=== PATIENT | female | born 1945 | race Caucasian/White ===

== ENCOUNTER → 2017-07-05 09:06 | Outpatient (CLI) | payer MEDICARE, SELFPAY ==
--- NOTE | 2017-07-05 09:10 | MM_ITS ---
MM Dig screening mamm BI w/CAD CAD Screening ORDERING PHYSICIAN : Cristian Zhu MD PATIENT AGE: 71 years GENDER: Female COMPARISON: No previous studies available for comparison INDICATION: 71-year-old. No hormones. No complaints. Noncontributory family history TECHNIQUE: Standard CC and MLO images were obtained. R2 CAD reviewed. Additional axillary cc view right breast and CC nipple profile view left breast FINDINGS: Low-density breast. Diffuse fatty replacement... No dominant mass nor suspicious calcifications in either breast Small round densities at the deep axillary tail of both right left breast are most compatible with small intramammary lymph nodes.. lFollow the small 7 mm noted at the left axilla is umbilicated. Smaller similar area at the right axillary region. Also generous lymph nodes towards the left axilla and I would direct or physical exam to this region. It is only partially imaged but appears contain central fat with upper normal thickness of cortex. If significant palpable left axilla encountered adenopathy then ultrasound correlation would be warranted of left axilla and breast Otherwise up in one year the adequate and should be emphasized, encouraged. ------ IMPRESSION: Baseline mammogram. The breasts demonstrate no areas of significant concern. What appear to be small intramammary lymph nodes seen at tail bilaterally but follow-up in one year the adequate . There is a partially imaged 2 cm lymph node with slightly generous cortex thickness. With this.I would directed physical exam to the axillary regions to exclude any significant palpable adenopathy. Note comments in text BI-RADS Category: 2 Benign Finding(s) RECOMMENDED FOLLOW-UP: 1YR - 1 YEAR FOLLOW-UP (A letter has been sent to the patient regarding results of the study.) Screening
--- NOTE | 2017-07-05 09:11 | XR_ITS ---
XR DEXA axial skeleton HISTORY: ITS.REASON: POST MENOPAUSAL ORDERING PHYSICIAN: Cristian Zhu MD PATIENT AGE: 71 years COMPARISON: None FINDINGS: The BMD measured at the right femoral neck is -1.9 g/cm squared with a T score of T score. This is considered Osteopenic according to the World Health Organization criteria. Fracture risk is Moderate. Treatment is advised.. L1 L4 density has a T score of 0.8 which is within normal limits. IMPRESSION: Osteopenia. Moderate fracture risk. Recommend treatment and follow-up exam June 2019
== END ==
PROVIDERS: PCP Internal Medicine Adolescent Medicine; Visit Provider Internal Medicine Adolescent Medicine
DX: Z12.31 Encounter for screening mammogram for malignant neoplasm of breast (principal); Z78.0 Asymptomatic menopausal state; Z13.820 Encounter for screening for osteoporosis
CPT/HCPCS: 77067; 77080

== ENCOUNTER → 2017-09-15 09:47 | Outpatient (CLI) | payer MEDICARE, SELFPAY ==
--- NOTE | 2017-09-15 | CT_ITS ---
CT angio neck INDICATION: ITS.REASON: BILAT CAROTID STENOSIS ORDERING PHYSICIAN: Sharon Escalera PATIENT AGE: 71 years COMPARISON: TECHNIQUE: Axial images are obtained following the bolus administration of 100 mg of Isovue-370 contrast. Sagittal and coronal reformatted images are reviewed as well. All CT scans at the facility use one or more dose reduction, viz: automated exposure control; ma/kV adjustment per patient size (including targeted exams where dose is matched to indication; i.e. head); or iterative reconstruction technique. FINDINGS: Atherosclerotic changes involve the aortic arch and ostia of the great vessels. The left vertebral artery originates from the aortic arch as opposed to the left subclavian artery. Calcific plaque is present at the ostium of the left vertebral artery with suspected high-grade stenosis. It is somewhat difficult to determine the degree of stenosis secondary to the artifact from the plaque and cardiac motion. The right common carotid artery shows no significant stenosis. There is tortuosity at the bifurcation of the right carotid with dense calcification at the proximal aspect of the right internal carotid. This calcification creates some artifact. There is at least 70 % stenosis of the mid aspect of the right internal carotid.. The distal right internal carotid has an unremarkable appearance. No significant intracranial stenosis evident of the right ICA. Left common carotid has an unremarkable appearance. There is 50% stenosis of the proximal aspect of the left ICA with dense calcification at the bifurcation. Moderate tortuosity of the left ICA. The distal left ICA is unremarkable. No significant intracranial stenosis evident of the left ICA. Images were also obtained of the intracranial circulation showing no evidence of aneurysm or Major intracranial occlusive process. Coronary artery calcifications are also present. Scattered small nodes are present in the neck. Centrilobular emphysema. Dentures are in place. IMPRESSION: 1. 70-75% stenosis of the proximal to mid aspect of the right internal carotid artery with significant calcific plaque and tortuosity. 2. 50% stenosis of the proximal aspect of the left ICA with dense calcific plaque and tortuosity. 3. 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 Centrilobular emphysematous change 5. Coronary artery calcification
[2017-09-15 12:16] LABS: Blood Urea Nitrogen 13 mg/dL (7-18); Creatinine,Serum 0.82 mg/dL (0.55-1.02); Estimated Glomerular Filt Rate 69 ml/min (>60); GFR (African American) 83 ML/MIN (>60)
--- NOTE | 2017-09-15 12:59 | HMH.ITSHM ---
lisinopril aspirin calcium citrate alprazolam delilant
== END ==
PROVIDERS: PCP Internal Medicine Adolescent Medicine; Visit Provider Nurse Practitioner Family
DX: I65.23 Occlusion and stenosis of bilateral carotid arteries (principal)
CPT/HCPCS: 36415; 70498; 82565; 84520; Q9967

== ENCOUNTER → 2017-10-23 07:43 | Outpatient (CLI) | payer MEDICARE, SELFPAY ==
[2017-10-23 08:55] LABS: Alanine Aminotransferase 25 U/L (12-78); Albumin Level 3.9 gm/dL (3.4-5.0); Albumin/Globulin Ratio 1.1 (1.1-1.8); Alkaline Phosphatase 113 U/L (46-116); Aspartate Amino Transferase 20 U/L (15-37); Bilirubin,Total 0.3 mg/dL (0.2-1.0); Blood Urea Nitrogen 16 mg/dL (7-18); Calcium 9.7 mg/dL (8.5-10.1); Carbon Dioxide 29 mmol/L (21.0-32.0); Chloride 103 mmol/L (98-107); Chol/HDL Ratio 5.8 (1-3.5); Cholesterol 161 mg/dL (140-200); Estimated Glomerular Filt Rate 70 ml/min (>60); GFR (African American) 85 ML/MIN (>60); Globulin 3.6 gm/dl (1.3-3.2); Glucose 93 mg/dL (74-106); HDL Cholesterol 28 mg/dL (29-89); LDL Cholesterol 107 mg/dL (0-130); Sodium 140 mmol/L (136-145); Total Protein,Serum 7.5 gm/dL (6.4-8.2); Triglycerides 130 mg/dL (30-200); VLDL Cholesterol 26 mg/dL (0-40)
== END ==
PROVIDERS: Visit Provider Nurse Practitioner Family
DX: I10 Essential (primary) hypertension (principal); E78.5 Hyperlipidemia, unspecified
CPT/HCPCS: 36415; 80053; 80061

== ENCOUNTER → 2017-10-23 08:06 | Outpatient (POV) | payer MEDICARE, SELFPAY | PROVIDERS: PCP Internal Medicine Adolescent Medicine; Visit Provider Physician Assistant | DX: Z00.00 Encounter for general adult medical examination without abnormal findings (principal) ==

== ENCOUNTER 2017-12-23 02:19 | Observation (INO) ==
[2017-12-23 02:52] LABS: Basophils % 0.1 % (0.1-2.0); Eosinophils # 0.3 K/mm3 (0.0-0.4); Eosinophils % 2.7 % (0.1-12.0); Hematocrit 32.9 % (37.0-47.0); Lymphocytes # 1.6 K/mm3 (0.7-4.5); Lymphocytes % 15.5 K/mm3 (10-50); Mean Corpuscular HGB Conc 33.4 g/dL (31.8-35.4); Mean Corpuscular Hemoglobin 26.2 pg (27.0-31.2); Mean Corpuscular Volume 78.6 fl (81-99); Mean Platelet Volume 6.7 fl (7.4-10.4); Monocytes # 0.6 K/mm3 (0.1-1.0); Monocytes % 5.8 % (1.7-9.3); Neutrophils # 7.9 K/mm3 (1.8-7.8); Neutrophils % 75.9 % (37.0-80.0); Platelet Count 350 K/mm3 (142-424); Red Blood Count 4.19 M/mm3 (4.20-5.40); Red Cell Distribution Width 15.6 % (11.5-17.5); White Blood Count 10.3 K/mm3 (4.8-10.8)
--- NOTE | 2017-12-23 02:56 | Emergency Department Note ---
ED Disposition Clinical Impression: Nausea and vomiting in adult patient, Hyponatremia Disposition: Admitted as Observation Condition on Discharge: Good Instructions: DI for Diarrhea and Traveler's Diarrhea -- Adult, DI for Diarrhea and Traveler's Diarrhea -- Child, DI for Nausea -- Adult, DI for Nausea -- Child Referrals: Cristian Zhu MD [Primary Care Provider] - - Critical Care Critical Care Time: No Attestation: On 12/23/17, the high probability of a clinically significant, sudden or life threatening deterioration of the following system(s) required my full and direct attention, intervention and personal management. The time I documented below is in addition to time spent performing reported procedures but includes the following listed in this critical care notation. Medical Decision Making - Medical Records Medical records reviewed: Yes: I reviewed the patient's medical records. - [place] Inquiry Pt receiving controlled substance: No Vital Signs: 12/23/17 02:24 12/23/17 02:44 12/23/17 03:50 Temperature 98.5 F Temperature Source Oral Pulse Rate [Right Radial] 78 74 70 Respiratory Rate 18 Blood Pressure [Right Arm] 179/69 148/63 160/78 Blood Pressure Mean [Right Arm] 105 91 105 Blood Pressure Source [Right Arm] Manual Cuff/ Auscultation Automatic Cuff Automatic Cuff Blood Pressure Position [Right Arm] Sitting 02 Sat by Pulse Oximetry 97 95 97 Oxygen Delivery Method Room Air - Lab Data Lab results reviewed: Yes: I reviewed the patient's lab results. Lab Results 12/23/17 02:33: WBC 10.3, RBC 4.19 L, Hgb 11.0 L, Hct 32.9 L, MCV 78.6 L, MCH 26.2 L, MCHC 33.4, RDW 15.6, Plt Count 350, MPV 6.7 L, Neut % (Auto) 75.9, Lymph % (Auto) 15.5, [place] % (Auto) 5.8, Eos % (Auto) 2.7, Baso % (Auto) 0.1, Neut # (Auto) 7.9 H, Lymph # (Auto) 1.6, [place] # (Auto) 0.6, Eos # (Auto) 0.3, Baso # (Auto) 0.0 12/23/17 02:33: Sodium 128 L, Potassium 3.7, Chloride 92 L, Carbon Dioxide 25, Anion Gap 14.7, BUN 13, Creatinine 0.75, Estimated Creat Clear 56, Estimated GFR 76, Est GFR ( Amer) 92, Glucose 113 H, Calcium 8.9, Total Bilirubin 0.5, AST 45 H, ALT 68, Alkaline Phosphatase 128 H, Total Creatine Kinase 54, CK- MB (CK-2) 1.1, CK-MB (CK-2) Rel Index 2.0, Troponin I 0.11 H, Total Protein 8.0 , Albumin 3.8, Globulin 4.2 H, Albumin/Globulin Ratio 0.9 L, Amylase 33, Lipase 198 12/23/17 03:17: Urine Color Yellow, Urine Appearance Clear, Urine pH 7.5, Ur Specific [place] 1.015, Urine Protein Trace, Urine Glucose (UA) Negative, Urine Ketones Trace, Urine Blood Negative, Urine Nitrate Negative, Urine Bilirubin Negative, Urine Urobilinogen 0.2, Ur Leukocyte Esterase Negative, Urine RBC Occasional, Urine WBC 3-5, Ur Squamous Epith Cells 3-5, Urine Bacteria Trace 12/23/17 04:05: Troponin I 0.11 H Result diagrams: 12/23/17 02:33 12/23/17 02:33 Orders (Tests/Meds): ED MEDICATIONS Discontinued Medications Generic Name Dose Route Start Last Admin Trade Name Freq PRN Reason Stop Dose Admin Sodium Chloride 1,000 mls @ 999 mls/hr 12/23/17 02:30 12/23/17 02:40 Sod Chlor 0.9% 1000ml Bag IV 12/23/17 03:30 999 mls/hr .Q1H1M ARIELLA Administration Ondansetron HCl 4 mg 12/23/17 02:29 12/23/17 02:40 Zofran 4mg/2ml Vial IV 12/23/17 02:30 4 mg ONCE ONE Administration ORDERS Category Date Time Status CT abdomen pelvis wo con Stat Cat Scan 12/23/17 02:29 Taken XR chest 2V Stat Exams 12/23/17 02:29 Taken - Radiology Data #1 Image(s): Chest Image Reviewed: Yes I reviewed the patient's radiology image Preliminary Findings: Abnormal (nonspecific) - CT Data CT Scan: Abdomen, Pelvis Time Received: 05:[address] Reviewed: Yes: I have viewed the radiologist's interpretation Preliminary Findings: Abnormal (nonspecific) - ECG Data Tracing #1 I reviewed this ECG and interpreted as documented below: Normal Sinus Rhythm: Yes Ischemic changes: non-specific ST-T wave changes - Physician Consults Physician Consulted: elisha Reason -: Admission Nausea/Vomiting/Diarrhea HPI - General Chief complaint: Nausea/Vomiting/Diarrhea Stated complaint: Vomiting,High Blood Pressure Time Seen by Provider: 12/23/17 02:30 Mode of Arrival: Family Vehicle Source of Information: Patient, Relative, Medical Record Limitations: No Limitations Description of Symptoms (Recalled from ER Triage Doc. by RN): pt s/p right carotid endarectomy on monday. pt presents to ed with c/o nausea/vomiting, overall not feeling well, and hypertension at home. pt reports bp of 200/70 at home. - History of Present Illness HPI Narrative: pt with recent surg at - rt carotid endarectomy - she stayed 2 days and was d /c and has dev nausea and vomiting with dec po intake with no chest pain or sob with some upper abd pain assoc with vomiting - no sig sob and no fever MD complaint: nausea, vomiting Onset (ago): day(s) Associated Abdominal Pain: Yes Location of pain: epigastric Severity: moderate Consistency: intermittent Exacerbating factors: eating Context: recent surgery/procedure Associated symptoms: denies other symptoms - Related Data Home Medications Medication Instructions Recorded Confirmed alprazolam 0.5 mg tablet 0.5 mg PO Q6HP PRN 30 Days #120 12/01/17 12/23/17 lisinopril 20 1 tab PO DAILY 90 Days #90 12/01/17 12/23/17 mg-hydrochlorothiazide 12.5 mg tablet Aspirin [Aspirin 81mg chewable 81 mg PO DAILY 12/23/17 12/23/17 tab] Atorvastatin Calcium [Atorvastatin 5 mg PO DAILY 12/23/17 12/23/17 10mg Tab] Docusate Sodium [Colace] 100 mg PO BID 12/23/17 12/23/17 hydroCHLOROthiazide 12.5 mg PO DAILY 12/23/17 12/23/17 [Hydrochlorothiazide 12.5mg Tab] Allergies Allergy/AdvReac Type Severity Reaction Status Date / Time BUTE ? Allergy Unknown FEELS LIKE Uncoded 04/25/17 14:42 IN A BARREL DOXYCYCLINE Allergy Unknown NA-NAUSEA Uncoded 04/25/17 14:42 From AUGMENTIN Allergy Unknown NA-NAUSEA Uncoded 04/25/17 14:42 From NEXIUM Allergy Unknown I-HIVES Uncoded 04/25/17 14:42 SULFA (SULFONAMIDE) Allergy Unknown NA-NAUSEA/V Uncoded 04/25/17 14:42 OMITING [facility] History I have reviewed the patient's past medical history: Yes Medical History: Reports:: Coronary Artery Disease, Hypertension Denies:: Cancer, Diabetes Mellitus Type 1, Diabetes Mellitus Type 2, MRSA Other Surgeries: Yes: Cholecystectomy Amputation: No Fractures: Yes Comment: wrist - Social History Smoking Status: Former smoker Alcohol Intake: never Substance Use Type: denies use - Psychiatric History Expresses thoughts of harming self/others: None Suicide Plan Description: No Plan ROS Obtained: Yes All systems reviewed & no additional complaints - Constitutional Constitutional: Denies fever(s) - Eyes Eyes: Denies change in vision - ENT Ears, Nose, Mouth, and Throat: Denies sore throat - Cardiovascular Cardiovascular: Denies chest pain - Respiratory Respiratory: No cough - Gastrointestinal Gastrointestingal: Reports: abdominal pain, nausea, vomiting. Denies: diarrhea - Genitourinary Female Genitourinary: Denies hematuria - Musculoskeletal Musculoskeletal: Denies joint pain, Denies joint swelling - Integumentary/Breasts Skin/Breast: Denies rash - Neurologic Neurologic: Denies seizure-like activity Physical Exam - General General appearance: in no apparent distress - Head Head exam: normocephalic - Eye Eye exam: Present: PERRL, EOMI. Absent: scleral icterus - ENT ENT exam: Present: mucous membranes dry - Neck Neck exam: Present: trachea midline - Respiratory Respiratory exam: Present: normal lung sounds bilaterally. Absent: respiratory distress - Cardiovascular Cardiovascular exam: Present: regular rate, systolic murmur, +S4 - Abdominal Exam Abdominal exam: Present: soft Abdominal tenderness: Present: epigastrium, mild - Extremities Exam Extremities exam: Absent: calf tenderness - Neurological Exam Neurological exam: Present: alert, oriented X3, CN II-XII intact - Psychiatric Psychiatric exam: Present: normal affect - Skin Skin exam: Absent: rash
[2017-12-23 03:18] LABS: Albumin Level 3.8 gm/dL (3.4-5.0); Albumin/Globulin Ratio 0.9 (1.1-1.8); Anion Gap 14.7 mEq/L (5-15); Bilirubin,Total 0.5 mg/dL (0.2-1.0); Calcium 8.9 mg/dL (8.5-10.1); Globulin 4.2 gm/dl (1.3-3.2); Potassium 3.7 mmoL/L (3.5-5.1)
[2017-12-23 03:20] LABS: Microscopic, Urine URINE MICROSCOPIC (MICROSCOPIC)
[2017-12-23 03:21] LABS: Appearance,Urine CLEAR (Clear); Bilirubin,Urine Negative (Negative); Blood, Urine Negative (Negative); Color,Urine YELLOW (Yellow); Glucose,Urine (UA) Negative (Negative); Ketones,Urine TRACE (Negative); Leukocyte Esterase,Urine Negative (Negative); PH,Urine 7.5 (5.0-8.5); Protein,Urine TRACE (Negative); Specific Gravity, Urine 1.015 (1.005-1.030); Urobilinogen,Urine 0.2 EU/dl (0.2)
[2017-12-23 04:41] LABS: Bacteria,Urine Trace /lpf; RBC,Urine Occasional #/hpf (0-3)
[2017-12-23 07:49] LABS: T4 (Thyroxine) 13.8 ug/dl (4.7-13.3); Thyroid Stimulating Hormone 0.77 uIU/ml (0.358-3.740)
--- NOTE | 2017-12-23 07:52 | History & Physical Report ---
*Admission Date: 12/23/17 *Chief complaint: Nausea/vomiting/hyponatremia *History of present illness: 72-year-old white female with hypertension and cerebrovascular disease who underwent carotid endarterectomy at [facility] on December 19 that was uncomplicated although patient's postoperative course was notable for significant hypertension in the hospital. She improved a little bit in the hospital but was somewhat nauseated, was discharged home yesterday on the assumption that her blood pressure would improve at home. Unfortunately it has not, her daughter has doubled up on her medication the patient is continued to be nauseated and came back to the emergency department early this morning nauseous, vomiting and was found to be weak, hypertensive and afflicted with hyponatremia. She was admitted to hospital for further evaluation and further diagnostic testing. [facility] History I have reviewed the patient's past medical history: Yes Medical History: Reports:: Coronary Artery Disease, Hypertension Denies:: Cancer, Diabetes Mellitus Type 1, Diabetes Mellitus Type 2, MRSA Laterality Cases: Right: Carotid Endarterectomy Other Surgeries: Yes: Cholecystectomy Amputation: No Fractures: Yes - *Social History Educational Level: Completed High School Smoking Status: Former smoker Alcohol Intake: never Substance Use Type: denies use Occupational Status: retired Housing: house Household Members: spouse - Psychiatric History Expresses thoughts of harming self/others: None Suicide Plan Description: No Plan *Family Hx:: No significant family history, Hypertension Review of Systems - Review of Systems Review of systems:: pertinent systems reviewed and negative unless documented below - Constitutional Denies anorexia, Denies body ache(s), Denies daytime sleepiness - Eyes Denies blurry vision, Denies change in vision - ENT Denies bleeding gums, Denies change in voice - *Cardiovascular Denies chest pain, Denies excessive sweating, Denies shortness of breath, Denies generalized swelling, Denies irregular heart rhythm - *Respiratory Denies change in phlegm color, Denies chest congestion, Denies cough - *Gastrointestinal Reports nausea, Reports vomiting, Denies abdominal pain, Denies coffee ground vomit, Denies constipation, Denies vomiting blood, Denies bright, red blood in stools - *Genitourinary Denies abnormal periods - *Musculoskeletal Denies joint pain, Denies joint swelling - Integumentary/Breasts Denies hair loss - *Neurologic Denies seizure-like activity Meds Home Medications Medication Instructions Recorded Confirmed Type alprazolam 0.5 mg tablet 0.5 mg PO Q6HP PRN 30 Days #120 12/01/17 12/23/17 History lisinopril 20 1 tab PO DAILY 90 Days #90 12/01/17 12/23/17 History mg-hydrochlorothiazide 12.5 mg tablet Aspirin [Aspirin 81mg chewable 81 mg PO DAILY 12/23/17 12/23/17 History tab] Atorvastatin Calcium [Atorvastatin 5 mg PO DAILY 12/23/17 12/23/17 History 10mg Tab] Docusate Sodium [Colace] 100 mg PO BID 12/23/17 12/23/17 History hydroCHLOROthiazide 12.5 mg PO DAILY 12/23/17 12/23/17 History [Hydrochlorothiazide 12.5mg Tab] Allergies Allergy/AdvReac Type Severity Reaction Status Date / Time BUTE ? Allergy Unknown FEELS LIKE Uncoded 04/25/17 14:42 IN A BARREL DOXYCYCLINE Allergy Unknown NA-NAUSEA Uncoded 04/25/17 14:42 From AUGMENTIN Allergy Unknown NA-NAUSEA Uncoded 04/25/17 14:42 From NEXIUM Allergy Unknown I-HIVES Uncoded 04/25/17 14:42 SULFA (SULFONAMIDE) Allergy Unknown NA-NAUSEA/V Uncoded 04/25/17 14:42 OMITING Exam Vital signs and Labs for Last 24 Hours: Temp Pulse Resp BP Pulse Ox 99.2 F 80 18 159/48 94 L 12/23/17 06:05 12/23/17 06:05 12/23/17 06:05 12/23/17 06:05 12/23/17 06:56 Laboratory Results - last 24 hr 12/23/17 02:33: WBC 10.3, RBC 4.19 L, Hgb 11.0 L, Hct 32.9 L, MCV 78.6 L, MCH 26.2 L, MCHC 33.4, RDW 15.6, Plt Count 350, MPV 6.7 L, Neut % (Auto) 75.9, Lymph % (Auto) 15.5, [place] % (Auto) 5.8, Eos % (Auto) 2.7, Baso % (Auto) 0.1, Neut # (Auto) 7.9 H, Lymph # (Auto) 1.6, [place] # (Auto) 0.6, Eos # (Auto) 0.3, Baso # (Auto) 0.0 12/23/17 02:33: Sodium 128 L, Potassium 3.7, Chloride 92 L, Carbon Dioxide 25, Anion Gap 14.7, BUN 13, Creatinine 0.75, Estimated Creat Clear 56, Estimated GFR 76, Est GFR ( Amer) 92, Glucose 113 H, Calcium 8.9, Total Bilirubin 0.5, AST 45 H, ALT 68, Alkaline Phosphatase 128 H, Total Creatine Kinase 54, CK- MB (CK-2) 1.1, CK-MB (CK-2) Rel Index 2.0, Troponin I 0.11 H, Total Protein 8.0 , Albumin 3.8, Globulin 4.2 H, Albumin/Globulin Ratio 0.9 L, Amylase 33, Lipase 198 12/23/17 03:17: Urine Color Yellow, Urine Appearance Clear, Urine pH 7.5, Ur Specific [place] 1.015, Urine Protein Trace, Urine Glucose (UA) Negative, Urine Ketones Trace, Urine Blood Negative, Urine Nitrate Negative, Urine Bilirubin Negative, Urine Urobilinogen 0.2, Ur Leukocyte Esterase Negative, Urine RBC Occasional, Urine WBC 3-5, Ur Squamous Epith Cells 3-5, Urine Bacteria Trace 12/23/17 04:05: Troponin I 0.11 H I & O for Last 24 hours: Intake & Output 12/20/17 12/21/17 12/22/17 12/23/17 11:59 11:59 11:59 11:59 Output Total 0 / 0 Balance 0 / 0 Weight 147 lb 2 oz Narrative: ENT exam reveals slightly dry but otherwise clear oropharynx. She has no scleral icterus her neck scar on the right looks good. Good healing. Anterior lung allan are clear, heart rate regular, abdomen soft nontender. No masses. No clubbing, cyanosis, no edema, no jaundice. Move all extremities well. No cranial nerve deficits. Assessment and Plan (1) Accelerated hypertension Current visit: Yes Status: Acute Category: Medical Code(s): I10 - Essential (primary) hypertension Hold HCTZ given her hyponatremia. Double lisinopril to 20 mg twice daily. Blood pressure this morning is in the upper 150s. (2) Hyponatremia Current visit: Yes Status: Acute Category: Medical Code(s): E87.1 - Hypo- osmolality and hyponatremia Normal saline infusion. Check labs tomorrow. Advance diet cautiously. (3) Nausea and vomiting in adult patient Current visit: Yes Status: Acute Category: Medical Code(s): R11.2 - Nausea with vomiting, unspecified Possibly from anesthesia effect. Seems to be improving since fluids started. Watch carefully. Possible discharge tomorrow. If discharges recommend holding HCTZ and using lisinopril 20 mg twice daily if this controls her blood pressure in house.
--- NOTE | 2017-12-23 08:58 | Pharmacy Consult Notes ---
[facility] Pharmacy VTE Monitoring - Patient Demographics Admission date: 12/23/17 Report Date: 12/23/17 Time: 08:57 Allergies/Adverse Reactions: Patient Allergies esomeprazole [From Nexium] Allergy (Intermediate, Verified 12/23/17 08:35) Hives amoxicillin [From Augmentin] Adverse Reaction (Intermediate, Verified 12/23/17 08:35) Nausea clavulanic acid [From Augmentin] Adverse Reaction (Intermediate, Verified 08:35) Nausea doxycycline Adverse Reaction (Intermediate, Verified 12/23/17 08:35) Nausea Sulfa (Sulfonamide Antibiotics) Adverse Reaction (Intermediate, Verified 08:35) Nausea BUTE ? Allergy (Unknown, Uncoded 04/25/17 14:42) FEELS LIKE IN A BARREL Height: 1.63 m Weight: 66.735 kg Patient Problems: Current Active Problems Nausea and vomiting in adult patient (Acute) Hyponatremia (Acute) Accelerated hypertension (Acute) - VTE Risk Labs: VTE Related Lab Results Hgb 11.0 g/dL (12.2-16.2) L 12/23/17 02:33 Hct 32.9 % (37.0-47.0) L 12/23/17 02:33 Plt Count 350 K/mm3 (142-424) 12/23/17 02:33 BUN 13 mg/dL (7-18) 12/23/17 02:33 Creatinine 0.75 mg/dL (0.55-1.02) 12/23/17 02:33 Estimated Creat Clear 56 mL/min (0-300) 12/23/17 02:33 Was VTE Risk Assessment Performed: Yes VTE Score: 4 VTE Risk Level: Low Risk - Prophylaxis Types of VTE Prophylaxis: TEDS Knee High (YOSVANY HOSE ORDERED) Location of Applied Device: Not Applicable
[2017-12-24 07:19] LABS: Basophils % 0.3 % (0.1-2.0); Eosinophils # 0.3 K/mm3 (0.0-0.4); Lymphocytes # 1.8 K/mm3 (0.7-4.5); Lymphocytes % 18.1 K/mm3 (10-50); Mean Corpuscular HGB Conc 33.3 g/dL (31.8-35.4); Mean Corpuscular Hemoglobin 26.8 pg (27.0-31.2); Mean Corpuscular Volume 80.5 fl (81-99); Mean Platelet Volume 6.6 fl (7.4-10.4); Monocytes # 0.6 K/mm3 (0.1-1.0); Monocytes % 6.1 % (1.7-9.3); Neutrophils # 7.3 K/mm3 (1.8-7.8); Neutrophils % 72.4 % (37.0-80.0); Platelet Count 342 K/mm3 (142-424); Red Blood Count 3.72 M/mm3 (4.20-5.40); Red Cell Distribution Width 16.1 % (11.5-17.5); White Blood Count 10.1 K/mm3 (4.8-10.8)
[2017-12-24 07:28] LABS: Albumin Level 3.4 gm/dL (3.4-5.0); Albumin/Globulin Ratio 0.9 (1.1-1.8); Anion Gap 12.6 mEq/L (5-15); Bilirubin,Total 0.5 mg/dL (0.2-1.0); Calcium 8.5 mg/dL (8.5-10.1); Globulin 3.7 gm/dl (1.3-3.2); Potassium 3.6 mmoL/L (3.5-5.1); Total Protein,Serum 7.1 gm/dL (6.4-8.2)
--- NOTE | 2017-12-24 07:46 | Discharge Summary ---
General - General Admission date:: 12/23/17 Discharge date: 12/24/17 HPI HPI: 72-year-old white female with hypertension and cerebrovascular disease who underwent carotid endarterectomy at [facility] on December 19 that was uncomplicated although patient's postoperative course was notable for significant hypertension in the hospital. She improved a little bit in the hospital but was somewhat nauseated, was discharged home yesterday on the assumption that her blood pressure would improve at home. Unfortunately it has not, her daughter has doubled up on her medication the patient is continued to be nauseated and came back to the emergency department early this morning nauseous, vomiting and was found to be weak, hypertensive and afflicted with hyponatremia. She was admitted to hospital for further evaluation and further diagnostic testing. Hospital Course Hospital Course: Patient was admitted after being given Zofran for nausea. This worked quite well. Her diet was gradually advanced and she only required 1 additional dose of Zofran late in the evening on December 23. The following morning on December 24 patient had been able to eat without nausea or vomiting. She was overall feeling better and patient was discharged to home. She was discharged home with a prescription for Zofran as well as a prescription for potassium supplement due to hypokalemia Objective Vital signs: Temp Pulse Resp BP Pulse Ox 98.0 F 72 16 196/84 95 12/24/17 07:29 12/24/17 07:29 12/24/17 07:29 12/24/17 07:29 12/24/17 07:29 Results Labs on day of discharge: Labs from last 24 hours 12/24/17 12/24/17 12/23/17 06:40 06:40 12:09 WBC 10.1 RBC 3.72 L Hgb 10.0 L Hct 30.0 L MCV 80.5 L MCH 26.8 L MCHC 33.3 RDW 16.1 Plt Count 342 MPV 6.6 L Neut % (Auto) 72.4 Lymph % (Auto) 18.1 Gordon % (Auto) 6.1 Eos % (Auto) 3.0 Baso % (Auto) 0.3 Neut # (Auto) 7.3 Lymph # (Auto) 1.8 Gordon # (Auto) 0.6 Eos # (Auto) 0.3 Baso # (Auto) 0.0 Sodium 137 Potassium 3.6 Chloride 102 Carbon Dioxide 26 Anion Gap 12.6 BUN 11 Creatinine 0.89 Estimated Creat Clear 53 Estimated GFR 62 Est GFR ( Amer) 75 Glucose 93 Calcium 8.5 Total Bilirubin 0.5 AST 46 H ALT 69 Alkaline Phosphatase 110 Troponin I 0.11 H Total Protein 7.1 Albumin 3.4 D Globulin 3.7 H Albumin/Globulin Ratio 0.9 L TSH Thyroxine (T4) 12/23/17 12/23/17 09:15 07:13 WBC RBC Hgb Hct MCV MCH MCHC RDW Plt Count MPV Neut % (Auto) Lymph % (Auto) Gordon % (Auto) Eos % (Auto) Baso % (Auto) Neut # (Auto) Lymph # (Auto) Gordon # (Auto) Eos # (Auto) Baso # (Auto) Sodium Potassium Chloride Carbon Dioxide Anion Gap BUN Creatinine Estimated Creat Clear Estimated GFR Est GFR ( Amer) Glucose Calcium Total Bilirubin AST ALT Alkaline Phosphatase Troponin I 0.11 H 0.09 H Total Protein Albumin Globulin Albumin/Globulin Ratio TSH 0.77 Thyroxine (T4) 13.8 H DS: Diagnosis - Discharge Diagnosis (1) Accelerated hypertension Status: Acute (2) Hyponatremia Status: Acute (3) Nausea and vomiting in adult patient Status: Acute Discharge Plan - Patient Discharge Instructions ACTIVITY: Continue current activity DIET: continue same diet - Follow up Plan Follow up with: Cristian Zhu MD [Primary Care Provider] - 12/27/17 Disposition: Home, Self-Senior Care Medications: Home Medications Medication Instructions Recorded Confirmed Type alprazolam 0.5 mg tablet 0.5 mg PO Q6HP PRN 30 Days #120 12/01/17 12/23/17 History lisinopril 20 1 tab PO DAILY 90 Days #90 12/01/17 12/23/17 History mg-hydrochlorothiazide 12.5 mg tablet Aspirin [Aspir 81] 81 mg PO DAILY 12/23/17 12/23/17 History Atorvastatin Calcium [Atorvastatin 5 mg PO DAILY 12/23/17 12/23/17 History 10mg Tab] Docusate Sodium [Colace] 100 mg PO BID 12/23/17 12/23/17 History hydroCHLOROthiazide 12.5 mg PO DAILY 12/23/17 12/23/17 History [Hydrochlorothiazide 12.5mg Tab] Prescriptions/Medication Reconciliation: New Potassium Chloride [Klor-con 20 mEq tablet] 20 meq PO BID #60 tab Ondansetron [Zofran 4mg ODT] 4 mg PO Q6HP PRN #30 tab.rapdis PRN Reason: Nausea Continue alprazolam 0.5 mg tablet 0.5 mg PO Q6HP PRN 30 Days #120 PRN Reason: Anxiety lisinopril 20 mg-hydrochlorothiazide 12.5 mg tablet 1 tab PO DAILY 90 Days # 90 Docusate Sodium [Colace] 100 mg PO BID Atorvastatin Calcium [Atorvastatin 10mg Tab] 5 mg PO DAILY Aspirin [Aspir 81] 81 mg PO DAILY Discontinued hydroCHLOROthiazide [Hydrochlorothiazide 12.5mg Tab] 12.5 mg PO DAILY
== END 2017-12-24 08:50 | disposition home or self-care (01) ==
LOC: ER 02:19 → 2ND 02:19
PROVIDERS: ADMIT Family Medicine; ATTEND Internal Medicine Adolescent Medicine
CPT/HCPCS: 36415; 71020; 71046; 74176; 80053; 81001; 82150; 82550; 82553; 83690; 84436; 84443; 84484; 85025; 93005; 96365; 96366; 96375; 99284; G0378; J2405

== ENCOUNTER → 2018-04-16 08:51 | Outpatient (CLI) | payer MEDICARE, SELFPAY ==
[2018-04-16 09:52] LABS: Basophils # 0.1 K/mm3 (0-0.2); Basophils % 0.8 % (0.1-2.0); Eosinophils # 0.2 K/mm3 (0.0-0.4); Eosinophils % 3.5 % (0.1-12.0); Hematocrit 32.4 % (37.0-47.0); Lymphocytes % 28.6 % (10-50); Mean Corpuscular HGB Conc 30.8 g/dL (31.8-35.4); Mean Corpuscular Hemoglobin 25.2 pg (27.0-31.2); Mean Corpuscular Volume 81.7 fl (81-99); Mean Platelet Volume 6.9 fl (7.4-10.4); Monocytes # 0.4 K/mm3 (0.1-1.0); Monocytes % 5.6 % (1.7-9.3); Neutrophils # 4.2 K/mm3 (1.8-7.8); Neutrophils % 61.3 % (37.0-80.0); Platelet Count 401 K/mm3 (142-424); Red Blood Count 3.97 M/mm3 (4.20-5.40); Red Cell Distribution Width 14.8 % (11.5-17.5); White Blood Count 6.8 K/mm3 (4.8-10.8)
[2018-04-16 10:39] LABS: Alanine Aminotransferase 24 U/L (12-78); Albumin/Globulin Ratio 1.1 (1.1-1.8); Alkaline Phosphatase 110 U/L (46-116); Anion Gap 14.5 mEq/L (5-15); Aspartate Amino Transferase 17 U/L (15-37); Bilirubin,Total 0.3 mg/dL (0.2-1.0); Blood Urea Nitrogen 14 mg/dL (7-18); Calcium 9.2 mg/dL (8.5-10.1); Carbon Dioxide 27 mmol/L (21.0-32.0); Chloride 99 mmol/L (98-107); Chol/HDL Ratio 3.7 (1-3.5); Cholesterol 108 mg/dL (140-200); Creatinine,Serum 0.79 mg/dL (0.55-1.02); Estimated Glomerular Filt Rate 71 ml/min (>60); Ferritin 14 ng/mL (8-388); GFR (African American) 86 ML/MIN (>60); Globulin 3.5 gm/dl (1.3-3.2); HDL Cholesterol 29 mg/dL (29-89); LDL Cholesterol 45 mg/dL (0-130); Potassium 4.5 mmoL/L (3.5-5.1); Sodium 136 mmol/L (136-145); Total Protein,Serum 7.5 gm/dL (6.4-8.2); Triglycerides 171 mg/dL (30-200); VLDL Cholesterol 34 mg/dL (0-40)
[2018-04-16 10:46] LABS: Glucose 95 mg/dL (74-106)
[2018-04-17 08:22] LABS: Iron 30 ug/dL (27-139); UIBC 364 ug/dL (118-369)
[2018-04-17 09:17] LABS: Iron Saturation 8 % (15-55); Vitamin B12 445 pg/mL (232-1245)
[2018-04-17 09:18] LABS: Folate 9.2 ng/mL (>3.0)
== END ==
PROVIDERS: Visit Provider Nurse Practitioner Family
DX: D50.9 Iron deficiency anemia, unspecified (principal); E78.5 Hyperlipidemia, unspecified; I10 Essential (primary) hypertension; K57.32 Diverticulitis of large intestine without perforation or abscess without bleeding
CPT/HCPCS: 36415; 80053; 80061; 82607; 82728; 82746; 83540; 83550; 85025

== ENCOUNTER → 2018-07-18 09:08 | Outpatient (CLI) | payer MEDICARE, SELFPAY ==
[2018-07-18 09:41] LABS: Basophils # 0.1 K/mm3 (0-0.2); Eosinophils # 0.3 K/mm3 (0.0-0.4); Eosinophils % 4.4 % (0.1-12.0); Hematocrit 33.8 % (37.0-47.0); Hemoglobin 10.7 g/dL (12.2-16.2); Lymphocytes # 1.8 K/mm3 (0.7-4.5); Lymphocytes % 26.2 % (10-50); Mean Corpuscular HGB Conc 31.6 g/dL (31.8-35.4); Mean Corpuscular Hemoglobin 25.9 pg (27.0-31.2); Mean Corpuscular Volume 81.9 fl (81-99); Mean Platelet Volume 7.2 fl (7.4-10.4); Monocytes # 0.4 K/mm3 (0.1-1.0); Monocytes % 6.1 % (1.7-9.3); Neutrophils # 4.3 K/mm3 (1.8-7.8); Neutrophils % 62.3 % (37.0-80.0); Platelet Count 344 K/mm3 (142-424); Red Blood Count 4.13 M/mm3 (4.20-5.40); Red Cell Distribution Width 15.3 % (11.5-17.5); White Blood Count 6.8 K/mm3 (4.8-10.8)
[2018-07-18 11:49] LABS: Alanine Aminotransferase 23 U/L (12-78); Albumin Level 4.2 gm/dL (3.4-5.0); Albumin/Globulin Ratio 1.1 (1.1-1.8); Alkaline Phosphatase 98 U/L (46-116); Anion Gap 14.3 mEq/L (5-15); Aspartate Amino Transferase 20 U/L (15-37); Bilirubin,Total 0.4 mg/dL (0.2-1.0); Blood Urea Nitrogen 16 mg/dL (7-18); Calcium 9.5 mg/dL (8.5-10.1); Carbon Dioxide 27 mmol/L (21.0-32.0); Chloride 98 mmol/L (98-107); Cholesterol 133 mg/dL (140-200); Creatinine,Serum 0.75 mg/dL (0.55-1.02); Estimated Glomerular Filt Rate 76 ml/min (>60); Ferritin 12 ng/mL (8-388); GFR (African American) 92 ML/MIN (>60); Globulin 3.9 gm/dl (1.3-3.2); HDL Cholesterol 33 mg/dL (29-89); LDL Cholesterol 70 mg/dL (0-130); Potassium 4.3 mmoL/L (3.5-5.1); Sodium 135 mmol/L (136-145); Total Protein,Serum 8.1 gm/dL (6.4-8.2); Triglycerides 150 mg/dL (30-200); VLDL Cholesterol 30 mg/dL (0-40)
[2018-07-18 12:23] LABS: Glucose 82 mg/dL (74-106)
[2018-07-19 08:34] LABS: Iron 40 ug/dL (27-139); UIBC 344 ug/dL (118-369)
[2018-07-19 09:23] LABS: Iron Saturation 10 % (15-55)
== END ==
PROVIDERS: Visit Provider Internal Medicine Adolescent Medicine
DX: I10 Essential (primary) hypertension (principal); D50.9 Iron deficiency anemia, unspecified; I25.10 Atherosclerotic heart disease of native coronary artery without angina pectoris
CPT/HCPCS: 36415; 80053; 80061; 82728; 83540; 83550; 85025

== ENCOUNTER → 2018-07-26 08:34 | Outpatient (CLI) | payer MEDICARE, SELFPAY ==
--- NOTE | 2018-07-26 08:44 | MM_ITS ---
MM Dig screening mamm BI w/CAD ORDERING PHYSICIAN : Sharon Escalera PATIENT AGE: 72 years GENDER: Female COMPARISON: Only one prior mammogram available for comparison dated 07/05/2017 INDICATION: Screening mammogram. No new complaints. No hormones. Noncontributory family history. TECHNIQUE: Standard CC and MLO images were obtained. R2 CAD reviewed. FINDINGS: . Lower density breast with generalized fatty replacement. Minimal residual fibroglandular elements. No significant new findings. Scattered small intramammary nodes at the upper outer quadrant right and left breast is been seen previously and stable. No significant new areas of concern. A generous benign 2 cm left axillary lymph nodes similar to previous study but more fully imaged today . Bilateral follow-up in one year recommended.. IMPRESSION: Stable mammogram with no significant new findings. No areas of significant concern Bilateral follow-up in one year recommended. BI-RADS Category: 2 Benign Finding(s) RECOMMENDED FOLLOW-UP: 1YR 1 YEAR FOLLOW-UP (A letter has been sent to the patient regarding results of the study.)
== END ==
PROVIDERS: PCP Nurse Practitioner Family; Visit Provider Nurse Practitioner Family
DX: Z12.31 Encounter for screening mammogram for malignant neoplasm of breast (principal)
CPT/HCPCS: 77067

== ENCOUNTER → 2018-08-31 10:39 | Outpatient (CLI) | payer MEDICARE, SELFPAY | PROVIDERS: Visit Provider Internal Medicine Adolescent Medicine | DX: N30.90 Cystitis, unspecified without hematuria (principal) | CPT/HCPCS: 87086; 87088; 87186 ==

== ENCOUNTER → 2018-11-12 07:39 | Outpatient (CLI) | payer MEDICARE, SELFPAY ==
[2018-11-12 08:01] LABS: Basophils # 0.1 K/mm3 (0-0.2); Basophils % 0.7 % (0.1-2.0); Eosinophils # 0.4 K/mm3 (0.0-0.4); Eosinophils % 6.8 % (0.1-12.0); Hematocrit 33.6 % (37.0-47.0); Hemoglobin 10.3 g/dL (12.2-16.2); Lymphocytes # 1.8 K/mm3 (0.7-4.5); Lymphocytes % 27.7 % (10-50); Mean Corpuscular HGB Conc 30.7 g/dL (31.8-35.4); Mean Corpuscular Hemoglobin 25.6 pg (27.0-31.2); Mean Corpuscular Volume 83.6 fl (81-99); Mean Platelet Volume 7.7 fl (7.4-10.4); Monocytes # 0.4 K/mm3 (0.1-1.0); Monocytes % 6.6 % (1.7-9.3); Neutrophils # 3.8 K/mm3 (1.8-7.8); Neutrophils % 58.2 % (37.0-80.0); Platelet Count 378 K/mm3 (142-424); Red Blood Count 4.01 M/mm3 (4.20-5.40); Red Cell Distribution Width 14.8 % (11.5-17.5); White Blood Count 6.5 K/mm3 (4.8-10.8)
[2018-11-12 09:40] LABS: Alanine Aminotransferase 24 U/L (12-78); Albumin Level 3.9 gm/dL (3.4-5.0); Albumin/Globulin Ratio 1.1 (1.1-1.8); Alkaline Phosphatase 99 U/L (46-116); Anion Gap 13.3 mEq/L (5-15); Aspartate Amino Transferase 17 U/L (15-37); Bilirubin,Total 0.3 mg/dL (0.2-1.0); Blood Urea Nitrogen 15 mg/dL (7-18); Calcium 9.1 mg/dL (8.5-10.1); Carbon Dioxide 28 mmol/L (21.0-32.0); Chloride 100 mmol/L (98-107); Chol/HDL Ratio 3.8 (1-3.5); Cholesterol 121 mg/dL (140-200); Estimated Glomerular Filt Rate 70 ml/min (>60); Ferritin 11 ng/mL (8-388); GFR (African American) 85 ML/MIN (>60); Globulin 3.6 gm/dl (1.3-3.2); Glucose 97 mg/dL (74-106); HDL Cholesterol 32 mg/dL (29-89); LDL Cholesterol 64 mg/dL (0-130); Potassium 4.3 mmoL/L (3.5-5.1); Sodium 137 mmol/L (136-145); Total Protein,Serum 7.5 gm/dL (6.4-8.2); Triglycerides 126 mg/dL (30-200); VLDL Cholesterol 25 mg/dL (0-40)
[2018-11-13 08:13] LABS: Iron 29 ug/dL (27-139); UIBC 356 ug/dL (118-369)
[2018-11-14 13:53] LABS: Iron Saturation 8 % (15-55)
[2018-11-15 18:20] LABS: Vitamin D 25 Hydroxy 30.9 ng/mL (30.0-100.0)
== END ==
PROVIDERS: Visit Provider Nurse Practitioner Family
DX: D50.9 Iron deficiency anemia, unspecified (principal); I10 Essential (primary) hypertension; I65.23 Occlusion and stenosis of bilateral carotid arteries; M81.0 Age-related osteoporosis without current pathological fracture
CPT/HCPCS: 36415; 80053; 80061; 82652; 82728; 83540; 83550; 85025

== ENCOUNTER → 2019-02-28 14:15 | Outpatient (CLI) | payer MEDICARE, MEDICAID, SELFPAY ==
--- NOTE | 2019-02-28 14:17 | MR_ITS ---
PROCEDURE: MR SHOULDER LT WO CON CLINICAL INDICATION: LEFT UPPER ARM PAIN Mid humeral pain extending into the shoulder, limited range of motion COMPARISON: No exams were available for comparison TECHNIQUE: Routine multiplanar multi echo sequences are performed without gadolinium enhancement. FINDINGS: Mild acromioclavicular hypertrophy with mild subacromial stenosis. There is increased T2 signal involving the distal aspect of the supraspinatus tendon with thickening consistent with tendinopathy/tendinosis. There is discontinuity of the superficial aspect of the supraspinatus tendon at its insertion on the greater tuberosity consistent with a partial tear. No evidence of tendon retraction. There is heterogeneous increased signal intensity along the undersurface of the supraspinatus tendon anteriorly. The infraspinatus tendon, subscapularis tendon, and teres minor tendons are intact. There is discontinuity of the anterior superior glenoid labrum consistent with a SLAP lesion. The bicipital tendon is in place. No obvious fracture. IMPRESSION: 1. Partial tear of the supraspinatus tendon with tendinopathy/tendinosis. 2. Slap tear of the glenoid labrum Dictated by: Tad Castrejon MD 03/01/2019 18:23 Electronically signed by Tad Castrejon MD in [place] 03/02/2019 09:26
== END ==
PROVIDERS: PCP Nurse Practitioner Family; Visit Provider Nurse Practitioner Family
DX: M25.512 Pain in left shoulder (principal); M79.622 Pain in left upper arm
CPT/HCPCS: 73221

== ENCOUNTER → 2019-03-28 10:25 | Outpatient (CLI) | payer MEDICARE, SELFPAY ==
[2019-03-28 13:10] LABS: Cholesterol 131 mg/dL (140-200); Ferritin 7 ng/mL (8-388); HDL Cholesterol 43 mg/dL (29-89); LDL Cholesterol 68 mg/dL (0-130); Thyroid Stimulating Hormone 0.59 uIU/ml (0.358-3.740); Triglycerides 101 mg/dL (30-200); VLDL Cholesterol 20 mg/dL (0-40)
[2019-03-28 13:11] LABS: Blood Urea Nitrogen 15 mg/dL (7-18); Creatinine,Serum 0.79 mg/dL (0.55-1.02); Estimated Glomerular Filt Rate 71 ml/min (>60); GFR (African American) 86 ML/MIN (>60)
== END ==
PROVIDERS: PCP Nurse Practitioner Family; Visit Provider Nurse Practitioner Family
DX: D50.9 Iron deficiency anemia, unspecified (principal); I10 Essential (primary) hypertension; I65.23 Occlusion and stenosis of bilateral carotid arteries
CPT/HCPCS: 36415; 80061; 82565; 82728; 84443; 84520

== ENCOUNTER → 2019-04-02 08:39 | Outpatient (CLI) | payer MEDICARE, MEDICAID, SELFPAY ==
--- NOTE | 2019-04-02 08:52 | CT_ITS ---
Procedure: CT ANGIO NECK CLINICAL HISTORY: BILATERAL CAROTID STENOSIS Follow-up carotid stenosis COMPARISON: AGNECK CT angio neck from 09/15/2017 TECHNIQUE: IV Contrast: 100ml Optiray 350 Axial images obtained with sagittal and coronal reformats. All CT scans at the facility use one or more dose reduction, viz: automated exposure control, ma/kV adjustment per patient size (including targeted exams where dose is matched to indication, i.e. head), or iterative reconstruction technique. FINDINGS: Calcific plaque is present involving the aortic arch. Scattered calcific plaque is present involving the great vessels. Right common carotid: Scattered calcific plaque with approximately 25 percent narrowing of the distal aspect of the right common carotid.. Right internal carotid: The previously noted high-grade stenosis in the mid aspect the right internal carotid artery is no longer apparent. It is assumed that the patient has had and interval carotid endarterectomy although that history is not made available. No significant stenosis of the right internal carotid artery is evident. There is approximately 25 percent narrowing of the distal aspect of the right common carotid artery Left carotid system: Scattered calcific plaque is present involving the left common carotid without significant stenosis. High-grade stenosis involves the proximal left ICA secondary to calcific plaque of approximately 60 percent. This was previously estimated at approximately 50 percent there is some increased calcific plaque superiorly and laterally at this level. High-grade stenosis once again noted at the ostium of the left vertebral artery which originates from the aorta and not the usual origin of the subclavian artery. IMPRESSION: 1. Previously noted high-grade stenosis of the right ICA no longer apparent presumed status post carotid endarterectomy. 2. High-grade stenosis of the proximal left ICA at approximately 65-70 percent and appears slightly greater compared to the previous exam. 3. No change high-grade stenosis ostium of the dominant left vertebral artery Dictated by: Tad Castrejon MD 04/03/2019 11:53 Electronically signed by Tad Castrejon MD in [place] 04/09/2019 10:27
== END ==
PROVIDERS: PCP Nurse Practitioner Family; Visit Provider Nurse Practitioner Family
DX: I65.23 Occlusion and stenosis of bilateral carotid arteries (principal)
CPT/HCPCS: 70498; Q9967

== ENCOUNTER 2019-04-09 09:00 | Outpatient (RCR) | payer MEDICARE, MEDICAID, SELFPAY ==
--- NOTE | 2019-02-06 09:45 | HMH.OTOPEV ---
OT Inpatient Evaluation Rehab OT Outpatient Eval Start: 02/06/19 09:32 Freq: Status: Active Protocol: Document 02/04/19 10:32 [facility] (Rec: 02/06/19 09[facility]45 [facility] [id number] Electronically Signed By Faraz Dowling OT 02/04/19 10:32 Outpatient Therapy Subjective History Subjective History Pt is a 73 year old female who reports to therapy for initial evaluation to L UE/ shoulder. Pt reports she has significant pain during quick motions in the left bicep area . Pt's pain began ~2 months ago and she does not recall a specific injury causing this pain. Upon evaluation, pt demonstrated with a significant decline in AROM and strength at left shoulder. As of now, pt has not had an x-ray or MRI. Pt will continue to be seen twice a week in order to address all deficits. Chief Complaint Pain,Stiff Symptom Type Ache,Throb,Sharp,Dull,Shooting Symptoms Relieved By Rest/Positioning Symptoms Aggravated By Physical Activity,Twisting, Lifting Prior Functional Limitations None Current Functional Limitations Reaching,Lifting,Housework, Recreation Activity Symptom Description Intermittent,Activity Dependent Level of pain today (0-10) 1 Pain scale - at its best (0-10) 1 Pain scale - at its worst (0-10) 10 Shoulder/Elbow Eval Shoulder Objective Measurements Shoulder ROM Left Shoulder Abduction Active Range of 100 degrees Motion (degrees) Shoulder Flexion Active Range of Motion 95 degrees (degrees) Query Text: Shoulder External Rotation Active Range 30 degrees of Motion (degrees) Shoulder Internal Rotation Active Range 30 degrees of Motion (degrees) pain with active ROM shoulder exam left standard pain with passive ROM shoulder exam left standard decreased ROM shoulder exam standard left full ROM shoulder exam standard right Shoulder MMT Shoulder Abduction Strength Grade 3+ Fair+ Shoulder Extension Strength Grade 4- Good- Shoulder Flexion Strength Grade 3+ Fair+ Shoulder External Rotation Strength 4- Good- Grade Shoulder Internal Rotation Strength 4- Good-
--- NOTE | 2019-03-14 10:28 | HMH.RHREAS ---
Rehab Reassessment Rehab OP Re-assessment Start: 03/14/19 09:32 Freq: Status: Active Protocol: Document 03/14/19 09:33 [facility] (Rec: 03/14/19 10:27 [facility] [id number]) Electronically Signed By Faraz Dowling OT 03/14/19 09:33 Rehab Re-assessment Subjective Subjective I see improvement. Objective Objective Notes Pt continues to be seen twice a week in order to address left shoulder deficits. Pt engages in L shoulder AROM/ AAROM/Strengthening exercises. Pt is also passively ranged in all planes at the left shoulder in order to increase AROM. Pt does receive modalities such as e-stim in order to decrease pain/ inflammation. Assessment Progress Assessment Progressing as Expected Assessment Notes Pt's AROM and strength has improved slightly. Pt continues to be limities. Pt did have MRI completed which showed a partial tear of the supraspinatus and a superior labrum tear at left shoulder. As of right now, pt does not want to go to an ortho to be evaluated and only wants to continue with therapy. Current AROM L shoulder Flex: 125 degrees Abd: 110 degrees ER: 55 degrees IR: 35 degrees Patient goals met N/A Goals Not Met STG and LTG Revised Goals Continue with STG and LTG written on initial evaluation. Plan Plan Continue with OT plan of care at this time Frequency of Therapy 2x's a week Duration of therapy 6 more weeks Time and Billing Re-Eval Time 15 Re-Eval Billing Units 1 PHYSICIAN CERTIFICATION: I certify the specified therapy services for Mei Crain are required, authorized, and reviewed every 30 days.
== END 2019-04-09 09:05 | disposition home or self-care (01) ==
LOC: OT 09:00
PROVIDERS: Visit Provider Nurse Practitioner Family
DX: M79.622 Pain in left upper arm (principal); M65.832 Other synovitis and tenosynovitis, left forearm
CPT/HCPCS: 97014; 97110; 97140; 97164; 97165; G0283

== ENCOUNTER → 2019-07-22 08:52 | Outpatient (CLI) | payer MEDICARE, SELFPAY ==
[2019-07-22 09:10] LABS: Basophils # 0.1 K/mm3 (0-0.2); Basophils % 0.8 % (0.1-2.0); Eosinophils # 0.3 K/mm3 (0.0-0.4); Hematocrit 36.5 % (37.0-47.0); Hemoglobin 11.5 g/dL (12.2-16.2); Lymphocytes # 1.5 K/mm3 (0.7-4.5); Lymphocytes % 23.6 % (10-50); Mean Corpuscular HGB Conc 31.4 g/dL (31.8-35.4); Mean Corpuscular Hemoglobin 25.9 pg (27.0-31.2); Mean Corpuscular Volume 82.5 fl (81-99); Mean Platelet Volume 7.4 fl (7.4-10.4); Monocytes # 0.4 K/mm3 (0.1-1.0); Monocytes % 6.2 % (1.7-9.3); Neutrophils % 64.4 % (37.0-80.0); Platelet Count 356 K/mm3 (142-424); Red Blood Count 4.42 M/mm3 (4.20-5.40); Red Cell Distribution Width 16.3 % (11.5-17.5); White Blood Count 6.3 K/mm3 (4.8-10.8)
[2019-07-22 10:17] LABS: Chloride 100 mmol/L (98-107); Sodium 138 mmol/L (136-145)
[2019-07-22 10:18] LABS: Potassium 4.4 mmoL/L (3.5-5.1)
[2019-07-22 10:20] LABS: Alanine Aminotransferase 24 U/L (12-78); Albumin Level 4.7 g/dl (3.5-5.0); Alkaline Phosphatase 85 U/L (38-126); Aspartate Amino Transferase 33 U/L (14-36); Bilirubin,Total 0.3 mg/dl (0.2-1.3); Blood Urea Nitrogen 13 mg/dl (7-17); Estimated Glomerular Filt Rate 82 ml/min (>60); GFR (African American) 99 ML/MIN (>60)
[2019-07-22 10:21] LABS: Albumin/Globulin Ratio 1.6 (1.1-1.8); Anion Gap 15.4 mEq/L (5-15); Calcium 10.1 mg/dl (8.4-10.2); Carbon Dioxide 27 mmol/L (22.0-30.0); Glucose 99 mg/dl (74-100); Total Protein,Serum 7.7 g/dl (6.3-8.2)
[2019-07-22 10:56] LABS: Ferritin 12.3 ng/ml (11.1-264)
== END ==
PROVIDERS: Visit Provider Nurse Practitioner Family
DX: D50.9 Iron deficiency anemia, unspecified (principal); I10 Essential (primary) hypertension
CPT/HCPCS: 36415; 80053; 82728; 85025

== ENCOUNTER → 2020-03-11 08:09 | Outpatient (CLI) | payer MEDICARE, SELFPAY ==
[2020-03-11 08:41] LABS: Basophils # 0.1 K/mm3 (0-0.2); Basophils % 0.9 % (0.1-2.0); Eosinophils # 0.3 K/mm3 (0.0-0.4); Eosinophils % 5.2 % (0.1-12.0); Hematocrit 37.8 % (37.0-47.0); Hemoglobin 11.9 g/dL (12.2-16.2); Lymphocytes # 1.8 K/mm3 (0.7-4.5); Lymphocytes % 28.9 % (10-50); Mean Corpuscular HGB Conc 31.5 g/dL (31.8-35.4); Mean Corpuscular Hemoglobin 28.1 pg (27.0-31.2); Mean Corpuscular Volume 89.2 fl (81-99); Mean Platelet Volume 7.1 fl (7.4-10.4); Monocytes # 0.4 K/mm3 (0.1-1.0); Monocytes % 6.8 % (1.7-9.3); Neutrophils # 3.6 K/mm3 (1.8-7.8); Neutrophils % 58.2 % (37.0-80.0); Platelet Count 322 K/mm3 (142-424); Red Blood Count 4.24 M/mm3 (4.20-5.40); Red Cell Distribution Width 13.8 % (11.5-17.5); White Blood Count 6.2 K/mm3 (4.8-10.8)
[2020-03-11 08:50] LABS: Chloride 99 mmol/L (98-107)
[2020-03-11 08:51] LABS: Potassium 4.7 mmoL/L (3.5-5.1); Sodium 138 mmol/L (136-145)
[2020-03-11 08:53] LABS: Alanine Aminotransferase 24 U/L (12-78); Albumin/Globulin Ratio 1.4 (1.1-1.8); Alkaline Phosphatase 90 U/L (38-126); Anion Gap 14.7 mEq/L (5-15); Aspartate Amino Transferase 32 U/L (14-36); Bilirubin,Total 0.5 mg/dl (0.2-1.3); Blood Urea Nitrogen 14 mg/dl (7-17); Carbon Dioxide 29 mmol/L (22.0-30.0); Estimated Glomerular Filt Rate 82 ml/min (>60); GFR (African American) 99 ML/MIN (>60); Globulin 3.5 g/dL (1.3-3.2); Total Protein,Serum 8.5 g/dl (6.3-8.2)
[2020-03-11 08:54] LABS: Calcium 10.2 mg/dl (8.4-10.2); Chol/HDL Ratio 3.9 (1-3.5); Cholesterol 146 mg/dl (140-200); Glucose 106 mg/dl (74-100); HDL Cholesterol 37 mg/dl (40-60); Triglycerides 184 mg/dl (30-150); VLDL Cholesterol 37 mg/dL (0-40)
[2020-03-11 09:05] LABS: Direct LDL Cholesterol 77.86 mg/dL (100-129)
== END ==
PROVIDERS: Visit Provider Nurse Practitioner Family
DX: I10 Essential (primary) hypertension (principal); E78.5 Hyperlipidemia, unspecified; I65.23 Occlusion and stenosis of bilateral carotid arteries; D50.9 Iron deficiency anemia, unspecified
CPT/HCPCS: 36415; 80053; 80061; 85025

== ENCOUNTER → 2020-05-14 10:06 | Outpatient (CLI) | payer MEDICARE, MEDICAID, SELFPAY ==
--- NOTE | 2020-05-14 10:11 | CA_ITS ---
APPROVED REPORT EXAM: Comprehensive 2D, Doppler, and color-flow Echocardiogram Mobile Lab Technician: Natalie Brady RVT Ht: 5 ft 2 in Wt: 152lbs BSA: 1.70 BP: 132/57 mmHg Indications: htn,edema,cad TDS-LIMITED WINDOWS 2D Dimensions LVOT 1.73 cm (M/F) 1.5-2.5 M-Mode Dimensions RVDd 1.93 cm (0.9-2.6) LA Diam 3.71 cm (1.9-4.0) LVDd 5.14 cm (3.5-5.7) Ao Diam 2.30 cm (2.0-3.7) LVDs 3.34 cm (3.5-5.7) IVSd 0.76 cm (0.6-1.1) PWd 0.88 cm (0.6-1.1) EF (Teich) 64.00% FS 35.00% EDV (Teich) 126.10 mL ESV (Teich) 45.40 mL LV Diastology E Decel Time 220.00 (160-240 msec) E/A Ratio 0.9 MED E' 8.90 (< 7 cm/sec) E'/MED E' Ratio 9.99 (>14) LAT E' 10.80 (<10 cm/sec) E/LAT E' Ratio 8.23 (>14) Mitral Valve MV E Max Andrey. 89.00 (40-130 cm/s) MV A Velocity 96.00 (40-130 cm/s) E/A Ratio 0.92 MV Decel. Time 220.00 (160-240 ms) MV PHT 64.00 ms Pulmonary Valve PV Peak Velocity 73.00 (50-150 cm/s) Tricuspid Valve TR P. Velocity 297.00 cm/s RAP Estimate 10.00 mmHg RVSP 45.20 mmHg Left Ventricle Left atrium is mildly enlarged, left ventricle is normal size, left ventricle wall thickness is upper limit of the normal, there is preserved left ventricular systolic function, visually estimated ejection fraction 55% with no regional wall motion abnormality, diastolic parameters are inconclusive. Right Ventricle Right atrium and right ventricle are relatively normal size and function. Aortic Valve Aortic valve is minimally thickened and fibrosed. There is no aortic stenosis or aortic insufficiency. Mitral Valve Mitral valve leaflets are minimally thickened, there is mild mitral regurgitation. Tricuspid Valve Tricuspid valve is grossly normal, there is mild tricuspid regurgitation. Tricuspid regurgitation jet velocity is inadequate for calculation of the right ventricular systolic pressure. Pulmonic Valve Pulmonic valve is poorly visualized. Great Vessels Aortic root is normal size. Inferior vena cava is mildly dilated with normal inspiratory collapse. Pericardium No significant pericardial effusion noted. Conclusion 1. Mildly enlarged left atrium, normal left ventricular size, visually estimated ejection fraction 55% with no regional wall motion abnormality, diastolic parameters are inconclusive. 2. Mild mitral and tricuspid regurgitation. 3. Mildly dilated inferior vena cava with normal inspiratory collapse. Electronically signed by : Alexander Ariza, 05/14/2020 13:29:45
== END ==
PROVIDERS: PCP Nurse Practitioner Family; Visit Provider Nurse Practitioner Family
DX: R09.89 Other specified symptoms and signs involving the circulatory and respiratory systems (principal); I10 Essential (primary) hypertension; R60.0 Localized edema
CPT/HCPCS: 93306

== ENCOUNTER → 2020-06-05 11:06 | Outpatient (CLI) | payer MEDICARE, MEDICAID, SELFPAY ==
--- NOTE | 2020-06-05 | CA_ITS ---
APPROVED REPORT Exam: Pharmacologic Technologist: Diana Rodarte Ht: 5 ft 2 in Wt: 151 lbs BSA: 1.70 m2 HR: 68 bpm BP: 199/64 mmHg Indications: Shortness of Breath, Hypertension Medical History Medications: Amlodipine,,,,, Lisinopril,,,,, Alprazolam,,,,, Aspirin,,,,, DOcusate,,,,, RoSUVASTATIN,,,,, Dexlansoprazole,,,,, Stress Test Details Test: LEXISCAN HR Resting HR: 80 bpm Max Heart Rate (APMHR): 145 bpm Max HR Achieved: 96 bpm Target HR (85% APMHR): 123 bpm % of APMHR: 66 Recovery HR: 80 bpm BP Resting BP: 199.0/64.0 mmHg Max BP: 210.0/71.0 mmHg Recovery BP: 161.0/51.0 mmHg ECG Resting ECG: Normal sinus rhythm Clinical Reason for Termination: Completed Protocol Exercise duration: 04:21 min Highest Stage Achieved: Exercise capacity: 1.0 METs Stress ECG Conclusion Symptoms: No chest pain Arrhythmias/Ectopy: None ST-T Changes: < 1.[address] segment changes. Conclusion: Non-diagnostic lexiscan stress test. Patient received the infusion per protocol without chest pain. ST segment changes or arrhythmias. See the nuclear report for further evaluation. Test Summary REST . . . . . . . Resting REST 18:11 . . 80 . 199/ 64 . . Stage 1 . . . . . . . Myoview Injected Stage 1 01:00 . . 92 . . . . Stage 2 01:00 . . 94 . 210/ 71 . . Stage 3 01:00 . . 93 . . . . Stage 4 01:00 . . 89 . 173/ 58 . . Stage 4 01:21 . . 88 . 173/ 58 . Stop exercise at 04:21 RECOVERY 01:00 . . 84 . . . . RECOVERY 02:00 . . 80 . . . . RECOVERY 03:00 . . 78 . 161/ 51 . . RECOVERY 03:31 . . 79 . 161/ 51 . . Electronically signed by : Alexander Ariza, 06/05/2020 17:34:20
--- NOTE | 2020-06-05 11:12 | NM_ITS ---
APPROVED REPORT Exam: Nuclear Stress Test Indication: HTN, HYPERLIPIDEMIA, SOB, FATIGUE Patient Location: Outpatient Stress Tech: Diana Rodarte [place] Tech:Siobhan BrunerYUE RT(R)(N) Ht: 5 ft 2 in Wt: 151 lbs Bra Size: 38B HR: 68 bpm BP: 199/64 mmHg BSA: 1.70 m2 BMI: 27.6 History: HTN, HYPERLIPIDEMIA, SOB, FATIGUE Procedure: Patient received a 0.4 mg of intravenous Lexiscan, resting heart rate 68 bpm, resting blood pressure 199/64 mmHg, with Lexiscan maximum heart rate achived was 94 bpm which is Less than 85 % of the maximum predicted heart rate and blood pressure was 210/71 mmHg. With Lexiscan, patient denied any complaint of chest pain. Electrocardiogram Resting electrocardiogram showed sinus rhythm, with Lexiscan there is less than 1.[address] segment depression noted from the baseline EKG. The EKG portion of the Lexiscan is nondiagnostic. Cardiac Stress and Resting SPECT Images: Cardiac Stress and Resting SPECT images were obtained using technetium 99m Myoview 32.6 mCi stress and 10.33 mCi at rest. Gated SPECT for analysis of segmental wall motion and calculation of ejection fraction also done. Prone images were also obtained. Cardiac stress and resting SPECT images show uniform myocardial activity without segmental perfusion abnormality, computer derived ejection fraction is 60% with no regional wall motion abnormality, right ventricle is normal size and contractility. Conclusion: 1. The EKG portion of the Lexiscan is nondiagnostic. 2. No scintigraphic evidence of reversible ischemia seen, computer derived ejection fraction is 60% with no regional wall motion abnormality, right ventricle is normal size and contractility. 3. Normal Lexiscan Myoview study. Electronically signed by : Alexander Ariza, 06/05/2020 17:55:05
== END ==
PROVIDERS: PCP Nurse Practitioner Family; Visit Provider Nurse Practitioner Family
DX: R07.9 Chest pain, unspecified (principal); R06.02 Shortness of breath; I10 Essential (primary) hypertension
CPT/HCPCS: 78452; 93017; A9502; J2785

== ENCOUNTER → 2020-07-06 09:34 | Outpatient (CLI) | payer MEDICARE, SELFPAY ==
[2020-07-06 09:38] LABS: Microscopic, Urine URINE MICROSCOPIC (MICROSCOPIC)
[2020-07-06 10:24] LABS: Appearance,Urine CLEAR (Clear); Bilirubin,Urine Negative (Negative); Blood, Urine Negative (Negative); Color,Urine YELLOW (Yellow); Glucose,Urine (UA) Negative (Negative); Ketones,Urine Negative (Negative); Leukocyte Esterase,Urine 1+ (Negative); Nitrate,Urine Negative (Negative); Protein,Urine Negative (Negative); Urobilinogen,Urine 0.2 EU/dl (0.2)
[2020-07-06 10:55] LABS: Bacteria,Urine Trace /lpf
[2020-07-06 11:19] LABS: Chloride 103 mmol/L (98-107); Sodium 138 mmol/L (136-145)
[2020-07-06 11:22] LABS: Blood Urea Nitrogen 17 mg/dl (7-17); Estimated Glomerular Filt Rate 70 ml/min (>60); GFR (African American) 85 ML/MIN (>60)
[2020-07-06 11:23] LABS: Calcium 10.3 mg/dl (8.4-10.2); Carbon Dioxide 26 mmol/L (22.0-30.0); Glucose 109 mg/dl (74-100)
== END ==
PROVIDERS: Visit Provider Nurse Practitioner Family
DX: I10 Essential (primary) hypertension (principal); R82.90 Unspecified abnormal findings in urine
CPT/HCPCS: 36415; 80048; 81001; 87086

== ENCOUNTER → 2020-07-10 08:26 | Outpatient (CLI) | payer MEDICARE, MEDICAID, SELFPAY ==
--- NOTE | 2020-07-10 08:30 | CA_ITS ---
APPROVED REPORT Division Merchandise Manager: Natalie Brady RVT Study Quality: Good Indications: HTN Risk Factors Hypertension Hyperlipidemia Renal Artery Doppler Origin (R) 174.8/ cm/sec Proximal (R) 162.0/ cm/sec Mid (R) 173.2/ cm/sec Distal (R) 216.9/ cm/sec Renal Aorta Ratio (R) 1.67 Segmental A. (R) 68.9/17.5 cm/sec RI: 0.74 Segmental A. Sup (R) 61.7/7.2 cm/sec Segmental A. Mid (R) 68.9/17.5 cm/sec Segmental A. Inf (R) 60.3/10.4 cm/sec Origin (L) 200.5/ cm/sec Proximal (L) 181.2/ cm/sec Mid (L) 248.7/ cm/sec Distal (L) 262.8/ cm/sec Renal Aorta Ratio (L) 2.02 Segmental A. (L) 86.6/8.8 cm/sec RI: 0.89 Segmental A. Sup (L) 86.6/8.8 cm/sec Segmental A. Mid (L) 85.5/11.0 cm/sec Segmental A. Inf (L) 72.4/12.1 cm/sec Renal Measurements Kidney Size (R) 10.7x5.7 cm Cortical Thickness (R) 0.9 cm Kidney Size (L) 10.5x6.5 cm Cortical Thickness (L) 1.6 cm Findings Study suggests greater than 60% stenosis of the bilateral renal arteries. Conclusion Study suggests greater than 60% stenosis of the bilateral renal arteries. Electronically signed by : Tad Castrejon MD 07/10/2020 16:07:42
== END ==
PROVIDERS: PCP Nurse Practitioner Family; Visit Provider Nurse Practitioner Family
DX: I10 Essential (primary) hypertension (principal); I65.23 Occlusion and stenosis of bilateral carotid arteries; I73.9 Peripheral vascular disease, unspecified
CPT/HCPCS: 93976

== ENCOUNTER → 2021-01-05 10:25 | Outpatient (POV) | payer MEDICARE, MEDICAID, SELFPAY | PROVIDERS: Visit Provider Dermatology | DX: Z00.00 Encounter for general adult medical examination without abnormal findings (principal) ==

== ENCOUNTER → 2021-02-09 08:55 | Outpatient (POV) | payer MEDICARE, MEDICAID, SELFPAY | PROVIDERS: Visit Provider Dermatology | DX: Z00.00 Encounter for general adult medical examination without abnormal findings (principal) ==

== ENCOUNTER → 2021-05-19 09:21 | Outpatient (CLI) | payer MEDICARE, MEDICAID, SELFPAY ==
[2021-05-19 09:41] LABS: Basophils # 0.1 K/mm3 (0-0.2); Basophils % 1.8 % (0.1-2.0); Eosinophils # 0.3 K/mm3 (0.0-0.4); Eosinophils % 3.6 % (0.1-12.0); Hematocrit 28.9 % (37.0-47.0); Hemoglobin 9.2 g/dL (12.2-16.2); Lymphocytes # 1.7 K/mm3 (0.7-4.5); Lymphocytes % 22.2 % (10-50); Mean Corpuscular HGB Conc 31.8 g/dL (31.8-35.4); Mean Corpuscular Hemoglobin 26.5 pg (27.0-31.2); Mean Corpuscular Volume 83.4 fl (81-99); Mean Platelet Volume 7.3 fl (7.4-10.4); Monocytes # 0.5 K/mm3 (0.1-1.0); Neutrophils # 4.9 K/mm3 (1.8-7.8); Neutrophils % 66.4 % (37.0-80.0); Platelet Count 497 K/mm3 (142-424); Red Blood Count 3.47 M/mm3 (4.20-5.40); White Blood Count 7.4 K/mm3 (4.8-10.8)
--- NOTE | 2021-05-19 10:00 | MM_ITS ---
PROCEDURE INFORMATION: Exam: MG Screening 3D Mammography Exam date and time: 05/19/2021 10:00 AM Age: 75 years old Clinical indication: Encounter for screening mammogram for malignant neoplasm of breast TECHNIQUE: Imaging protocol: Screening tomosynthesis and 2D mammography including computer-aided detection (CAD) when performed. Bilateral. COMPARISON: 1. MG [facility] MM Dig screening mamm BI w/CAD 07/26/2018 8:56 AM 2. MG [facility] MM Dig screening mamm BI w/CAD 07/05/2017 9:26 AM FINDINGS: MAMMOGRAPHY: Breast composition: The breast tissue is composed of scattered areas of fibroglandular density. Mass: None. Architectural distortion: None. Calcifications: No suspicious calcifications. Asymmetric density: None. Skin thickening: None. Axillary adenopathy: None. IMPRESSION: No mammographic evidence of malignancy. Annual screening is recommended unless otherwise clinically indicated. ASSESSMENT: BI-RADS Category 1: Negative
[2021-05-19 10:12] LABS: Chloride 97 mmol/L (98-107); Potassium 5.1 mmoL/L (3.5-5.1); Sodium 135 mmol/L (136-145)
[2021-05-19 10:14] LABS: Blood Urea Nitrogen 16 mg/dl (7-17)
[2021-05-19 10:15] LABS: Alanine Aminotransferase 21 U/L (12-78); Albumin Level 4.7 g/dl (3.5-5.0); Albumin/Globulin Ratio 1.6 (1.1-1.8); Alkaline Phosphatase 90 U/L (38-126); Anion Gap 15.1 mEq/L (5-15); Aspartate Amino Transferase 30 U/L (14-36); Bilirubin,Total 0.3 mg/dl (0.2-1.3); Calcium 9.8 mg/dl (8.4-10.2); Carbon Dioxide 28 mmol/L (22.0-30.0); Cholesterol 137 mg/dl (140-200); Estimated Glomerular Filt Rate 81 ml/min (>60); GFR (African American) 98 ML/MIN (>60); Glucose 106 mg/dl (74-100); Total Protein,Serum 7.7 g/dl (6.3-8.2); Triglycerides 144 mg/dl (30-150); VLDL Cholesterol 29 mg/dL (0-40)
[2021-05-19 10:16] LABS: Chol/HDL Ratio 3.4 (1-3.5); HDL Cholesterol 40 mg/dl (40-60)
[2021-05-19 10:26] LABS: Direct LDL Cholesterol 76.47 mg/dL (100-129)
== END ==
PROVIDERS: PCP Nurse Practitioner Family; Visit Provider Nurse Practitioner Family
DX: Z12.31 Encounter for screening mammogram for malignant neoplasm of breast (principal); I65.23 Occlusion and stenosis of bilateral carotid arteries; I10 Essential (primary) hypertension; D50.9 Iron deficiency anemia, unspecified
CPT/HCPCS: 36415; 77063; 77067; 80053; 80061; 85025

== ENCOUNTER → 2021-08-02 09:22 | Outpatient (CLI) | payer MEDICARE, MEDICAID, SELFPAY ==
[2021-08-02 09:54] LABS: Basophils # 0.1 K/mm3 (0-0.2); Basophils % 0.6 % (0.1-2.0); Eosinophils # 0.3 K/mm3 (0.0-0.4); Eosinophils % 3.3 % (0.1-12.0); Hematocrit 37.5 % (37.0-47.0); Hemoglobin 12.3 g/dL (12.2-16.2); Lymphocytes # 1.8 K/mm3 (0.7-4.5); Lymphocytes % 18.4 % (10-50); Mean Corpuscular HGB Conc 32.8 g/dL (31.8-35.4); Mean Corpuscular Volume 82.3 fl (81-99); Mean Platelet Volume 7.9 fl (7.4-10.4); Monocytes # 0.5 K/mm3 (0.1-1.0); Neutrophils % 72.7 % (37.0-80.0); Platelet Count 331 K/mm3 (142-424); Red Blood Count 4.56 M/mm3 (4.20-5.40); Red Cell Distribution Width 16.9 % (11.5-17.5); White Blood Count 9.6 K/mm3 (4.8-10.8)
[2021-08-02 16:57] LABS: Anion Gap 13.6 mEq/L (5-15); Blood Urea Nitrogen 18 mg/dl (7-17); Calcium 9.8 mg/dl (8.4-10.2); Carbon Dioxide 30 mmol/L (22.0-30.0); Chloride 100 mmol/L (98-107); Estimated Glomerular Filt Rate 81 ml/min (>60); GFR (African American) 98 ML/MIN (>60); Glucose 104 mg/dl (74-100); Potassium 4.6 mmoL/L (3.5-5.1); Sodium 139 mmol/L (136-145)
== END ==
PROVIDERS: Nurse Practitioner Family; Visit Provider Internal Medicine
DX: I10 Essential (primary) hypertension (principal); R06.00 Dyspnea, unspecified; R60.9 Edema, unspecified; R94.31 Abnormal electrocardiogram [ECG] [EKG]; Z01.812 Encounter for preprocedural laboratory examination; Z11.52 Encounter for screening for COVID-19
CPT/HCPCS: 36415; 80048; 85025; C9803; U0003; U0005

== ENCOUNTER 2021-08-03 08:12 | Day surgery (SDC) | payer MEDICARE, MEDICAID, SELFPAY ==
[2021-08-03] VITALS (11 sets, daily range): BP systolic 70–220; BP diastolic 31–107; PULSE 58–83; RESP 16–18; TEMP 36.9; O2SAT 96–100; BMI 28.0
--- NOTE | 2021-08-03 07:15 | IR_ITS ---
APPROVED REPORT Patient Location: Outpatient Asbestos Removal Supervisor: YUE Willis RT (R) PROCEDURES Bilateral selective renal angiogram INDICATION Abnormal renal duplex, Suspect renal artery stenosis, Suspect renovascular hypertension Informed consent was obtained prior to the procedure. COMPLICATIONS None Estimated Blood Loss: Less than 10 mls TECHNIQUE One percent lidocaine used to anesthetize the right anterior aspect of the wrist. The right radial artery was accessed via the Seldinger technique. A 6 Mongolian sheath was placed in the right radial artery. 2.5 mg of verapamil, 800 mcg of nitroglycerin, 1mg Lidocaine and 5000 U Heparin were given through the arterial sheath. The papa catheter was used to perform bilateral selective renal angiography. At the end the procedure the apparatus was removed the sheath was removed good hemostasis was achieved using TR banding patient was transferred to the postop already in stable condition ANGIOGRAPHIC RESULTS Right renal artery singular normal Left renal artery singular normal IMPRESSION Normal renal arteries bilaterally PLAN 1. Treatment of essential hypertension Electronically signed by : Ye Pierson MD 08/03/2021 14:19:28
--- NOTE | 2021-08-03 08:16 | CA_ITS ---
FINAL REPORT TECHNIQUE: Color Doppler, duplex Doppler and arciniega scale sonography of the bilateral neck arterial vasculature was performed. Velocities were measured in the carotid arteries. Stenosis evaluation based on the validated velocity criteria. CLINICAL HISTORY: yasmany, Hx- Right CEA 2 years ago FINDINGS: The peak systolic velocity of the right common carotid artery is 96 cm/s. The peak systolic velocity of the right internal carotid artery is 136 cm/s and end diastolic velocity 15 cm/s. The ICA/CCA ratio is 1.6. A mild-moderate amount of plaque is present. The right external carotid artery is patent. The right vertebral artery is patent with antegrade flow. The peak systolic velocity of the left common carotid artery is 97 cm/s. The peak systolic velocity of the left internal carotid artery is 126 cm/s and end diastolic velocity 26 cm/s. The ICA/CCA ratio is 1.3. A mild-moderate amount of plaque is present. The left external carotid artery is patent.The left vertebral artery is patent with antegrade flow. IMPRESSION: Less than 50% bilateral carotid stenosis. Bilateral patent vertebral arteries with antegrade flow. Reviewed, Interpreted and Dictated by Elkin Sharp III, MD Transcribed by Akiko Rondon Authenticated by Elkin Sharp III, MD on 08/03/2021 09:28:31 AM [facility]
== END 2021-08-03 17:12 | disposition home or self-care (01) ==
PROVIDERS: PCP Nurse Practitioner Family; Visit Provider Internal Medicine
DX: I10 Essential (primary) hypertension (principal); R94.31 Abnormal electrocardiogram [ECG] [EKG]; D64.9 Anemia, unspecified; I65.23 Occlusion and stenosis of bilateral carotid arteries; I70.1 Atherosclerosis of renal artery; I73.9 Peripheral vascular disease, unspecified; R55 Syncope and collapse; I25.10 Atherosclerotic heart disease of native coronary artery without angina pectoris
CPT/HCPCS: 36252; 93880; 99152; C1725; C1769; J1644; Q9967

== ENCOUNTER → 2021-08-26 10:24 | Outpatient (CLI) | payer MEDICARE, MEDICAID, SELFPAY ==
[2021-08-26 12:23] LABS: Blood Urea Nitrogen 16 mg/dl (7-17); Estimated Glomerular Filt Rate 81 ml/min (>60); GFR (African American) 98 ML/MIN (>60)
[2021-08-30 20:09] LABS: Metanephrine, U,24hr 45 ug/24 hr (36-209); Metanephrine, Ur 25 ug/L (Undefined); Normetanephr.,U,24h 731 ug/24 hr (131-612); Normetanephrine, Ur 406 ug/L (Undefined)
[2021-09-05 20:32] LABS: Dopamine, Ur, 24hr 117 ug/24 hr (0-510); Dopamine, Urine 65 ug/L (Undefined); Epinephrine, U, 24hr <2 ug/24 hr (0-20); Epinephrine, Urine <1 ug/L (Undefined); Norepinephrine, Ur 19 ug/L (Undefined); Norepinephrine,U,24h 34 ug/24 hr (0-135); VMA, Urine 1.6 mg/L (Undefined); VMA, Urine, 24hr 2.9 mg/24 hr (0.0-7.5)
== END ==
PROVIDERS: Internal Medicine; Visit Provider Physician Assistant
DX: I10 Essential (primary) hypertension (principal); I65.23 Occlusion and stenosis of bilateral carotid arteries
CPT/HCPCS: 36415; 82384; 82565; 83835; 84520; 84585

== ENCOUNTER → 2021-08-30 09:50 | Outpatient (CLI) | payer MEDICARE, MEDICAID, SELFPAY ==
--- NOTE | 2021-08-30 09:54 | CT_ITS ---
FINAL REPORT TECHNIQUE: Pre- and postcontrast images of the abdomen were performed by computed tomography. This study was performed with techniques to keep radiation doses as low as reasonably achievable (ALARA). Individualized dose reduction techniques using automated exposure control or adjustment of mA and/or kV according to the patient's size were employed. CLINICAL HISTORY: Malignant htn COMPARISON: December 23, 2017 FINDINGS: CT ABDOMEN W & W/O CONTRAST There is a little bit of scarring in the right middle lobe and in the lingula. The liver parenchyma is homogeneous. The gallbladder is surgically absent. There is mild intrahepatic ductal dilatation which is consistent with prior cholecystectomy. The spleen is unremarkable. The adrenals are normal. On the pre-infusion images, there are scattered calcifications throughout the pancreas which is consistent with chronic pancreatitis. No renal stones are identified on the pre-infusion images. The kidneys appear unremarkable. There is a small lymph node adjacent to the left sided celiac axis measuring up to 1.3 cm. Other smaller adjacent lymph nodes measure up to 1.1 cm. There is some dense vascular calcification at the origins of the renal arteries, greater on the right than left. Cannot exclude a high-grade stenosis of the proximal right renal artery. There is dense calcification of the abdominal aorta and iliac vessels. IMPRESSION: Chronic pancreatitis. A few nonspecific lymph nodes adjacent to the celiac axis. Dense calcification of the proximal right renal artery which is concerning for a high-grade right renal artery stenosis. Reviewed, Interpreted and Dictated by Ramses Murphy MD Transcribed by Akiko Rnodon Authenticated by Ramses Murphy MD on 08/30/2021 12:16:14 PM [facility]
== END ==
PROVIDERS: PCP Nurse Practitioner Family; Visit Provider Physician Assistant
DX: I10 Essential (primary) hypertension (principal); I65.23 Occlusion and stenosis of bilateral carotid arteries; R06.00 Dyspnea, unspecified; Z98.890 Other specified postprocedural states
CPT/HCPCS: 74170; Q9967

== ENCOUNTER → 2021-10-25 07:59 | Outpatient (CLI) | payer MEDICARE, MEDICAID, SELFPAY ==
[2021-10-25 08:32] LABS: Basophils # 0.2 K/mm3 (0-0.2); Basophils % 2.9 % (0.1-2.0); Eosinophils # 0.4 K/mm3 (0.0-0.4); Eosinophils % 5.5 % (0.1-12.0); Hematocrit 37.8 % (37.0-47.0); Hemoglobin 12.6 g/dL (12.2-16.2); Lymphocytes # 1.7 K/mm3 (0.7-4.5); Lymphocytes % 23.5 % (10-50); Mean Corpuscular HGB Conc 33.4 g/dL (31.8-35.4); Mean Corpuscular Hemoglobin 29.5 pg (27.0-31.2); Mean Corpuscular Volume 88.3 fl (81-99); Mean Platelet Volume 7.9 fl (7.4-10.4); Monocytes # 0.6 K/mm3 (0.1-1.0); Neutrophils # 4.4 K/mm3 (1.8-7.8); Neutrophils % 60.1 % (37.0-80.0); Platelet Count 316 K/mm3 (142-424); Red Blood Count 4.28 M/mm3 (4.20-5.40); Red Cell Distribution Width 14.7 % (11.5-17.5); White Blood Count 7.4 K/mm3 (4.8-10.8)
[2021-10-25 09:36] LABS: Alanine Aminotransferase 24 U/L (12-78); Albumin Level 4.5 g/dl (3.5-5.0); Albumin/Globulin Ratio 1.4 (1.1-1.8); Alkaline Phosphatase 102 U/L (38-126); Anion Gap 14.9 mEq/L (5-15); Aspartate Amino Transferase 29 U/L (14-36); Bilirubin,Total 0.2 mg/dl (0.2-1.3); Blood Urea Nitrogen 19 mg/dl (7-17); Calcium 10.2 mg/dl (8.4-10.2); Carbon Dioxide 29 mmol/L (22.0-30.0); Chloride 100 mmol/L (98-107); Estimated Glomerular Filt Rate 70 ml/min (>60); GFR (African American) 84 ML/MIN (>60); Globulin 3.2 g/dL (1.3-3.2); Glucose 104 mg/dl (74-100); Potassium 4.9 mmoL/L (3.5-5.1); Sodium 139 mmol/L (136-145); Total Protein,Serum 7.7 g/dl (6.3-8.2)
[2021-10-25 09:48] LABS: Iron 68 ug/dL (37-170)
[2021-10-25 09:57] LABS: Total Iron Binding Capacity 357 ug/dL (265-497)
[2021-10-25 10:10] LABS: Ferritin 21.7 ng/ml (11.1-264)
== END ==
PROVIDERS: PCP Nurse Practitioner Family; Visit Provider Nurse Practitioner Family
DX: I10 Essential (primary) hypertension (principal); D50.9 Iron deficiency anemia, unspecified
CPT/HCPCS: 36415; 80053; 82728; 83540; 83550; 85025

== ENCOUNTER 2022-05-03 14:00 | Outpatient (RCR) | payer MEDICARE, MEDICAID, SELFPAY ==
--- NOTE | 2022-04-04 12:00 | HMH.PTOPEV ---
PT Outpatient Evaluation Rehab PT Outpatient Evaluation Start: 04/04/22 10:48 Freq: Status: Active Protocol: Document 04/04/22 10:48 SARITA (Rec: 04/04/22 12:00 SARITA [id number]) E-signed By France Hammond, PT Outpatient Therapy Subjective History Subjective History Pt is a 76 y/o female that reports chronic neck/shoulder pain >10 years with recent exacerbation of left-sided neck pain on 02/12/22. Pt reports she went on a camping trip which involved her company looking at their phones excessively so she did the same. She reports noted stiffness and soreness after this with looking down and turning her head to the left. Pt reports she has constant tenderness of the left facet column and pulling pain into the shoulder and down into the back with left cervical rotation. Pt reports she has intermittent paresthesia of the left upper arm and the pinky mostly at night time. Pt reports she had a massage 3-4 weeks ago which helped temporarily and pain has improved overall since onset. Pt reports history of therapy for her left shoulder in 2019 for tears of her rotator cuff and labrum which has greatly improved. Pt denies having imaging of her neck. Medical History: High blood pressure Chief Complaint Pain,Stiff Symptom Type Ache,Dull,Numbness Symptoms Relieved By Rest/Positioning,Heat,OTC Meds Symptoms Aggravated By Physical Activity,Twisting Prior Functional Limitations None Current Functional Limitations Desk Work/Reading,Driving Symptom Description Constant but Variable Level of pain today (0-10) 4 Pain scale - at its best (0-10) 3 Pain scale - at its worst (0-10) 5 Cervical Eval Palpation Cervical Muscles R Cervical Paraspinal,L Cervical Paraspinal,R Suboccipital,L Suboccipital,R
== END 2022-05-03 14:05 | disposition home or self-care (01) ==
LOC: PT 14:00
PROVIDERS: PCP Nurse Practitioner Family; Visit Provider Nurse Practitioner Family
DX: M54.2 Cervicalgia (principal)
CPT/HCPCS: 97010; 97014; 97110; 97112; 97140; 97163; 97164; 97530; G0283

== ENCOUNTER → 2022-05-24 12:51 | Outpatient (CLI) | payer MEDICARE, MEDICAID, SELFPAY ==
--- NOTE | 2022-05-24 13:10 | MM_ITS ---
PROCEDURE INFORMATION: Exam: MG Bilateral Screening 3D Mammography Exam date and time: 05/24/2022 1:07 PM Age: 76 years old Clinical indication: Screening examination TECHNIQUE: Imaging protocol: Bilateral Screening tomosynthesis and 2D mammography including computer-aided detection (CAD) when performed. COMPARISON: 1. MG MM DIG SCREENING MAMM BI W/CAD 05/19/2021 10:38 AM 2. MG SCBI MM Dig screening mamm BI w/CAD 07/26/2018 8:56 AM 3. MG SCBI MM Dig screening mamm BI w/CAD 07/05/2017 9:26 AM FINDINGS: MAMMOGRAPHY: Breast composition: There are scattered areas of fibroglandular density. Mass: No suspicious masses. Architectural distortion: No suspicious distortion. Calcifications: No suspicious calcifications. Asymmetric density: None. Skin thickening: None. Axillary adenopathy: None. IMPRESSION: No mammographic evidence of malignancy. Annual screening is recommended unless otherwise clinically indicated. ASSESSMENT: BI-RADS Category 1: Negative
== END ==
PROVIDERS: PCP Internal Medicine Adolescent Medicine; Visit Provider Nurse Practitioner Family
DX: Z12.31 Encounter for screening mammogram for malignant neoplasm of breast (principal)
CPT/HCPCS: 77063; 77067

== ENCOUNTER → 2022-05-24 15:00 | Outpatient (POV) | payer MEDICARE, MEDICAID, SELFPAY | PROVIDERS: Visit Provider Dermatology | DX: Z00.00 Encounter for general adult medical examination without abnormal findings (principal) ==

== ENCOUNTER → 2022-12-24 12:48 | Outpatient (CLI) | payer MEDICARE, SELFPAY | PROVIDERS: PCP Nurse Practitioner Family; Visit Provider Nurse Practitioner Family | DX: R39.15 Urgency of urination (principal) | CPT/HCPCS: 87086 ==

== ENCOUNTER 2022-12-30 08:42 | Observation (INO) | payer MEDICARE, SELFPAY ==
[2022-12-30] VITALS (8 sets, daily range): BP systolic 143–171; BP diastolic 45–62; PULSE 71–83; RESP 17–20; TEMP 36.7–36.8; O2SAT 94–98; BMI 24.3; BMI 23.3
--- NOTE | 2022-12-30 08:50 | PC.NURSE ---
DR MARCELO AT BEDSIDE
--- NOTE | 2022-12-30 08:55 | CT_ITS ---
FINAL REPORT TECHNIQUE: Postcontrast axial images through the abdomen and pelvis were performed. This study was performed with techniques to keep radiation doses as low as reasonably achievable, (ALARA). Individualized dose reduction techniques using automated exposure control or adjustment of mA and/or kV according to the patient's size were employed. CLINICAL HISTORY: lower abd pain and tenderness COMPARISON: 08/30/2021 FINDINGS: Abdomen: There is scarring in the right middle lobe and lingula. There is fatty infiltration of the liver. The gallbladder is absent. The liver and spleen measuring the upper limits of normal in size. The adrenals are normal. There are small calcifications in the head of the pancreas consistent with sequela of chronic pancreatitis. The kidneys enhance appropriately. The aorta is normal in caliber. No free fluid is identified. There is new, extensive retroperitoneal adenopathy. Individual nodes measure up to 3 cm in greatest dimension. Findings are particularly evident in left periaortic region. Lymph nodes extend into the left iliac louis chain. Pelvis: The appendix is not identified. There is moderate descending and sigmoid diverticulosis without evidence of diverticulitis. The uterus is present. The urinary bladder is unremarkable. No free fluid, free air, or abscess is identified. IMPRESSION: New, large retroperitoneal and left periaortic lymph nodes. Findings could be due to lymphoma or metastatic adenopathy. PET scan and or tissue sampling is recommended for further evaluation. Reviewed, Interpreted and Dictated by Ramses Murphy MD Transcribed by Palak Butler Authenticated and [facility]
--- NOTE | 2022-12-30 08:58 | HMH.EDGENADL ---
Discharge Plan Disposition Patient Disposition: Admitted Chief Complaint: Abdominal Pain Prescriptions Prescriptions: No Action lisinopril-hydrochlorothiazide 20-12.5 mg tablet 1 tab PO DAILY 90 Days Qty: 90 alprazolam 0.5 mg tablet 0.5 mg PO Q6HP PRN (Reason: Anxiety) 30 Days Qty: 120 rosuvastatin 5 mg tablet 5 mg PO DAILY docusate sodium [Colace] 100 mg capsule 100 mg PO DAILY lisinopril 20 mg tablet 20 mg PO HS famotidine 20 mg tablet 20 mg PO DAILY amlodipine 10 mg tablet 5 mg PO DAILY carvedilol 12.5 mg tablet 12.5 mg PO BID Qty: 60 5RF Rx Instructions: must administer with a meal/food aspirin 81 MG tablet,delayed release (DR/EC) 81 mg PO DAILY Referrals Follow up/Referrals: Cristian Zhu MD [Primary Care Provider] - See instructions Clinical Impressions Clinical Impression: Abdominal pain, lower, Acute UTI, Failure of outpatient treatment, Acute hyponatremia, Nausea and vomiting Instructions Patient Instructions: DI for Acute Abdominal Pain Discharge ED Provider: Gianluca Chavez General Adult HPI General Chief complaint: Abdominal Pain Stated complaint: not urinating,abd and back pain Time Seen by Provider: 12/30/22 08:46 History of Present Illness HPI narrative: 77-year-old female here with lower abdominal discomfort. She states this began last week and she went to the doctor on she was having some lower abdominal discomfort and did a urinalysis and told her she had bacteria in her urine. She states that they started her on an antibiotic that started with an N but after several days she was not having any significant improvement in her symptoms. She states that she felt a significant amount of pressure in her lower abdomen such that she felt that she had to carry her abdomen around in a basket. She does states she does not feel like she is urinating normally however she denies dysuria urgency or frequency specifically. No hematuria from historical standpoint, no constipation or diarrhea. She went back to the doctor this week and was changed to amoxicillin. She continues to not have significant improvement. She denies any fevers however has had some chills. She had a CT scan ordered for this morning however pain was such that last night she got no sleep and decided come to the emergency department. Related Data Home Medications Medication Instructions Recorded Confirmed alprazolam 0.5 mg tablet 0.5 mg PO Q6HP PRN Anxiety 30 days 12/01/17 12/30/22 ##120 lisinopril 20 1 tab PO DAILY htn 90 days ##90 12/01/17 12/30/22 mg-hydrochlorothiazide 12.5 mg tablet aspirin 81 mg tablet,delayed 81 mg PO DAILY CIRCULATION 12/23/17 12/30/22 release docusate sodium 100 mg capsule 100 mg PO DAILY bowels 05/29/18 12/30/22 (Colace) rosuvastatin 5 mg tablet 5 mg PO DAILY Cholesterol 05/29/18 12/30/22 famotidine 20 mg tablet 20 mg PO DAILY GERD 07/29/21 12/30/22 lisinopril 20 mg tablet 20 mg PO HS High blood pressure 07/29/21 12/30/22 amlodipine 10 mg tablet 5 mg PO DAILY High blood pressure 08/23/21 12/30/22 Previous Rx's Medication Instructions Recorded carvedilol 12.5 mg tablet 12.5 mg PO BID Heart rhythm #60 03/14/22 tabs Allergies Allergy/AdvReac Type Severity Reaction Status Date / Time esomeprazole [From Nexium] Allergy Intermediate Hives Verified 08/23/21 10:18 amoxicillin [From Augmentin] AdvReac Intermediate Nausea Verified 08/23/21 10:18 clavulanic acid AdvReac Intermediate Nausea Verified 08/23/21 10:18 [From Augmentin] doxycycline AdvReac Intermediate Nausea Verified 08/23/21 10:18 Sulfa (Sulfonamide AdvReac Intermediate Nausea Verified 08/23/21 10:18 Antibiotics) dexlansoprazole AdvReac flu Verified 08/23/21 10:18 [From Dexilant] symptoms BUTE ? Allergy Unknown FEELS LIKE Uncoded 06/19/18 13:08 IN A [facility] Disclaimer: The information contained in this section
[2022-12-30 09:03] LABS: Microscopic, Urine URINE MICROSCOPIC (MICROSCOPIC)
[2022-12-30 09:06] LABS: Appearance,Urine CLEAR (Clear); Bilirubin,Urine Negative (Negative); Blood, Urine Negative (Negative); Color,Urine YELLOW (Yellow); Glucose,Urine (UA) Negative (Negative); Ketones,Urine Negative (Negative); Leukocyte Esterase,Urine 1+ (Negative); Nitrate,Urine Negative (Negative); Protein,Urine Negative (Negative); Urobilinogen,Urine 0.2 EU/dl (0.2)
[2022-12-30 09:17] LABS: Bacteria,Urine Trace /lpf
[2022-12-30 09:18] LABS: Chloride 89 mmol/L (98-107); Potassium 4.6 mmoL/L (3.5-5.1); Sodium 127 mmol/L (136-145)
[2022-12-30 09:20] LABS: Basophils % 0.4 % (0.1-2.0); Eosinophils # 0.1 K/mm3 (0.0-0.4); Eosinophils % 1.3 % (0.1-12.0); Hematocrit 32.2 % (37.0-47.0); Lymphocytes # 1.1 K/mm3 (0.7-4.5); Mean Corpuscular HGB Conc 34.1 g/dL (31.8-35.4); Mean Corpuscular Hemoglobin 28.2 pg (27.0-31.2); Mean Corpuscular Volume 82.7 fl (81-99); Mean Platelet Volume 7.1 fl (7.4-10.4); Monocytes # 0.4 K/mm3 (0.1-1.0); Monocytes % 4.5 % (1.7-9.3); Neutrophils # 7.4 K/mm3 (1.8-7.8); Platelet Count 417 K/mm3 (142-424); Red Blood Count 3.89 M/mm3 (4.20-5.40); Red Cell Distribution Width 13.3 % (11.5-17.5); White Blood Count 9.1 K/mm3 (4.8-10.8)
[2022-12-30 09:21] LABS: Alanine Aminotransferase 28 U/L (12-78); Albumin Level 4.5 g/dl (3.5-5.0); Albumin/Globulin Ratio 1.1 (1.1-1.8); Alkaline Phosphatase 133 U/L (38-126); Anion Gap 17.6 mEq/L (5-15); Aspartate Amino Transferase 35 U/L (14-36); Bilirubin,Total 0.4 mg/dl (0.2-1.3); Blood Urea Nitrogen 15 mg/dl (7-17); Calcium 9.8 mg/dl (8.4-10.2); Carbon Dioxide 25 mmol/L (22.0-30.0); Creatinine Clearance Estimated 47 mL/min (50-200); Estimated Glomerular Filt Rate 81 ml/min (>60); GFR (African American) 98 ML/MIN (>60); Globulin 4.1 g/dL (1.3-3.2); Glucose 128 mg/dl (74-100); Lipase 279 U/L (23-300); Total Protein,Serum 8.6 g/dl (6.3-8.2)
[2022-12-30 09:26] LABS: Lactic Acid 1.4 mmol/L (0.7-2.1)
--- NOTE | 2022-12-30 09:30 | PC.NURSE ---
PT TO CT
--- NOTE | 2022-12-30 09:55 | PC.NURSE ---
Dr. Chavez at bedside
--- NOTE | 2022-12-30 09:57 | PC.NURSE ---
DR MARCELO SPEAKING WITH DR BETH FOR ADMISSION
--- NOTE | 2022-12-30 09:57 | PC.NURSE ---
SONJA Chavez speaking with Dr. Zhu
--- NOTE | 2022-12-30 10:00 | PC.NURSE ---
MD AT BEDSIDE TO UPDATE AND PT AND FAMILY ON ADMISSION
--- NOTE | 2022-12-30 10:02 | PC.NURSE ---
notified care management of admission
--- NOTE | 2022-12-30 10:59 | HMH.PHAINT1 ---
Pharmacy Intervention Comments: MEDICATION RECONCILIATION COMPLETED ON PATIENT USING EXTERNAL FILL HISTORY FROM PHARMACY AND PLACIDO REPORT. -JOHNNY HUTCHINSON, JAYD
--- NOTE | 2022-12-30 11:02 | PC.NURSE ---
REPORT GIVEN TO Foreign MARIA RN AT THIS TIME
--- NOTE | 2022-12-30 11:16 | PC.NURSE ---
arrived by w/c from ED
--- NOTE | 2022-12-30 16:43 | EXP.HP ---
History of Present Illness *Admission Date: 12/30/22 *Reason for visit:: Nausea/vomiting *History of present illness: 77-year-old female who over the past 3 months has had some increasing flank pain, treated as GERD with some relief, and some chilling over the past couple of weeks that has been treated as a UTI, with a couple of antibiotics. Cultures have shown multiple organisms with no dominant organism and she has not improved on 2 different antibiotics, namely Macrobid and amoxicillin. In retrospect she is also had a 10 to 15 pound weight loss over the past couple of months. Her only other symptom has been chilling without fever but over the past 3 days she had significant nausea. She presented to the ER today where she was found to be dehydrated, hyponatremic and was admitted to hospital for IV Rocephin and IV fluids. [facility] Disclaimer: The information contained in this section may have been updated after the patient was seen, as this information can be updated by other users. Medical History (Updated 12/30/22 @ 16:46 by Cristian Zhu MD) Anxiety FH: cholecystectomy GERD (gastroesophageal reflux disease) H/O coronary angiogram Hyperlipidemia Hypertension Surgical History (Updated 12/30/22 @ 14:07 by Randee Pretty RN) Tubal ligation status Family History (Updated 12/30/22 @ 14:05 by Randee Pretty RN) Family history of hypertension Family history of hyperlipidemia Cancer Social History (Updated 12/30/22 @ 14:07 by Randee Pretty RN) Smoking Status: Never smoker second hand exposure: No alcohol intake: never substance use type: denies use current occupational status: retired Travel in the last 8 weeks: Inside the [place] household members: spouse housing: house current occupational exposures/hazards: No caffeine: No Review of Systems Review of Systems Review of systems:: pertinent systems reviewed and negative unless documented below Meds Home Medications and Allergies Home Medications Medication Instructions Recorded Confirmed Type alprazolam 0.5 mg tablet 0.5 mg PO Q6HP PRN Anxiety 30 days 12/01/17 12/30/22 History ##120 lisinopril 20 1 tab PO DAILY htn 90 days ##90 12/01/17 12/30/22 History mg-hydrochlorothiazide 12.5 mg tablet aspirin 81 mg tablet,delayed 81 mg PO DAILY Heart Health 12/23/17 12/30/22 History release rosuvastatin 5 mg tablet 5 mg PO HS Cholesterol 05/29/18 12/30/22 History famotidine 20 mg tablet 20 mg PO DAILYP PRN Acid Reflux 07/29/21 12/30/22 History lisinopril 20 mg tablet 20 mg PO HS High blood pressure 07/29/21 12/30/22 History amlodipine 5 mg tablet 5 mg PO DAILY blood pressure 12/30/22 12/30/22 History amoxicillin 875 mg tablet 875 mg PO BID Infection 12/30/22 12/30/22 History carvedilol 12.5 mg tablet 6.25 mg PO DAILY blood 12/30/22 12/30/22 History pressure/heart rate carvedilol 12.5 mg tablet 12.5 mg PO HS blood pressure/heart 12/30/22 12/30/22 History rate omeprazole 20 mg capsule,delayed 20 mg PO DAILY Acid Reflux 12/30/22 12/30/22 History release sennosides 8.6 mg-docusate sodium 1 tab-cap PO HS stool softener 12/30/22 12/30/22 History 50 mg tablet (Senna with Docusate Sodium) New Prescriptions to Start Prescriptions: Allergies Allergy/AdvReac Type Severity Reaction Status Date / Time esomeprazole [From Nexium] Allergy Intermediate Hives Verified 08/23/21 10:18 amoxicillin [From Augmentin] AdvReac Intermediate Nausea Verified 08/23/21 10:18 clavulanic acid AdvReac Intermediate Nausea Verified 08/23/21 10:18 [From Augmentin] doxycycline AdvReac Intermediate Nausea Verified 08/23/21 10:18 Sulfa (Sulfonamide AdvReac Intermediate Nausea Verified 08/23/21 10:18 Antibiotics) dexlansoprazole AdvReac flu Verified 08/23/21 10:18 [From Dexilant] symptoms BUTE ? Allergy Unknown FEELS LIKE Uncoded 06/19/18 13:08 IN A BARREL Exam Data for Last 24 hours Vital signs and Labs for
[2022-12-31 04:00] VITALS: BP 140/60; PULSE 76; RESP 18; TEMP 37.6; O2SAT 96; BMI 25.6
[2022-12-31 07:47] LABS: Eosinophils # 0.1 K/mm3 (0.0-0.4); Monocytes # 0.6 K/mm3 (0.1-1.0); Red Cell Distribution Width 13.6 % (11.5-17.5)
[2022-12-31 08:00] VITALS: BP 138/76; PULSE 76; RESP 18; TEMP 36.7; O2SAT 97
--- NOTE | 2022-12-31 08:02 | CT_ITS ---
PROCEDURE INFORMATION: Exam: CT Chest Without and With Contrast; Diagnostic Exam date and time: 12/31/2022 10:57 AM Age: 77 years old Clinical indication: Other: Adenopathy TECHNIQUE: Imaging protocol: Diagnostic computed tomography of the chest without and with contrast. Radiation optimization: All CT scans at this facility use at least one of these dose optimization techniques: automated exposure control; mA and/or kV adjustment per patient size (includes targeted exams where dose is matched to clinical indication); or iterative reconstruction. Contrast material: ISOVUE; Contrast volume: 75 ml; Contrast route: IV; REPORTING DATA: Count of CT and Cardiac NM exams in prior 12 months: This patient has received [address] and 0 known cardiac nuclear medicine studies in the 12 months prior to the current study. COMPARISON: CR XR CHEST 2V 03/21/2019 7:57 PM FINDINGS: Lungs: Mild subsegmental atelectasis right middle lobe and left lingula otherwise lung allan are aerated and clear. No nodules masses or infiltrates. Pleural spaces: Unremarkable. No pneumothorax. No pleural effusion. Heart: Heart is not significantly enlarged. There are moderate calcifications of the coronary arteries. No significant pericardial effusion. Lymph nodes: See Vasculature finding. Vasculature: Extensive atherosclerotic changes of the thoracic aorta. No evidence of aortic aneurysm. 2 borderline enlarged mediastinal lymph nodes and enlarged retrocrural lymph nodes within the lower chest largest which measures 1.1 cm. The Bones/joints: There are no acute bony abnormalities or suspicious bone lesions detected. Soft tissues: Unremarkable. IMPRESSION: 1. Mild retrocrural lymphadenopathy suspicious for lymphomatous process or metastatic disease. 2. 2 borderline enlarged mediastinal lymph nodes, nonspecific. 3. Moderate calcification of coronary arteries and extensive atherosclerotic changes of the thoracic aorta.
[2022-12-31 08:07] LABS: Chloride 104 mmol/L (98-107); Sodium 135 mmol/L (136-145)
[2022-12-31 08:08] LABS: Potassium 3.9 mmoL/L (3.5-5.1)
[2022-12-31 08:09] LABS: Basophils % 0.4 % (0.1-2.0); Eosinophils % 1.9 % (0.1-12.0); Hematocrit 28.7 % (37.0-47.0); Lymphocytes # 1.3 K/mm3 (0.7-4.5); Lymphocytes % 19.7 % (10-50); Mean Corpuscular HGB Conc 33.4 g/dL (31.8-35.4); Mean Corpuscular Hemoglobin 28.2 pg (27.0-31.2); Mean Corpuscular Volume 84.3 fl (81-99); Mean Platelet Volume 7.6 fl (7.4-10.4); Monocytes % 8.9 % (1.7-9.3); Neutrophils # 4.7 K/mm3 (1.8-7.8); Neutrophils % 69.1 % (37.0-80.0); Platelet Count 409 K/mm3 (142-424); White Blood Count 6.7 K/mm3 (4.8-10.8)
[2022-12-31 08:11] LABS: Anion Gap 12.9 mEq/L (5-15); Blood Urea Nitrogen 9 mg/dl (7-17); Calcium 9.1 mg/dl (8.4-10.2); Carbon Dioxide 22 mmol/L (22.0-30.0); Creatinine Clearance Estimated 50 mL/min (50-200); Estimated Glomerular Filt Rate 81 ml/min (>60); GFR (African American) 98 ML/MIN (>60); Glucose 94 mg/dl (74-100)
[2022-12-31 08:12] LABS: Hemoglobin 9.6 g/dL (12.2-16.2)
--- NOTE | 2022-12-31 12:09 | EXP.DC.SUM ---
General Admission date:: 12/30/22 Discharge date: 12/31/22 HPI HPI HPI: 77-year-old female who over the past 3 months has had some increasing flank pain, treated as GERD with some relief, and some chilling over the past couple of weeks that has been treated as a UTI, with a couple of antibiotics. Cultures have shown multiple organisms with no dominant organism and she has not improved on 2 different antibiotics, namely Macrobid and amoxicillin. In retrospect she is also had a 10 to 15 pound weight loss over the past couple of months. Her only other symptom has been chilling without fever but over the past 3 days she had significant nausea. She presented to the ER today where she was found to be dehydrated, hyponatremic and was admitted to hospital for IV Rocephin and IV fluids. Hospital Course Hospital Course Hospital Course: Patient was admitted and placed on IV Rocephin because of her poor response to p.o. antibiotics and consistent nausea with symptoms of UTI. Tolerated Rocephin well. She was found to be hyponatremic and she was given normal saline and her lisinopril and HCTZ were held. Lymphadenitis and significant lymphadenopathy was found on abdominal CT scan. CT of chest was done which also showed mediastinal lymphadenitis. Discussed this with patient. Discussed that it could be infectious versus malignant. Discussed that we would need to arrange biopsy as an outpatient. She felt much better this morning and wished to go home. Sodium levels improved. Plan will be to discharge home with daily cefdinir for UTI treatment. We will do low-dose given her significant GI distress with standard dose antibiotics and I will also prescribe Linzess because of her chronic constipation. We will see her back on January 02 and hopefully we will of arranged appointment for interventional radiology for biopsy at that point. Exam Data for Last 24 hours Vital signs and Labs for Last 24 Hours: Temp Pulse Resp BP Pulse Ox O2 Del Method 98.1 F 76 18 138/76 97 Room Air 12/31/22 08:00 12/31/22 08:00 12/31/22 08:00 12/31/22 08:00 12/31/22 08:00 12/31/22 11:00 Laboratory Results - last 24 hr 12/31/22 06:54: WBC 6.7 D, RBC 3.40 L, Hgb 9.6 L D, Hct 28.7 L, MCV 84.3, MCH 28.2, MCHC 33.4, RDW 13.6, Plt Count 409, MPV 7.6, Neut % (Auto) 69.1, Lymph % (Auto) 19.7, [place] % (Auto) 8.9, Eos % (Auto) 1.9, Baso % (Auto) 0.4, Neut # (Auto) 4.7, Lymph # (Auto) 1.3, [place] # (Auto) 0.6, Eos # (Auto) 0.1, Baso # (Auto) 0.0, Sodium 135 L, Potassium 3.9, Chloride 104, Carbon Dioxide 22, Anion Gap 12.9, BUN 9 D, Creatinine 0.70, Estimated Creat Clear 50, Estimated GFR 81, Est GFR ( Amer) 98, Glucose 94 D, Calcium 9.1 I & O for Last 24 hours: Intake & Output 12/29/22 12/30/22 12/31/22 01/01/23 11:59 11:59 11:59 11:59 Intake Total 720 / 720 Output Total 0 / 0 Balance 720 / 720 Weight 136 lb 2 oz 150 lb 1.6 oz Microbiology Reports for the Last 24 Hours: Microbiology 12/30/22 08:55 Urine,Clean Catch Urine Culture - Preliminary NO GROWTH AFTER 24 HOURS Constitutional Constitutional: no acute distress *Routine HEENT Exam Head: Present normocephalic Eye: Present EOMI and PERRL ENT: Present mucous membranes moist *Routine Neck Exam Neck: Present supple; Absent lymphadenopathy *Routine Respiratory Exam Respiratory: Present CTA bilaterally *Routine Cardiovascular Exam Cardiovascular: Present RRR *Routine Abdominal Exam Abdominal: Present soft and normoactive bowel sounds; Absent tenderness *Routine Extremities Exam Extremities: Absent cyanosis, clubbing or edema *Routine Skin Exam Skin: Present warm; Absent rash *Routine Neurological Exam Neurological: Present alert and oriented X3 Results Data Completed and Pending Labs on day of discharge: Labs from last 24 hours 12/31/22 06:54 WBC 6.7 D RBC 3.40 L Hgb 9.6 L D Hct 28.7 L MCV 84.3 MCH 28.2 MCHC 3
--- NOTE | 2022-12-31 13:33 | HMH.PHAINT1 ---
Pharmacy Intervention Comments: DISCHARGE MEDICATION COUNSELING PROVIDED. DISCUSSED STOPPING THE LISINOPRIL, LISINOPRIL/HCTZ, AND AMOXICILLIN. START CEFDINIR (ANTIBIOTIC, DAILY, TAKE WITH FOOD, N/V/D POSSIBLE), START LINZESS (FOR CONSTIPATION, DAILY, CAN CAUSE N/D/V, FLATULENCE, HEADACHE), START ZOFRAN (FOR N/V, EVERY 8 HOURS NEEDED). PATIENT VERBALIZED NO QUESTIONS AT THIS TIME.
--- NOTE | 2023-01-02 14:35 | CARE MANAGER ---
Attempted post-discharge phone interview, left message.
--- NOTE | 2023-01-04 14:43 | CARE MANAGER ---
Attempted to contact patient twice related to hospital discharge. Left VM.
== END 2022-12-31 13:35 | disposition home or self-care (01) ==
LOC: ER 10:13 → 2ND 10:43
PROVIDERS: Admitting Provider Internal Medicine Adolescent Medicine; Emergency Provider Student in an Organized Health Care Education/Training Program; PCP Internal Medicine Adolescent Medicine; Visit Provider Internal Medicine Adolescent Medicine
DX: E87.1 Hypo-osmolality and hyponatremia (principal); N39.0 Urinary tract infection, site not specified; E86.0 Dehydration; L04.8 Acute lymphadenitis of other sites; K21.9 Gastro-esophageal reflux disease without esophagitis; I10 Essential (primary) hypertension
CPT/HCPCS: 36415; 71270; 74177; 80048; 80053; 81001; 83605; 83690; 85025; 87040; 87086; 99285; G0378; J0696; J2405; Q9967

== ENCOUNTER → 2023-01-02 15:14 | Outpatient (CLI) | payer MEDICARE, SELFPAY ==
--- NOTE | 2023-01-02 16:24 | XR_ITS ---
PROCEDURE INFORMATION: Exam: XR Thoracic Spine Exam date and time: 01/02/23 04:26 PM Age: 77 years old Clinical indication: Pain in thoracic spine; Additional info: Low back pain TECHNIQUE: Imaging protocol: Radiologic exam of the thoracic spine. Views: 3 views. COMPARISON: CT CHEST WO/W CON 12/31/22 10:57 AM FINDINGS: Bones/joints: Normal. No acute fracture. Normal alignment. Soft tissues: Unremarkable. Vascular calcifications. IMPRESSION: No acute traumatic findings.
--- NOTE | 2023-01-02 16:24 | XR_ITS ---
PROCEDURE INFORMATION: Exam: XR Lumbosacral Spine Exam date and time: 01/02/23 04:26 PM Age: 77 years old Clinical indication: Low back pain TECHNIQUE: Imaging protocol: Radiologic exam of the lumbosacral spine. Views: 4 or 5 views. COMPARISON: CT ABDOMEN PELVIS W CON 12/30/22 09:35 AM FINDINGS: Bones/joints: Vacuum disc L5-S1. Soft tissues: Unremarkable. Vasculature: Severe vascular calcifications. IMPRESSION: No acute traumatic findings.
[2023-01-02 16:43] LABS: Basophils % 0.4 % (0.1-2.0); Eosinophils # 0.3 K/mm3 (0.0-0.4); Eosinophils % 3.5 % (0.1-12.0); Hematocrit 30.1 % (37.0-47.0); Lymphocytes # 1.6 K/mm3 (0.7-4.5); Lymphocytes % 17.1 % (10-50); Mean Corpuscular HGB Conc 33.1 g/dL (31.8-35.4); Mean Corpuscular Hemoglobin 28.2 pg (27.0-31.2); Mean Corpuscular Volume 85.1 fl (81-99); Mean Platelet Volume 7.7 fl (7.4-10.4); Monocytes # 0.6 K/mm3 (0.1-1.0); Monocytes % 6.2 % (1.7-9.3); Neutrophils # 6.6 K/mm3 (1.8-7.8); Neutrophils % 72.8 % (37.0-80.0); Platelet Count 418 K/mm3 (142-424); Red Blood Count 3.53 M/mm3 (4.20-5.40); Red Cell Distribution Width 13.9 % (11.5-17.5); White Blood Count 9.1 K/mm3 (4.8-10.8)
[2023-01-02 16:57] LABS: INR 1.01 (0.9-1.1); Prothrombin Time 10.9 seconds (10.1-12.5)
[2023-01-02 17:08] LABS: Chloride 96 mmol/L (98-107); Potassium 4.7 mmoL/L (3.5-5.1); Sodium 135 mmol/L (136-145)
[2023-01-02 17:10] LABS: Blood Urea Nitrogen 16 mg/dl (7-17)
[2023-01-02 17:11] LABS: Anion Gap 16.7 mEq/L (5-15); Calcium 10.2 mg/dl (8.4-10.2); Carbon Dioxide 27 mmol/L (22.0-30.0); Estimated Glomerular Filt Rate 69 ml/min (>60); GFR (African American) 84 ML/MIN (>60); Glucose 116 mg/dl (74-100)
== END ==
PROVIDERS: PCP Nurse Practitioner Family; Visit Provider Nurse Practitioner Family
DX: R59.0 Localized enlarged lymph nodes (principal); D50.9 Iron deficiency anemia, unspecified; I65.23 Occlusion and stenosis of bilateral carotid arteries; M54.6 Pain in thoracic spine; M54.50 Low back pain, unspecified; D64.9 Anemia, unspecified
CPT/HCPCS: 36415; 72072; 72110; 80048; 85025; 85610; 85730

== ENCOUNTER 2023-01-03 07:09 | Outpatient (CLI) | payer MEDICARE, SELFPAY ==
[2023-01-03] VITALS (7 sets, daily range): BP systolic 106–156; BP diastolic 47–71; PULSE 62–78; RESP 16–18; TEMP 36.5–36.6; O2SAT 93–99; BMI 24.0
--- NOTE | 2023-01-03 07:19 | CT_ITS ---
FINAL REPORT CLINICAL HISTORY: . LEFT SIDED CT GUIDED LYMPH NODE BIOPSY FINDINGS: CT GUIDED LYMPH NODE CORE BIOPSY HISTORY: Retroperitoneal lymphadenopathy. ATTENDING PHYSICIAN: Dr. Murphy PHYSICIAN TRAVELING AUDITOR: José Miguel Munson PA-C PROCEDURE: After informed consent was obtained and a timeout was performed, the patient was prepped and draped in usual sterile fashion over the left abdomen posteriorly. Utilizing local anesthesia and sterile technique with a coaxial system, access to lesion was obtained. A total of 6 separate 18-gauge core biopsies were obtained. Post biopsy films demonstrate no evidence of acute complication. The patient received sedation from anesthesiology. The patient tolerated the procedure well and left the department in good condition. IMPRESSION: Status post CT guided core biopsy of retroperitoneal lymphadenopathy without immediate complication. Films reviewed , interpreted and dictated by Dr. Murphy. Transcribed by José Miguel Munson PA-C. Reviewed, Interpreted and Dictated by Ramses Murphy MD Transcribed by RAYMOND Valdovinos Authenticated and [facility]
--- NOTE | 2023-01-03 08:08 | PC.NURSE ---
Anesthesia made aware of pt's cough that she states began last night. Pt reports cough is intermittent and productive w/ green/yellow sputum. Denies being SOA. Denies having any recent fevers. Lungs CTA per Princess Motley RN. Anesthesia okay w/ these findings. Radiology made aware of the above as well prior to procedure. Approval from them as well to move forward w/ procedure. Pt made aware, no further concerns. Pt currently sitting in stretcher w/ daughter at bedside awaiting transport to rad dept. Call flowers w/in reach.
--- NOTE | 2023-01-03 08:15 | PC.NURSE ---
Pt to rad per stretcher w/ K Chetan,Rad
--- NOTE | 2023-01-03 08:51 | EXP.ANES.CKL ---
[facility] Disclaimer: The information contained in this section may have been updated after the patient was seen, as this information can be updated by other users. Medical History (Updated 01/03/23 @ 07:48 by Es Mora RN) Anxiety FH: cholecystectomy GERD (gastroesophageal reflux disease) H/O coronary angiogram History of carotid artery stenosis Hyperlipidemia Hypertension Surgical History (Updated 01/03/23 @ 07:48 by Es Mora RN) History of cholecystectomy Tubal ligation status Family History Other Cancer Family history of hyperlipidemia Family history of hypertension Social History (Updated 01/03/23 @ 07:49 by Es Mora RN) Smoking Status: Never smoker second hand exposure: No alcohol intake: never substance use type: denies use current occupational status: retired Travel in the last 8 weeks: Inside the [place] household members: spouse housing: house current occupational exposures/hazards: No caffeine: No H Anesthesia Checklist Patient Identification Patient Identification: Arm Band Structural Data Admitted From: Home Planned Operative Procedure/s: CT Guided Lymph Node Biopsy Consent for Planned Operative Procedure(s) Verified: Yes Verified Documents: Surgical Consent and History and Physical NPO Status Verified Time NPO: 00:00 Additional verifications Anesthesia Reactions: No Hx Blood Transfusions: No Blood Transfusion Reaction: No Airway Assessment Mallampati Score:: Class II C-Spine Mobility Assessed: Yes TMJ Mobility Assessed: Yes Neurological Assessment Level of Consciousness: Awake and Alert Anesthesia Plan Anesthesia Risk discussed: Yes Anesthesia Plan: Verified ASA Class: II Anesthesia Type: MAC
--- NOTE | 2023-01-03 11:01 | PC.NURSE ---
site of biopsy covered with bandaid, no bleeding noted. no c/o pain or n/v.
== END 2023-01-03 11:02 | disposition home or self-care (01) ==
PROVIDERS: PCP Internal Medicine Adolescent Medicine; Visit Provider Internal Medicine Adolescent Medicine
DX: R59.0 Localized enlarged lymph nodes; C85.10 Unspecified B-cell lymphoma, unspecified site
CPT/HCPCS: 49180; 77012; 88184; 88185; 88305; 88342; 88360; 88365

== ENCOUNTER 2023-01-26 13:03 | Outpatient (CLI) | payer MEDICARE, SELFPAY ==
[2023-01-26 13:04] VITALS: BMI 22.3
[2023-01-26 13:34] LABS: Basophils % 0.7 % (0.1-2.0); Eosinophils # 0.2 K/mm3 (0.0-0.4); Eosinophils % 3.2 % (0.1-12.0); Hematocrit 34.4 % (37.0-47.0); Hemoglobin 10.7 g/dL (12.2-16.2); Lymphocytes # 1.2 K/mm3 (0.7-4.5); Lymphocytes % 22.5 % (10-50); Mean Corpuscular Hemoglobin 25.9 pg (27.0-31.2); Mean Corpuscular Volume 83.5 fl (81-99); Mean Platelet Volume 8.1 fl (7.4-10.4); Monocytes # 0.4 K/mm3 (0.1-1.0); Monocytes % 7.8 % (1.7-9.3); Neutrophils # 3.6 K/mm3 (1.8-7.8); Neutrophils % 65.8 % (37.0-80.0); Platelet Count 514 K/mm3 (142-424); Red Blood Count 4.12 M/mm3 (4.20-5.40); Red Cell Distribution Width 14.2 % (11.5-17.5); White Blood Count 5.4 K/mm3 (4.8-10.8)
[2023-01-26 13:38] LABS: Phosphorous 4.5 mg/dl (2.5-4.5)
[2023-01-26 13:39] LABS: Anion Gap 15.7 mEq/L (5-15); Blood Urea Nitrogen 17 mg/dl (7-17); Carbon Dioxide 27 mmol/L (22.0-30.0); Chloride 98 mmol/L (98-107); Potassium 4.7 mmoL/L (3.5-5.1); Sodium 136 mmol/L (136-145)
[2023-01-26 13:40] LABS: Alanine Aminotransferase 22 U/L (12-78); Albumin Level 4.5 g/dl (3.5-5.0); Albumin/Globulin Ratio 1.1 (1.1-1.8); Alkaline Phosphatase 149 U/L (38-126); Aspartate Amino Transferase 36 U/L (14-36); Bilirubin,Total 0.4 mg/dl (0.2-1.3); Calcium 10.1 mg/dl (8.4-10.2); Creatinine Clearance Estimated 39 mL/min (50-200); Estimated Glomerular Filt Rate 48 ml/min (>60); GFR (African American) 58 ML/MIN (>60); Globulin 4.1 g/dL (1.3-3.2); Glucose 101 mg/dl (74-100); Total Protein,Serum 8.6 g/dl (6.3-8.2)
[2023-01-26 13:44] LABS: Lactate Dehydrogenase 295 U/L (313-618); Magnesium 1.8 mg/dl (1.6-2.3); Uric Acid 7.6 mg/dl (2.5-6.2)
[2023-01-26 15:01] LABS: Iron 33 ug/dL (37-170)
[2023-01-26 15:10] LABS: Total Iron Binding Capacity 341 ug/dL (265-497)
[2023-01-26 15:44] LABS: Ferritin 27.9 ng/ml (11.1-264)
== END 2023-01-26 13:17 | disposition home or self-care (01) ==
LOC: INF 13:04
PROVIDERS: PCP Internal Medicine Adolescent Medicine; Visit Provider Internal Medicine Medical Oncology
DX: C85.94 Non-Hodgkin lymphoma, unspecified, lymph nodes of axilla and upper limb (principal)
CPT/HCPCS: 36415; 80053; 82728; 83540; 83550; 83615; 83735; 84100; 84550; 85025

== ENCOUNTER → 2023-02-01 14:18 | Outpatient (CLI) | payer MEDICARE, SELFPAY ==
--- NOTE | 2023-02-01 14:28 | ECG_ITS ---
APPROVED REPORT Exam: Resting ECG HR:60 bpm ECG Measurements Heart Rate 60 AXES IL 148 P 84 QRSd 78 QRS 35 QT 369 T 50 QTc 370 Conclusion SINUS RHYTHM NORMAL ECG UNCONFIRMED REPORT Electronically signed by : Cristian Zhu MD 02/02/2023 17:19:49
== END ==
PROVIDERS: PCP Internal Medicine Adolescent Medicine; Visit Provider Surgery
DX: L04.8 Acute lymphadenitis of other sites (principal)
CPT/HCPCS: 93005

== ENCOUNTER 2023-02-03 06:04 | Day surgery (SDC) | payer MEDICARE, SELFPAY ==
[2023-01-31 13:47] VITALS: BMI 22.3
[2023-02-03] VITALS (12 sets, daily range): BP systolic 117–137; BP diastolic 50–59; PULSE 70–78; RESP 18–22; TEMP 36.2–36.3; O2SAT 93–96
--- NOTE | 2023-02-03 08:21 | XR_ITS ---
FINAL REPORT CLINICAL HISTORY: PORT A CATH PLACEMENT 0.8 min fluoro time FINDINGS: A single view of the chest was obtained. The a new left Port-A-Cath is present with the tip in the SVC. The heart and mediastinum are normal. There are low lung volumes. The lungs are otherwise clear. There is no pleural effusion or pneumothorax. IMPRESSION: No acute cardiopulmonary process. Reviewed, Interpreted and Dictated by Torie Sow MD Transcribed by Arleth Sun Authenticated and . [facility]
--- NOTE | 2023-02-03 08:36 | XR_ITS ---
FINAL REPORT CLINICAL HISTORY: port-a-cath placement FINDINGS: A single view of the chest was obtained. The a new left Port-A-Cath is present with the tip in the SVC. The heart and mediastinum are normal. There are low lung volumes. The lungs are otherwise clear. There is no pleural effusion or pneumothorax. IMPRESSION: No acute cardiopulmonary process. Reviewed, Interpreted and Dictated by Torie Sow MD Transcribed by Arleth Sun Authenticated and . [facility]
--- NOTE | 2023-02-03 08:37 | P.OP_ITS ---
Date of procedure: 02/03/23 Pre-op Diagnosis:: Diffuse large B-cell lymphoma Post-op Diagnosis:: Same Procedure performed:: Port-A-Cath placement (left subclavian vein access) Surgeon:: Dg Leahy MD Anesthesia: local and LMA Estimated blood loss (mL): 10 Operative findings:: Port flushed with heparinized saline Operative note:: After informed consent was obtained the patient was taken to the operating room and placed in the supine position. General anesthesia with laryngeal mask airway was achieved. Her chest and neck were prepped and draped in a sterile fashion. After infiltration with local anesthetic a large bore needle was utilized to access the left subclavian vein. The guidewire was placed in position (confirmed fluoroscopically). A transverse skin incision was made at the guidewire exit site. The deep subcutaneous tissue was dissected with a combination of blunt dissection and electrocautery in order to create a pocket for the port hub. Utilizing a modified Seldinger technique, the port catheter was placed in position and confirmed fluoroscopically. The port catheter was cut to appropriate length and secured to the hub. The hub was then secured to the underlying fascia with interrupted Prolene suture. The deep subcutaneous tissue was reapproximated with 2-0 Vicryl. Skin was then closed with running 4- 0 Monocryl in a subcuticular fashion. The port was flushed with 5 mL of heparinized saline. Dressings were applied and the patient was transferred to recovery in stable condition. Chest x-ray pending. Condition: stable Disposition: PACU Specimens:: None Complications:: No immediate. Chest x-ray pending.
--- NOTE | 2023-02-03 08:51 | P.PNANES_ITS ---
[facility] Disclaimer: The information contained in this section may have been updated after the patient was seen, as this information can be updated by other users. Medical History Anxiety FH: cholecystectomy GERD (gastroesophageal reflux disease) H/O coronary angiogram History of carotid artery stenosis Hyperlipidemia Hypertension Lymphoma Surgical History History of cholecystectomy Tubal ligation status Family History Other Cancer Family history of hyperlipidemia Family history of hypertension Social History (Updated 02/03/23 @ 06:44 by Megan Escalera RN) Smoking Status: Former smoker second hand exposure: No alcohol intake: never substance use type: denies use current occupational status: retired Travel in the last 8 weeks: None household members: spouse housing: house current occupational exposures/hazards: No caffeine: No H Anesthesia Checklist Patient Identification Patient Identification: Arm Band and Family Structural Data Admitted From: Home Planned Operative Procedure/s: Portacath placement. Consent for Planned Operative Procedure(s) Verified: Yes Verified Documents: Surgical Consent and History and Physical NPO Status Verified Time NPO: 00:00 Additional verifications Patient : No Anesthesia Reactions: No Hx Blood Transfusions: No Blood Transfusion Reaction: No Cephalosporin Allergy: No Previous Colonoscopy: No Airway Assessment Mallampati Score:: Class II C-Spine Mobility Assessed: Yes TMJ Mobility Assessed: Yes Dentition: Edentulous Neurological Assessment Level of Consciousness: Awake, Alert, Appropriate and Follows Commands Hx Seizures: No Numbness or tingling in extremities: No Anesthesia Plan Anesthesia Risk discussed: Yes ASA Class: III Anesthesia Type: General Preoperative Comments Pre-Operative Comments: Lymphoma. Acid reflux. Carotid artery disease. PONV. Advanced age. Hypertension.
--- NOTE | 2023-02-03 08:55 | P.PNANES_ITS ---
[facility] Anesthesia Record Part I Anesthesia Record I Intake, IV Amount: 800 Hydration: Adequate Estimated blood loss (mL): 5 Urine output (mL): 0 Blood Products used (#): none Blood Pressure: 117/54 SaO2: 95 Pulse Rate: 78 Airway Patency: Patent Respiratory Rate: 22 Temperature: 97.2 F Patient is:: Drowsy and Stable Stable to PACU at:: 08:40
--- NOTE | 2023-02-03 13:37 | EXP.ANES.II ---
[facility] Anesthesia Record Part II Anesthesia Record Part II Discharge Time: 09:14 Destination: Surgical Day Care (OP Surgery) PACU nurse assessment reviewed?: Yes Patient Condition:: Good Anesthesia Complications:: None Swallowing reflex intact?: Yes Airway Patency: Patent Cyanosis?: No Blood Pressure: 126/51 SaO2: 95 Respiratory Rate: 21 Pulse Rate: 73 Temperature: 97.3 F Mental Status: Alert & Oriented Pain level:: 0 Nausea and/or vomitting:: None Intake, IV Amount: 0 Hydration: Adequate
== END 2023-02-03 09:47 | disposition home or self-care (01) ==
PROVIDERS: PCP Internal Medicine Adolescent Medicine; Visit Provider Surgery
PROC: (CPT 36561; principal; 2023-02-03 07:30)
DX: C83.30 Diffuse large B-cell lymphoma, unspecified site (principal)
CPT/HCPCS: 36561; 77001; 71045; 96374; C1788; J1642; J2405

== ENCOUNTER → 2023-02-06 08:04 | Outpatient (CLI) | payer MEDICARE, SELFPAY ==
[2023-02-06] VITALS (22 sets, daily range): BP systolic 111–160; BP diastolic 45–80; PULSE 69–76; RESP 18; TEMP 36.8; O2SAT 97; BMI 22.3
[2023-02-06 08:39] LABS: Basophils % 0.3 % (0.1-2.0); Eosinophils # 0.3 K/mm3 (0.0-0.4); Eosinophils % 2.9 % (0.1-12.0); Hematocrit 33.5 % (37.0-47.0); Hemoglobin 10.5 g/dL (12.2-16.2); Lymphocytes # 0.8 K/mm3 (0.7-4.5); Lymphocytes % 8.3 % (10-50); Mean Corpuscular HGB Conc 31.4 g/dL (31.8-35.4); Mean Corpuscular Hemoglobin 25.9 pg (27.0-31.2); Mean Corpuscular Volume 82.6 fl (81-99); Mean Platelet Volume 8.4 fl (7.4-10.4); Monocytes # 0.8 K/mm3 (0.1-1.0); Monocytes % 7.7 % (1.7-9.3); Neutrophils # 8.2 K/mm3 (1.8-7.8); Neutrophils % 80.7 % (37.0-80.0); Platelet Count 489 K/mm3 (142-424); Red Blood Count 4.05 M/mm3 (4.20-5.40); Red Cell Distribution Width 15.2 % (11.5-17.5); White Blood Count 10.2 K/mm3 (4.8-10.8)
[2023-02-06 08:40] LABS: Chloride 100 mmol/L (98-107); Potassium 3.6 mmoL/L (3.5-5.1); Sodium 137 mmol/L (136-145)
[2023-02-06 08:43] LABS: Alanine Aminotransferase 28 U/L (12-78); Albumin Level 3.8 g/dl (3.5-5.0); Albumin/Globulin Ratio 1.2 (1.1-1.8); Alkaline Phosphatase 113 U/L (38-126); Anion Gap 9.6 mEq/L (5-15); Aspartate Amino Transferase 30 U/L (14-36); Bilirubin,Total 0.5 mg/dl (0.2-1.3); Blood Urea Nitrogen 15 mg/dl (7-17); Carbon Dioxide 31 mmol/L (22.0-30.0); Creatinine Clearance Estimated 43 mL/min (50-200); Estimated Glomerular Filt Rate 54 ml/min (>60); GFR (African American) 65 ML/MIN (>60); Globulin 3.1 g/dL (1.3-3.2); Total Protein,Serum 6.9 g/dl (6.3-8.2)
[2023-02-06 08:44] LABS: Calcium 9.9 mg/dl (8.4-10.2); Glucose 105 mg/dl (74-100)
== END ==
PROVIDERS: PCP Internal Medicine Adolescent Medicine; Visit Provider Internal Medicine Medical Oncology
DX: Z45.2 Encounter for adjustment and management of vascular access device; C83.36 Diffuse large B-cell lymphoma, intrapelvic lymph nodes; Z79.899 Other long term (current) drug therapy
CPT/HCPCS: 80053; 85025; 96375; 96413; 96415; 96417; J1642; J2469; J9000; J9070; J9370; Q0166; Q5119

== ENCOUNTER 2023-02-07 10:39 | Outpatient (CLI) | payer MEDICARE, SELFPAY ==
[2023-02-07 11:00] VITALS: BP 147/71; PULSE 84; RESP 18; O2SAT 99
== END 2023-02-07 11:12 | disposition home or self-care (01) ==
LOC: INF 10:40
PROVIDERS: PCP Internal Medicine Adolescent Medicine; Visit Provider Internal Medicine Medical Oncology
DX: C83.30 Diffuse large B-cell lymphoma, unspecified site (principal)
CPT/HCPCS: 96372; J2505

== ENCOUNTER 2023-02-13 13:11 | Inpatient (IN) | payer MEDICARE, SELFPAY ==
[2023-02-13 13:13] VITALS: BP 198/63; PULSE 99; RESP 20; TEMP 36.8; O2SAT 94; BMI 22.3
[2023-02-13 14:00] VITALS: BP 181/53; PULSE 96
[2023-02-13 14:06] LABS: Alanine Aminotransferase 20 U/L (12-78); Albumin Level 3.8 g/dl (3.5-5.0); Albumin/Globulin Ratio 1.2 (1.1-1.8); Alkaline Phosphatase 122 U/L (38-126); Anion Gap 9.7 mEq/L (5-15); Aspartate Amino Transferase 24 U/L (14-36); Bilirubin,Total 0.3 mg/dl (0.2-1.3); Blood Urea Nitrogen 10 mg/dl (7-17); Calcium 9.5 mg/dl (8.4-10.2); Carbon Dioxide 29 mmol/L (22.0-30.0); Chloride 99 mmol/L (98-107); Creatinine Clearance Estimated 43 mL/min (50-200); Estimated Glomerular Filt Rate 69 ml/min (>60); GFR (African American) 84 ML/MIN (>60); Globulin 3.3 g/dL (1.3-3.2); Glucose 118 mg/dl (74-100); Potassium 3.7 mmoL/L (3.5-5.1); Sodium 134 mmol/L (136-145); Total Protein,Serum 7.1 g/dl (6.3-8.2)
--- NOTE | 2023-02-13 14:08 | PC.NURSE ---
Dr. Peralta at BS for pt eval
--- NOTE | 2023-02-13 14:11 | HMH.EDGENADL ---
Discharge Plan Disposition Patient Disposition: Admitted Chief Complaint: Fever Prescriptions Prescriptions: No Action alprazolam 0.5 mg tablet 0.5 mg PO Q6HP PRN (Reason: Anxiety) 30 Days Qty: 120 rosuvastatin 5 mg tablet 5 mg PO HS famotidine 20 mg tablet 20 mg PO DAILYP PRN (Reason: Acid Reflux) lisinopril 20 mg Tablet 20 mg PO DAILY allopurinol 300 mg Tablet 300 mg PO DAILY ondansetron HCl 4 mg tablet 4 mg PO NEEDED PRN (Reason: Nausea And Vomiting) prochlorperazine maleate 10 mg tablet 10 mg PO NEEDED PRN (Reason: Nausea And Vomiting) aspirin 81 MG tablet,delayed release (DR/EC) 81 mg PO DAILY carvedilol 12.5 mg tablet 6.25 mg PO DAILY carvedilol 12.5 mg tablet 12.5 mg PO HS amlodipine 5 mg tablet 5 mg PO DAILY sennosides-docusate sodium [Senna with Docusate Sodium] 8.6-50 mg Tablet 1 tab-cap PO HS Referrals Follow up/Referrals: Cristian Zhu MD [Primary Care Provider] - See instructions Clinical Impressions Clinical Impression: Neutropenic fever, Pancytopenia Discharge ED Provider: Gatito Peralta General Adult HPI General Chief complaint: Fever Stated complaint: fever and back pain Time Seen by Provider: 02/13/23 13:20 Mode of Arrival: Ambulatory Source of Information: Patient Limitations: No Limitations Description of Symptoms (Recalled from ER Triage Doc. by RN): pt is a chemo patient of and has lymphoma that was dx about 2 months ago. first chemo was on 02/06/23. pt is hard of hearing and daughter is at bedside and can answer all questions. pt was at home and per their thermometer had a fever of 102 however upon arrival to ER temp was 98.3, and family just wanted her cheked out due to temp at home. pt has chronic right flank pain that has been going on since dx of lymphoma History of Present Illness HPI narrative: Patient is a 77-year-old female with past medical history of lymphoma currently on CHOP therapy, last administration early February who presents emergency department for evaluation of fever. Patient states that she was admitted last month with a kidney infection was found to have possible lymphoma which has subsequently initiated therapy. She has chronic back pain at the site of her enlarged lymph nodes which has not different in quality from baseline. She has had intermittent diarrhea over the last couple of days, refractory nausea to multiple medications prescribed by her oncologist. She took her temperature today orally which measured 102 causing her to present here for evaluation. No other acute complaints at this time. Denies chest pain, abdominal pain, cough, shortness of breath. Related Data Home Medications Medication Instructions Recorded Confirmed alprazolam 0.5 mg tablet 0.5 mg PO Q6HP PRN Anxiety 30 days 12/01/17 02/07/23 ##120 aspirin 81 mg tablet,delayed 81 mg PO DAILY Heart Health 12/23/17 02/07/23 release rosuvastatin 5 mg tablet 5 mg PO HS Cholesterol 05/29/18 02/07/23 famotidine 20 mg tablet 20 mg PO DAILYP PRN Acid Reflux 07/29/21 02/07/23 amlodipine 5 mg tablet 5 mg PO DAILY blood pressure 12/30/22 02/07/23 carvedilol 12.5 mg tablet 6.25 mg PO DAILY blood 12/30/22 02/07/23 pressure/heart rate carvedilol 12.5 mg tablet 12.5 mg PO HS blood pressure/heart 12/30/22 02/07/23 rate sennosides 8.6 mg-docusate sodium 1 tab-cap PO HS stool softener 12/30/22 02/07/23 50 mg tablet (Senna with Docusate Sodium) lisinopril 20 mg tablet 20 mg PO DAILY htn 01/03/23 02/07/23 allopurinol 300 mg tablet 300 mg PO DAILY kidneys 01/31/23 02/07/23 ondansetron HCl 4 mg tablet 4 mg PO NEEDED PRN Nausea And 02/06/23 02/07/23 Vomiting prochlorperazine maleate 10 mg 10 mg PO NEEDED PRN Nausea And 02/06/23 02/07/23 tablet Vomiting Allergies Allergy/AdvReac Type Severity Reaction Status Date / Time esomeprazole [From Nexium] Allergy Intermediate Hives Verified 02/03/23 06:
[2023-02-13 14:13] LABS: Eosinophils # 0.1 K/mm3 (0.0-0.4); Eosinophils % 29.2 % (0.1-12.0); Lymphocytes # 0.1 K/mm3 (0.7-4.5); Lymphocytes % 17.4 % (10-50); Mean Corpuscular HGB Conc 32.5 g/dL (31.8-35.4); Mean Corpuscular Hemoglobin 25.8 pg (27.0-31.2); Mean Corpuscular Volume 79.6 fl (81-99); Mean Platelet Volume 8.2 fl (7.4-10.4); Monocytes # 0.1 K/mm3 (0.1-1.0); Monocytes % 16.3 % (1.7-9.3); Neutrophils # 0.1 K/mm3 (1.8-7.8); Neutrophils % 37.1 % (37.0-80.0); Platelet Count 93 K/mm3 (142-424); Red Blood Count 3.47 M/mm3 (4.20-5.40); Red Cell Distribution Width 15.3 % (11.5-17.5)
--- NOTE | 2023-02-13 14:13 | PC.NURSE ---
pt to bathroom with staff SBA.
[2023-02-13 14:22] LABS: Hematocrit 27.6 % (37.0-47.0); White Blood Count 0.3 K/mm3 (4.8-10.8)
--- NOTE | 2023-02-13 14:23 | ECG_ITS ---
APPROVED REPORT Exam: Resting ECG HR:99 bpm ECG Measurements Heart Rate 99 AXES WI 152 P 73 QRSd 78 QRS -19 QT 331 T 44 QTc 387 Conclusion SINUS RHYTHM LOW QRS VOLTAGE IN PRECORDIAL LEADS [QRS DEFLECTION < 1.0 mV IN CHEST LEADS] PATTERN CONSISTENT WITH PULMONARY DISEASE ABNORMAL ECG UNCONFIRMED REPORT Electronically signed by : Cristian Zhu MD 02/13/2023 19:36:11
[2023-02-13 14:24] LABS: MANUAL DIFFERENTIAL MANUAL DIFFERENTIAL (MANUAL DIFF)
--- NOTE | 2023-02-13 14:27 | PC.NURSE ---
Dr. Peralta at BS for pt eval
[2023-02-13 14:30] VITALS: BP 191/64; PULSE 95
[2023-02-13 14:30] LABS: Microscopic, Urine URINE MICROSCOPIC (MICROSCOPIC)
[2023-02-13 14:35] LABS: Appearance,Urine CLEAR (Clear); Bilirubin,Urine Negative (Negative); Blood, Urine Negative (Negative); Color,Urine YELLOW (Yellow); Glucose,Urine (UA) Negative (Negative); Ketones,Urine Negative (Negative); Leukocyte Esterase,Urine TRACE (Negative); Nitrate,Urine Negative (Negative); PH,Urine 7.5 (5.0-8.5); Protein,Urine Negative (Negative); Specific Gravity, Urine 1.015 (1.005-1.030); Urobilinogen,Urine 0.2 EU/dl (0.2)
--- NOTE | 2023-02-13 14:37 | PC.NURSE ---
DR PATTERSON SPEAKING WITH DR BETH
--- NOTE | 2023-02-13 14:39 | PC.NURSE ---
DR BETH ACCEPTS PT FOR ADMISSION
--- NOTE | 2023-02-13 14:40 | PC.NURSE ---
CARE MANAGEMENT NOTIFIED OF ADMISSION
--- NOTE | 2023-02-13 14:45 | PC.NURSE ---
pt moved from bay[facility] to bay[facility] to be placed on heart monitor
--- NOTE | 2023-02-13 14:53 | PC.NURSE ---
Dr. Peralta notified of critical WBC of 0.3 @ 1422. He gave a verbal order for 2x blood culture, Cefepime 2g to be started within 15min, and vancomycin consult by pharmacy
--- NOTE | 2023-02-13 14:59 | EXP.PHA.CONS ---
Pharmacy Consult Date: 02/13/23 Time: 15:00 Referring provider: DR. PATTERSON Reason for Consult:: VANCOMYCIN DOSING Allergies Allergy/AdvReac Type Severity Reaction Status Date / Time esomeprazole [From Nexium] Allergy Intermediate Hives Verified 02/03/23 06:25 erythromycin base Allergy Mild Redness of Verified 02/03/23 06:25 Skin amoxicillin [From Augmentin] AdvReac Intermediate Nausea Verified 02/03/23 06:25 clavulanic acid AdvReac Intermediate Nausea Verified 02/03/23 06:25 [From Augmentin] doxycycline AdvReac Intermediate Nausea Verified 02/03/23 06:25 Sulfa (Sulfonamide AdvReac Intermediate Nausea Verified 02/03/23 06:25 Antibiotics) dexlansoprazole AdvReac flu Verified 02/03/23 06:25 [From Dexilant] symptoms pantoprazole [From Protonix] AdvReac Verified 02/03/23 06:25 Home Medications Medication Instructions Recorded Confirmed Type alprazolam 0.5 mg tablet 0.5 mg PO Q6HP PRN Anxiety 30 days 12/01/17 02/07/23 History ##120 aspirin 81 mg tablet,delayed 81 mg PO DAILY Heart Health 12/23/17 02/07/23 History release rosuvastatin 5 mg tablet 5 mg PO HS Cholesterol 05/29/18 02/07/23 History famotidine 20 mg tablet 20 mg PO DAILYP PRN Acid Reflux 07/29/21 02/07/23 History amlodipine 5 mg tablet 5 mg PO DAILY blood pressure 12/30/22 02/07/23 History carvedilol 12.5 mg tablet 6.25 mg PO DAILY blood 12/30/22 02/07/23 History pressure/heart rate carvedilol 12.5 mg tablet 12.5 mg PO HS blood pressure/heart 12/30/22 02/07/23 History rate sennosides 8.6 mg-docusate sodium 1 tab-cap PO HS stool softener 12/30/22 02/07/23 History 50 mg tablet (Senna with Docusate Sodium) lisinopril 20 mg tablet 20 mg PO DAILY htn 01/03/23 02/07/23 History allopurinol 300 mg tablet 300 mg PO DAILY kidneys 01/31/23 02/07/23 History ondansetron HCl 4 mg tablet 4 mg PO NEEDED PRN Nausea And 02/06/23 02/07/23 History Vomiting prochlorperazine maleate 10 mg 10 mg PO NEEDED PRN Nausea And 02/06/23 02/07/23 History tablet Vomiting New Prescriptions to Start Prescriptions: Height: 1.63 m Weight: 58.967 kg Laboratory Results:: Laboratory Results - last 24 hr 02/13/23 13:36: WBC 0.3 L*, RBC 3.47 L, Hgb 9.0 L, Hct 27.6 L, MCV 79.6 L, MCH 25.8 L, MCHC 32.5, RDW 15.3, Plt Count 93 L, MPV 8.2, Neut % (Auto) 37.1, Lymph % (Auto) 17.4, [place] % (Auto) 16.3 H, Eos % (Auto) 29.2 H, Baso % (Auto) 0.0 L, Neut # (Auto) 0.1 L*, Lymph # (Auto) 0.1 L, [place] # (Auto) 0.1, Eos # (Auto) 0.1, Baso # (Auto) 0.0, Sodium 134 L, Potassium 3.7, Chloride 99, Carbon Dioxide 29, Anion Gap 9.7, BUN 10, Creatinine 0.80, Estimated Creat Clear 43, Estimated GFR 69, Est GFR ( Amer) 84, Glucose 118 H, Calcium 9.5, Total Bilirubin 0.3, AST 24, ALT 20, Alkaline Phosphatase 122, Total Protein 7.1, Albumin 3.8, Globulin 3.3 H, Albumin/Globulin Ratio 1.2 Medical History: Medical History (Updated 02/13/23 @ 14:56 by Gatito Patterson MD) Anxiety FH: cholecystectomy GERD (gastroesophageal reflux disease) H/O coronary angiogram History of carotid artery stenosis Hyperlipidemia Hypertension Lymphoma Assessment and Plan Assessment and plan all Dx Assessment and Plan for all problems:: Pharmacokinetic dosing service Objective: Patient: Floor: Age: 77 yo Serum creatinine: 1 mg/dL Height: 64.0 Inches Weight (kg): 59 Assessment: IBW (kg): 54.70 Dosing wt(kg): 59 Estimated Creatinine clearance (ml/min): 40.0 CRCL method: Cockcroft and Gault using ibw(default). Drug selected: Vancomycin Loading dose (mg): 0 Vd (liters): 47.2 (factor used: 0.8 L/kg) Lauri (hr-1): 0.038 Half life (hrs): 18.24 Recommended dose: 1000 mg Interval: 24 hrs Infusion time (hrs): 2.0 Predicted peak (mcg/mL): 34.1 Predicted trough (mcg/mL): 14.78 Total body weight is being used for vancomycin dosing. Recommendatio
[2023-02-13 15:04] LABS: Eosinophils % 32 % (0-3); Lymphocytes % 44 % (10-50); Monocytes % 8 % (2-9); Neutrophils % 12 % (42-76); Total Cells Counted 50
[2023-02-13 15:05] LABS: Hypochromasia 2+
--- NOTE | 2023-02-13 15:05 | PC.NURSE ---
PT STATES I FEEL LIKE I'M GOING TO PASS OUT DR PATTERSON AT BEDSIDE TO EVALUATE PT HR 76 O2 SAT 95% RESP 20 B/P 97/42
[2023-02-13 15:06] LABS: Microcytosis 1+; Platelet Estimate Marked Decrease
[2023-02-13 15:07] LABS: Anisocytosis 2+
--- NOTE | 2023-02-13 15:08 | HMH.PHAINT1 ---
Pharmacy Intervention Comments: MEDICATION RECONCILIATION COMPLETED ON PATIENT USING EXTERNAL FILL HISTORY FROM PHARMACY AND LIST FROM ONCOLOGY OFFICE. -JOHNNY HUTCHINSON, JAYD
[2023-02-13 15:19] LABS: WBC,Urine Occasional #/hpf (0-3)
--- NOTE | 2023-02-13 15:41 | PC.NURSE ---
arrived by w/c from ED
[2023-02-13 15:46] VITALS: BP 178/57; PULSE 99; RESP 20; TEMP 36.6; O2SAT 95; BMI 21.8
[2023-02-13 15:56] VITALS: BP 97/59; PULSE 71; RESP 20; TEMP 36.7; O2SAT 97
--- NOTE | 2023-02-13 17:46 | EXP.HP ---
History of Present Illness *Admission Date: 02/13/23 *Reason for visit:: Fever *History of present illness: 77-year-old female with recent diagnosis of lymphoma, started chemotherapy 1 week ago. Has been undergoing expected nausea and abdominal pain and vomiting. This morning family noted a temperature of 102.7 and brought her to the ER. Exam in the ER unremarkable with no source of infection found but was found to be neutropenic. Given her significant neutropenia, fever and implanted Port-A-Cath she was admitted to hospital for IV antibiotics and ongoing evaluation of neutropenic fever. [facility] Disclaimer: The information contained in this section may have been updated after the patient was seen, as this information can be updated by other users. Medical History Anxiety FH: cholecystectomy GERD (gastroesophageal reflux disease) H/O coronary angiogram History of carotid artery stenosis Hyperlipidemia Hypertension Lymphoma Surgical History History of cholecystectomy Tubal ligation status Family History Other Cancer Family history of hyperlipidemia Family history of hypertension Social History (Updated 02/13/23 @ 16:26 by Randee Barton RN) Smoking Status: Never smoker second hand exposure: No alcohol intake: never substance use type: denies use current occupational status: retired Travel in the last 8 weeks: None household members: spouse housing: house current occupational exposures/hazards: No caffeine: No Meds Home Medications and Allergies Home Medications Medication Instructions Recorded Confirmed Type alprazolam 0.5 mg tablet 0.5 mg PO Q6HP PRN Anxiety 30 days 12/01/17 02/13/23 History ##120 aspirin 81 mg tablet,delayed 81 mg PO DAILY Heart Health 12/23/17 02/13/23 History release rosuvastatin 5 mg tablet 5 mg PO HS Cholesterol 05/29/18 02/13/23 History famotidine 20 mg tablet 20 mg PO BID Acid Reflux 07/29/21 02/13/23 History amlodipine 5 mg tablet 5 mg PO DAILY High Blood Pressure 12/30/22 02/13/23 History carvedilol 12.5 mg tablet 6.25 mg PO DAILY blood 12/30/22 02/13/23 History pressure/heart rate carvedilol 12.5 mg tablet 12.5 mg PO HS blood pressure/heart 12/30/22 02/13/23 History rate sennosides 8.6 mg-docusate sodium 1 tab PO HS stool softener 12/30/22 02/13/23 History 50 mg tablet (Senna with Docusate Sodium) lisinopril 20 mg tablet 20 mg PO DAILY High Blood Pressure 01/03/23 02/13/23 History allopurinol 300 mg tablet 300 mg PO DAILY Gout 01/31/23 02/13/23 History ondansetron HCl 4 mg tablet 4 mg PO TIDP PRN Nausea And 02/06/23 02/13/23 History Vomiting prochlorperazine maleate 10 mg 10 mg PO Q4HP PRN Nausea And 02/06/23 02/13/23 History tablet Vomiting New Prescriptions to Start Prescriptions: Allergies Allergy/AdvReac Type Severity Reaction Status Date / Time esomeprazole [From Nexium] Allergy Intermediate Hives Verified 02/13/23 16:18 erythromycin base Allergy Mild Redness of Verified 02/13/23 16:18 Skin amoxicillin [From Augmentin] AdvReac Intermediate Nausea Verified 02/13/23 16:18 clavulanic acid AdvReac Intermediate Nausea Verified 02/13/23 16:18 [From Augmentin] doxycycline AdvReac Intermediate Nausea Verified 02/13/23 16:18 Sulfa (Sulfonamide AdvReac Intermediate Nausea Verified 02/13/23 16:18 Antibiotics) dexlansoprazole AdvReac flu Verified 02/13/23 16:18 [From Dexilant] symptoms pantoprazole [From Protonix] AdvReac Verified 02/13/23 16:18 Exam Data for Last 24 hours Vital signs and Labs for Last 24 Hours: Temp Pulse Resp BP Pulse Ox O2 Del Method 98.1 F 71 20 97/59 L 95 Room Air 02/13/23 15:56 02/13/23 15:56 02/13/23 15:56 02/13/23 15:56 02/13/23 15:46 02/13/23 15:56 Laboratory Resu
--- NOTE | 2023-02-13 19:05 | PC.NURSE ---
pt daughter has patient's home medications, due to pharmacy being gone already she wanted to wait to give them to us until the morning
[2023-02-13 20:00] VITALS: BP 143/59; PULSE 104; RESP 19; TEMP 37.9; O2SAT 93
[2023-02-14 04:00] VITALS: BP 118/45; PULSE 90; RESP 16; TEMP 36.7; O2SAT 93; BMI 23.0
--- NOTE | 2023-02-14 05:16 | PC.NURSE ---
Patient has had a good night. complained of nausea early in shift see JUL. Did have a small temp at 2000 VS. But has remained without a fever through the rest of the night. Patient has been up to the bathroom a couple times tonight and remains a standby assist. No other issues stated by patient or family
[2023-02-14 06:47] LABS: Chloride 100 mmol/L (98-107)
[2023-02-14 06:48] LABS: Potassium 3.4 mmoL/L (3.5-5.1); Sodium 134 mmol/L (136-145)
[2023-02-14 06:50] LABS: Blood Urea Nitrogen 10 mg/dl (7-17); Creatinine Clearance Estimated 45 mL/min (50-200); Estimated Glomerular Filt Rate 69 ml/min (>60); GFR (African American) 84 ML/MIN (>60)
[2023-02-14 06:51] LABS: Anion Gap 9.4 mEq/L (5-15); Calcium 8.5 mg/dl (8.4-10.2); Carbon Dioxide 28 mmol/L (22.0-30.0); Glucose 96 mg/dl (74-100)
[2023-02-14 06:57] LABS: Basophils % 0.5 % (0.1-2.0); Hematocrit 24.5 % (37.0-47.0); Lymphocytes # 0.2 K/mm3 (0.7-4.5); Mean Corpuscular HGB Conc 32.4 g/dL (31.8-35.4); Mean Corpuscular Volume 80.4 fl (81-99); Mean Platelet Volume 9.1 fl (7.4-10.4); Monocytes % 6.4 % (1.7-9.3); Neutrophils # 0.3 K/mm3 (1.8-7.8); Neutrophils % 50.3 % (37.0-80.0); Platelet Count 88 K/mm3 (142-424); Red Blood Count 3.05 M/mm3 (4.20-5.40); Red Cell Distribution Width 15.4 % (11.5-17.5)
[2023-02-14 07:00] LABS: MANUAL DIFFERENTIAL MANUAL DIFFERENTIAL (MANUAL DIFF); White Blood Count 0.6 K/mm3 (4.8-10.8)
[2023-02-14 07:24] LABS: Lymphocytes % 20 % (10-50); Monocytes % 10 % (2-9); Neutrophils % 70 % (42-76); Platelet Estimate Moderate Decrease; Total Cells Counted 10
[2023-02-14 07:25] LABS: Anisocytosis 1+; Hypochromasia 1+; Ovalocytes 1+; RBC Morphology KNP
[2023-02-14 07:51] VITALS: BP 143/56; PULSE 89; RESP 20; TEMP 36.9; O2SAT 93
--- NOTE | 2023-02-14 08:17 | EXP.ACUTE.PN ---
Subjective *Date: 02/14/23 *Time: 08:17 Interval history: Patient overall feels better. Had a fever of 100.7 at midnight, since that time has been afebrile. Less nausea, was able to eat some breakfast this morning Medical Exam Vital signs and Labs for Last 24 Hours: Vital Signs Temp Pulse Pulse Resp BP BP Pulse Ox 02/14/23 07:51 98.5 F 89 20 143/56 H 93 L 02/14/23 06:51 02/14/23 05:00 02/14/23 04:00 98.1 F 90 16 118/45 L 93 L 02/14/23 03:00 02/14/23 01:00 02/13/23 23:00 02/13/23 21:00 02/13/23 20:00 02/13/23 20:00 100.2 F H 104 H 19 143/59 H 93 L 02/13/23 15:56 98.1 F 71 20 97/59 L 02/13/23 15:46 97.8 F 99 H 20 178/57 H 95 02/13/23 14:30 95 H 191/64 H 02/13/23 14:00 96 H 181/53 H 02/13/23 13:13 98.3 F 99 H 20 198/63 H 94 L O2 Del Method 02/14/23 07:51 Room Air 02/14/23 06:51 Room Air 02/14/23 05:00 Room Air 02/14/23 04:00 Room Air 02/14/23 03:00 Room Air 02/14/23 01:00 Room Air 02/13/23 23:00 Room Air 02/13/23 21:00 Room Air 02/13/23 20:00 Room Air 02/13/23 20:00 02/13/23 15:56 Room Air 02/13/23 15:46 Room Air 02/13/23 14:30 02/13/23 14:00 02/13/23 13:13 Room Air Intake and Output 02/13/23 02/14/23 02/14/23 19:59 03:59 11:59 Intake Total 240 / 620 50 / 620 330 / 620 Output Total 0 / 600 300 / 600 300 / 600 Balance 240 / 20 -250 / 20 30 / 20 Intake: Intake, Oral Amount 240 / 570 330 / 570 Intake, Total IV Amount 50 / 50 Cefepime HCl 1 gm In 0.9 % 50 / 50 Sodium Chloride 50 ml @ 100 mls /hr IV Q12H [facility] Rx#:[id number] Output: Output, Urine Amount 0 / 600 300 / 600 300 / 600 Other: Number of Unmeasured Voids 1 1 Weight 127 lb 134 lb 14.4 oz Patient Weight 02/14/23 11:59 Weight 134 lb 14.4 oz Laboratory Results - last 24 hr 02/13/23 13:36: WBC 0.3 L*, RBC 3.47 L, Hgb 9.0 L, Hct 27.6 L, MCV 79.6 L, MCH 25.8 L, MCHC 32.5, RDW 15.3, Plt Count 93 L, MPV 8.2, Neut % (Auto) 37.1, Lymph % (Auto) 17.4, [place] % (Auto) 16.3 H, Eos % (Auto) 29.2 H, Baso % (Auto) 0.0 L, Neut # (Auto) 0.1 L*, Lymph # (Auto) 0.1 L, [place] # (Auto) 0.1, Eos # (Auto) 0.1, Baso # (Auto) 0.0, Total Counted 50, Neutrophils % (Manual) 12 L, Lymphocytes % (Manual) 44, Monocytes % (Manual) 8, Eosinophils % (Manual) 32 H, Metamyelocytes % 4.0 H, Platelet Estimate Marked decrease, Hypochromasia 2+, Anisocytosis 2+, Microcytosis 1+, Sodium 134 L, Potassium 3.7, Chloride 99, Carbon Dioxide 29, Anion Gap 9.7, BUN 10, Creatinine 0.80, Estimated Creat Clear 43, Estimated GFR 69, Est GFR ( Amer) 84, Glucose 118 H, Calcium 9.5, Total Bilirubin 0.3, AST 24, ALT 20, Alkaline Phosphatase 122, Total Protein 7.1, Albumin 3.8, Globulin 3.3 H, Albumin/Globulin Ratio 1.2 02/13/23 14:20: Urine Color Yellow, Urine Appearance Clear, Urine pH 7.5, Ur Specific [place] 1.015, Urine Protein Negative, Urine Glucose (UA) Negative, Urine Ketones Negative, Urine Blood Negative, Urine Nitrate Negative, Urine Bilirubin Negative, Urine Urobilinogen 0.2, Ur Leukocyte Esterase Trace, Urine RBC None, Urine WBC Occasional, Ur Squamous Epith Cells 10-20, Urine Bacteria None 02/14/23 06:20: WBC 0.6 L* D, RBC 3.05 L, Hgb 8.0 L D, Hct 24.5 L, MCV 80.4 L, MCH 26.0 L, MCHC 32.4, RDW 15.4, Plt Count 88 L, MPV 9.1, Neut % (Auto) 50.3, Lymph % (Auto) 37.0, [place] % (Auto) 6.4, Eos % (Auto) 6.0, Baso % (Auto) 0.5, Neut # (Auto) 0.3 L*, Lymph # (Auto) 0.2 L, [place] # (Auto) 0.0 L, Eos # (Auto) 0.0, Baso # (Auto) 0.0, Total Counted 10, Neutrophils % (Manual) 70, Lymphocytes % (Manual) 20, Monocytes % (Manual) 10 H, Platelet Estimate Moderate decrease, RBC Morphology Knp, Hypochromasia 1+, Anisocytosis 1+, Ovalocytes 1+, Sodium 134 L, Potassium 3.4 L, Chloride 100, Carbon Dioxide 28, Anion Gap 9.4, BUN 10, Creatinine 0.80, Estimated Creat Clear 45, Estimated GFR 69, Est GFR ( Amer) 84, Glucose 96, Calcium 8.5 I & O for La
[2023-02-14 10:10] LABS: Coronavirus 19, PCR Not Detected (NotDetected); Coronavirus 229E Not Detected (NotDetected); Coronavirus NL63 Not Detected (NotDetected); Coronavirus OC43 Not Detected (NotDetected); Coronovirus HKU1,PCR Not Detected (NotDetected); Human Metapneumovirus Not Detected (NotDetected); Influenza A, PCR Not Detected (NotDetected); Influenza AH1, 2009 Not Detected (NotDetected); Influenza AH1, PCR Not Detected (NotDetected); Influenza AH3,PCR Not Detected (NotDetected); Influenza B, PCR Not Detected (NotDetected); Parainfluenza 1, PCR Not Detected (NotDetected); Parainfluenza 2, PCR Not Detected (NotDetected); Parainfluenza 3, PCR Not Detected (NotDetected); Parainfluenza 4, PCR Not Detected (NotDetected); Respiratory Syncytial Virus Not Detected (NotDetected); Rhinovirus/Enterovirus Not Detected (NotDetected)
[2023-02-14 10:12] LABS: Adenovirus,PCR Not Detected (NotDetected)
[2023-02-14 16:00] VITALS: BP 152/60; PULSE 89; RESP 18; TEMP 37.6; O2SAT 92
--- NOTE | 2023-02-14 16:08 | PC.NURSE ---
A&OX4. TOLERATING RA WELL. HAS HAD NO NEEDS OR C/O NOTED THUS FAR THIS SHIFT. INDEPENDENT TO BATHROOM. RESTING IN BED T/O SHIFT. MASKS WORN WHILE IN ROOM. VSS.
[2023-02-14 20:00] VITALS: BP 165/63; PULSE 86; RESP 18; TEMP 36.8; O2SAT 95
[2023-02-15 04:00] VITALS: BP 151/55; PULSE 81; RESP 18; TEMP 37; O2SAT 94; BMI 23.0
--- NOTE | 2023-02-15 04:15 | PC.NURSE ---
Pt is alert and oriented x4, pt remains in neutropenic precautions and has been fever free this shift. Pt has tolerated antibiotic and fluid therapy well. Pt requested miralax for bowels, Notified Dr. Chauhan in person and obtained and one time order for one pack of Miralax. Pt denies pain and other needs at this time.
[2023-02-15 06:34] LABS: Chloride 100 mmol/L (98-107); Potassium 3.1 mmoL/L (3.5-5.1); Sodium 135 mmol/L (136-145)
[2023-02-15 06:35] LABS: Basophils % 0.4 % (0.1-2.0); Eosinophils # 0.1 K/mm3 (0.0-0.4); Eosinophils % 3.9 % (0.1-12.0); Hematocrit 23.5 % (37.0-47.0); Hemoglobin 8.1 g/dL (12.2-16.2); Lymphocytes # 0.4 K/mm3 (0.7-4.5); Lymphocytes % 16.8 % (10-50); Mean Corpuscular HGB Conc 34.3 g/dL (31.8-35.4); Mean Corpuscular Hemoglobin 27.7 pg (27.0-31.2); Mean Corpuscular Volume 80.8 fl (81-99); Mean Platelet Volume 8.9 fl (7.4-10.4); Monocytes # 0.1 K/mm3 (0.1-1.0); Monocytes % 4.6 % (1.7-9.3); Neutrophils # 1.7 K/mm3 (1.8-7.8); Neutrophils % 74.3 % (37.0-80.0); Platelet Count 85 K/mm3 (142-424); Red Blood Count 2.91 M/mm3 (4.20-5.40); Red Cell Distribution Width 15.5 % (11.5-17.5); White Blood Count 2.4 K/mm3 (4.8-10.8)
[2023-02-15 06:37] LABS: Anion Gap 11.1 mEq/L (5-15); Blood Urea Nitrogen 6 mg/dl (7-17); Calcium 8.6 mg/dl (8.4-10.2); Carbon Dioxide 27 mmol/L (22.0-30.0); Creatinine Clearance Estimated 45 mL/min (50-200); Estimated Glomerular Filt Rate 97 ml/min (>60); GFR (African American) 117 ML/MIN (>60); Glucose 102 mg/dl (74-100)
[2023-02-15 07:29] VITALS: BP 171/75; PULSE 85; RESP 16; TEMP 36.4; O2SAT 94
--- NOTE | 2023-02-15 07:42 | EXP.DC.SUM ---
General Admission date:: 02/13/23 Discharge date: 02/15/23 HPI HPI HPI: 77-year-old female with recent diagnosis of lymphoma, started chemotherapy 1 week ago. Has been undergoing expected nausea and abdominal pain and vomiting. This morning family noted a temperature of 102.7 and brought her to the ER. Exam in the ER unremarkable with no source of infection found but was found to be neutropenic. Given her significant neutropenia, fever and implanted Port-A-Cath she was admitted to hospital for IV antibiotics and ongoing evaluation of neutropenic fever. Hospital Course Hospital Course Hospital Course: Patient was admitted, placed on cefepime and vancomycin to cover pathogens for neutropenic fever. Her white count improved to 0.6 yesterday and this morning it is 2.4. She feels much better and has had no fever for 24 hours. Nausea and vomiting have resolved. Plan will be to discharge home on cefdinir. She will see her oncology group in 2 days. Exam Data for Last 24 hours Vital signs and Labs for Last 24 Hours: Temp Pulse Resp BP Pulse Ox O2 Del Method 97.5 F L 85 16 171/75 H 94 L Room Air 02/15/23 07:29 02/15/23 07:29 02/15/23 07:29 02/15/23 07:29 02/15/23 07:29 02/15/23 07:29 Laboratory Results - last 24 hr 02/14/23 10:10: Chlamy pneumoniae PCR TNP, Adenovirus (PCR) Not detected, B. pertussis DNA (PCR) TNP, Coronavirus OC43 (PCR) Not detected, Coronavirus HKU1 (PCR) Not detected, Coronavirus 229E (PCR) Not detected, SARS-CoV-2 (PCR) Not detected, Coronavirus NL63 (PCR) Not detected, Human Metapneumovir PCR Not detected, Influenza A (H1) PCR Not detected, Influ A (H1N1/09) PCR Not detected, Influenza A (H3) PCR Not detected, Influenza Type A (PCR) Not detected, Influenza Type B (PCR) Not detected, M. pneumoniae (PCR) TNP, Parainfluenza 1 (PCR) Not detected, Parainfluenza 2 (PCR) Not detected, Parainfluenza 3 (PCR) Not detected, Parainfluenza 4 (PCR) Not detected, RSV (PCR) Not detected, Entero/Rhino (PCR) Not detected 02/15/23 05:38: WBC 2.4 L D, RBC 2.91 L, Hgb 8.1 L, Hct 23.5 L, MCV 80.8 L, MCH 27.7, MCHC 34.3, RDW 15.5, Plt Count 85 L, MPV 8.9, Neut % (Auto) 74.3, Lymph % (Auto) 16.8, [place] % (Auto) 4.6, Eos % (Auto) 3.9, Baso % (Auto) 0.4, Neut # (Auto) 1.7 L, Lymph # (Auto) 0.4 L, [place] # (Auto) 0.1, Eos # (Auto) 0.1, Baso # (Auto) 0.0, Sodium 135 L, Potassium 3.1 L, Chloride 100, Carbon Dioxide 27, Anion Gap 11.1, BUN 6 L D, Creatinine 0.60 D, Estimated Creat Clear 45, Estimated GFR 97, Est GFR ( Amer) 117 D, Glucose 102 H, Calcium 8.6 I & O for Last 24 hours: Intake & Output 02/12/23 02/13/23 02/14/23 02/15/23 11:59 11:59 11:59 11:59 Intake Total 620 / 620 4005 / 4005 Output Total 600 / 600 0 / 0 Balance 4005 / 4005 Weight 134 lb 14.4 oz 135 lb 1 oz Constitutional Constitutional: no acute distress *Routine HEENT Exam Head: Present normocephalic Eye: Present EOMI and PERRL ENT: Present mucous membranes moist *Routine Neck Exam Neck: Present supple; Absent lymphadenopathy Routine Chest/Breast/Axilla Exam Comments: Port-A-Cath in place in the left upper chest, no redness *Routine Respiratory Exam Respiratory: Present CTA bilaterally *Routine Cardiovascular Exam Cardiovascular: Present RRR *Routine Abdominal Exam Abdominal: Present soft and normoactive bowel sounds; Absent tenderness *Routine Extremities Exam Extremities: Absent cyanosis, clubbing or edema *Routine Skin Exam Skin: Present warm; Absent rash *Routine Neurological Exam Neurological: Present alert and oriented X3 Results Data Completed and Pending Labs on day of discharge: Labs from last 24 hours 02/15/23 02/14/23 05:38 10:10 WBC 2.4 L D RBC 2.91 L Hgb 8.1 L Hct 23.5 L MCV 80.8 L MCH 27.7 MCHC 34.3 RDW 15.5 Plt Count 85 L MPV 8.9 Neut % (Auto) 74.3 Lymph % (Auto) 16.8 [place] % (Auto) 4.6 Eos % (Auto) 3.9 Baso % (Auto) 0.4 Neut # (Auto) 1.7 L Lymph # (Aut
--- NOTE | 2023-02-16 13:21 | CARE MANAGER ---
Contacted patient related to hospital discharge. She states she is doing well. She picked up antibiotic and has a doctor appt. today. DANDRE Hunter
== END 2023-02-15 09:22 | disposition home or self-care (01) | DRG 809 ==
LOC: ER 14:56 → 2ND 15:02
PROVIDERS: Admitting Provider Internal Medicine Adolescent Medicine; Emergency Provider Emergency Medicine; PCP Internal Medicine Adolescent Medicine; Visit Provider Internal Medicine Adolescent Medicine
DX: D70.9 Neutropenia, unspecified (principal); C83.30 Diffuse large B-cell lymphoma, unspecified site; F41.9 Anxiety disorder, unspecified; R50.81 Fever presenting with conditions classified elsewhere; Z79.899 Other long term (current) drug therapy; I10 Essential (primary) hypertension; K21.9 Gastro-esophageal reflux disease without esophagitis; I65.29 Occlusion and stenosis of unspecified carotid artery; D61.811 Other drug-induced pancytopenia; T45.1X5A Adverse effect of antineoplastic and immunosuppressive drugs, initial encounter
CPT/HCPCS: 36415; 80048; 80053; 81001; 85007; 85025; 87040; 87632; 87635; 93005; 99285; J0692; J1790; J2405; J3370

== ENCOUNTER 2023-02-16 14:17 | Outpatient (CLI) | payer MEDICARE, SELFPAY ==
[2023-02-16 14:25] VITALS: BMI 22.3
[2023-02-16 14:43] LABS: Basophils # 0.1 K/mm3 (0-0.2); Basophils % 0.8 % (0.1-2.0); Eosinophils # 0.2 K/mm3 (0.0-0.4); Eosinophils % 2.2 % (0.1-12.0); Hematocrit 25.3 % (37.0-47.0); Hemoglobin 8.7 g/dL (12.2-16.2); Lymphocytes # 0.8 K/mm3 (0.7-4.5); Mean Corpuscular HGB Conc 34.5 g/dL (31.8-35.4); Mean Corpuscular Hemoglobin 27.9 pg (27.0-31.2); Mean Corpuscular Volume 80.9 fl (81-99); Mean Platelet Volume 9.6 fl (7.4-10.4); Monocytes # 0.4 K/mm3 (0.1-1.0); Monocytes % 4.7 % (1.7-9.3); Neutrophils # 7.3 K/mm3 (1.8-7.8); Neutrophils % 83.3 % (37.0-80.0); Platelet Count 156 K/mm3 (142-424); Red Blood Count 3.12 M/mm3 (4.20-5.40); White Blood Count 8.8 K/mm3 (4.8-10.8)
[2023-02-16 14:56] LABS: Alanine Aminotransferase 23 U/L (12-78); Albumin Level 3.6 g/dl (3.5-5.0); Albumin/Globulin Ratio 1.2 (1.1-1.8); Alkaline Phosphatase 126 U/L (38-126); Anion Gap 10.1 mEq/L (5-15); Aspartate Amino Transferase 39 U/L (14-36); Bilirubin,Total 0.2 mg/dl (0.2-1.3); Blood Urea Nitrogen 5 mg/dl (7-17); Calcium 9.2 mg/dl (8.4-10.2); Carbon Dioxide 33 mmol/L (22.0-30.0); Chloride 95 mmol/L (98-107); Creatinine Clearance Estimated 43 mL/min (50-200); Estimated Glomerular Filt Rate 97 ml/min (>60); GFR (African American) 117 ML/MIN (>60); Globulin 3.1 g/dL (1.3-3.2); Glucose 96 mg/dl (74-100); Potassium 3.1 mmoL/L (3.5-5.1); Sodium 135 mmol/L (136-145); Total Protein,Serum 6.7 g/dl (6.3-8.2)
[2023-02-16 15:09] LABS: Magnesium 1.3 mg/dl (1.6-2.3); Phosphorous 3.6 mg/dl (2.5-4.5)
[2023-02-16 17:51] LABS: Lactate Dehydrogenase 392 U/L (313-618); Uric Acid 3.1 mg/dl (2.5-6.2)
[2023-02-18 09:47] LABS: HBsAg Screen Negative (Negative); HCV Ab Non Reactive (Non Reactive); Hep A Ab, IGM Negative (Negative); Hep B Core Ab, IgM Negative (Negative)
== END 2023-02-16 14:46 | disposition home or self-care (01) ==
LOC: INF 14:19
PROVIDERS: PCP Internal Medicine Adolescent Medicine; Visit Provider Internal Medicine Medical Oncology
DX: C83.30 Diffuse large B-cell lymphoma, unspecified site (principal); R10.30 Lower abdominal pain, unspecified
CPT/HCPCS: 36591; 80053; 80074; 83615; 83735; 84100; 84550; 85025; J1642

== ENCOUNTER 2023-02-24 10:15 | Outpatient (CLI) | payer MEDICARE, SELFPAY ==
[2023-02-24 10:23] VITALS: BMI 21.8
[2023-02-24 10:46] LABS: Basophils # 0.1 K/mm3 (0-0.2); Eosinophils # 0.1 K/mm3 (0.0-0.4); Eosinophils % 0.8 % (0.1-12.0); Hemoglobin 8.3 g/dL (12.2-16.2); Lymphocytes # 0.8 K/mm3 (0.7-4.5); Lymphocytes % 8.2 % (10-50); Mean Corpuscular HGB Conc 33.2 g/dL (31.8-35.4); Mean Corpuscular Hemoglobin 27.1 pg (27.0-31.2); Mean Corpuscular Volume 81.7 fl (81-99); Monocytes # 0.8 K/mm3 (0.1-1.0); Monocytes % 7.5 % (1.7-9.3); Neutrophils # 8.6 K/mm3 (1.8-7.8); Neutrophils % 82.6 % (37.0-80.0); Platelet Count 809 K/mm3 (142-424); Red Blood Count 3.06 M/mm3 (4.20-5.40); Red Cell Distribution Width 17.3 % (11.5-17.5); White Blood Count 10.4 K/mm3 (4.8-10.8)
[2023-02-24 10:52] LABS: Chloride 104 mmol/L (98-107); Potassium 3.7 mmoL/L (3.5-5.1); Sodium 141 mmol/L (136-145)
[2023-02-24 10:53] LABS: Alanine Aminotransferase 27 U/L (12-78); Aspartate Amino Transferase 36 U/L (14-36); Blood Urea Nitrogen 8 mg/dl (7-17); Creatinine Clearance Estimated 42 mL/min (50-200); Estimated Glomerular Filt Rate 97 ml/min (>60); GFR (African American) 117 ML/MIN (>60)
[2023-02-24 10:54] LABS: Albumin Level 3.6 g/dl (3.5-5.0); Albumin/Globulin Ratio 1.1 (1.1-1.8); Alkaline Phosphatase 158 U/L (38-126); Anion Gap 9.7 mEq/L (5-15); Bilirubin,Total < 0.1 mg/dl (0.2-1.3); Calcium 8.8 mg/dl (8.4-10.2); Carbon Dioxide 31 mmol/L (22.0-30.0); Globulin 3.2 g/dL (1.3-3.2); Glucose 115 mg/dl (74-100); Total Protein,Serum 6.8 g/dl (6.3-8.2)
[2023-02-24 11:06] LABS: Lactate Dehydrogenase 223 U/L (313-618); Uric Acid 2.9 mg/dl (2.5-6.2)
== END 2023-02-24 10:45 | disposition home or self-care (01) ==
LOC: INF 10:17
PROVIDERS: PCP Internal Medicine Adolescent Medicine; Visit Provider Internal Medicine Medical Oncology
DX: C83.30 Diffuse large B-cell lymphoma, unspecified site (principal)
CPT/HCPCS: 36591; 80053; 83615; 84550; 85025; J1642

== ENCOUNTER 2023-02-27 08:14 | Outpatient (CLI) | payer MEDICARE, SELFPAY ==
[2023-02-27] VITALS (13 sets, daily range): BP systolic 137–193; BP diastolic 48–93; PULSE 81–95; RESP 18–19; TEMP 36.6; O2SAT 99
[2023-02-27] MEDS: METHYLPREDNISOLONE SOD SUCC 125MG VIAL 125 MG (08:26)
[2023-02-27] MEDS: APREPITANT 125MG/80MG TRIFOLD PACK 1 PACKET PO (08:26)
[2023-02-27] MEDS: GRANISETRON 1 MG 2 MG PO (08:26)
[2023-02-27] MEDS: diphenhydrAMINE 50MG CAPSULE 50 MG PO (08:26)
[2023-02-27] MEDS: PALONOSETRON HCL 0.25 MG/5 ML IV (08:26)
[2023-02-27] MEDS: ACETAMINOPHEN 325MG TAB 650 MG (08:26)
[2023-02-27] MEDS: SODIUM CHLORIDE 0.9% IV ×3 (08:59→12:33)
[2023-02-27] MEDS: RITUXIMAB PVVR IV (08:59)
[2023-02-27] MEDS: 0.9 % SODIUM CHLORIDE 100 ML IV (09:05)
[2023-02-27] MEDS: CYCLOPHOSPHAMIDE IV (11:32)
[2023-02-27] MEDS: DOXORUBICIN HCL IV (12:33)
[2023-02-27] MEDS: VINCRISTINE 2 MG IV (13:05)
[2023-02-27] MEDS: SODIUM CHLORIDE 0.9% 10ML FLUSH SYRINGE 10 ML IV (13:10)
[2023-02-27] MEDS: PEGFILGRASTIM 6 MG/0.6 ML SQ (13:16)
--- NOTE | 2023-02-27 13:16 | PC.NURSE ---
1316-applied neulasta on pro on to back of left arm;pt daughter to remove in 27 hours after device delivers medication
== END 2023-02-27 13:18 | disposition home or self-care (01) ==
LOC: INF 08:15
PROVIDERS: PCP Internal Medicine Adolescent Medicine; Visit Provider Internal Medicine Medical Oncology
DX: C83.33 Diffuse large B-cell lymphoma, intra-abdominal lymph nodes (principal); Z51.11 Encounter for antineoplastic chemotherapy; Z45.2 Encounter for adjustment and management of vascular access device
CPT/HCPCS: 96377; 96411; 96413; 96415; 96417; J1642; J2469; J2505; J8501; J9000; J9070; J9370; Q0166; Q5119

== ENCOUNTER 2023-03-10 11:21 | Outpatient (CLI) | payer MEDICARE, SELFPAY ==
[2023-03-10 12:00] VITALS: BP 164/64; PULSE 71; RESP 18; O2SAT 97
[2023-03-10 12:30] VITALS: BP 157/65; PULSE 76; RESP 18; O2SAT 97
== END 2023-03-10 12:35 | disposition home or self-care (01) ==
LOC: INF 11:22
PROVIDERS: PCP Internal Medicine Adolescent Medicine; Visit Provider Internal Medicine Medical Oncology
DX: D50.9 Iron deficiency anemia, unspecified (principal)
CPT/HCPCS: 96365; J1642; J1756

== ENCOUNTER 2023-03-11 14:54 | Inpatient (IN) | payer MEDICARE, SELFPAY ==
[2023-03-11] VITALS (11 sets, daily range): BP systolic 166–188; BP diastolic 58–97; PULSE 85–110; RESP 16–20; TEMP 36.8–37.3; O2SAT 95–98; BMI 21.2; BMI 20.6
--- NOTE | 2023-03-11 15:03 | HMH.EDGENADL ---
Discharge Plan Disposition Patient Disposition: Admitted Clinical Impressions Clinical Impression: Pyelonephritis Discharge ED Provider: [facility] HPI General Chief complaint: Fever Stated complaint: fever Time Seen by Provider: 03/11/23 15:01 History of Present Illness HPI narrative: The patient presents to the ER with a chief complaint of fever, reporting a temperature of 100.7 degrees Fahrenheit a couple of hours ago. The patient is currently undergoing chemotherapy for lymphoma cancer and is scheduled for their third treatment. They have been monitoring their temperature as instructed. The patient denies experiencing any pain, nausea, or vomiting. They mention a cat scratch from the previous night, but do not believe it is related to the fever. The patient has been eating well and has not felt unwell. The cat involved is a house cat without vaccinations but does not go outside. The patient denies being around anyone who is sick and has not experienced any pain during urination. They are unsure of their white blood cell count or if they are considered immunocompromised, but have been advised to avoid contact with sick individuals. The patient's last chemotherapy session was on the , and they receive cancer care through the [facility] under Dr. Beatty. Related Data Home Medications Medication Instructions Recorded Confirmed alprazolam 0.5 mg tablet 0.5 mg PO Q6HP PRN Anxiety 30 days 12/01/17 03/11/23 ##120 aspirin 81 mg tablet,delayed 81 mg PO DAILY Heart Health 12/23/17 03/11/23 release rosuvastatin 5 mg tablet 5 mg PO HS Cholesterol 05/29/18 03/11/23 famotidine 20 mg tablet 20 mg PO BID Acid Reflux 07/29/21 03/11/23 amlodipine 5 mg tablet 5 mg PO DAILY High Blood Pressure 12/30/22 03/11/23 carvedilol 12.5 mg tablet 6.25 mg PO DAILY blood 12/30/22 03/11/23 pressure/heart rate carvedilol 12.5 mg tablet 12.5 mg PO HS blood pressure/heart 12/30/22 03/11/23 rate sennosides 8.6 mg-docusate sodium 1 tab PO HS stool softener 12/30/22 03/11/23 50 mg tablet (Senna with Docusate Sodium) lisinopril 20 mg tablet 20 mg PO DAILY High Blood Pressure 01/03/23 03/11/23 allopurinol 300 mg tablet 300 mg PO DAILY Gout 01/31/23 03/11/23 ondansetron HCl 4 mg tablet 4 mg PO TIDP PRN Nausea And 02/06/23 03/11/23 Vomiting prochlorperazine maleate 10 mg 10 mg PO Q4HP PRN Nausea And 02/06/23 03/11/23 tablet Vomiting Allergies Allergy/AdvReac Type Severity Reaction Status Date / Time esomeprazole [From Nexium] Allergy Intermediate Hives Verified 03/11/23 15:15 erythromycin base Allergy Mild Redness of Verified 03/11/23 15:15 Skin amoxicillin [From Augmentin] AdvReac Intermediate Nausea Verified 03/11/23 15:15 clavulanic acid AdvReac Intermediate Nausea Verified 03/11/23 15:15 [From Augmentin] doxycycline AdvReac Intermediate Nausea Verified 03/11/23 15:15 Sulfa (Sulfonamide AdvReac Intermediate Nausea Verified 03/11/23 15:15 Antibiotics) dexlansoprazole AdvReac flu Verified 03/11/23 15:15 [From Dexilant] symptoms pantoprazole [From Protonix] AdvReac Verified 03/11/23 15:15 PFSH PFSH Disclaimer: The information contained in this section may have been updated after the patient was seen, as this information can be updated by other users. Medical History Anxiety FH: cholecystectomy GERD (gastroesophageal reflux disease) H/O coronary angiogram History of carotid artery stenosis Hyperlipidemia Hypertension Lymphoma Surgical History History of cholecystectomy Tubal ligation status Family History Other Cancer Family history of hyperlipidemia Family history of hypertension Social History (Updated 03/11/23 @ 20:58 by Arcelia Chauhan RN) Smoking Status: Never smoker second hand exposure: No a
--- NOTE | 2023-03-11 15:18 | PC.NURSE ---
DR MATHUR AT BEDSIDE
[2023-03-11 15:32] LABS: Coronavirus 19, PCR Not Detected (NotDetected); Influenza A, PCR Not Detected (NotDetected); Influenza B, PCR Not Detected (NotDetected)
[2023-03-11 15:44] LABS: Basophils # 0.1 K/mm3 (0-0.2); Basophils % 0.4 % (0.1-2.0); Eosinophils # 0.1 K/mm3 (0.0-0.4); Eosinophils % 0.3 % (0.1-12.0); Hemoglobin 8.5 g/dL (12.2-16.2); Lymphocytes # 0.7 K/mm3 (0.7-4.5); Lymphocytes % 3.4 % (10-50); Mean Corpuscular HGB Conc 34.1 g/dL (31.8-35.4); Mean Corpuscular Hemoglobin 27.5 pg (27.0-31.2); Mean Corpuscular Volume 80.8 fl (81-99); Mean Platelet Volume 7.9 fl (7.4-10.4); Monocytes % 4.7 % (1.7-9.3); Neutrophils # 19.3 K/mm3 (1.8-7.8); Neutrophils % 91.2 % (37.0-80.0); Platelet Count 125 K/mm3 (142-424); Red Cell Distribution Width 20.7 % (11.5-17.5); White Blood Count 21.2 K/mm3 (4.8-10.8)
[2023-03-11 15:46] LABS: MANUAL DIFFERENTIAL MANUAL DIFFERENTIAL (MANUAL DIFF)
[2023-03-11 15:47] LABS: Chloride 102 mmol/L (98-107); Sodium 138 mmol/L (136-145)
[2023-03-11 15:49] LABS: Blood Urea Nitrogen 7 mg/dl (7-17); Creatinine Clearance Estimated 41 mL/min (50-200); Estimated Glomerular Filt Rate 97 ml/min (>60); GFR (African American) 117 ML/MIN (>60)
[2023-03-11 15:50] LABS: Alanine Aminotransferase 28 U/L (12-78); Albumin Level 3.9 g/dl (3.5-5.0); Albumin/Globulin Ratio 1.3 (1.1-1.8); Alkaline Phosphatase 163 U/L (38-126); Anion Gap 10.9 mEq/L (5-15); Aspartate Amino Transferase 31 U/L (14-36); Calcium 8.6 mg/dl (8.4-10.2); Carbon Dioxide 28 mmol/L (22.0-30.0); Globulin 2.9 g/dL (1.3-3.2); Glucose 112 mg/dl (74-100); Total Protein,Serum 6.8 g/dl (6.3-8.2)
--- NOTE | 2023-03-11 15:50 | XR_ITS ---
PROCEDURE INFORMATION: Exam: XR Chest Exam date and time: 03/11/2023 3:57 PM Age: 77 years old Clinical indication: Shortness of breath; Additional info: SOA, cough of red sputum, rll crackles TECHNIQUE: Imaging protocol: Radiologic exam of the chest. Views: 2 views. COMPARISON: CR XR CHEST PORTABLE 02/03/2023 8:55 AM FINDINGS: Tubes, catheters and devices: Port-A-Cath tip at the level of the superior vena cava Lungs: Bibasilar atelectasis versus parenchymal scarring. Pleural spaces: Unremarkable. No pleural effusion. No pneumothorax. Heart/Mediastinum: Unremarkable. No cardiomegaly. Bones/joints: Unremarkable. IMPRESSION: No evidence of acute cardiopulmonary disease.
[2023-03-11 15:52] LABS: Bilirubin,Total 0.1 mg/dl (0.2-1.3)
[2023-03-11 15:53] LABS: Potassium 2.9 mmoL/L (3.5-5.1)
[2023-03-11 15:57] LABS: Microscopic, Urine URINE MICROSCOPIC (MICROSCOPIC)
--- NOTE | 2023-03-11 16:01 | ECG_ITS ---
APPROVED REPORT Exam: Resting ECG HR:87 bpm ECG Measurements Heart Rate 87 AXES ME 147 P 66 QRSd 94 QRS -3 QT 359 T 46 QTc 403 Conclusion SINUS RHYTHM WITH OCCASIONAL SUPRAVENTRICULAR PREMATURE COMPLEXES BORDERLINE ECG UNCONFIRMED REPORT Electronically signed by : Cristian Zhu MD 03/13/2023 17:51:25
[2023-03-11 16:09] LABS: INR 1.04 (0.9-1.1); Prothrombin Time 11.2 seconds (10.1-12.5)
[2023-03-11 16:10] LABS: Appearance,Urine SL CLOUDY (Clear); Bilirubin,Urine Negative (Negative); Blood, Urine TRACE-I (Negative); Color,Urine YELLOW (Yellow); Glucose,Urine (UA) Negative (Negative); Ketones,Urine Negative (Negative); Leukocyte Esterase,Urine 2+ (Negative); Nitrate,Urine Negative (Negative); Protein,Urine Negative (Negative); Specific Gravity, Urine <= 1.005 (1.005-1.030); Urobilinogen,Urine 0.2 EU/dl (0.2)
[2023-03-11 16:12] LABS: Creatine Kinase 24 U/L (30-135); Lactate Dehydrogenase 230 U/L (313-618); Uric Acid 3.6 mg/dl (2.5-6.2)
[2023-03-11 16:13] LABS: Lipase 127 U/L (23-300); Magnesium 1.6 mg/dl (1.6-2.3); Phosphorous 2.8 mg/dl (2.5-4.5)
[2023-03-11 16:16] LABS: Anisocytosis 1+; Lymphocytes % 10 % (10-50); Microcytosis 1+; Monocytes % 3 % (2-9); Neutrophils % 87 % (42-76); Platelet Estimate Slight Decrease; Total Cells Counted 100
[2023-03-11 16:17] LABS: Hypochromasia 1+
[2023-03-11 16:18] LABS: C-Reactive Protein 65.5 mg/L (0-4)
[2023-03-11 16:25] LABS: Bacteria,Urine 1+ /lpf; RBC,Urine Occasional #/hpf (0-3); Squamous Epithelial Cell,Urine Occasional #/hpf (0-5); WBC,Urine 20-50 #/hpf (0-3)
[2023-03-11 16:31] LABS: Free T4 (Free Thyroxine) 1.64 ng/dl (0.78-2.19)
[2023-03-11 16:35] LABS: Erythrocyte Sedimentation Rate > 140 mm/hr (0-30)
[2023-03-11 16:45] LABS: Thyroid Stimulating Hormone 0.32 uIU/mL (0.465-4.68)
--- NOTE | 2023-03-11 17:17 | CT_ITS ---
PROCEDURE INFORMATION: Exam: CTA Chest With Contrast Exam date and time: 03/11/2023 5:31 PM Age: 77 years old Clinical indication: Fever; Additional info: HX cancer, low grade fever, tachycardia TECHNIQUE: Imaging protocol: Computed tomographic angiography of the chest with contrast. Exam focused on the arteries. 3D rendering (Not supervised by radiologist): MIP and/or 3D reconstructed images were created by the technologist. Radiation optimization: All CT scans at this facility use at least one of these dose optimization techniques: automated exposure control; mA and/or kV adjustment per patient size (includes targeted exams where dose is matched to clinical indication); or iterative reconstruction. Contrast material: ISO 370; Contrast volume: 75 ml; Contrast route: INTRAVENOUS (IV); REPORTING DATA: Count of CT and Cardiac NM exams in prior 12 months: This patient has received 3 known CTs and 0 known cardiac nuclear medicine studies in the 12 months prior to the current study. COMPARISON: CT CHEST WO/W CON 12/31/2022 10:57 AM FINDINGS: Pulmonary arteries: There is suboptimal opacification of pulmonary arteries due to contrast bolus timing. Aorta: Regions of atherosclerotic vascular calcification involving the aortic arch. Lungs: Bibasilar atelectasis versus parenchymal scarring. Pleural spaces: Unremarkable. No pneumothorax. No pleural effusion. Heart: Unremarkable. No cardiomegaly. No pericardial effusion. Coronary arteries: Coronary artery calcification Lymph nodes: Unremarkable. No enlarged lymph nodes. Bones/joints: Unremarkable. No acute fracture. Soft tissues: Unremarkable. IMPRESSION: 1. No large or central pulmonary embolus. Evaluation of the peripheral pulmonary arteries is limited. 2. No evidence of acute intrathoracic abnormality.
--- NOTE | 2023-03-11 17:17 | CT_ITS ---
PROCEDURE INFORMATION: Exam: CT Abdomen And Pelvis With Contrast Exam date and time: 03/11/2023 5:31 PM Age: 77 years old Clinical indication: Fever; Additional info: HX cancer, low grade fever, tachycardia TECHNIQUE: Imaging protocol: Computed tomography of the abdomen and pelvis with contrast. Radiation optimization: All CT scans at this facility use at least one of these dose optimization techniques: automated exposure control; mA and/or kV adjustment per patient size (includes targeted exams where dose is matched to clinical indication); or iterative reconstruction. Contrast material: ISOVUE; Contrast volume: 75 ml; Contrast route: IV; REPORTING DATA: Count of CT and Cardiac NM exams in prior 12 months: This patient has received 3 known CTs and 0 known cardiac nuclear medicine studies in the 12 months prior to the current study. COMPARISON: CT ABDOMEN PELVIS W CON 12/30/2022 9:35 AM FINDINGS: Lungs: Bibasilar atelectasis versus parenchymal scarring. Liver: Hepatic steatosis Gallbladder and bile ducts: Cholecystectomy Pancreas: Pancreas unremarkable Spleen: The spleen is unremarkable. Adrenal glands: Adrenal glands unremarkable. Kidneys and ureters: The subtle regions of diminished density mid to inferior aspect of the left kidney as well as the midpole of the right kidney. Findings suspicious for pyelonephritis. Bilateral renal cysts. Perinephric stranding. Findings nonspecific and may reflect acute versus chronic inflammatory change. Stomach and bowel: Colonic diverticulosis. No evidence of diverticulitis. Appendix: No evidence of appendicitis. Intraperitoneal space: Unremarkable. No free air. No significant fluid collection. Vasculature: Moderate regions of atherosclerotic vascular calcification are demonstrated within the abdominal aorta and common iliac arteries. Lymph nodes: Previously demonstrated retroperitoneal adenopathy significantly diminished in size. Clustered periaortic lymph nodes measure 2.2 cm x 1.2 cm in maximum dimensions on the current study. (series 4, image number 30) . More inferior adenopathy at the level of the left renal vein has also significantly diminished in size. Urinary bladder: Unremarkable as visualized. Reproductive: Unremarkable as visualized. Bones/joints: Moderate compression fracture deformity L1 with associated sclerosis. Findings suspicious for pathologic fracture. Findings new since 12/30/2022. Soft tissues: Unremarkable. IMPRESSION: 1. Subtle regions of diminished density mid to inferior aspect of the left kidney as well as the midpole of the right kidney. Findings suspicious for pyelonephritis. 2. Moderate compression fracture deformity L1 with associated sclerosis. Findings suspicious for pathologic fracture. Findings new since 12/30/2022. 3. Decrease in the size of previously demonstrated retroperitoneal adenopathy. COMMENTS: Consistent with the [employer]'s Incidental Findings Committee white paper (J Am Alina Radiol 2018): Any incidental renal lesion less than 1 cm or classified as too small to characterize, or any incidental cystic renal lesion characterized as simple-appearing, is likely benign. No follow-up imaging is recommended for these lesions per consensus recommendations based on imaging criteria.
--- NOTE | 2023-03-11 17:24 | PC.NURSE ---
pt transported to radiology via .
--- NOTE | 2023-03-11 18:45 | PC.NURSE ---
Pt provided with warm blanket
--- NOTE | 2023-03-11 19:58 | PC.NURSE ---
Nurse to nurse report called to Keshia AMOS
--- NOTE | 2023-03-11 20:34 | PC.NURSE ---
Patient arrived to floor via wheelchair at 20:14.
--- NOTE | 2023-03-11 20:42 | EXP.HP ---
History of Present Illness *Admission Date: 03/11/23 *Reason for visit:: fever *History of present illness: This is 77 yo F with PMHx HTN, HLD, GERD. gout, recently diagnosed B cell lymphoma, currently undergoing chemotherapy that came to the ER with a chief complaint of fever, reporting a temperature of 100.7F before arrive. As mentioned the patient is currently undergoing chemotherapy for lymphoma cancer and is scheduled for next week their third treatment. Patient with history of neutropenic fever. She also had history of recurrent UTI, with recent oral antibiotic treatment. The patient denies experiencing any pain, nausea, or vomiting. Admitted for further work up, treatment and management. [facility] Disclaimer: The information contained in this section may have been updated after the patient was seen, as this information can be updated by other users. Medical History (Updated 03/12/23 @ 05:29 by Steven Chao APRN) Anxiety FH: cholecystectomy GERD (gastroesophageal reflux disease) H/O coronary angiogram History of carotid artery stenosis Hyperlipidemia Hypertension Lymphoma Surgical History History of cholecystectomy Tubal ligation status Family History Other Cancer Family history of hyperlipidemia Family history of hypertension Social History (Updated 03/11/23 @ 20:58 by Arcelia Chauhan RN) Smoking Status: Never smoker second hand exposure: No alcohol intake: never substance use type: denies use current occupational status: retired Travel in the last 8 weeks: None household members: spouse housing: house current occupational exposures/hazards: No caffeine: No Review of Systems Review of Systems Review of systems:: pertinent systems reviewed and negative unless documented below Meds Home Medications and Allergies Home Medications Medication Instructions Recorded Confirmed Type alprazolam 0.5 mg tablet 0.5 mg PO Q6HP PRN Anxiety 30 days 12/01/17 03/11/23 History ##120 aspirin 81 mg tablet,delayed 81 mg PO DAILY Heart Health 12/23/17 03/11/23 History release rosuvastatin 5 mg tablet 5 mg PO HS Cholesterol 05/29/18 03/11/23 History famotidine 20 mg tablet 20 mg PO BID Acid Reflux 07/29/21 03/11/23 History amlodipine 5 mg tablet 5 mg PO DAILY High Blood Pressure 12/30/22 03/11/23 History carvedilol 12.5 mg tablet 6.25 mg PO DAILY blood 12/30/22 03/11/23 History pressure/heart rate carvedilol 12.5 mg tablet 12.5 mg PO HS blood pressure/heart 12/30/22 03/11/23 History rate sennosides 8.6 mg-docusate sodium 1 tab PO HS stool softener 12/30/22 03/11/23 History 50 mg tablet (Senna with Docusate Sodium) lisinopril 20 mg tablet 20 mg PO DAILY High Blood Pressure 01/03/23 03/11/23 History allopurinol 300 mg tablet 300 mg PO DAILY Gout 01/31/23 03/11/23 History ondansetron HCl 4 mg tablet 4 mg PO Q6HP PRN Nausea And 02/06/23 03/12/23 History Vomiting prochlorperazine maleate 10 mg 10 mg PO Q4HP PRN Nausea And 02/06/23 03/11/23 History tablet Vomiting New Prescriptions to Start Prescriptions: Allergies Allergy/AdvReac Type Severity Reaction Status Date / Time esomeprazole [From Nexium] Allergy Intermediate Hives Verified 03/11/23 15:15 erythromycin base Allergy Mild Redness of Verified 03/11/23 15:15 Skin amoxicillin [From Augmentin] AdvReac Intermediate Nausea Verified 03/11/23 15:15 clavulanic acid AdvReac Intermediate Nausea Verified 03/11/23 15:15 [From Augmentin] doxycycline AdvReac Intermediate Nausea Verified 03/11/23 15:15 Sulfa (Sulfonamide AdvReac Intermediate Nausea Verified 03/11/23 15:15 Antibiotics) dexlansoprazole AdvReac flu Verified 03/11/23 15:15 [From Dexilant] symptoms pantoprazole [From Protonix] AdvReac Verified 03/11/23 15:15 Exam Data for Last 24 hours Vital signs and Labs for Last 24 Hours:
--- NOTE | 2023-03-11 23:28 | PC.NURSE ---
PATIENT ASKED IF SHE COULD HAVE HER NIGHTIME MEDICATION AND I SAID WHICH ONE - PT STATED HER XANAX - I SAID YES - PT THEN STATED WELL I WANT IT TOMORROW - I ASKED WHY TOMORROW AND NOT TONIGHT SINCE SHE TAKES IT DAILY -- PT STATED I JUST TOOK IT PT HAD HER OWN PERSONAL PILLS IN HER ROOM AND TOOK HER OWN HOME XANAX AFTER BEING EDUCATED EARLIER ABOUT HAVING A PRN DOSE OF XANAX PER MAR.. PT WAS EDUCATED ONCE AGAIN AND PILLS REMOVED FROM ROOM AND SENT TO PHARMACY.
[2023-03-12] VITALS (7 sets, daily range): BP systolic 134–171; BP diastolic 57–73; PULSE 80–95; RESP 18–20; TEMP 37.1–37.9; O2SAT 96–99
--- NOTE | 2023-03-12 05:21 | PC.NURSE ---
daughter has remained at bedside t/o shift. Home medications have been collected and awaiting pharmacy to label them. NSR per tele. RA. a/o x4. pt reported last chemo tx on february 27 and stated infusions said for you all not to access my port , therefore pt has a 20g in LFA saline locked. low grade temperature t/o night 100.2F. Pt has a compression fracture to L1 and doesn't report any pain or discomfort r/t this. pt denies difficulty or painful urination at this time. no other concerns noted. bed locked and in lowest position with call flowers in reach.
[2023-03-12 07:02] LABS: Basophils # 0.1 K/mm3 (0-0.2); Basophils % 0.4 % (0.1-2.0); Eosinophils % 0.2 % (0.1-12.0); Hematocrit 23.5 % (37.0-47.0); Lymphocytes # 0.7 K/mm3 (0.7-4.5); Lymphocytes % 6.1 % (10-50); Mean Corpuscular HGB Conc 34.2 g/dL (31.8-35.4); Mean Corpuscular Hemoglobin 28.2 pg (27.0-31.2); Mean Corpuscular Volume 82.5 fl (81-99); Mean Platelet Volume 7.8 fl (7.4-10.4); Monocytes # 0.7 K/mm3 (0.1-1.0); Neutrophils # 10.6 K/mm3 (1.8-7.8); Neutrophils % 87.2 % (37.0-80.0); Platelet Count 142 K/mm3 (142-424); Red Blood Count 2.84 M/mm3 (4.20-5.40); Red Cell Distribution Width 20.9 % (11.5-17.5); White Blood Count 12.1 K/mm3 (4.8-10.8)
[2023-03-12 07:05] LABS: MANUAL DIFFERENTIAL MANUAL DIFFERENTIAL (MANUAL DIFF)
[2023-03-12 07:11] LABS: Blood Urea Nitrogen 7 mg/dl (7-17); Calcium 8.2 mg/dl (8.4-10.2); Carbon Dioxide 26 mmol/L (22.0-30.0); Chloride 105 mmol/L (98-107); Creatinine Clearance Estimated 40 mL/min (50-200); Estimated Glomerular Filt Rate 119 ml/min (>60); GFR (African American) 144 ML/MIN (>60); Glucose 97 mg/dl (74-100); Sodium 140 mmol/L (136-145)
--- NOTE | 2023-03-12 08:27 | HMH.PHAINT1 ---
Pharmacy Intervention Comments: MEDICATION RECONCILIATION COMPLETE USING PATIENT'S RX BOTTLES.
[2023-03-12 09:08] LABS: Anisocytosis 1+; Lymphocytes % 7 % (10-50); Monocytes % 8 % (2-9); Myelocytes % 1 (0-1); Neutrophils % 83 % (42-76); Ovalocytes 1+; Platelet Estimate Slight Decrease; Total Cells Counted 100
--- NOTE | 2023-03-12 10:45 | EXP.PN ---
Subjective *Date: 03/12/23 *Time: 10:45 Interval history: Patient was seen and evaluated at the bedside. denies chest pain, shortness of breath, nausea, vomiting, abdominal pain. Patient does not have any complaints at this time. feels better overall Exam Data for Last 24 hours Vital signs and Labs for Last 24 Hours: Temp Pulse Resp BP Pulse Ox O2 Del Method 99.0 F 84 18 134/61 97 Room Air 03/12/23 08:00 03/12/23 08:00 03/12/23 08:00 03/12/23 08:00 03/12/23 08:00 03/12/23 08:00 Laboratory Results - last 24 hr 03/11/23 15:30: WBC 21.2 H*, RBC 3.10 L, Hgb 8.5 L, Hct 25.0 L, MCV 80.8 L, MCH 27.5, MCHC 34.1, RDW 20.7 H, Plt Count 125 L, MPV 7.9, Neut % (Auto) 91.2 H, Lymph % (Auto) 3.4 L, [place] % (Auto) 4.7, Eos % (Auto) 0.3, Baso % (Auto) 0.4, Neut # (Auto) 19.3 H, Lymph # (Auto) 0.7, [place] # (Auto) 1.0, Eos # (Auto) 0.1, Baso # (Auto) 0.1, Total Counted 100, Neutrophils % (Manual) 87 H, Lymphocytes % (Manual) 10, Monocytes % (Manual) 3, Platelet Estimate Slight decrease, Hypochromasia 1+, Anisocytosis 1+, Microcytosis 1+, ESR > 140 H, PT 11.2, INR 1.04, Sodium 138, Potassium 2.9 L*, Chloride 102, Carbon Dioxide 28, Anion Gap 10.9, BUN 7, Creatinine 0.60, Estimated Creat Clear 41, Estimated GFR 97, Est GFR ( Amer) 117, Glucose 112 H, Uric Acid 3.6, Calcium 8.6, Phosphorus 2.8, Magnesium 1.6, Total Bilirubin 0.1 L, AST 31, ALT 28, Alkaline Phosphatase 163 H, Lactate Dehydrogenase 230 L, Total Creatine Kinase 24 L, C-Reactive Protein 65.5 H, Total Protein 6.8, Albumin 3.9, Globulin 2.9, Albumin/Globulin Ratio 1.3, Lipase 127, TSH 0.32 L, Free T4 1.64, SARS-CoV-2 (PCR) Not detected, Influenza A Untype (PCR) Not detected, Influenza Type B (PCR) Not detected 03/11/23 15:51: Urine Color Yellow, Urine Appearance Sl cloudy, Urine pH 6.0, Ur Specific [place] <= 1.005, Urine Protein Negative, Urine Glucose (UA) Negative, Urine Ketones Negative, Urine Blood Trace-i, Urine Nitrate Negative, Urine Bilirubin Negative, Urine Urobilinogen 0.2, Ur Leukocyte Esterase 2+ A, Urine RBC Occasional, Urine WBC 20-50, Ur Squamous Epith Cells Occasional, Urine Bacteria 1+ 03/11/23 16:55: Lactate 1.0 03/12/23 06:31: WBC 12.1 H D, RBC 2.84 L, Hgb 8.0 L, Hct 23.5 L, MCV 82.5, MCH 28.2, MCHC 34.2, RDW 20.9 H, Plt Count 142, MPV 7.8, Neut % (Auto) 87.2 H, Lymph % (Auto) 6.1 L, [place] % (Auto) 6.0, Eos % (Auto) 0.2, Baso % (Auto) 0.4, Neut # (Auto) 10.6 H, Lymph # (Auto) 0.7, [place] # (Auto) 0.7, Eos # (Auto) 0.0, Baso # (Auto) 0.1, Total Counted 100, Neutrophils % (Manual) 83 H, Lymphocytes % (Manual) 7 L, Monocytes % (Manual) 8, Metamyelocytes % 1.0, Myelocytes % 1, Platelet Estimate Slight decrease, Anisocytosis 1+, Ovalocytes 1+, Sodium 140, Potassium 3.0 L, Chloride 105, Carbon Dioxide 26, Anion Gap 12.0, BUN 7, Creatinine 0.50 L, Estimated Creat Clear 40, Estimated GFR 119, Est GFR ( Amer) 144 D, Glucose 97, Calcium 8.2 L I & O for Last 24 hours: Intake & Output 03/09/23 03/10/23 03/11/23 03/12/23 23:59 23:59 23:59 22:59 Intake Total 460 / 460 918 / 918 Output Total 0 / 0 0 / 0 Balance 460 / 460 918 / 918 Weight 54.794 kg Constitutional Constitutional: no acute distress *Routine HEENT Exam Head: Present normocephalic Eye: Present EOMI and PERRL ENT: Present mucous membranes moist *Routine Neck Exam Neck: Present supple; Absent lymphadenopathy *Routine Respiratory Exam Respiratory: Present CTA bilaterally *Routine Cardiovascular Exam Cardiovascular: Present RRR *Routine Abdominal Exam Abdominal: Present soft and normoactive bowel sounds; Absent tenderness *Routine Extremities Exam Extremities: Absent cyanosis, clubbing or edema *Routine Skin Exam Skin: Present warm; Absent rash *Routine Neurological Exam Neurological: Present alert and oriented X3 Assessment and Plan *Assessment and plan (1) Pyelonephritis: Status: Acute Category: Medical Code(s): N12 - Tubulo-interstitial nephritis, not specified as
--- NOTE | 2023-03-12 18:21 | PC.NURSE ---
NO ACUTE CHANGES THIS SHIFT. AMBULATED IN [address] AROUND UNIT WITH MINIMAL ASSISTANCE. WALKED AROUND ENTIRE UNIT X5. K REPLACED THIS SHIFT PATIENT TOLERATED WELL.
--- NOTE | 2023-03-12 20:54 | PC.NURSE ---
pt stated monitor tech was removed on day shift - pt still has a current cardiac monitoring order per hospitalist, and potassium levels have not been rechecked since this morning 0600 and last replacement earlier today so unsure of K+ levels (last K+ 3.0) - educated patient that it is important to monitor cardiac function until we are certain her electrolytes are WNL. pt verbalized understand and cardiac monitoring was put back on.
[2023-03-13] VITALS: BP 135/63; PULSE 80; PULSE 81; RESP 17; TEMP 36.6; O2SAT 96
[2023-03-13 04:00] VITALS: BP 163/69; PULSE 80; PULSE 84; RESP 17; TEMP 37.3; O2SAT 94; BMI 21.1
[2023-03-13 06:22] LABS: Basophils % 0.4 % (0.1-2.0); Eosinophils # 0.1 K/mm3 (0.0-0.4); Eosinophils % 0.5 % (0.1-12.0); Hematocrit 24.1 % (37.0-47.0); Hemoglobin 8.3 g/dL (12.2-16.2); Lymphocytes # 0.6 K/mm3 (0.7-4.5); Lymphocytes % 6.1 % (10-50); Mean Corpuscular HGB Conc 34.3 g/dL (31.8-35.4); Mean Corpuscular Hemoglobin 28.3 pg (27.0-31.2); Mean Corpuscular Volume 82.6 fl (81-99); Mean Platelet Volume 7.7 fl (7.4-10.4); Monocytes # 0.6 K/mm3 (0.1-1.0); Monocytes % 5.9 % (1.7-9.3); Neutrophils # 8.7 K/mm3 (1.8-7.8); Neutrophils % 87.1 % (37.0-80.0); Platelet Count 170 K/mm3 (142-424); Red Blood Count 2.92 M/mm3 (4.20-5.40)
[2023-03-13 06:23] LABS: MANUAL DIFFERENTIAL MANUAL DIFFERENTIAL (MANUAL DIFF)
[2023-03-13 06:32] LABS: Anion Gap 11.3 mEq/L (5-15); Blood Urea Nitrogen 4 mg/dl (7-17); Calcium 8.4 mg/dl (8.4-10.2); Carbon Dioxide 24 mmol/L (22.0-30.0); Chloride 107 mmol/L (98-107); Creatinine Clearance Estimated 41 mL/min (50-200); Estimated Glomerular Filt Rate 119 ml/min (>60); GFR (African American) 144 ML/MIN (>60); Glucose 97 mg/dl (74-100); Potassium 3.3 mmoL/L (3.5-5.1); Sodium 139 mmol/L (136-145)
[2023-03-13 07:30] LABS: Anisocytosis 1+; Lymphocytes % 5 % (10-50); Microcytosis 1+; Monocytes % 6 % (2-9); Myelocytes % 1 (0-1); Neutrophils % 88 % (42-76); Platelet Estimate Normal; Total Cells Counted 100
[2023-03-13 07:31] LABS: Ovalocytes 1+
[2023-03-13 07:42] VITALS: BP 168/67; PULSE 94; RESP 16; TEMP 36.8; O2SAT 97
[2023-03-13 08:00] VITALS: PULSE 100
--- NOTE | 2023-03-13 09:43 | HMH.OTEV ---
OT Inpatient Evaluation Rehab OT IP Evaluation Start: 03/12/23 21:25 Freq: ONCE Status: Active Protocol: Document 03/13/23 09:38 NEDA (Rec: 03/13/23 09:43 [facility] [id number] Rehab OT IP Assessment Subjective History Pt oriented x 3 on arrival. Pt agreeable to engage in therapy evaluation. Pt was admitted to [facility] on 03/11/23 due to a fever. Pt is a 77 yo F with PMHx HTN, HLD, GERD. gout , recently diagnosed B cell lymphoma, currently undergoing chemotherapy that came to the ER with a chief complaint of fever, reporting a temperature of 100.7F before arrive. As mentioned the patient is currently undergoing chemotherapy for lymphoma cancer and is scheduled for next week their third treatment. Prior to being in the hospital she lived at home with her . Pt claims she is normally independent with all ADLs and IADLs. She does not use any type of AE during daily activities. Subjective I didn't really feel bad when I was admitted here. Objective Patient Orientation Person,Place,Birthday Upper Extremity Gross ROM WFL Bed Mobility bed mobility-scooting,bed mobility - supine/sit Assist Level Independent Transfer Training Sit/Stand Transfer Assist Level Supervision/Stand by Chair Transfer Ability Supervision/Stand by Chair Transfer Technique Sit to/from Ambulatory Lower Body Dressing Ability Standby Assistance Performing Toilet Hygiene Ability Standby Assistance Overall Commode/Toilet Transfer Ability Standby Assistance Commode/Toilet Transfer Technique Sit to/from Ambulatory Rehab OT IP prob,goals,plan Problems Date of Evaluation: 03/13/23 Rehab Potential Rehab Potential Innapropriate for Skilled Therapy Discharge Plan OT Discharge Plan At this time, pt appears to be at her baseline with functional transfers and ADLs. Pt can return home with her
--- NOTE | 2023-03-13 09:53 | EXP.DC.SUM ---
General Admission date:: 03/11/23 Discharge date: 03/13/23 HPI HPI HPI: This is 77 yo F with PMHx HTN, HLD, GERD. gout, recently diagnosed B cell lymphoma, currently undergoing chemotherapy that came to the ER with a chief complaint of fever, reporting a temperature of 100.7F before arrive. As mentioned the patient is currently undergoing chemotherapy for lymphoma cancer and is scheduled for next week their third treatment. Patient with history of neutropenic fever. She also had history of recurrent UTI, with recent oral antibiotic treatment. The patient denies experiencing any pain, nausea, or vomiting. Admitted for further work up, treatment and management. Hospital Course Hospital Course Hospital Course: Patient is a 77-year-old female with past medical history of B-cell lymphoma hypertension hyperlipidemia GERD who presents to the hospital for one-time isolated fever event at home. Patient denies chest pain shortness of breath, nausea, vomiting, diarrhea, constipation, dysuria, fever, or chills. CT scan With findings suspicious for pyelonephritis. Urine grossly abnormal. Patient treated empirically for pyelonephritis with IV Rocephin on admission. White cell count normalized from 21k to 10k by day of discharge. Remained afebrile for >24hrs. Stable for discharge home. Has close follow-up with her oncologist. Problems addressed as follows: Assessment Pyelonephritis B-cell lymphoma Pathologic lumbar fracture L1 Hypertension Hyperlipidemia GERD Ms. Crain was initiated on IV Rocephin. Blood cultures and urine cultures were obtained. No growth by time of discharge (for at least 48 hours). We will transition to levofloxacin to complete total of 7 days of antibiotics for empiric coverage for unexplained fever in lymphoma patient. Additional concern during admission however for patient's mental state. She appears to be struggling with all the setting needing medical care. 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 This is taking his toll on her. Had a good conversation and recommend that she have conversations with her PCP about medications for anxiety. Currently on Xanax, recommended she discuss starting an SSRI with her PCP. The challenges of her condition are increasing her baseline anxiety and stress. Otherwise continued her other home medications. Stable for discharge home with close follow-up. Spent 35 minutes in discharge counseling, discussion with patient about her anxiety and complex disease, chart review, documentation, and direct care with patient. Exam Data for Last 24 hours Vital signs and Labs for Last 24 Hours: Temp Pulse Resp BP Pulse Ox O2 Del Method 98.3 F 100 H 16 168/67 H 97 Room Air 03/13/23 07:42 03/13/23 08:00 03/13/23 07:42 03/13/23 07:42 03/13/23 07:42 03/13/23 08:44 Laboratory Results - last 24 hr 03/13/23 05:20: WBC 10.0, RBC 2.92 L, Hgb 8.3 L, Hct 24.1 L, MCV 82.6, MCH 28.3, MCHC 34.3, RDW 21.0 H, Plt Count 170, MPV 7.7, Neut % (Auto) 87.1 H, Lymph % (Auto) 6.1 L, [place] % (Auto) 5.9, Eos % (Auto) 0.5, Baso % (Auto) 0.4, Neut # (Auto) 8.7 H, Lymph # (Auto) 0.6 L, [place] # (Auto) 0.6, Eos # (Auto) 0.1, Baso # (Auto) 0.0, Total Counted 100, Neutrophils % (Manual) 88 H, Lymphocytes % (Manual) 5 L, Monocytes % (Manual) 6, Myelocytes % 1, Platelet Estimate Normal, Anisocytosis 1+, Microcytosis 1+, Ovalocytes 1+, Sodium 139, Potassium 3.3 L, Chloride 107, Carbon Dioxide 24, Anion Gap 11.3, BUN 4 L D, Creatinine 0.50 L, Estimated Creat Clear 41, Estimated GFR 119, Est GFR ( Amer) 144, Glucose 97, Calcium 8.4 I & O for Last 24 hours: Intake & Output 03/11/23 03/12/23 03/12/23 03/13/23 00:59 00:59 23:59 23:59 Intake Total 240 / 240 Output Total 0 / 0 Balance 240 / 240 Weight 56.2 kg Constitutional Constitutional: no acute distress and chronically ill appearing *Routine HEENT Exam Head: Present normocephalic Eye: Present EOMI and
--- NOTE | 2023-03-13 10:20 | HMH.PTEV ---
Physical Therapy Evaluation Rehab PT IP Evaluation Start: 03/12/23 21:25 Freq: ONCE Status: Active Protocol: Document 03/13/23 10:17 REYNA (Rec: 03/13/23 10:19 PHORCHARITY [id number]) Subjective/History History History 77 yo F adm to [facility] with poss pyelonephritis. PMHx HTN, HLD, GERD. gout, recently diagnosed B cell lymphoma, currently undergoing chemotherapy that came to the ER with a chief complaint of fever, reporting a temperature of 100.7F before arrive. As mentioned the patient is currently undergoing chemotherapy for lymphoma cancer and is scheduled for next week their third treatment. Prior to being in the hospital she lived at home with her . Pt claims she is normally independent with all ADLs and IADLs. She does not use any type of AE during daily activities. Subjective Subjective Pt reports no c/o this am and agrees to mobility assessment. Mild L LE foot drop due to chemo related peroneal nerve irritation noted. New diagnosis of cancer in past 12 Yes months? Rehab PT IP Eval Objective Appearance Patient Behavior Appropriate Patient Orientation Person,Place,Time Difficulty following instructions none Speech Pattern Clear Ambulation Patient Able to Ambulate Yes Ambulation Observation IP General Gait Pattern Observation No Deviations/Normal Ambulation Distance (feet) 300 Ambulation Assistive Device None Ambulation Ability Independent Balance Ability to Arise Able, uses arms to help Sitting Balance Steady, safe Standing Balance Narrow stance w/o support Dynamic Sitting Balance Ability Normal Dynamic Standing Balance Ability Good Transfers Bed Transfer Ability Independent Chair Transfer Ability Independent Sit to Stand Bed Transfer Ability Independent Sit to Stand Chair Transfer Ability Independent Rehab PT IP prob,goals,plan Problems Date of Evaluation: 03/13/23 Discharge Plan PT Discharge Plan Pt is appropriate to
[2023-03-13 13:09] LABS: Calcium, Ionized 4.9 mg/dL (4.5-5.6)
--- NOTE | 2023-03-14 15:00 | CARE MANAGER ---
Called and spoke with patient regarding recent discharge. She states that she has started medication that was prescribed at discharge. She had a f/u appt this morning with her PCP. No concerns voiced at time of call.
--- NOTE | 2023-03-16 16:31 | PC.NURSE ---
URINE CULTURE ON WORKLIST, ID/SENSITIVITY SHOWS SENSITIVE TO LEVAQUIN. PT D/C ON LEVAQUIN FROM [address] RIOJAS- STATES NO FURTHER ACTION NEEDED.
== END 2023-03-13 10:57 | disposition home or self-care (01) | DRG 690 ==
LOC: ER 15:04 → 2ND 19:48
PROVIDERS: Admitting Provider Internal Medicine; Emergency Provider Emergency Medicine; PCP Internal Medicine Adolescent Medicine; Visit Provider Internal Medicine
DX: N10 Acute pyelonephritis (principal); C83.30 Diffuse large B-cell lymphoma, unspecified site; M84.48XA Pathological fracture, other site, initial encounter for fracture; I10 Essential (primary) hypertension; E78.5 Hyperlipidemia, unspecified; K21.9 Gastro-esophageal reflux disease without esophagitis; F41.9 Anxiety disorder, unspecified; I65.29 Occlusion and stenosis of unspecified carotid artery; M10.9 Gout, unspecified
CPT/HCPCS: 36415; 71046; 71275; 74177; 80048; 80053; 81001; 82330; 82550; 83605; 83615; 83690; 83735; 84100; 84439; 84443; 84550; 85007; 85025; 85610; 85651; 86140; 87040; 87086; 87636; 93005; 96365; 97163; 97165; 99285; J0696; J1642; J1756; Q9967

== ENCOUNTER 2023-03-17 11:42 | Outpatient (CLI) | payer MEDICARE, SELFPAY ==
[2023-03-17 12:05] VITALS: BP 135/48; PULSE 90; RESP 16; TEMP 36.4; O2SAT 96
[2023-03-17 12:35] VITALS: BP 134/48; PULSE 90; RESP 16
== END 2023-03-17 12:55 | disposition home or self-care (01) ==
LOC: INF 11:43
PROVIDERS: PCP Internal Medicine Adolescent Medicine; Visit Provider Internal Medicine Medical Oncology
DX: C83.30 Diffuse large B-cell lymphoma, unspecified site (principal); D50.9 Iron deficiency anemia, unspecified; Z45.2 Encounter for adjustment and management of vascular access device
CPT/HCPCS: 96365; J1642; J1756

== ENCOUNTER 2023-03-21 08:28 | Outpatient (CLI) | payer MEDICARE, SELFPAY ==
[2023-03-21] VITALS (12 sets, daily range): BP systolic 110–154; BP diastolic 40–71; PULSE 78–89; RESP 18; TEMP 36.8; O2SAT 97–99; BMI 21.2
[2023-03-21 08:53] LABS: Basophils % 0.4 % (0.1-2.0); Eosinophils # 0.1 K/mm3 (0.0-0.4); Eosinophils % 1.8 % (0.1-12.0); Hematocrit 25.8 % (37.0-47.0); Hemoglobin 8.5 g/dL (12.2-16.2); Lymphocytes # 0.5 K/mm3 (0.7-4.5); Mean Corpuscular Hemoglobin 28.4 pg (27.0-31.2); Mean Platelet Volume 8.6 fl (7.4-10.4); Monocytes # 0.7 K/mm3 (0.1-1.0); Monocytes % 8.3 % (1.7-9.3); Neutrophils # 6.4 K/mm3 (1.8-7.8); Neutrophils % 82.5 % (37.0-80.0); Platelet Count 455 K/mm3 (142-424); Red Cell Distribution Width 22.5 % (11.5-17.5); White Blood Count 7.8 K/mm3 (4.8-10.8)
[2023-03-21 09:25] LABS: Chloride 103 mmol/L (98-107); Sodium 141 mmol/L (136-145)
[2023-03-21 09:26] LABS: Potassium 3.7 mmoL/L (3.5-5.1)
[2023-03-21 09:28] LABS: Alanine Aminotransferase 33 U/L (12-78); Albumin Level 3.9 g/dl (3.5-5.0); Albumin/Globulin Ratio 1.3 (1.1-1.8); Alkaline Phosphatase 134 U/L (38-126); Anion Gap 10.7 mEq/L (5-15); Aspartate Amino Transferase 43 U/L (14-36); Blood Urea Nitrogen 10 mg/dl (7-17); Carbon Dioxide 31 mmol/L (22.0-30.0); Creatinine Clearance Estimated 41 mL/min (50-200); Estimated Glomerular Filt Rate 81 ml/min (>60); GFR (African American) 98 ML/MIN (>60); Globulin 3.1 g/dL (1.3-3.2)
[2023-03-21 09:29] LABS: Calcium 9.2 mg/dl (8.4-10.2); Glucose 134 mg/dl (74-100)
[2023-03-21 09:34] LABS: Bilirubin,Total < 0.1 mg/dl (0.2-1.3)
[2023-03-21] MEDS: diphenhydrAMINE 50MG CAPSULE 50 MG PO (10:10)
[2023-03-21] MEDS: METHYLPREDNISOLONE SOD SUCC 125MG VIAL 125 MG (10:10)
[2023-03-21] MEDS: ACETAMINOPHEN 325MG TAB 650 MG (10:10)
[2023-03-21] MEDS: 0.9 % SODIUM CHLORIDE 100 ML 25 ML IV (10:10)
[2023-03-21] MEDS: RITUXIMAB PVVR IV (10:42)
[2023-03-21] MEDS: SODIUM CHLORIDE 0.9% IV ×3 (10:42→13:57)
[2023-03-21] MEDS: APREPITANT 125MG/80MG TRIFOLD PACK 1 PACKET PO (13:01)
[2023-03-21] MEDS: PALONOSETRON HCL 0.25 MG/5 ML IV (13:01)
[2023-03-21] MEDS: CYCLOPHOSPHAMIDE IV (13:12)
[2023-03-21] MEDS: DOXORUBICIN HCL IV (13:57)
[2023-03-21] MEDS: VINCRISTINE 2 MG IV (14:34)
[2023-03-21] MEDS: SODIUM CHLORIDE 0.9% 10ML FLUSH SYRINGE 10 ML IV (14:43)
[2023-03-21] MEDS: PEGFILGRASTIM 6 MG/0.6 ML SQ (14:50)
--- NOTE | 2023-03-21 16:19 | PC.NURSE ---
03/21/23 1520-pt walked back into outpt infusion dept with . Pt reports that after leaving the hospital with her , pt starting feeling as if she was having difficulty swallowing. Pt had her turn the vehicle around and return back to the hospital because she was too scared to return home. Pt immediately assessed, v/s obtained-b/p 152/49, hr 88, rr 20, o2 sat 97% temp 97.8. Contacted oncology office and spoke with Layne-notified that MD had already left for the day. Pt advised to go to the ER to be evaluated for a possible medication reaction-pt agreeable to poc. Pt escorted to ER via wc with . Report called to Rosalba in ER to relay updated condition on pt.
== END 2023-03-21 14:55 | disposition home or self-care (01) ==
LOC: INF 08:29
PROVIDERS: PCP Internal Medicine Adolescent Medicine; Visit Provider Internal Medicine Medical Oncology
DX: Z51.11 Encounter for antineoplastic chemotherapy (principal); C83.33 Diffuse large B-cell lymphoma, intra-abdominal lymph nodes
CPT/HCPCS: 80053; 85025; 96377; 96411; 96413; 96415; 96417; J1642; J2469; J2505; J9000; J9070; J9370; Q5119

== ENCOUNTER 2023-03-21 15:34 | Emergency (ER) | payer MEDICARE, SELFPAY ==
[2023-03-21 15:35] VITALS: BP 175/69; PULSE 75; RESP 17; TEMP 36.8; O2SAT 98; BMI 22.3
--- NOTE | 2023-03-21 16:15 | PC.NURSE ---
pageleonora Beatty (Oncology) for Dr. Chavez.
--- NOTE | 2023-03-21 16:16 | HMH.EDGENADL ---
Discharge Plan Disposition Patient Disposition: Home, Self-Care Prescriptions Prescriptions: No Action mirtazapine 7.5 mg tablet 7.5 mg PO HS alprazolam 0.5 mg tablet 0.5 mg PO Q6HP PRN (Reason: Anxiety) 30 Days Qty: 120 rosuvastatin 5 mg tablet 5 mg PO HS famotidine 20 mg tablet 20 mg PO BID lisinopril 20 mg tablet 40 mg PO DAILY allopurinol 300 mg Tablet 300 mg PO DAILY ondansetron HCl 4 mg tablet 4 mg PO Q6HP PRN (Reason: Nausea And Vomiting) prochlorperazine maleate 10 mg tablet 10 mg PO Q4HP PRN (Reason: Nausea And Vomiting) aspirin 81 MG tablet,delayed release (DR/EC) 81 mg PO DAILY carvedilol 12.5 mg tablet 6.25 mg PO DAILY carvedilol 12.5 mg tablet 12.5 mg PO HS amlodipine 5 mg tablet 5 mg PO DAILY sennosides-docusate sodium [Senna with Docusate Sodium] 8.6-50 mg Tablet 1 tab PO HS Referrals Follow up/Referrals: Cristian Zhu MD [Primary Care Provider] - See instructions Activity Restrictions/Add. Instructions Additional Instructions/Restrictions: Please take 25 mg of oral Benadryl every 4-6 hours as needed for symptoms. There is no objective evidence of any anaphylactic or IgE mediated allergic reaction today. Dr. Farrell would like for you to go ahead and take your steroids this evening and his team will follow-up with you tomorrow to see how you are feeling. Please return with any worsening shortness of breath difficulty breathing or swallowing or other concerns. Clinical Impressions Clinical Impression: Difficulty in swallowing, Dyspnea Discharge ED Provider: Gianluca Chavez General Adult HPI General Chief complaint: Allergic Reaction Stated complaint: Poss Reaction to Chemo/trouble swallow & SOA Time Seen by Provider: 03/21/23 15:44 Mode of Arrival: Wheelchair Source of Information: Patient and Medical Record Limitations: No Limitations Description of Symptoms (Recalled from ER Triage Doc. by RN): Pt c/o trouble swallowing and SOA post chemo infusion today. Pt was pre-treated with Tylenol, Solumedrol, Benadryl, and and 2 post chemo nausea medicaitons. During her infusion she felt increase tingling to her hands and feet. Dr Beatty assessed pt and stated it was ok to continue treatment. This is pt's 3rd treatment of CHOP-R and G-CSF. Per Dr. Beatty's note she is supposed to have 3 more treatment for a total of 6. Per Infusion, this type of Chemo can have latent reactions. History of Present Illness HPI narrative: Patient is a 77-year-old female with recent diagnosis of diffuse large B-cell lymphoma currently on her third infusion for R-CHOP therapy and G-CSF per Dr. Farrell oversight. Patient states that after the infusion she went home and started to have some shortness of breath followed by some difficulty with swallowing. The shortness of breath resolved relatively quickly and the difficulty swallowing has significant improved since it first began. No swelling that she noted. No urticarial rash no other organ system involvement. She currently is without any dyspnea. There is no wheezing at any point. She went back to the infusion clinic but the physician was no longer there and they sent her to the emergency department for further evaluation and treatment. Related Data Home Medications Medication Instructions Recorded Confirmed alprazolam 0.5 mg tablet 0.5 mg PO Q6HP PRN Anxiety 30 days 12/01/17 03/21/23 ##120 aspirin 81 mg tablet,delayed 81 mg PO DAILY Heart Health 12/23/17 03/21/23 release rosuvastatin 5 mg tablet 5 mg PO HS Cholesterol 05/29/18 03/21/23 famotidine 20 mg tablet 20 mg PO BID Acid Reflux 07/29/21 03/21/23 amlodipine 5 mg tablet 5 mg PO DAILY High Blood Pressure 12/30/22 03/21/23 carvedilol 12.5 mg tablet 6.25 mg PO DAILY blood 12/30/22 03/21/23 pressure/heart rate carvedilol 12.5 mg tablet 12.5 mg PO HS blood pressure/heart 12/30/22 03/21/23 rate sennosides 8.6 mg-docusate sodium 1 tab PO
[2023-03-21 16:46] VITALS: BP 160/81; PULSE 96; RESP 19; TEMP 36.7; O2SAT 97
== END 2023-03-21 16:51 | disposition home or self-care (01) ==
PROVIDERS: Emergency Provider Student in an Organized Health Care Education/Training Program; PCP Internal Medicine Adolescent Medicine
DX: R13.10 Dysphagia, unspecified (principal); R06.02 Shortness of breath; C83.30 Diffuse large B-cell lymphoma, unspecified site; Z92.21 Personal history of antineoplastic chemotherapy; I10 Essential (primary) hypertension; E78.5 Hyperlipidemia, unspecified; K21.9 Gastro-esophageal reflux disease without esophagitis; Z87.891 Personal history of nicotine dependence
CPT/HCPCS: 99283

== ENCOUNTER → 2023-03-24 10:45 | Outpatient (CLI) | payer MEDICARE, SELFPAY ==
--- NOTE | 2023-03-24 10:51 | MR_ITS ---
FINAL REPORT CLINICAL HISTORY: LYMPHOMA FINDINGS: Multiplanar MR imaging of the lumbar spine was performed without contrast. On the sagittal T2-weighted images, there is abnormal decreased signal throughout the lumbar discs. There is a 40% compression deformity of L1. There is abnormal signal within the L1 and L2 vertebral bodies. The abnormal signal within the L2 vertebral body extends into the left L2 pedicle. The vertebral alignment is normal. L1-2: Mild diffuse disc bulge is present with mild bilateral neural foraminal narrowing. L2-3: Moderate diffuse disc bulge is present with moderate bilateral neural foraminal narrowing. L3-4: Moderate diffuse disc bulge is present with moderate bilateral neural foraminal narrowing. L4-5: Mild diffuse disc bulge is present with mild bilateral neural foraminal narrowing. L5-S1: Moderate diffuse disc bulge is present. There is moderate right and moderate to high-grade left neural foraminal narrowing. IMPRESSION: 40% compression deformity of L1. Abnormal signal within the L1 and L2 vertebral bodies concerning for underlying metastases. Multilevel diffuse disc bulges. Correlation with pre and post infusion images may be of value. Reviewed, Interpreted and Dictated by Ramses Murphy MD Transcribed by Palak Butler Authenticated and [facility]
--- NOTE | 2023-03-24 11:17 | MR_ITS ---
FINAL REPORT CLINICAL HISTORY: LYMPHOMA FINDINGS: Multiplanar MR imaging of the brain was performed without and with contrast. There is mild atrophy. Tiny scattered foci of abnormal signal are seen in the deep white matter consistent with microvascular ischemic change. There is mucoperiosteal thickening of the left cell of the sphenoid sinus and posterior left ethmoid air cells. There is no evidence of intracranial hemorrhage or mass. No abnormal extra-axial fluid collection is seen. The ventricular size is within normal limits. There is no evidence of shift of the midline structures. The posterior fossa and brainstem have an unremarkable appearance. No area of abnormal restricted diffusion is identified. No abnormal contrast enhancement is seen. Normal major vessel vascular flow voids are noted. IMPRESSION: No acute intracranial abnormality identified. Reviewed, Interpreted and Dictated by Ramses Murphy MD Transcribed by Nel Barragan Authenticated and [facility]
== END ==
PROVIDERS: PCP Internal Medicine Adolescent Medicine; Visit Provider Internal Medicine Medical Oncology
DX: M54.50 Low back pain, unspecified (principal); C83.30 Diffuse large B-cell lymphoma, unspecified site; M21.372 Foot drop, left foot
CPT/HCPCS: 70553; 72148; 76376; A9576

== ENCOUNTER 2023-03-27 11:35 | Outpatient (CLI) | payer MEDICARE, SELFPAY ==
[2023-03-27] MEDS: 0.9 % SODIUM CHLORIDE 50 ML 100 ML IV (11:58)
[2023-03-27] MEDS: SODIUM CHLORIDE 0.9% 10ML FLUSH SYRINGE 10 ML IV (11:59)
[2023-03-27] MEDS: IRON SUCROSE COMPLEX 200 MG in 0.9 % SODIUM CHLORIDE 100 ML 220 MG IV (11:59)
[2023-03-27 12:00] VITALS: BP 158/79; PULSE 81; RESP 18; TEMP 36.2; O2SAT 98
[2023-03-27 12:42] VITALS: BP 149/77; PULSE 80; RESP 18; O2SAT 98
== END 2023-03-27 12:51 | disposition home or self-care (01) ==
LOC: INF 11:37
PROVIDERS: PCP Internal Medicine Adolescent Medicine; Visit Provider Internal Medicine Medical Oncology
DX: C83.33 Diffuse large B-cell lymphoma, intra-abdominal lymph nodes (principal); Z45.2 Encounter for adjustment and management of vascular access device; E61.1 Iron deficiency
CPT/HCPCS: 96365; J1642; J1756

== ENCOUNTER 2023-04-03 11:46 | Outpatient (CLI) | payer MEDICARE, SELFPAY ==
[2023-04-03 12:08] VITALS: BP 146/49; PULSE 65; RESP 18; TEMP 37.3; O2SAT 96
[2023-04-03 12:40] VITALS: BP 151/54; PULSE 71
== END 2023-04-03 12:45 | disposition home or self-care (01) ==
LOC: INF 11:48
PROVIDERS: PCP Internal Medicine Adolescent Medicine; Visit Provider Internal Medicine Medical Oncology
DX: C83.30 Diffuse large B-cell lymphoma, unspecified site (principal)
CPT/HCPCS: 96365; J1642; J1756

== ENCOUNTER 2023-04-03 19:04 | Observation (INO) | payer MEDICARE, SELFPAY ==
[2023-04-03] VITALS (14 sets, daily range): BP systolic 147–191; BP diastolic 50–149; PULSE 89–111; RESP 16–20; TEMP 36.7–36.9; O2SAT 94–98; BMI 20.9; BMI 21.2
--- NOTE | 2023-04-03 19:59 | XR_ITS ---
PROCEDURE INFORMATION: Exam: XR Chest Exam date and time: 04/03/2023 8:09 PM Age: 77 years old Clinical indication: Fever; Additional info: Fever, on chemo TECHNIQUE: Imaging protocol: Radiologic exam of the chest. Views: 1 view. COMPARISON: CT ANGIO CHEST PE PROTOCOL 03/11/2023 5:31 PM FINDINGS: Tubes, catheters and devices: Left-sided chest port with tip terminating at the SVC. Lungs: Unremarkable. No consolidation. Pleural spaces: Unremarkable. No pleural effusion. No pneumothorax. Heart/Mediastinum: Unremarkable. No cardiomegaly. Bones/joints: Unremarkable. IMPRESSION: No acute findings.
--- NOTE | 2023-04-03 20:06 | HMH.EDGENADL ---
Discharge Plan Disposition Patient Disposition: Admitted Condition: Good Clinical Impressions Clinical Impression: Fever of unknown origin Discharge ED Provider: Viktor Bearden General Adult HPI General Chief complaint: Fever Stated complaint: chemo pt, fever Time Seen by Provider: 04/03/23 19:16 Mode of Arrival: Ambulatory Source of Information: Patient Limitations: No Limitations Description of Symptoms (Recalled from ER Triage Doc. by RN): Patient ambulatory to ED for persistent fever x1 week. Tonight patient home fever orally was 101.0. Patient was told to come to ED if fevers exceeded [address] Farrell oncologist. Patient with recent dx of lymphoma. Currently receving chemo infusions at [facility]. Most recent chemo infusion 2xweeks ago, and had iron infusion today 04/03. Patient has been on Cipro [id number] for prophylactic treatment for fevers per Dr. Farrell. Current oral fever 98.1. History of Present Illness HPI narrative: 77-year-old male history of hypertension, hyperlipidemia, non-Hodgkin's lymphoma currently on chemotherapy presenting with fever. Patient states that she had fever of 100.5 just prior to this visit. Did not have any of interventions. Afebrile on arrival. Patient has no other symptoms. She was told if she has fever to come to the emergency department. Patient has been on ciprofloxacin to prevent needing to come to the emergency department at discretion of section repairer, but despite Cipro had fever. Related Data Home Medications Medication Instructions Recorded Confirmed alprazolam 0.5 mg tablet 0.5 mg PO Q6HP PRN Anxiety 30 days 12/01/17 04/03/23 ##120 aspirin 81 mg tablet,delayed 81 mg PO DAILY Heart Health 12/23/17 04/03/23 release rosuvastatin 5 mg tablet 5 mg PO HS Cholesterol 05/29/18 04/03/23 famotidine 20 mg tablet 20 mg PO BID Acid Reflux 07/29/21 04/03/23 amlodipine 5 mg tablet 5 mg PO DAILY High Blood Pressure 12/30/22 04/03/23 carvedilol 12.5 mg tablet 12.5 mg PO HS blood pressure/heart 12/30/22 04/03/23 rate sennosides 8.6 mg-docusate sodium 1 tab PO HS stool softener 12/30/22 04/03/23 50 mg tablet (Senna with Docusate Sodium) allopurinol 300 mg tablet 300 mg PO DAILY Gout 01/31/23 04/03/23 ondansetron HCl 4 mg tablet 4 mg PO Q6HP PRN Nausea And 02/06/23 04/03/23 Vomiting prochlorperazine maleate 10 mg 10 mg PO Q4HP PRN Nausea And 02/06/23 04/03/23 tablet Vomiting lisinopril 20 mg tablet 40 mg PO BID High Blood Pressure 03/21/23 04/03/23 mirtazapine 7.5 mg tablet 7.5 mg PO HS restless legs 03/21/23 04/03/23 prednisone 20 mg tablet 20 mg PO DAILY 04/03/23 04/03/23 Allergies Allergy/AdvReac Type Severity Reaction Status Date / Time esomeprazole [From Nexium] Allergy Intermediate Hives Verified 03/21/23 08:52 erythromycin base Allergy Mild Redness of Verified 03/21/23 08:52 Skin amoxicillin [From Augmentin] AdvReac Intermediate Nausea Verified 03/21/23 08:52 clavulanic acid AdvReac Intermediate Nausea Verified 03/21/23 08:52 [From Augmentin] doxycycline AdvReac Intermediate Nausea Verified 03/21/23 08:52 Sulfa (Sulfonamide AdvReac Intermediate Nausea Verified 03/21/23 08:52 Antibiotics) dexlansoprazole AdvReac flu Verified 03/21/23 08:52 [From Dexilant] symptoms pantoprazole [From Protonix] AdvReac Verified 03/21/23 08:52 PFSH PFSH Disclaimer: The information contained in this section may have been updated after the patient was seen, as this information can be updated by other users. Medical History (Updated 04/03/23 @ 23:23 by Viktor Bearden MD) Anxiety FH: cholecystectomy GERD (gastroesophageal reflux disease) H/O coronary angiogram History of carotid artery stenosis Hyperlipidemia Hypertension Lymphoma UTI (urinary tract infection) Surgical History History of cholecystectomy History of right-sided carotid endarterectomy Tubal ligation status Family History (Reviewed 03/08
[2023-04-03 20:16] LABS: Microscopic, Urine URINE MICROSCOPIC (MICROSCOPIC)
[2023-04-03 20:29] LABS: Basophils % 0.3 % (0.1-2.0); Chloride 102 mmol/L (98-107); Eosinophils % 0.3 % (0.1-12.0); Hematocrit 26.8 % (37.0-47.0); Hemoglobin 8.9 g/dL (12.2-16.2); Lymphocytes # 0.6 K/mm3 (0.7-4.5); Lymphocytes % 4.6 % (10-50); Mean Corpuscular HGB Conc 33.1 g/dL (31.8-35.4); Mean Corpuscular Hemoglobin 29.1 pg (27.0-31.2); Mean Platelet Volume 8.4 fl (7.4-10.4); Monocytes # 0.5 K/mm3 (0.1-1.0); Monocytes % 4.3 % (1.7-9.3); Neutrophils # 11.3 K/mm3 (1.8-7.8); Neutrophils % 90.5 % (37.0-80.0); Platelet Count 251 K/mm3 (142-424); Red Blood Count 3.05 M/mm3 (4.20-5.40); Red Cell Distribution Width 22.6 % (11.5-17.5); Sodium 139 mmol/L (136-145); White Blood Count 12.5 K/mm3 (4.8-10.8)
[2023-04-03 20:30] LABS: MANUAL DIFFERENTIAL MANUAL DIFFERENTIAL (MANUAL DIFF); Potassium 3.6 mmoL/L (3.5-5.1)
[2023-04-03 20:32] LABS: Alanine Aminotransferase 32 U/L (12-78); Albumin Level 4.4 g/dl (3.5-5.0); Albumin/Globulin Ratio 1.4 (1.1-1.8); Alkaline Phosphatase 180 U/L (38-126); Anion Gap 14.6 mEq/L (5-15); Aspartate Amino Transferase 38 U/L (14-36); Bilirubin,Total 0.5 mg/dl (0.2-1.3); Blood Urea Nitrogen 10 mg/dl (7-17); Calcium 9.2 mg/dl (8.4-10.2); Carbon Dioxide 26 mmol/L (22.0-30.0); Creatinine Clearance Estimated 41 mL/min (50-200); Estimated Glomerular Filt Rate 81 ml/min (>60); GFR (African American) 98 ML/MIN (>60); Globulin 3.2 g/dL (1.3-3.2); Glucose 122 mg/dl (74-100); Total Protein,Serum 7.6 g/dl (6.3-8.2)
[2023-04-03 20:35] LABS: Appearance,Urine CLEAR (Clear); Bilirubin,Urine Negative (Negative); Blood, Urine Negative (Negative); Color,Urine YELLOW (Yellow); Glucose,Urine (UA) Negative (Negative); Ketones,Urine Negative (Negative); Leukocyte Esterase,Urine Negative (Negative); Nitrate,Urine Negative (Negative); PH,Urine 6.5 (5.0-8.5); Protein,Urine Negative (Negative); Urobilinogen,Urine 0.2 EU/dl (0.2)
[2023-04-03 20:51] LABS: Lymphocytes % 5 % (10-50); Monocytes % 3 % (2-9); Neutrophils % 92 % (42-76); Total Cells Counted 100
[2023-04-03 20:54] LABS: Poikilocytosis 2+
[2023-04-03 20:55] LABS: Acanthocytes 1+; Platelet Estimate Normal; Stomatocytes 1+
--- NOTE | 2023-04-03 21:15 | PC.NURSE ---
speaking with hospitalist ATT
--- NOTE | 2023-04-03 21:53 | PC.NURSE ---
pt being admitted, family aware
--- NOTE | 2023-04-03 22:01 | PC.NURSE ---
Observation admission to 201 with dx of fever of unknown orgin to service of the hospitalist.
--- NOTE | 2023-04-03 22:05 | EXP.HP ---
History of Present Illness *Admission Date: 04/03/23 *Reason for visit:: fever *History of present illness: Ms. Crain is a 77-year-old female with PMHx HTN, HLD, GERD. gout, recently diagnosed B cell lymphoma, currently undergoing chemotherapy that came to the ER with a chief complaint of fever, reporting a temperature of 101 F before arrival. States that she gets fevers after her chemo about 2 weeks after chemotherapy. Was previously admitted earlier this month for similar episode. At that admission, her urine grew Klebsiella. Responded to antibiotics well. Her oncologist gave her empiric antibiotics at this time as a preventative and told her to start taking them 1 week after chemotherapy. She is currently taking ciprofloxacin twice daily. [place] some mild nausea today and took her temperature. First noted to be 100.5. Repeat temperature taken 30 minutes later of 101. Came to the ER for further management. Workup in the ER positive for leukocytosis. Exam and labs otherwise unremarkable. No fever while in the ER. Given fever of unknown origin, lymphoma, risk for decompensation, ER consulted medicine for further management. On evaluation, patient denies any symptoms. Abdominal discomfort has resolved. She is tolerating dinner. Blood pressure is little elevated and has not taken any of her blood pressure meds this evening. Otherwise denies any pain, shortness of breath, cough, dysuria, diarrhea. [facility] Disclaimer: The information contained in this section may have been updated after the patient was seen, as this information can be updated by other users. Medical History (Updated 04/04/23 @ 00:57 by Xu Maldonado MD) Anxiety FH: cholecystectomy GERD (gastroesophageal reflux disease) H/O coronary angiogram History of carotid artery stenosis Hyperlipidemia Hypertension Lymphoma UTI (urinary tract infection) Surgical History History of cholecystectomy History of right-sided carotid endarterectomy Tubal ligation status Family History Family history of hypertension Family history of hyperlipidemia Cancer Social History Smoking Status: Former smoker how long ago did patient quit smokin years ago second hand exposure: No alcohol intake: never substance use type: denies use current occupational status: retired Travel in the last 8 weeks: None household members: spouse housing: house current occupational exposures/hazards: No caffeine: No Review of Systems Review of Systems Review of systems (narrative): 14 point review of systems performed, pertinent positives and negatives as per [facility] Meds Home Medications and Allergies Home Medications Medication Instructions Recorded Confirmed Type alprazolam 0.5 mg tablet 0.5 mg PO Q6HP PRN Anxiety 30 days 12/01/17 04/03/23 History ##120 aspirin 81 mg tablet,delayed 81 mg PO DAILY Heart Health 12/23/17 04/03/23 History release rosuvastatin 5 mg tablet 5 mg PO HS Cholesterol 05/29/18 04/03/23 History famotidine 20 mg tablet 20 mg PO BID Acid Reflux 07/29/21 04/03/23 History amlodipine 5 mg tablet 5 mg PO DAILY High Blood Pressure 12/30/22 04/03/23 History carvedilol 12.5 mg tablet 12.5 mg PO HS blood pressure/heart 12/30/22 04/03/23 History rate sennosides 8.6 mg-docusate sodium 1 tab PO HS stool softener 12/30/22 04/03/23 History 50 mg tablet (Senna with Docusate Sodium) allopurinol 300 mg tablet 300 mg PO DAILY Gout 01/31/23 04/03/23 History ondansetron HCl 4 mg tablet 4 mg PO Q6HP PRN Nausea And 02/06/23 04/03/23 History Vomiting prochlorperazine maleate 10 mg 10 mg PO Q4HP PRN Nausea And 02/06/23 04/03/23 History tablet Vomiting lisinopril 20 mg tablet 40 mg PO BID High Blood Pressure 03/21/23 04/03/23 History mirtazapine 7.5 mg tablet 7.5 mg PO HS restless legs 03/21
[2023-04-03 22:06] LABS: WBC,Urine Occasional #/hpf (0-3)
--- NOTE | 2023-04-03 22:40 | PC.NURSE ---
Report called to DANDRE Kessler
--- NOTE | 2023-04-03 22:53 | PC.NURSE ---
Patient arrived to floor via wheelchair at 22:52.
[2023-04-04 04:00] VITALS: BP 130/52; PULSE 83; RESP 18; TEMP 37; O2SAT 94; BMI 21.2
--- NOTE | 2023-04-04 05:30 | PC.NURSE ---
Patient remained A/O x3 this shift. Patient slept well during the night. Patient remains afebrile throughout the night. Patient can ambulate to bathroom independently to void. Daughter remains at bedside. Call light within reach.
[2023-04-04 07:13] LABS: Basophils % 0.2 % (0.1-2.0); Eosinophils # 0.1 K/mm3 (0.0-0.4); Eosinophils % 0.7 % (0.1-12.0); Hematocrit 24.2 % (37.0-47.0); Lymphocytes # 0.6 K/mm3 (0.7-4.5); Lymphocytes % 8.9 % (10-50); Mean Corpuscular Hemoglobin 28.6 pg (27.0-31.2); Mean Corpuscular Volume 89.4 fl (81-99); Mean Platelet Volume 7.8 fl (7.4-10.4); Monocytes # 0.4 K/mm3 (0.1-1.0); Monocytes % 5.1 % (1.7-9.3); Neutrophils % 85.1 % (37.0-80.0); Platelet Count 228 K/mm3 (142-424); Red Blood Count 2.71 M/mm3 (4.20-5.40); Red Cell Distribution Width 22.6 % (11.5-17.5)
[2023-04-04 07:28] LABS: Alanine Aminotransferase 26 U/L (12-78); Albumin Level 3.3 g/dl (3.5-5.0); Albumin/Globulin Ratio 1.2 (1.1-1.8); Alkaline Phosphatase 133 U/L (38-126); Anion Gap 10.3 mEq/L (5-15); Aspartate Amino Transferase 33 U/L (14-36); Bilirubin,Total 0.2 mg/dl (0.2-1.3); Blood Urea Nitrogen 8 mg/dl (7-17); Calcium 8.3 mg/dl (8.4-10.2); Carbon Dioxide 25 mmol/L (22.0-30.0); Chloride 106 mmol/L (98-107); Creatinine Clearance Estimated 41 mL/min (50-200); Estimated Glomerular Filt Rate 69 ml/min (>60); GFR (African American) 84 ML/MIN (>60); Globulin 2.7 g/dL (1.3-3.2); Glucose 96 mg/dl (74-100); Magnesium 1.8 mg/dl (1.6-2.3); Potassium 3.3 mmoL/L (3.5-5.1); Sodium 138 mmol/L (136-145)
--- NOTE | 2023-04-04 07:54 | P.CONPHA_ITS ---
Pharmacy Intervention Comments: Med reconciliation completed using external fill history and patient interview. She states that she gets low-dose aspirin, docusate, and miralax OTC. She had RX filled for cipro and prednisone filled 04/03 at [facility], but she states that she does not take those until next week following chemo. She says that she has not taken zofran or prochlorperazine for some time and tries to tolerate the nausea without taking anything.
[2023-04-04 08:00] VITALS: BP 145/57; PULSE 81; RESP 18; TEMP 36.8; O2SAT 97
[2023-04-04 08:05] LABS: Hemoglobin 7.7 g/dL (12.2-16.2)
[2023-04-04 08:06] LABS: MANUAL DIFFERENTIAL MANUAL DIFFERENTIAL (MANUAL DIFF)
[2023-04-04 10:07] LABS: Eosinophils % 1 % (0-3); Lymphocytes % 14 % (10-50); Monocytes % 4 % (2-9); Neutrophils % 81 % (42-76); Platelet Estimate Normal; RBC Morphology Normal; Total Cells Counted 100
[2023-04-04 11:28] VITALS: TEMP 37.2
--- NOTE | 2023-04-05 14:49 | CARE MANAGER ---
Patient states that she has been running a fever all day today. She contacted Dr. eBatty's office and they told her to take the antibiotics prescribed and to call back if fever was 102 or more. Otherwise she states she is ok. Denies question sor concerns. DANDRE Hunter
--- NOTE | 2023-04-17 20:00 | EXP.DC.SUM ---
General Admission date:: 04/03/23 Discharge date: 04/05/23 HPI HPI HPI: Ms. Crain is a 77-year-old female with PMHx HTN, HLD, GERD. gout, recently diagnosed B cell lymphoma, currently undergoing chemotherapy that came to the ER with a chief complaint of fever, reporting a temperature of 101 F before arrival. States that she gets fevers after her chemo about 2 weeks after chemotherapy. Was previously admitted earlier this month for similar episode. At that admission, her urine grew Klebsiella. Responded to antibiotics well. Her oncologist gave her empiric antibiotics at this time as a preventative and told her to start taking them 1 week after chemotherapy. She is currently taking ciprofloxacin twice daily. [place] some mild nausea today and took her temperature. First noted to be 100.5. Repeat temperature taken 30 minutes later of 101. Came to the ER for further management. Workup in the ER positive for leukocytosis. Exam and labs otherwise unremarkable. No fever while in the ER. Given fever of unknown origin, lymphoma, risk for decompensation, ER consulted medicine for further management. On evaluation, patient denies any symptoms. Abdominal discomfort has resolved. She is tolerating dinner. Blood pressure is little elevated and has not taken any of her blood pressure meds this evening. Otherwise denies any pain, shortness of breath, cough, dysuria, diarrhea. Hospital Course Hospital Course Hospital Course: Patient was seen and evaluated at the bedside on the day of discharge. Patient is stable for discharge. Patient wishes to be discharged. All patient questions were answered and patient was given time to ask questions. Patient was discharged in stable condition. Patient understands that she can return to ER in case of any sudden changes in health. Total time spent on DC - 38 mins Ms. Crain is a 77-year-old female undergoing chemotherapy for lymphoma. Presented with fever and no other symptoms aside from mild nausea. Upon arrival to the ER, temperature is resolved. Found to have leukocytosis. Discussed case with ER physician, request admission for IV antibiotics and further monitoring while cultures are pending. Fever of unknown origin - resolved Lymphoma dc on oral Abx f/u with oncology as OP Gout: Continue allopurinol 300 mg daily Hypertension: Continue carvedilol 12.5 mg nightly, amlodipine 5 mill daily, lisinopril 40 mg twice daily Lipidemia, continue Crestor 5 mill daily Anxiety: Continue Xanax 0.5 mg every 6 hours needed, mirtazapine 7.5 mg nightly Exam Data for Last 24 hours Vital signs and Labs for Last 24 Hours: Temp Pulse Resp BP Pulse Ox O2 Del Method 98.9 F 81 18 145/57 H 97 Room Air 04/04/23 11:28 04/04/23 08:00 04/04/23 08:00 04/04/23 08:00 04/04/23 08:00 04/04/23 15:00 I & O for Last 24 hours: Intake & Output 03/11/23 03/12/23 03/12/23 03/13/23 00:59 00:59 23:59 23:59 Intake Total 240 / 240 Output Total 0 / 0 Balance 240 / 240 Weight 56.2 kg Constitutional Constitutional: no acute distress and chronically ill appearing *Routine HEENT Exam Head: Present normocephalic Eye: Present EOMI and PERRL ENT: Present mucous membranes moist *Routine Neck Exam Neck: Present supple; Absent lymphadenopathy *Routine Respiratory Exam Respiratory: Present CTA bilaterally *Routine Cardiovascular Exam Cardiovascular: Present RRR *Routine Abdominal Exam Abdominal: Present soft and normoactive bowel sounds; Absent tenderness *Routine Extremities Exam Extremities: Absent cyanosis, clubbing or edema *Routine Skin Exam Skin: Present warm; Absent rash *Routine Neurological Exam Neurological: Present alert, oriented X3 and moving all extremities; Absent altered mental status DS: Diagnosis Discharge Diagnosis (1) Fever of unknown origin: Status: Inactive Code(s): R50.9 - Fever, unspecified (2) DLBCL (diffuse large B cell lymphoma): Status: [place]
== END 2023-04-04 16:08 | disposition home or self-care (01) ==
LOC: ER 19:38 → 2ND 22:07
PROVIDERS: Admitting Provider Internal Medicine Adolescent Medicine; Emergency Provider Emergency Medicine; PCP Internal Medicine Adolescent Medicine; Visit Provider Internal Medicine Adolescent Medicine
DX: R50.9 Fever, unspecified (principal); C83.30 Diffuse large B-cell lymphoma, unspecified site; I10 Essential (primary) hypertension; E78.5 Hyperlipidemia, unspecified; K21.9 Gastro-esophageal reflux disease without esophagitis; F41.9 Anxiety disorder, unspecified; M10.9 Gout, unspecified; Z87.891 Personal history of nicotine dependence
CPT/HCPCS: 36415; 71045; 80053; 81001; 83735; 85007; 85025; 87040; 87086; 96365; 99285; G0378; J1642; J1756

== ENCOUNTER 2023-04-10 11:29 | Outpatient (CLI) | payer MEDICARE, SELFPAY ==
[2023-04-10 11:41] VITALS: BMI 20.7
[2023-04-10 11:55] VITALS: BP 164/63; PULSE 64; RESP 18; TEMP 36.1; O2SAT 98
[2023-04-10] MEDS: IRON SUCROSE COMPLEX 200 MG in 0.9 % SODIUM CHLORIDE 100 ML 220 MG IV (11:55)
[2023-04-10] MEDS: SODIUM CHLORIDE 0.9% 50ML BAG 50 ML IV (11:55)
[2023-04-10 12:02] LABS: Basophils % 0.3 % (0.1-2.0); Eosinophils # 0.1 K/mm3 (0.0-0.4); Eosinophils % 1.1 % (0.1-12.0); Hematocrit 28.4 % (37.0-47.0); Hemoglobin 8.9 g/dL (12.2-16.2); Lymphocytes # 0.7 K/mm3 (0.7-4.5); Lymphocytes % 6.4 % (10-50); Mean Corpuscular HGB Conc 31.5 g/dL (31.8-35.4); Mean Corpuscular Hemoglobin 28.3 pg (27.0-31.2); Mean Corpuscular Volume 89.6 fl (81-99); Mean Platelet Volume 7.9 fl (7.4-10.4); Monocytes # 0.6 K/mm3 (0.1-1.0); Monocytes % 5.7 % (1.7-9.3); Neutrophils # 8.9 K/mm3 (1.8-7.8); Neutrophils % 86.5 % (37.0-80.0); Platelet Count 512 K/mm3 (142-424); Red Blood Count 3.16 M/mm3 (4.20-5.40); White Blood Count 10.3 K/mm3 (4.8-10.8)
[2023-04-10 12:11] LABS: Chloride 102 mmol/L (98-107)
[2023-04-10 12:12] LABS: Potassium 4.1 mmoL/L (3.5-5.1); Sodium 137 mmol/L (136-145)
[2023-04-10 12:14] LABS: Alanine Aminotransferase 32 U/L (12-78); Aspartate Amino Transferase 40 U/L (14-36); Blood Urea Nitrogen 7 mg/dl (7-17); Creatinine Clearance Estimated 40 mL/min (50-200); Estimated Glomerular Filt Rate 97 ml/min (>60); GFR (African American) 117 ML/MIN (>60)
[2023-04-10 12:15] LABS: Albumin Level 4.3 g/dl (3.5-5.0); Albumin/Globulin Ratio 1.3 (1.1-1.8); Alkaline Phosphatase 188 U/L (38-126); Anion Gap 11.1 mEq/L (5-15); Bilirubin,Total 0.3 mg/dl (0.2-1.3); Calcium 9.5 mg/dl (8.4-10.2); Carbon Dioxide 28 mmol/L (22.0-30.0); Globulin 3.3 g/dL (1.3-3.2); Glucose 106 mg/dl (74-100); Total Protein,Serum 7.6 g/dl (6.3-8.2)
[2023-04-10 12:20] LABS: MANUAL DIFFERENTIAL MANUAL DIFFERENTIAL (MANUAL DIFF)
[2023-04-10 12:44] VITALS: BP 161/59; PULSE 67; RESP 18; O2SAT 98
[2023-04-10] MEDS: SODIUM CHLORIDE 0.9% 10ML FLUSH SYRINGE 10 ML IV (12:48)
[2023-04-10 12:52] LABS: Eosinophils % 1 % (0-3); Lymphocytes % 5 % (10-50); Monocytes % 4 % (2-9); Neutrophils % 84 % (42-76); Platelet Estimate Slight Increase; Total Cells Counted 100
[2023-04-10 12:54] LABS: Anisocytosis 2+; Hypochromasia 1+; Macrocytosis 1+; Microcytosis 1+
== END 2023-04-10 12:49 | disposition home or self-care (01) ==
LOC: INF 11:30
PROVIDERS: PCP Internal Medicine Adolescent Medicine; Visit Provider Internal Medicine Medical Oncology
DX: C83.33 Diffuse large B-cell lymphoma, intra-abdominal lymph nodes; C83.30 Diffuse large B-cell lymphoma, unspecified site
CPT/HCPCS: 80053; 85007; 85025; 96365; J1642; J1756

== ENCOUNTER 2023-04-11 10:05 | Outpatient (CLI) | payer MEDICARE, SELFPAY ==
[2023-04-11 10:12] VITALS: BMI 20.2
[2023-04-11] MEDS: SODIUM CHLORIDE 0.9% 10ML FLUSH SYRINGE 10 ML IV (10:20)
[2023-04-11 10:40] LABS: Iron 52 ug/dL (37-170)
[2023-04-11 10:49] LABS: Total Iron Binding Capacity 312 ug/dL (265-497)
[2023-04-11 11:18] LABS: Ferritin 574 ng/ml (11.1-264)
[2023-04-11 11:22] LABS: Lactate Dehydrogenase 162 U/L (313-618)
== END 2023-04-11 10:30 | disposition home or self-care (01) ==
LOC: INF 10:06
PROVIDERS: PCP Internal Medicine Adolescent Medicine; Visit Provider Internal Medicine Medical Oncology
DX: D64.9 Anemia, unspecified (principal); C83.33 Diffuse large B-cell lymphoma, intra-abdominal lymph nodes; R79.89 Other specified abnormal findings of blood chemistry; Z45.2 Encounter for adjustment and management of vascular access device
CPT/HCPCS: 36591; 82728; 83540; 83550; 83615; J1642

== ENCOUNTER 2023-04-19 08:54 | Outpatient (CLI) | payer MEDICARE, SELFPAY ==
[2023-04-19] VITALS (15 sets, daily range): BP systolic 133–160; BP diastolic 52–82; PULSE 80–100; RESP 18–19; TEMP 36–36.2; O2SAT 97; BMI 20.2
[2023-04-19 09:14] LABS: Basophils # 0.1 K/mm3 (0-0.2); Basophils % 0.5 % (0.1-2.0); Eosinophils # 0.2 K/mm3 (0.0-0.4); Eosinophils % 1.4 % (0.1-12.0); Hematocrit 29.6 % (37.0-47.0); Hemoglobin 9.8 g/dL (12.2-16.2); Lymphocytes # 0.4 K/mm3 (0.7-4.5); Mean Corpuscular HGB Conc 33.2 g/dL (31.8-35.4); Mean Corpuscular Hemoglobin 30.9 pg (27.0-31.2); Mean Platelet Volume 7.8 fl (7.4-10.4); Monocytes # 0.3 K/mm3 (0.1-1.0); Monocytes % 2.5 % (1.7-9.3); Neutrophils # 10.2 K/mm3 (1.8-7.8); Neutrophils % 91.7 % (37.0-80.0); Platelet Count 349 K/mm3 (142-424); Red Blood Count 3.18 M/mm3 (4.20-5.40); Red Cell Distribution Width 21.6 % (11.5-17.5); White Blood Count 11.1 K/mm3 (4.8-10.8)
[2023-04-19 09:17] LABS: MANUAL DIFFERENTIAL MANUAL DIFFERENTIAL (MANUAL DIFF)
[2023-04-19 09:19] LABS: Chloride 100 mmol/L (98-107); Potassium 4.3 mmoL/L (3.5-5.1); Sodium 138 mmol/L (136-145)
[2023-04-19 09:21] LABS: Blood Urea Nitrogen 13 mg/dl (7-17); Creatinine Clearance Estimated 39 mL/min (50-200); Estimated Glomerular Filt Rate 97 ml/min (>60); GFR (African American) 117 ML/MIN (>60)
[2023-04-19 09:22] LABS: Alanine Aminotransferase 25 U/L (12-78); Albumin Level 4.4 g/dl (3.5-5.0); Albumin/Globulin Ratio 1.5 (1.1-1.8); Alkaline Phosphatase 124 U/L (38-126); Anion Gap 13.3 mEq/L (5-15); Aspartate Amino Transferase 31 U/L (14-36); Bilirubin,Total 0.3 mg/dl (0.2-1.3); Calcium 9.8 mg/dl (8.4-10.2); Carbon Dioxide 29 mmol/L (22.0-30.0); Glucose 126 mg/dl (74-100); Total Protein,Serum 7.4 g/dl (6.3-8.2)
[2023-04-19] MEDS: ACETAMINOPHEN 325MG TAB 650 MG (09:42)
[2023-04-19] MEDS: diphenhydrAMINE 50MG CAPSULE 50 MG PO (09:42)
[2023-04-19 09:44] LABS: Lymphocytes % 6 % (10-50); Monocytes % 4 % (2-9); Neutrophils % 90 % (42-76); Platelet Estimate Normal; RBC Morphology Normal; Total Cells Counted 100
[2023-04-19] MEDS: 0.9 % SODIUM CHLORIDE 100 ML IV (09:57)
[2023-04-19] MEDS: SODIUM CHLORIDE 0.9% IV ×4 (10:12→13:51)
[2023-04-19] MEDS: RITUXIMAB PVVR IV (10:12)
[2023-04-19] MEDS: ONDANSETRON 4MG ODT 16 MG (12:10)
[2023-04-19] MEDS: CYCLOPHOSPHAMIDE IV (12:40)
[2023-04-19] MEDS: DOXORUBICIN HCL IV (13:31)
[2023-04-19] MEDS: VINCRISTINE SULFATE IV (13:51)
[2023-04-19] MEDS: PEGFILGRASTIM 6 MG/0.6 ML SQ (14:13)
[2023-04-19] MEDS: SODIUM CHLORIDE 0.9% 10ML FLUSH SYRINGE 10 ML IV (14:14)
== END 2023-04-19 14:15 | disposition home or self-care (01) ==
LOC: INF 08:55
PROVIDERS: PCP Internal Medicine Adolescent Medicine; Visit Provider Internal Medicine Medical Oncology
DX: Z79.899 Other long term (current) drug therapy; C83.33 Diffuse large B-cell lymphoma, intra-abdominal lymph nodes
CPT/HCPCS: 80053; 85007; 85025; 96377; 96411; 96413; 96415; 96417; J1642; J2505; J9000; J9070; J9370; Q5119

== ENCOUNTER 2023-05-06 22:44 | Observation (INO) | payer MEDICARE, SELFPAY ==
[2023-05-06 22:45] VITALS: BP 155/61; RESP 18; TEMP 37.2; O2SAT 96; BMI 20.5
[2023-05-06 22:49] VITALS: BP 155/61; PULSE 102; RESP 20; O2SAT 97
[2023-05-06 23:04] VITALS: BP 168/53; PULSE 95; RESP 18; O2SAT 95
--- NOTE | 2023-05-06 23:05 | ED_ITS ---
Discharge Plan Disposition Patient Disposition: Admitted Clinical Impressions Clinical Impression: Fever, COVID-19 Discharge ED Provider: France Levin General Adult HPI General Chief complaint: Nausea/Vomiting/Diarrhea Stated complaint: fever,chills,can't control urine leak Time Seen by Provider: 05/06/23 22:55 Mode of Arrival: Ambulatory Source of Information: Patient Limitations: No Limitations Description of Symptoms (Recalled from ER Triage Doc. by RN): Pt arrives with complaints of a fever, nausea, chills and increased urinary urgency. Pt has hx of lymphoma since Sept has completed 4 chemo treatments. History of Present Illness HPI narrative: This patient is a 77-year-old female with a history of non-Hodgkin's lymphoma on chemotherapy presenting to the emergency department for evaluation with concern for fevers, chills, nausea, urinary frequency, urinary urgency, and dysuria for 2 days. Temperature at home was Tmax 101.7 ?F.. She notes that she has had a fever every time she has had chemotherapy and has been admitted to the hospital for a few days of antibiotics, but she notes that no infection has been found during these hospital stays. She states that her oncologist put her on ciprofloxacin to take when she has chemotherapy, and she stopped taking it approximately 4 days ago, just before her symptoms started. On medical record review, her most recent chemotherapy treatment was 04/11/2023. Her most recent admission was 04/03/2023 through 04/05/2023 for fever of unknown origin in the setting of chemotherapy. She was given IV antibiotics until blood cultures have returned negative. Related Data Home Medications Medication Instructions Recorded Confirmed alprazolam 0.5 mg tablet 0.5 mg PO Q6HP PRN Anxiety 30 days 12/01/17 05/06/23 ##120 aspirin 81 mg tablet,delayed 81 mg PO DAILY Heart Health 12/23/17 05/06/23 release rosuvastatin 5 mg tablet 5 mg PO HS Cholesterol 05/29/18 05/06/23 famotidine 20 mg tablet 20 mg PO BID Acid Reflux 07/29/21 05/06/23 amlodipine 5 mg tablet 5 mg PO DAILY High Blood Pressure 12/30/22 05/06/23 allopurinol 300 mg tablet 300 mg PO DAILY Gout 01/31/23 05/06/23 lisinopril 20 mg tablet 20 mg PO BID High Blood Pressure 03/21/23 05/06/23 ondansetron 4 mg disintegrating 4 mg PO Q6 PRN Nausea And Vomiting 05/06/23 05/06/23 tablet prochlorperazine maleate 10 mg 10 mg PO Q4HP PRN Nausea And 05/06/23 05/06/23 tablet Vomiting Previous Rx's Medication Instructions Recorded carvedilol 12.5 mg tablet 6.25 mg PO AM 90 days #45 tabs 04/10/23 carvedilol 12.5 mg tablet 12.5 mg PO HS blood pressure/heart 04/10/23 rate #90 tabs Allergies Allergy/AdvReac Type Severity Reaction Status Date / Time esomeprazole [From Nexium] Allergy Intermediate Hives Verified 04/11/23 09:01 erythromycin base Allergy Mild Redness of Verified 04/11/23 09:01 Skin amoxicillin [From Augmentin] AdvReac Intermediate Nausea Verified 04/11/23 09:01 clavulanic acid AdvReac Intermediate Nausea Verified 04/11/23 09:01 [From Augmentin] doxycycline AdvReac Intermediate Nausea Verified 04/11/23 09:01 Sulfa (Sulfonamide AdvReac Intermediate Nausea Verified 04/11/23 09:01 Antibiotics) dexlansoprazole AdvReac flu Verified 04/11/23 09:01 [From Dexilant] symptoms pantoprazole [From Protonix] AdvReac Verified 04/11/23 09:01 [facility] Disclaimer: The information contained in this section may have been updated after the patient was seen, as this information can be updated by other users. Medical History Anxiety Difficulty in swallowing DLBCL (diffuse large B cell lymphoma) Dyspnea Fever of unknown origin FH: cholecystectomy GERD (gastroesophageal reflux disease) H/O coronary angiogram History of carotid artery stenosis Hyperlipidemia Hypertension Lymphoma Pathologic lumbar vertebral fracture Pyelonephritis UTI (urinary tract infection) Surgical History History of cholecystectomy History of right-sided carotid endarterectomy Tubal ligation status Family History Other Cancer Family history of hyperlipidemia Family history of hypertension Social History Smoking Status: Unknown if ever smoked how long ago did patient quit smokin years ago second hand exposure: No alcohol intake: never substance use type: denies use current occupational status: retired Travel in the last 8 weeks: None household members: spouse housing: house current occupational exposures/hazards: No caffeine: No ROS Obtained: Yes All systems reviewed & no additional complaints except as documented Physical Exam General General appearance: alert and in no apparent distress Head Head exam: atraumatic and normocephalic Eye Eye exam: Present normal appearance, PERRL and EOMI ENT ENT exam: Present normal exam, normal oropharynx, mucous membranes moist and normal external ear exam Neck Neck exam: Present normal inspection, full ROM and trachea midline; Absent tenderness Chest Chest inspection: Present normal inspection and symmetric chest wall rise; Absent tenderness Respiratory Respiratory exam: Present normal lung sounds bilaterally; Absent respiratory distress, wheezes, stridor or accessory muscle use Cardiovascular Cardiovascular exam: Present regular rate and normal rhythm Abdominal Exam Abdominal exam: Present soft, tenderness (mild suprapubic) and normal bowel sounds; Absent distention, guarding, rebound or rigidity Extremities Exam Extremities exam: Present normal inspection, full ROM and normal capillary refill; Absent tenderness or edema Back Exam Back exam: Present normal inspection and full ROM; Absent tenderness Neurological Exam Neurological exam: Present alert, oriented X3, CN II-XII intact and normal gait; Absent motor sensory deficit Psychiatric Psychiatric exam: Present normal affect and normal mood Skin Skin exam: Present warm and dry Medical Decision Making Medical Records Medical records reviewed: Yes I reviewed the patient's medical records. [place] Inquiry Pt receiving controlled substance: No Vital Signs: 05/06/23 22:45 05/06/23 22:49 05/06/23 23:04 Temperature 99 F Temperature Source Oral Pulse Rate 102 H 95 H Respiratory Rate 18 20 18 Blood Pressure 155/61 H 168/53 H Blood Pressure [Right Arm] 155/61 H Blood Pressure Mean 94 91 Blood Pressure Mean [Right Arm] 92 Blood Pressure Source [Right Arm] Automatic Cuff 02 Sat by Pulse Oximetry 96 97 95 Oxygen Delivery Method Room Air Room Air Room Air 05/06/23 23:30 Temperature Temperature Source Pulse Rate 99 H Respiratory Rate 20 Blood Pressure 136/48 L Blood Pressure [Right Arm] Blood Pressure Mean 85 Blood Pressure Mean [Right Arm] Blood Pressure Source [Right Arm] 02 Sat by Pulse Oximetry 97 Oxygen Delivery Method Room Air Lab Data Lab results reviewed: Yes I reviewed the patient's lab results. Lab Results 05/06/23 22:05: SARS-CoV-2 (PCR) Detected A, Influenza A Untype (PCR) Not detected, Influenza Type B (PCR) Not detected 05/06/23 23:05: WBC 4.8, RBC 3.12 L, Hgb 9.7 L, Hct 28.7 L, MCV 92.2, MCH 31.2, MCHC 33.8, RDW 19.1 H, Plt Count 315, MPV 7.6, Neut % (Auto) 87.7 H, Lymph % (Auto) 5.2 L, [place] % (Auto) 6.1, Eos % (Auto) 0.3, Baso % (Auto) 0.6, Neut # (Auto) 4.2, Lymph # (Auto) 0.3 L, [place] # (Auto) 0.3, Eos # (Auto) 0.0, Baso # (Auto) 0.0, Total Counted 100, Neutrophils % (Manual) 87 H, Lymphocytes % (Manual) 5 L, Monocytes % (Manual) 8, Platelet Estimate Normal, Anisocytosis 2+, Microcytosis 1+, Macrocytosis 1+, Tear Drop Cells 1+, Stomatocytes 2+, Sodium 127 L, Potassium 3.8, Chloride 94 L, Carbon Dioxide 27, Anion Gap 9.8, BUN 10, Creatinine 0.70, Estimated Creat Clear 40, Estimated GFR 81, Est GFR ( Amer) 98, Glucose 108 H, Lactate 1.3, Calcium 9.3, Total Bilirubin 0.3, AST 35, ALT 28, Alkaline Phosphatase 127 H, C-Reactive Protein 4.3 H, Total Protein 7.6, Albumin 4.6, Globulin 3.0, Albumin/Globulin Ratio 1.5, Procalcitonin 0.143 05/06/23 23:12: Urine Color Yellow, Urine Appearance Clear, Urine pH 6.5, Ur Specific [place] 1.010, Urine Protein Negative, Urine Glucose (UA) Negative, Urine Ketones Negative, Urine Blood Negative, Urine Nitrate Negative, Urine Bilirubin Negative, Urine Urobilinogen 0.2, Ur Leukocyte Esterase Negative, Urine RBC None, Urine WBC Occasional, Ur Squamous Epith Cells Occasional, Urine Bacteria Trace 05/06/23 23:05 05/06/23 23:05 Orders (Tests/Meds): ED MEDICATIONS Generic Name Dose Route Start Last Admin Trade Name Freq PRN Reason Stop Dose Admin Acetaminophen 650 mg 05/06/23 23:48 Acetaminophen 325mg Tab PO 06/05/23 23:47 Q4HP PRN Fever or Mild Pain (1-3) Enoxaparin Sodium 40 mg 05/07/23 09:00 Enoxaparin 40mg/0.4ml Syringe SQ 06/06/23 08:59 DAILY ARIELLA Lactated Ringer's 1,000 mls @ 820 mls/hr 05/06/23 23:11 05/06/23 23:36 Lactated Ringer's 1000 Ml Bag IV 05/07/23 01:11 820 mls/hr .Q1H14M ARIELLA Administration Cefepime HCl 2 gm/ Sodium 100 mls @ 200 mls/hr 05/06/23 23:43 05/06/23 23:54 Chloride IV 05/07/23 00:12 200 mls/hr ONCE ONE Administration Sodium Chloride 1,000 mls @ 50 mls/hr 05/06/23 23:45 Sod Chlor 0.9% 1000ml Bag IV 06/05/23 23:44 .Q20H ARIELLA Morphine Sulfate 2 mg 05/06/23 23:48 Morphine 2mg/Ml Syringe IV 06/05/23 23:47 Q2HP PRN Severe Pain (7-10) Ondansetron HCl 4 mg 05/06/23 23:48 Ondansetron 4mg/2ml Vial IV 06/05/23 23:47 Q8HP PRN Nausea ORDERS Category Date Time Status CRP [C-Reactive Protein] Stat Lab 05/06/23 23:05 Completed Complete Blood Count Auto Diff AMLAB Lab 05/07/23 06:00 Ordered Complete Blood Count Auto Diff Stat Lab 05/06/23 23:05 Completed Comprehensive Metabolic Panel AMLAB Lab 05/07/23 06:00 Ordered Comprehensive Metabolic Panel Stat Lab 05/06/23 23:05 Completed Lactic Acid Stat Lab 05/06/23 23:05 Completed Procalcitonin Stat Lab 05/06/23 23:05 Completed Rapid PCR Covid and Flu A/B Stat Lab 05/06/23 22:05 Completed Urinalysis and Microscopic Stat Lab 05/06/23 23:12 Completed Blood Culture Stat Micro 05/06/23 23:17 Received Urine Culture Stat Micro 05/06/23 23:03 Received Medical Decision Narrative: In summary, this patient is a 77-year-old female presenting to the Emergency Department for evaluation of fever and dysuria in the setting of chemotherapy treatment for non-Hodgkin's lymphoma. Differential diagnoses considered include but are not limited to cystitis, pyelonephritis, sepsis, viral syndrome, pneumonia, chemotherapy reaction. Ruling out the most morbid conditions drove assessment. I reviewed patient's past medical records and noted previous admission for similar complaint as per HPI. On exam, the patient is nontoxic-appearing. She has mild suprapubic tenderness. Workup included CBC, CMP, CRP, procalcitonin, lactic acid, blood cultures, urinalysis, and urine culture. Exam is otherwise reassuring, so I do not feel that other workup such as imaging is indicated at this time. Sepsis bolus was administered as well as IV cefepime, as this appears to be what the patient has been treated with previously in the setting of fever of unknown origin. On reassessment, patient is resting comfortably. Labs are actually reassuring without evidence of acute bacterial infection. She has no significant leukocytosis or elevation in her lactic acid/procalcitonin. She did test positive for COVID-19, which could be the cause of her fever, but does not explain her urinary symptoms. Urine does not appear overtly concerning for infection, but culture is pending. Given she is high risk with chemotherapy use and has had recurrent fever, I called and had an interactive discussion with the hospitalist who agreed to admit the patient for further evaluation and management. She was admitted in stable condition. Critical Care Critical Care Time Critical Care Time: No
[2023-05-06 23:19] LABS: Microscopic, Urine URINE MICROSCOPIC (MICROSCOPIC)
[2023-05-06 23:22] LABS: Basophils % 0.6 % (0.1-2.0); Eosinophils % 0.3 % (0.1-12.0); Hematocrit 28.7 % (37.0-47.0); Hemoglobin 9.7 g/dL (12.2-16.2); Lymphocytes # 0.3 K/mm3 (0.7-4.5); Lymphocytes % 5.2 % (10-50); Mean Corpuscular HGB Conc 33.8 g/dL (31.8-35.4); Mean Corpuscular Hemoglobin 31.2 pg (27.0-31.2); Mean Corpuscular Volume 92.2 fl (81-99); Mean Platelet Volume 7.6 fl (7.4-10.4); Monocytes # 0.3 K/mm3 (0.1-1.0); Monocytes % 6.1 % (1.7-9.3); Neutrophils # 4.2 K/mm3 (1.8-7.8); Neutrophils % 87.7 % (37.0-80.0); Platelet Count 315 K/mm3 (142-424); Red Blood Count 3.12 M/mm3 (4.20-5.40); Red Cell Distribution Width 19.1 % (11.5-17.5); White Blood Count 4.8 K/mm3 (4.8-10.8)
[2023-05-06 23:23] LABS: Influenza A, PCR Not Detected (NotDetected); Influenza B, PCR Not Detected (NotDetected)
[2023-05-06 23:23] LABS: Appearance,Urine CLEAR (Clear); Bilirubin,Urine Negative (Negative); Blood, Urine Negative (Negative); Color,Urine YELLOW (Yellow); Glucose,Urine (UA) Negative (Negative); Ketones,Urine Negative (Negative); Leukocyte Esterase,Urine Negative (Negative); Nitrate,Urine Negative (Negative); PH,Urine 6.5 (5.0-8.5); Protein,Urine Negative (Negative); Urobilinogen,Urine 0.2 EU/dl (0.2)
[2023-05-06 23:27] LABS: MANUAL DIFFERENTIAL MANUAL DIFFERENTIAL (MANUAL DIFF)
[2023-05-06 23:30] VITALS: BP 136/48; PULSE 99; RESP 20; O2SAT 97
[2023-05-06 23:30] LABS: Alanine Aminotransferase 28 U/L (12-78); Albumin Level 4.6 g/dl (3.5-5.0); Albumin/Globulin Ratio 1.5 (1.1-1.8); Alkaline Phosphatase 127 U/L (38-126); Anion Gap 9.8 mEq/L (5-15); Aspartate Amino Transferase 35 U/L (14-36); Bilirubin,Total 0.3 mg/dl (0.2-1.3); Blood Urea Nitrogen 10 mg/dl (7-17); Calcium 9.3 mg/dl (8.4-10.2); Carbon Dioxide 27 mmol/L (22.0-30.0); Chloride 94 mmol/L (98-107); Creatinine Clearance Estimated 40 mL/min (50-200); Estimated Glomerular Filt Rate 81 ml/min (>60); GFR (African American) 98 ML/MIN (>60); Glucose 108 mg/dl (74-100); Lactic Acid 1.3 mmol/L (0.7-2.1); Potassium 3.8 mmoL/L (3.5-5.1); Sodium 127 mmol/L (136-145); Total Protein,Serum 7.6 g/dl (6.3-8.2)
[2023-05-06 23:34] LABS: C-Reactive Protein 4.3 mg/L (0-4)
[2023-05-06] MEDS: LACTATED RINGERS 1000ML 1,000 ML 820 ML IV (23:36)
[2023-05-06 23:38] LABS: Anisocytosis 2+; Lymphocytes % 5 % (10-50); Macrocytosis 1+; Microcytosis 1+; Monocytes % 8 % (2-9); Neutrophils % 87 % (42-76); Tear Drop Cells 1+; Total Cells Counted 100
[2023-05-06 23:39] LABS: Platelet Estimate Normal; Stomatocytes 2+
[2023-05-06 23:42] LABS: Coronavirus 19, PCR Detected (NotDetected)
[2023-05-06 23:43] LABS: Bacteria,Urine Trace /lpf; Squamous Epithelial Cell,Urine Occasional #/hpf (0-5); WBC,Urine Occasional #/hpf (0-3)
[2023-05-06 23:48] LABS: Procalcitonin 0.143 ng/mL (0.0-2.0)
--- NOTE | 2023-05-06 23:48 | PC.NURSE ---
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
--- NOTE | 2023-05-06 23:49 | PC.NURSE ---
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
--- NOTE | 2023-05-06 23:50 | P.HP_ITS ---
History of Present Illness *Admission Date: 05/06/23 *Reason for visit:: fever *History of present illness: This is a 77 yo female with PMHx HTN, HLD, GERD. gout, recently diagnosed B cell lymphoma, currently undergoing chemotherapy presenting to the emergency department for evaluation with concern for fevers, chills, nausea, urinary frequency, urinary urgency, and dysuria for 2 days. per ER report Temperature at home was 101.7 ?F.. Patient noted that she always had a fever every time she has had chemotherapy, last admission to the hospital she was given IV antibiotics until blood cultures have returned negative. She stated that her oncologist prescribed ciprofloxacin to take when she has chemotherapy, she did completed treatment just before her symptoms started. On medical record review, her most recent chemotherapy treatment was 04/11/2023. Her most recent admission was 04/03/2023 through 04/05/2023 for fever of unknown origin in the setting of chemotherapy. Admitted for further monitoring and treatment. [facility] Disclaimer: The information contained in this section may have been updated after the patient was seen, as this information can be updated by other users. Medical History Anxiety Difficulty in swallowing DLBCL (diffuse large B cell lymphoma) Dyspnea Fever of unknown origin FH: cholecystectomy GERD (gastroesophageal reflux disease) H/O coronary angiogram History of carotid artery stenosis Hyperlipidemia Hypertension Lymphoma Pathologic lumbar vertebral fracture Pyelonephritis UTI (urinary tract infection) Surgical History History of cholecystectomy History of right-sided carotid endarterectomy Tubal ligation status Family History Other Cancer Family history of hyperlipidemia Family history of hypertension Social History (Updated 05/07/23 @ 00:34 by Marissa Oden RN) Smoking Status: Former smoker how long ago did patient quit smokin years ago second hand exposure: No alcohol intake: never substance use type: denies use current occupational status: retired Travel in the last 8 weeks: None household members: spouse housing: house current occupational exposures/hazards: No caffeine: No Review of Systems Review of Systems Review of systems:: pertinent systems reviewed and negative unless documented below Meds Home Medications and Allergies Home Medications Medication Instructions Recorded Confirmed Type alprazolam 0.5 mg tablet 0.5 mg PO Q6HP PRN Anxiety 30 days 12/01/17 05/07/23 History ##120 aspirin 81 mg tablet,delayed 81 mg PO DAILY Heart Health 12/23/17 05/07/23 History release rosuvastatin 5 mg tablet 5 mg PO HS Cholesterol 05/29/18 05/07/23 History famotidine 20 mg tablet 20 mg PO BID Acid Reflux 07/29/21 05/07/23 History amlodipine 5 mg tablet 5 mg PO DAILY High Blood Pressure 12/30/22 05/07/23 History allopurinol 300 mg tablet 300 mg PO DAILY Gout 01/31/23 05/07/23 History lisinopril 20 mg tablet 20 mg PO BID High Blood Pressure 03/21/23 05/07/23 History carvedilol 12.5 mg tablet 12.5 mg PO HS blood pressure/heart 04/10/23 05/07/23 Rx rate #90 tabs ondansetron 4 mg disintegrating 4 mg PO Q6HP PRN Nausea And 05/06/23 05/07/23 History tablet Vomiting prochlorperazine maleate 10 mg 10 mg PO Q4HP PRN Nausea And 05/06/23 05/07/23 History tablet Vomiting carvedilol 12.5 mg tablet 6.25 mg PO AM High Blood Pressure 05/07/23 05/07/23 History sennosides 8.6 mg-docusate sodium 1 tab PO DAILYP PRN Constipation 05/07/23 05/07/23 History 50 mg tablet New Prescriptions to Start Prescriptions: Allergies Allergy/AdvReac Type Severity Reaction Status Date / Time esomeprazole [From Nexium] Allergy Intermediate Hives Verified 04/11/23 09:01 erythromycin base Allergy Mild Redness of Verified 04/11/23 09:01 Skin amoxicillin [From Augmentin] AdvReac Intermediate Nausea Verified 04/11/23 09:01 clavulanic acid AdvReac Intermediate Nausea Verified 04/11/23 09:01 [From Augmentin] doxycycline AdvReac Intermediate Nausea Verified 04/11/23 09:01 Sulfa (Sulfonamide AdvReac Intermediate Nausea Verified 04/11/23 09:01 Antibiotics) dexlansoprazole AdvReac flu Verified 04/11/23 09:01 [From Dexilant] symptoms pantoprazole [From Protonix] AdvReac Verified 04/11/23 09:01 Exam Data for Last 24 hours Vital signs and Labs for Last 24 Hours: Temp Resp BP Pulse Ox O2 Del Method 99 F 18 155/61 H 96 Room Air 05/06/23 22:45 05/06/23 22:45 05/06/23 22:45 05/06/23 22:45 05/06/23 22:45 Laboratory Results - last 24 hr 05/06/23 22:05: SARS-CoV-2 (PCR) Detected A, Influenza A Untype (PCR) Not detected, Influenza Type B (PCR) Not detected 05/06/23 23:05: WBC 4.8, RBC 3.12 L, Hgb 9.7 L, Hct 28.7 L, MCV 92.2, MCH 31.2, MCHC 33.8, RDW 19.1 H, Plt Count 315, MPV 7.6, Neut % (Auto) 87.7 H, Lymph % (Auto) 5.2 L, [place] % (Auto) 6.1, Eos % (Auto) 0.3, Baso % (Auto) 0.6, Neut # (Auto) 4.2, Lymph # (Auto) 0.3 L, [place] # (Auto) 0.3, Eos # (Auto) 0.0, Baso # (Auto) 0.0, Total Counted 100, Neutrophils % (Manual) 87 H, Lymphocytes % (Manual) 5 L, Monocytes % (Manual) 8, Platelet Estimate Normal, Anisocytosis 2+, Microcytosis 1+, Macrocytosis 1+, Tear Drop Cells 1+, Stomatocytes 2+, Sodium 127 L, Potassium 3.8, Chloride 94 L, Carbon Dioxide 27, Anion Gap 9.8, BUN 10, Creatinine 0.70, Estimated Creat Clear 40, Estimated GFR 81, Est GFR ( Amer) 98, Glucose 108 H, Lactate 1.3, Calcium 9.3, Total Bilirubin 0.3, AST 35, ALT 28, Alkaline Phosphatase 127 H, C-Reactive Protein 4.3 H, Total Protein 7.6, Albumin 4.6, Globulin 3.0, Albumin/Globulin Ratio 1.5, Procalcitonin 0.143 05/06/23 23:12: Urine Color Yellow, Urine Appearance Clear, Urine pH 6.5, Ur Specific [place] 1.010, Urine Protein Negative, Urine Glucose (UA) Negative, Urine Ketones Negative, Urine Blood Negative, Urine Nitrate Negative, Urine Bilirubin Negative, Urine Urobilinogen 0.2, Ur Leukocyte Esterase Negative, Urine RBC None, Urine WBC Occasional, Ur Squamous Epith Cells Occasional, Urine Bacteria Trace I & O for Last 24 hours: Intake & Output 05/03/23 05/04/23 05/05/23 05/06/23 23:59 23:59 23:59 23:59 Weight 54.431 kg Constitutional Constitutional: no acute distress, average body habitus, chronically ill appearing and cooperative *Routine HEENT Exam Head: Present normocephalic and atraumatic Eye: Present EOMI, PERRL and normal accommodation ENT: Present mucous membranes moist *Routine Neck Exam Neck: Present supple, full ROM and trachea midline *Routine Respiratory Exam Respiratory: Present CTA bilaterally, normal respiratory effort, able to speak in complete sentences and symmetric chest movement; Absent rhonchi, wheezes or crackles *Routine Cardiovascular Exam Cardiovascular: Present RRR, Normal S1 and Normal S2 *Routine Abdominal Exam Abdominal: Present soft and normoactive bowel sounds; Absent organomegaly *Routine Rectal Exam Rectal:: deferred *Routine Genitalia Exam Genitalia:: deferred *Routine Extremities Exam Extremities: Present full ROM and pulses intact; Absent cyanosis, clubbing or edema Routine Back/Spine/Pelvis Exam Back/Spine: Present vertebral tenderness *Routine Skin Exam Skin: Present intact, dry and warm *Routine Neurological Exam Neurological: Present alert, oriented X3, normal reflexes, moving all extremities and normal speech Routine Psychiatric Exam Psychiatric: Present cooperative, good insight and good judgment Assessment and Plan *Assessment and plan (1) Fever: Status: Acute Qualifiers: Fever type: unspecified Qualified Code(s): R50.9 - Fever, unspecified Category: Medical Code(s): R50.9 - Fever, unspecified (2) Hyponatremia: Status: Resolved Category: Medical Code(s): E87.1 - Hypo-osmolality and hyponatremia (3) COVID-19: Status: Acute Category: Medical Code(s): U07.1 - COVID-19 (4) DLBCL (diffuse large B cell lymphoma): Status: Inactive Qualifiers: Lymphoma site: unspecified region Qualified Code(s): C83.30 - Diffuse large B-cell lymphoma, unspecified site Category: Medical Code(s): C83.30 - Diffuse large B-cell lymphoma, unspecified site (5) Hypertension: Status: Inactive Qualifiers: Hypertension type: unspecified Qualified Code(s): I10 - Essential (primary) hypertension Category: Medical Code(s): I10 - Essential (primary) hypertension (6) Hyperlipidemia: Status: Inactive Qualifiers: Hyperlipidemia type: unspecified Qualified Code(s): E78.5 - Hyperlipidemia, unspecified Category: Medical Code(s): E78.5 - Hyperlipidemia, unspecified (7) GERD (gastroesophageal reflux disease): Status: Inactive Qualifiers: Esophagitis presence: without esophagitis Qualified Code(s): K21.9 - Gastro-esophageal reflux disease without esophagitis Category: Medical Code(s): K21.9 - Gastro-esophageal reflux disease without esophagitis (8) Anxiety: Status: Inactive Category: Medical Code(s): F41.9 - Anxiety disorder, unspecified Plan Ms. Crain is a 77-year-old female undergoing chemotherapy for lymphoma. Presented with fever and no other symptoms aside from mild nausea. Upon arrival to the ER. found to be COVID positive, denied SOB, rest of the labs are unremarkable. Discussed case with ER physician, request admission for IV a ntibiotics and further monitoring while cultures are pending. Medicine agreed to admit. Problems addressed as follows: Fever in the setting of chemotherapy for Lymphoma COVID positive -Patient at risk for significant infections. White cell count 12.5 with neutrophil predominance. -Initiated on cefepime, initial dose 2g, then 1 g every 12 hours IV. Blood culture and urine culture obtained. Urinalysis unremarkable. -Will monitor for 24 to 48 hours pending response to antibiotics. -Tylenol for fever -Hyponatremia: last Na 127. likely secondary to poor intake. continue IV hydration repeat and monitor AM labs Gout: Continue allopurinol 300 mg daily Hypertension: Continue carvedilol 12.5 mg nightly, amlodipine 5 mill daily, lisinopril 40 mg twice daily Lipidemia, continue Crestor 5 mill daily Anxiety: Continue Xanax 0.5 mg every 6 hours needed, mirtazapine 7.5 mg nightly Full code Regular diet Lovenox 40 mg subcu daily Rounded on patient after nurse practitioner. Personally examined and interviewed patient. Agree with exam findings and care plan as documented.
[2023-05-06] MEDS: CEFEPIME HCL 2 GM in 0.9 % SODIUM CHLORIDE 100 ML IV (23:54)
[2023-05-07] VITALS: BP 129/50; PULSE 99; RESP 17; TEMP 36.8; O2SAT 99
[2023-05-07 00:10] VITALS: BP 152/60; PULSE 84; RESP 16; TEMP 37.2; O2SAT 97
--- NOTE | 2023-05-07 00:25 | PC.NURSE ---
pt arrived to floor at this time
[2023-05-07 00:52] VITALS: BMI 20.5
[2023-05-07] MEDS: 0.9 % SODIUM CHLORIDE 1000ML 1,000 ML 50 ML IV (01:04)
[2023-05-07 04:00] VITALS: BP 137/57; PULSE 94; RESP 17; TEMP 37.8; O2SAT 92
[2023-05-07] MEDS: CARVEDILOL 12.5MG TABLET 6.25 MG PO (06:27)
[2023-05-07 06:50] LABS: Basophils % 0.3 % (0.1-2.0); Eosinophils % 0.1 % (0.1-12.0); Hematocrit 26.3 % (37.0-47.0); Hemoglobin 8.9 g/dL (12.2-16.2); Lymphocytes # 0.3 K/mm3 (0.7-4.5); Mean Corpuscular HGB Conc 33.7 g/dL (31.8-35.4); Mean Corpuscular Hemoglobin 30.9 pg (27.0-31.2); Mean Corpuscular Volume 91.7 fl (81-99); Mean Platelet Volume 7.7 fl (7.4-10.4); Monocytes # 0.4 K/mm3 (0.1-1.0); Monocytes % 11.7 % (1.7-9.3); Neutrophils # 2.3 K/mm3 (1.8-7.8); Neutrophils % 76.9 % (37.0-80.0); Platelet Count 271 K/mm3 (142-424); Red Blood Count 2.87 M/mm3 (4.20-5.40); Red Cell Distribution Width 19.2 % (11.5-17.5)
[2023-05-07 06:57] LABS: Chloride 99 mmol/L (98-107); Sodium 132 mmol/L (136-145)
[2023-05-07 06:58] LABS: Potassium 3.4 mmoL/L (3.5-5.1)
[2023-05-07 07:00] LABS: Alanine Aminotransferase 21 U/L (12-78); Albumin Level 3.5 g/dl (3.5-5.0); Albumin/Globulin Ratio 1.3 (1.1-1.8); Alkaline Phosphatase 104 U/L (38-126); Anion Gap 10.4 mEq/L (5-15); Aspartate Amino Transferase 34 U/L (14-36); Bilirubin,Total 0.2 mg/dl (0.2-1.3); Blood Urea Nitrogen 10 mg/dl (7-17); Carbon Dioxide 26 mmol/L (22.0-30.0); Creatinine Clearance Estimated 40 mL/min (50-200); Estimated Glomerular Filt Rate 97 ml/min (>60); GFR (African American) 117 ML/MIN (>60); Globulin 2.7 g/dL (1.3-3.2); Total Protein,Serum 6.2 g/dl (6.3-8.2)
[2023-05-07 07:01] LABS: Calcium 8.5 mg/dl (8.4-10.2); Glucose 102 mg/dl (74-100)
[2023-05-07 07:54] VITALS: BP 120/53; PULSE 83; RESP 18; TEMP 37; O2SAT 91
--- NOTE | 2023-05-07 08:52 | HMH.PHAINT1 ---
Pharmacy Intervention Comments: MEDICATION RECONCILIATION COMPLETE USING RECENT HOSPITAL DISCHARGE NOTE, RX BOTTLES, EXTERNAL PHARMACY FILL HISTORY, AND PLACIDO REPORT.
[2023-05-07] MEDS: ALPRAZolam 0.5MG TABLET 0.5 MG PO ×2 (09:33→22:06)
[2023-05-07] MEDS: REMDESIVIR 200 MG in 0.9 % SODIUM CHLORIDE 250 ML 250 MG IV (09:33)
[2023-05-07] MEDS: ERGOCALCIFEROL 50,000 UNITS (1.25MG) CAPSULE 50000 UNIT PO (09:34)
[2023-05-07] MEDS: FAMOTIDINE 20MG TABLET 20 MG PO (09:34)
[2023-05-07] MEDS: ALLOPURINOL 300 MG 1 EACH PO (09:35)
[2023-05-07] MEDS: ASCORBIC ACID 500MG TAB 500 MG PO ×4 (09:35→22:28)
[2023-05-07] MEDS: PT OWN MED *ASPIRIN 81 MG EC TAB 1 EACH PO (09:36)
[2023-05-07] MEDS: LISINOPRIL 20 MG 1 EACH PO ×2 (09:36→22:29)
[2023-05-07] MEDS: PT OWN MED *AMLODIPINE 5 MG TAB 1 EACH PO (09:36)
[2023-05-07] MEDS: ZINC SULFATE 220MG CAPSULE 220 MG PO (09:37)
--- NOTE | 2023-05-07 10:24 | EXP.ACUTE.PN ---
Subjective *Date: 05/07/23 *Time: 12:13 Interval history: Patient on room air and sitting at bedside this morning eating breakfast. Temperature 100.1 overnight. No nausea or vomiting. Family at bedside. Has been having cough overnight. No chest pain. Medical Exam Vital signs and Labs for Last 24 Hours: Vital Signs Temp Pulse Pulse Resp BP BP Pulse Ox 05/07/23 09:00 05/07/23 08:00 05/07/23 07:54 98.6 F 83 18 120/53 L 91 L 05/07/23 06:44 05/07/23 04:00 100.1 F H 94 H 17 137/57 L 92 L 05/07/23 04:42 05/07/23 03:00 05/07/23 01:00 05/07/23 00:00 98.3 F 99 H 17 129/50 L 99 05/07/23 00:10 99 F 84 16 152/60 H 05/06/23 23:30 99 H 20 136/48 L 97 05/06/23 23:04 95 H 18 168/53 H 95 05/06/23 22:49 102 H 20 155/61 H 97 05/06/23 22:45 99 F 18 155/61 H 96 O2 Del Method 05/07/23 09:00 Room Air 05/07/23 08:00 Room Air 05/07/23 07:54 Room Air 05/07/23 06:44 Room Air 05/07/23 04:00 Room Air 05/07/23 04:42 Room Air 05/07/23 03:00 Room Air 05/07/23 01:00 Room Air 05/07/23 00:00 Room Air 05/07/23 00:10 Room Air 05/06/23 23:30 Room Air 05/06/23 23:04 Room Air 05/06/23 22:49 Room Air 05/06/23 22:45 Room Air Intake and Output 05/06/23 05/07/23 05/07/23 23:59 07:59 15:59 Intake Total 270 / 443 173 / 443 Output Total 0 / 0 0 / 0 Balance 270 / 443 173 / 443 Intake: Intake, Oral Amount 270 / 270 0 / 270 Intake, Total IV Amount 173 / 173 0.9 % Sodium Chloride 1000ML 1, 173 / 173 000 ml @ 50 mls/hr IV .Q20H [facility] Rx#:[id number] Output: Output, Urine Amount 0 / 0 0 / 0 Other: Number of Unmeasured Voids 1 Weight 54.431 kg 54.567 kg Patient Weight 05/07/23 23:59 Weight 54.567 kg Laboratory Results - last 24 hr 05/06/23 22:05: SARS-CoV-2 (PCR) Detected A, Influenza A Untype (PCR) Not detected, Influenza Type B (PCR) Not detected 05/06/23 23:05: WBC 4.8, RBC 3.12 L, Hgb 9.7 L, Hct 28.7 L, MCV 92.2, MCH 31.2, MCHC 33.8, RDW 19.1 H, Plt Count 315, MPV 7.6, Neut % (Auto) 87.7 H, Lymph % (Auto) 5.2 L, [place] % (Auto) 6.1, Eos % (Auto) 0.3, Baso % (Auto) 0.6, Neut # (Auto) 4.2, Lymph # (Auto) 0.3 L, [place] # (Auto) 0.3, Eos # (Auto) 0.0, Baso # (Auto) 0.0, Total Counted 100, Neutrophils % (Manual) 87 H, Lymphocytes % (Manual) 5 L, Monocytes % (Manual) 8, Platelet Estimate Normal, Anisocytosis 2+, Microcytosis 1+, Macrocytosis 1+, Tear Drop Cells 1+, Stomatocytes 2+, Sodium 127 L, Potassium 3.8, Chloride 94 L, Carbon Dioxide 27, Anion Gap 9.8, BUN 10, Creatinine 0.70, Estimated Creat Clear 40, Estimated GFR 81, Est GFR ( Amer) 98, Glucose 108 H, Lactate 1.3, Calcium 9.3, Total Bilirubin 0.3, AST 35, ALT 28, Alkaline Phosphatase 127 H, C-Reactive Protein 4.3 H, Total Protein 7.6, Albumin 4.6, Globulin 3.0, Albumin/Globulin Ratio 1.5, Procalcitonin 0.143 05/06/23 23:12: Urine Color Yellow, Urine Appearance Clear, Urine pH 6.5, Ur Specific [place] 1.010, Urine Protein Negative, Urine Glucose (UA) Negative, Urine Ketones Negative, Urine Blood Negative, Urine Nitrate Negative, Urine Bilirubin Negative, Urine Urobilinogen 0.2, Ur Leukocyte Esterase Negative, Urine RBC None, Urine WBC Occasional, Ur Squamous Epith Cells Occasional, Urine Bacteria Trace 05/07/23 06:06: WBC 3.0 L D, RBC 2.87 L, Hgb 8.9 L, Hct 26.3 L, MCV 91.7, MCH 30.9, MCHC 33.7, RDW 19.2 H, Plt Count 271, MPV 7.7, Neut % (Auto) 76.9, Lymph % (Auto) 11.0, [place] % (Auto) 11.7 H, Eos % (Auto) 0.1, Baso % (Auto) 0.3, Neut # (Auto) 2.3, Lymph # (Auto) 0.3 L, [place] # (Auto) 0.4, Eos # (Auto) 0.0, Baso # (Auto) 0.0, Sodium 132 L, Potassium 3.4 L, Chloride 99, Carbon Dioxide 26, Anion Gap 10.4, BUN 10, Creatinine 0.60, Estimated Creat Clear 40, Estimated GFR 97, Est GFR ( Amer) 117, Glucose 102 H, Calcium 8.5, Total Bilirubin 0.2, AST 34, ALT 21, Alkaline Phosphatase 104, Total Protein 6.2 L, Albumin 3.5 D, Globulin 2.7, Albumin/Globulin Ratio 1.3 I & O for Labs for Last 24 Hours: Intake & Output 05/04/23 05/05/23 05/06/23 05/07/23 23:59 23:59 23:59 23:59 Intake Total 443 / 443 Output Total 0 / 0 Balance 443 / 443 Weight 54.431 kg 54.567 kg Constitutional: Present no acute distress, thin, chronically ill appearing and cooperative Head: Present atraumatic and normocephalic ENT: Present normal exam Respiratory: Present rhonchi and normal respiratory effort; Absent wheezes or crackles Cardiac: Present Reg Rate and Rhythm GI: Present soft and normal bowel sounds; Absent distention or tenderness Extremities: Present normal inspection and full ROM; Absent edema Skin: Present intact; Absent erythema Neuro: Present Grossly Intact, alert, awake, oriented x 3 and moves all extremities Comment:: Hard of hearing Assessment and Plan *Assessment and plan (1) Fever: Status: Acute Qualifiers: Fever type: unspecified Qualified Code(s): R50.9 - Fever, unspecified Category: Medical Code(s): R50.9 - Fever, unspecified (2) COVID-19: Status: Acute Category: Medical Code(s): U07.1 - COVID-19 (3) DLBCL (diffuse large B cell lymphoma): Status: Inactive Qualifiers: Lymphoma site: unspecified region Qualified Code(s): C83.30 - Diffuse large B-cell lymphoma, unspecified site Category: Medical Code(s): C83.30 - Diffuse large B-cell lymphoma, unspecified site (4) Hyponatremia: Status: Resolved Category: Medical Code(s): E87.1 - Hypo-osmolality and hyponatremia (5) Hypertension: Status: Inactive Qualifiers: Hypertension type: unspecified Qualified Code(s): I10 - Essential (primary) hypertension Category: Medical Code(s): I10 - Essential (primary) hypertension (6) Hyperlipidemia: Status: Inactive Qualifiers: Hyperlipidemia type: unspecified Qualified Code(s): E78.5 - Hyperlipidemia, unspecified Category: Medical Code(s): E78.5 - Hyperlipidemia, unspecified (7) GERD (gastroesophageal reflux disease): Status: Inactive Qualifiers: Esophagitis presence: without esophagitis Qualified Code(s): K21.9 - Gastro-esophageal reflux disease without esophagitis Category: Medical Code(s): K21.9 - Gastro-esophageal reflux disease without esophagitis (8) Anxiety: Status: Inactive Category: Medical Code(s): F41.9 - Anxiety disorder, unspecified Plan Ms. Crain is a 77-year-old female undergoing chemotherapy for DLBCL. Presented with fever and no other symptoms aside from mild nausea. Upon arrival to the ER. found to be COVID positive, denied SOB, rest of the labs are unremarkable. Discussed case with ER physician, request admission for IV antibiotics and further monitoring while cultures are pending. Medicine agreed to admit. Tolerating p.o. intake today, necessitates continued admission given her immunocompromise status. Continue to monitor cultures to rule out other etiology of fever. Problems addressed as follows: Fever in the setting of chemotherapy for Lymphoma/neutropenia COVID positive -White cell count 3.0 this morning -Continue cefepime 1 g every 12 hours. Blood culture and urine culture obtained. -Positive for COVID. -Initiated on remdesivir, zinc, vitamin C -Monitor for oxygen requirement, goal sat greater than 90%, currently low 90s on room air -Will monitor for 24 to 48 hours pending response to antibiotics. -Tylenol for fever -Hyponatremia: Sodium 132 on morning labs. Monitor for improvement with gentle IV hydration. Repeat CMP ordered for the morning continue IV hydration Anemia: Hemoglobin 8.9, threshold for transfusion of less than 7. Chronic in nature. Gout: Continue allopurinol 300 mg daily Hypertension: Continue carvedilol 12.5 mg nightly, amlodipine 5 mill daily, lisinopril 40 mg twice daily Lipidemia, continue Crestor 5 mill daily Anxiety: Continue Xanax 0.5 mg every 6 hours needed, mirtazapine 7.5 mg nightly Full code Regular diet Lovenox 40 mg subcu daily
[2023-05-07] MEDS: CEFEPIME HCL 2 GM in 0.9 % SODIUM CHLORIDE 100 ML IV ×2 (11:52→22:28)
[2023-05-07 15:47] VITALS: BP 139/65; PULSE 86; RESP 20; TEMP 37.2; O2SAT 98
[2023-05-07 19:55] VITALS: BP 139/65; PULSE 91; RESP 16; TEMP 37.1; O2SAT 95
[2023-05-07] MEDS: ROSUVASTATIN 5 MG 1 EACH PO (22:29)
[2023-05-07] MEDS: CARVEDILOL 12.5 MG 1 EACH PO (22:29)
[2023-05-08] MEDS: 0.9 % SODIUM CHLORIDE 1000ML 1,000 ML 50 ML IV (00:53)
[2023-05-08 04:00] VITALS: BP 123/51; PULSE 84; RESP 16; TEMP 37.6; O2SAT 93; BMI 21.2
--- NOTE | 2023-05-08 04:45 | PC.NURSE ---
PT IS ALERT AND ORIENTED X4, AND CURRENTLY ON RA. PT IS IN [place] AND CONTACT PRECAUTIONS FOR COVID. PT HAS NO COMPLAINTS THIS SHIFT, DENIES PAIN AND OTHER NEEDS AT THIS TIME.
[2023-05-08] MEDS: CARVEDILOL 12.5 MG 0.5 EACH PO (06:13)
[2023-05-08 07:43] LABS: Basophils % 0.2 % (0.1-2.0); Eosinophils % 1.1 % (0.1-12.0); Hematocrit 27.1 % (37.0-47.0); Lymphocytes # 0.3 K/mm3 (0.7-4.5); Mean Corpuscular HGB Conc 33.1 g/dL (31.8-35.4); Mean Corpuscular Hemoglobin 31.1 pg (27.0-31.2); Mean Corpuscular Volume 93.9 fl (81-99); Mean Platelet Volume 8.1 fl (7.4-10.4); Monocytes # 0.3 K/mm3 (0.1-1.0); Monocytes % 8.8 % (1.7-9.3); Neutrophils # 3.2 K/mm3 (1.8-7.8); Platelet Count 272 K/mm3 (142-424); Red Blood Count 2.88 M/mm3 (4.20-5.40); Red Cell Distribution Width 19.4 % (11.5-17.5); White Blood Count 3.9 K/mm3 (4.8-10.8)
[2023-05-08 07:50] VITALS: BP 89/48; PULSE 91; RESP 17; TEMP 36.6; O2SAT 95
[2023-05-08 07:51] LABS: Alanine Aminotransferase 24 U/L (12-78); Albumin Level 3.5 g/dl (3.5-5.0); Albumin/Globulin Ratio 1.4 (1.1-1.8); Alkaline Phosphatase 89 U/L (38-126); Anion Gap 7.6 mEq/L (5-15); Aspartate Amino Transferase 38 U/L (14-36); Bilirubin,Total 0.2 mg/dl (0.2-1.3); Blood Urea Nitrogen 10 mg/dl (7-17); Calcium 8.3 mg/dl (8.4-10.2); Carbon Dioxide 26 mmol/L (22.0-30.0); Chloride 102 mmol/L (98-107); Creatinine Clearance Estimated 41 mL/min (50-200); Estimated Glomerular Filt Rate 119 ml/min (>60); GFR (African American) 144 ML/MIN (>60); Globulin 2.5 g/dL (1.3-3.2); Glucose 98 mg/dl (74-100); Magnesium 1.4 mg/dl (1.6-2.3); Potassium 3.6 mmoL/L (3.5-5.1); Sodium 132 mmol/L (136-145)
[2023-05-08 08:36] VITALS: BP 102/43; PULSE 82
[2023-05-08] MEDS: ONDANSETRON 4MG/2ML VIAL 4 MG IV (08:42)
[2023-05-08] MEDS: ALLOPURINOL 300 MG 1 EACH PO (08:42)
[2023-05-08] MEDS: PT OWN MED *ASPIRIN 81 MG EC TAB 1 EACH PO (08:42)
[2023-05-08] MEDS: ZINC SULFATE 220MG CAPSULE 220 MG PO (08:43)
[2023-05-08] MEDS: FAMOTIDINE 20MG TABLET 20 MG PO (08:43)
[2023-05-08] MEDS: MAGNESIUM SULFATE IN WATER 2 GM/50 ML PIGGYBACK IV (09:02)
[2023-05-08] MEDS: MAGNESIUM OXIDE 400MG TABLET 400 MG PO (09:02)
[2023-05-08 11:10] VITALS: BP 102/37; PULSE 76; RESP 17; TEMP 36.7; O2SAT 95
[2023-05-08] MEDS: REMDESIVIR 100 MG in 0.9 % SODIUM CHLORIDE 100 ML IV (11:27)
[2023-05-08] MEDS: CEFEPIME HCL 2 GM in 0.9 % SODIUM CHLORIDE 100 ML IV ×2 (11:27→22:08)
[2023-05-08] MEDS: ALPRAZolam 0.5MG TABLET 0.5 MG PO ×2 (11:52→20:57)
[2023-05-08 15:12] VITALS: BP 118/46; PULSE 80; RESP 18; TEMP 36.8; O2SAT 98
--- NOTE | 2023-05-08 15:17 | P.PN_ITS ---
Subjective *Date: 05/08/23 *Time: 15:17 Interval history: Patient has a mild cough this morning. Stable on room air. Ate cereal for breakfast but does not have a big appetite. Temperature of 99.7 this morning. No nausea or vomiting. Medical Exam Vital signs and Labs for Last 24 Hours: Vital Signs Temp Pulse Resp BP Pulse Ox O2 Del Method 05/08/23 15:12 98.2 F 80 18 118/46 L 98 Room Air 05/08/23 13:00 Room Air 05/08/23 11:00 Room Air 05/08/23 11:10 98.0 F 76 17 102/37 L 95 Room Air 05/08/23 09:00 Room Air 05/08/23 08:00 Room Air 05/08/23 08:36 82 102/43 L 05/08/23 07:50 97.9 F 91 H 17 89/48 L 95 Room Air 05/08/23 06:38 Room Air 05/08/23 04:45 Room Air 05/08/23 04:00 99.7 F H 84 16 123/51 L 93 L Room Air 05/08/23 03:00 Room Air 05/08/23 00:56 Room Air 05/07/23 21:00 Room Air 05/07/23 23:00 Room Air 05/07/23 21:00 Room Air 05/07/23 20:30 Room Air 05/07/23 19:55 98.8 F 91 H 16 139/65 95 Room Air 05/07/23 18:52 Room Air 05/07/23 17:00 Room Air 05/07/23 15:47 98.9 F 86 20 139/65 98 Room Air Intake and Output 05/07/23 05/08/23 05/08/23 23:59 07:59 15:59 Intake Total 340 / 1333 240 / 480 240 / 480 Output Total 0 / 0 0 / 0 0 / 0 Balance 340 / 1333 240 / 480 240 / 480 Intake: Intake, Oral Amount 340 / 1160 240 / 480 240 / 480 Output: Output, Urine Amount 0 / 0 0 / 0 0 / 0 Other: Number of Unmeasured Voids 1 1 3 Weight 56.245 kg Patient Weight 05/08/23 23:59 Weight 56.245 kg Laboratory Results - last 24 hr 05/08/23 07:21: WBC 3.9 L D, RBC 2.88 L, Hgb 9.0 L, Hct 27.1 L, MCV 93.9, MCH 31.1, MCHC 33.1, RDW 19.4 H, Plt Count 272, MPV 8.1, Neut % (Auto) 82.0 H, Lymph % (Auto) 8.0 L, [place] % (Auto) 8.8, Eos % (Auto) 1.1, Baso % (Auto) 0.2, Neut # (Auto) 3.2, Lymph # (Auto) 0.3 L, [place] # (Auto) 0.3, Eos # (Auto) 0.0, Baso # (Auto) 0.0, Sodium 132 L, Potassium 3.6, Chloride 102, Carbon Dioxide 26, Anion Gap 7.6, BUN 10, Creatinine 0.50 L, Estimated Creat Clear 41, Estimated GFR 119, Est GFR ( Amer) 144 D, Glucose 98, Calcium 8.3 L, Magnesium 1.4 L, Total Bilirubin 0.2, AST 38 H, ALT 24, Alkaline Phosphatase 89, Total Protein 6.0 L, Albumin 3.5, Globulin 2.5, Albumin/Globulin Ratio 1.4 I & O for Labs for Last 24 Hours: Intake & Output 05/05/23 05/06/23 05/07/23 05/08/23 23:59 23:59 23:59 23:59 Intake Total 1333 / 1333 480 / 480 Output Total 0 / 0 0 / 0 Balance 1333 / 1333 480 / 480 Weight 54.431 kg 54.567 kg 56.245 kg Constitutional: Present no acute distress, thin, chronically ill appearing and cooperative Head: Present atraumatic and normocephalic ENT: Present normal exam Respiratory: Present rhonchi and normal respiratory effort; Absent wheezes or crackles Cardiac: Present Reg Rate and Rhythm GI: Present soft and normal bowel sounds; Absent distention or tenderness Extremities: Present normal inspection and full ROM; Absent edema Skin: Present intact; Absent erythema Neuro: Present Grossly Intact, alert, awake, oriented x 3 and moves all extremities Comment:: Hard of hearing Assessment and Plan *Assessment and plan (1) COVID-19: Status: Acute Category: Medical Code(s): U07.1 - COVID-19 (2) Fever: Status: Acute Qualifiers: Fever type: unspecified Qualified Code(s): R50.9 - Fever, unspecified Category: Medical Code(s): R50.9 - Fever, unspecified (3) DLBCL (diffuse large B cell lymphoma): Status: Inactive Qualifiers: Lymphoma site: unspecified region Qualified Code(s): C83.30 - Diffuse large B-cell lymphoma, unspecified site Category: Medical Code(s): C83.30 - Diffuse large B-cell lymphoma, unspecified site (4) Hyponatremia: Status: Resolved Category: Medical Code(s): E87.1 - Hypo-osmolality and hyponatremia (5) Hypertension: Status: Inactive Qualifiers: Hypertension type: unspecified Qualified Code(s): I10 - Essential (primary) hypertension Category: Medical Code(s): I10 - Essential (primary) hypertension (6) Hyperlipidemia: Status: Inactive Qualifiers: Hyperlipidemia type: unspecified Qualified Code(s): E78.5 - Hyperlipidemia, unspecified Category: Medical Code(s): E78.5 - Hyperlipidemia, unspecified (7) GERD (gastroesophageal reflux disease): Status: Inactive Qualifiers: Esophagitis presence: without esophagitis Qualified Code(s): K21.9 - Gastro-esophageal reflux disease without esophagitis Category: Medical Code(s): K21.9 - Gastro-esophageal reflux disease without esophagitis (8) Anxiety: Status: Inactive Category: Medical Code(s): F41.9 - Anxiety disorder, unspecified Plan Ms. Crain is a 77-year-old female undergoing chemotherapy for DLBCL. Presented with fever and no other symptoms aside from mild nausea. Upon arrival to the ER. found to be COVID positive, denied SOB, rest of the labs are unremarkable. Discussed case with ER physician, request admission for IV antibiotics and further monitoring while cultures are pending. Medicine agreed to admit. Tolerating p.o. intake today, necessitates continued admission given her immunocompromise status. Continue to monitor cultures to rule out other etiology of fever. Continues to require inpatient management, anticipate discharge tomorrow. Problems addressed as follows: Fever in the setting of chemotherapy for Lymphoma/neutropenia COVID positive -White cell count 3.9 this morning -Continue cefepime 1 g every 12 hours. Blood culture and urine culture obtained. -Positive for COVID. -Continue remdesivir, zinc. Having diarrhea, suspect secondary to vitamin C, will discontinue -Monitor for oxygen requirement, goal sat greater than 90%, currently low 90s on room air -Will monitor for 48 hours pending response to antibiotics. -Tylenol for fever; Imodium for diarrhea -Hyponatremia: Sodium 132 on morning labs. Tolerating p.o. intake. Discontinue IV fluids Repeat CMP ordered for the morning Anemia: Hemoglobin 9, threshold for transfusion of less than 7. Chronic in nature. Gout: Continue allopurinol 300 mg daily Hypertension: Continue carvedilol 12.5 mg nightly, amlodipine 5 mill daily, lisinopril 40 mg twice daily Lipidemia, continue Crestor 5 mill daily Anxiety: Continue Xanax 0.5 mg every 6 hours needed, mirtazapine 7.5 mg nightly Full code Regular diet Lovenox 40 mg subcu daily
[2023-05-08 20:00] VITALS: BP 143/58; PULSE 84; RESP 16; TEMP 36.6; O2SAT 99
[2023-05-08] MEDS: ROSUVASTATIN 5 MG 1 EACH PO (20:50)
[2023-05-08] MEDS: CARVEDILOL 12.5 MG 1 EACH PO (20:51)
[2023-05-08] MEDS: LISINOPRIL 20 MG 1 EACH PO (20:51)
[2023-05-09] VITALS: BP 122/53; PULSE 83; RESP 16; TEMP 37.4; O2SAT 93
[2023-05-09 04:00] VITALS: BP 133/55; PULSE 85; RESP 16; TEMP 37.1; O2SAT 95; BMI 21.4
[2023-05-09] MEDS: CARVEDILOL 12.5 MG 0.5 EACH PO (06:34)
[2023-05-09 06:40] LABS: Alanine Aminotransferase 22 U/L (12-78); Albumin Level 3.1 g/dl (3.5-5.0); Albumin/Globulin Ratio 1.2 (1.1-1.8); Alkaline Phosphatase 78 U/L (38-126); Anion Gap 7.5 mEq/L (5-15); Aspartate Amino Transferase 32 U/L (14-36); Blood Urea Nitrogen 10 mg/dl (7-17); Calcium 7.8 mg/dl (8.4-10.2); Carbon Dioxide 28 mmol/L (22.0-30.0); Chloride 104 mmol/L (98-107); Creatinine Clearance Estimated 42 mL/min (50-200); Estimated Glomerular Filt Rate 97 ml/min (>60); GFR (African American) 117 ML/MIN (>60); Globulin 2.5 g/dL (1.3-3.2); Glucose 90 mg/dl (74-100); Potassium 3.5 mmoL/L (3.5-5.1); Sodium 136 mmol/L (136-145); Total Protein,Serum 5.6 g/dl (6.3-8.2)
--- NOTE | 2023-05-09 06:52 | PC.NURSE ---
patient had a good night and is anxious this morning to get discharged early. she states she is ready to go early.
[2023-05-09 07:00] LABS: Bilirubin,Total 0.1 mg/dl (0.2-1.3)
[2023-05-09 08:00] VITALS: BP 124/56; PULSE 83; RESP 18; TEMP 36.4; O2SAT 96
[2023-05-09] MEDS: PT OWN MED *ASPIRIN 81 MG EC TAB 1 EACH PO (09:06)
[2023-05-09] MEDS: MAGNESIUM OXIDE 400MG TABLET 400 MG PO (09:06)
[2023-05-09] MEDS: LISINOPRIL 20 MG 1 EACH PO (09:06)
[2023-05-09] MEDS: ALLOPURINOL 300 MG 1 EACH PO (09:06)
[2023-05-09] MEDS: PT OWN MED *AMLODIPINE 5 MG TAB 1 EACH PO (09:06)
[2023-05-09] MEDS: ZINC SULFATE 220MG CAPSULE 220 MG PO (09:06)
[2023-05-09] MEDS: FAMOTIDINE 20MG TABLET 20 MG PO (09:52)
[2023-05-09] MEDS: ONDANSETRON 4MG/2ML VIAL 4 MG IV (10:04)
[2023-05-09] MEDS: CEFEPIME HCL 2 GM in 0.9 % SODIUM CHLORIDE 100 ML IV (10:04)
--- NOTE | 2023-05-09 11:15 | P.DS_ITS ---
General Admission date:: 05/06/23 Discharge date: 05/09/23 HPI HPI HPI: This is a 77 yo female with PMHx HTN, HLD, GERD. gout, recently diagnosed B cell lymphoma, currently undergoing chemotherapy presenting to the emergency department for evaluation with concern for fevers, chills, nausea, urinary frequency, urinary urgency, and dysuria for 2 days. per ER report Temperature at home was 101.7 ?F.. Patient noted that she always had a fever every time she has had chemotherapy, last admission to the hospital she was given IV antibiotics until blood cultures have returned negative. She stated that her oncologist prescribed ciprofloxacin to take when she has chemotherapy, she did completed treatment just before her symptoms started. On medical record review, her most recent chemotherapy treatment was 04/11/2023. Her most recent admission was 04/03/2023 through 04/05/2023 for fever of unknown origin in the setting of chemotherapy. Admitted for further monitoring and treatment. Hospital Course Hospital Course Hospital Course: Patient was seen and evaluated at the bedside on the day of discharge. Patient is stable for discharge. Patient wishes to be discharged. All patient questions were answered and patient was given time to ask questions. Patient was discharged in stable condition. Patient understands that she can return to ER in case of any sudden changes in health. Total time spent on DC - 38 mins Ms. Crain is a 77-year-old female undergoing chemotherapy for DLBCL. Presented with fever and no other symptoms aside from mild nausea. Upon arrival to the ER. found to be COVID positive, denied SOB, rest of the labs are unremarkable. Discussed case with ER physician, request admission for IV antibiotics and further monitoring while cultures are pending. Medicine agreed to admit. Tolerating p.o. intake today, necessitates continued admission given her immunocompromise status. Continue to monitor cultures to rule out other etiology of fever. Continues to require inpatient management, anticipate discharge tomorrow. Problems addressed as follows: Fever in the setting of chemotherapy for Lymphoma/neutropenia - resolved COVID positive -Hyponatremia: improved Anemia: Hemoglobin 9, threshold for transfusion of less than 7. Chronic in nature. Gout: Continue allopurinol 300 mg daily Hypertension: Continue carvedilol 12.5 mg nightly, amlodipine 5 mill daily, lisinopril 40 mg twice daily Lipidemia, continue Crestor 5 mill daily Anxiety: Continue Xanax 0.5 mg every 6 hours needed, mirtazapine 7.5 mg nightly Full code Regular diet Lovenox 40 mg subcu daily Exam Data for Last 24 hours Vital signs and Labs for Last 24 Hours: Temp Pulse Resp BP Pulse Ox O2 Del Method O2 Flow Rate 97.6 F 83 18 124/56 L 96 Room Air 2 05/09/23 08:00 05/09/23 08:00 05/09/23 08:00 05/09/23 08:00 05/09/23 08:00 05/09/23 11:00 05/07/23 11:00 Laboratory Results - last 24 hr 05/09/23 05:30: Sodium 136, Potassium 3.5, Chloride 104, Carbon Dioxide 28, Anion Gap 7.5, BUN 10, Creatinine 0.60, Estimated Creat Clear 42, Estimated GFR 97, Est GFR ( Amer) 117, Glucose 90, Calcium 7.8 L, Total Bilirubin 0.1 L , AST 32, ALT 22, Alkaline Phosphatase 78, Total Protein 5.6 L, Albumin 3.1 L D, Globulin 2.5, Albumin/Globulin Ratio 1.2 I & O for Last 24 hours: Intake & Output 05/06/23 05/07/23 05/08/23 05/09/23 23:59 23:59 23:59 23:59 Intake Total 1333 / 1333 1070 / 1070 508 / 508 Output Total 0 / 0 0 / 0 0 / 0 Balance 1333 / 1333 1070 / 1070 508 / 508 Weight 54.431 kg 54.567 kg 56.245 kg 56.897 kg Microbiology Reports for the Last 24 Hours: Microbiology 05/07/23 13:53 Sputum - Expectorated Sputum Gram Stain - Final Constitutional Constitutional: no acute distress *Routine HEENT Exam Head: Present normocephalic Eye: Present EOMI and PERRL ENT: Present mucous membranes moist *Routine Neck Exam Neck: Present supple; Absent lymphadenopathy *Routine Respiratory Exam Respiratory: Present CTA bilaterally *Routine Cardiovascular Exam Cardiovascular: Present RRR *Routine Abdominal Exam Abdominal: Present soft and normoactive bowel sounds; Absent tenderness *Routine Extremities Exam Extremities: Absent cyanosis, clubbing or edema *Routine Skin Exam Skin: Present warm; Absent rash *Routine Neurological Exam Neurological: Present alert and oriented X3 Results Data Completed and Pending Labs on day of discharge: Labs from last 24 hours 05/09/23 05:30 Sodium 136 Potassium 3.5 Chloride 104 Carbon Dioxide 28 Anion Gap 7.5 BUN 10 Creatinine 0.60 Estimated Creat Clear 42 Estimated GFR 97 Est GFR ( Amer) 117 Glucose 90 Calcium 7.8 L Total Bilirubin 0.1 L AST 32 ALT 22 Alkaline Phosphatase 78 Total Protein 5.6 L Albumin 3.1 L D Globulin 2.5 Albumin/Globulin Ratio 1.2 DS: Diagnosis Discharge Diagnosis (1) COVID-19: Status: Acute Code(s): U07.1 - COVID-19 (2) Fever: Status: Acute Code(s): R50.9 - Fever, unspecified Qualifiers: Fever type: unspecified Qualified Code(s): R50.9 - Fever, unspecified (3) DLBCL (diffuse large B cell lymphoma): Status: Inactive Code(s): C83.30 - Diffuse large B-cell lymphoma, unspecified site Qualifiers: Lymphoma site: unspecified region Qualified Code(s): C83.30 - Diffuse large B-cell lymphoma, unspecified site (4) Hyponatremia: Status: Resolved Code(s): E87.1 - Hypo-osmolality and hyponatremia (5) Hypertension: Status: Inactive Code(s): I10 - Essential (primary) hypertension Qualifiers: Hypertension type: unspecified Qualified Code(s): I10 - Essential (primary) hypertension (6) Hyperlipidemia: Status: Inactive Code(s): E78.5 - Hyperlipidemia, unspecified Qualifiers: Hyperlipidemia type: unspecified Qualified Code(s): E78.5 - Hyperlipidemia, unspecified (7) GERD (gastroesophageal reflux disease): Status: Inactive Code(s): K21.9 - Gastro-esophageal reflux disease without esophagitis Qualifiers: Esophagitis presence: without esophagitis Qualified Code(s): K21.9 - Gastro-esophageal reflux disease without esophagitis (8) Anxiety: Status: Inactive Code(s): F41.9 - Anxiety disorder, unspecified Meds Home Medications and Allergies Home Medications Medication Instructions Recorded Confirmed Type alprazolam 0.5 mg tablet 0.5 mg PO Q6HP PRN Anxiety 30 days 12/01/17 05/07/23 History ##120 aspirin 81 mg tablet,delayed 81 mg PO DAILY Heart Health 12/23/17 05/07/23 History release rosuvastatin 5 mg tablet 5 mg PO HS Cholesterol 05/29/18 05/07/23 History famotidine 20 mg tablet 20 mg PO BID Acid Reflux 07/29/21 05/07/23 History amlodipine 5 mg tablet 5 mg PO DAILY High Blood Pressure 12/30/22 05/07/23 History allopurinol 300 mg tablet 300 mg PO DAILY Gout 01/31/23 05/07/23 History lisinopril 20 mg tablet 20 mg PO BID High Blood Pressure 03/21/23 05/07/23 History carvedilol 12.5 mg tablet 12.5 mg PO HS blood pressure/heart 04/10/23 05/07/23 Rx rate #90 tabs ondansetron 4 mg disintegrating 4 mg PO Q6HP PRN Nausea And 05/06/23 05/07/23 History tablet Vomiting prochlorperazine maleate 10 mg 10 mg PO Q4HP PRN Nausea And 05/06/23 05/07/23 History tablet Vomiting carvedilol 12.5 mg tablet 6.25 mg PO AM High Blood Pressure 05/07/23 05/07/23 History sennosides 8.6 mg-docusate sodium 1 tab PO DAILYP PRN Constipation 05/07/23 05/07/23 History 50 mg tablet New Prescriptions to Start Prescriptions: Allergies Allergy/AdvReac Type Severity Reaction Status Date / Time esomeprazole [From Nexium] Allergy Intermediate Hives Verified 04/11/23 09:01 erythromycin base Allergy Mild Redness of Verified 04/11/23 09:01 Skin amoxicillin [From Augmentin] AdvReac Intermediate Nausea Verified 04/11/23 09:01 clavulanic acid AdvReac Intermediate Nausea Verified 04/11/23 09:01 [From Augmentin] doxycycline AdvReac Intermediate Nausea Verified 04/11/23 09:01 Sulfa (Sulfonamide AdvReac Intermediate Nausea Verified 04/11/23 09:01 Antibiotics) dexlansoprazole AdvReac flu Verified 04/11/23 09:01 [From Dexilant] symptoms pantoprazole [From Protonix] AdvReac Verified 04/11/23 09:01 Discharge Plan Disposition Patient Disposition: Home, Self-Care Condition: Good Follow up Plan Follow up with: Cristian Zhu MD [Primary Care Provider] - 1 week Prescriptions/Medication Reconciliation: Continued alprazolam 0.5 mg tablet 0.5 mg PO Q6HP PRN (Reason: Anxiety) 30 Days Qty: 120 rosuvastatin 5 mg tablet 5 mg PO HS famotidine 20 mg tablet 20 mg PO BID carvedilol 12.5 mg tablet 12.5 mg PO HS Qty: 90 3RF lisinopril 20 mg tablet 20 mg PO BID allopurinol 300 mg Tablet 300 mg PO DAILY aspirin 81 MG tablet,delayed release (DR/EC) 81 mg PO DAILY amlodipine 5 mg tablet 5 mg PO DAILY prochlorperazine maleate 10 mg tablet 10 mg PO Q4HP PRN (Reason: Nausea And Vomiting) ondansetron 4 mg tablet,disintegrating 4 mg PO Q6HP PRN (Reason: Nausea And Vomiting) carvedilol 12.5 mg tablet 6.25 mg PO AM sennosides-docusate sodium 8.6-50 mg Tablet 1 tab PO DAILYP PRN (Reason: Constipation) Problem Reconciliation Problems Reviewed?: Yes Patient Discharge Instructions ACTIVITY: Ambulate as tolerated DIET: continue same diet Patient Instructions: DI for Hyponatremia, DI for COVID-19 (Suspected or Confirmed ) Providers Primary Care Provider: Cristian Zhu Admit Provider: Xu Maldonado Attending Provider: Xu Maldonado
--- NOTE | 2023-05-09 11:25 | PC.NURSE ---
Courtesy Round Patient awake sitting up in bed . Trash emptied and linens checked .Patient voiced no need at this time. Call light left within reach.
[2023-05-09] MEDS: REMDESIVIR 100 MG in 0.9 % SODIUM CHLORIDE 100 ML IV (11:34)
[2023-05-09 12:00] VITALS: BP 137/50; PULSE 78; RESP 18; TEMP 36.3; O2SAT 98
--- NOTE | 2023-05-10 15:06 | CARE MANAGER ---
Contacted patient related to hospital discharge. She picked up antibiotic and is aware of follow up appointment. Denies questions or concerns. DANDRE Hunter
== END 2023-05-09 12:58 | disposition home or self-care (01) ==
LOC: ER 23:56 → 2ND 05-07 07:40
PROVIDERS: Nurse Practitioner Family; Admitting Provider Internal Medicine Adolescent Medicine; Emergency Provider Emergency Medicine; PCP Internal Medicine Adolescent Medicine; Visit Provider Internal Medicine Adolescent Medicine
DX: R50.9 Fever, unspecified (principal); E87.1 Hypo-osmolality and hyponatremia; U07.1 COVID-19; C83.33 Diffuse large B-cell lymphoma, intra-abdominal lymph nodes; I10 Essential (primary) hypertension; E78.5 Hyperlipidemia, unspecified; K21.9 Gastro-esophageal reflux disease without esophagitis; F41.9 Anxiety disorder, unspecified
CPT/HCPCS: 36415; 80053; 81001; 83605; 83735; 84145; 85007; 85025; 86140; 87040; 87070; 87086; 87205; 87636; 99285; G0378; J2405; J3475

== ENCOUNTER 2023-05-17 08:20 | Outpatient (CLI) | payer MEDICARE, SELFPAY ==
[2023-05-17] VITALS (17 sets, daily range): BP systolic 110–152; BP diastolic 46–81; PULSE 79–100; RESP 15–18; TEMP 36.2; O2SAT 95–97; BMI 20.2
[2023-05-17 08:51] LABS: Basophils % 0.4 % (0.1-2.0); Eosinophils # 0.1 K/mm3 (0.0-0.4); Eosinophils % 1.3 % (0.1-12.0); Hematocrit 29.4 % (37.0-47.0); Hemoglobin 9.6 g/dL (12.2-16.2); Lymphocytes # 0.3 K/mm3 (0.7-4.5); Lymphocytes % 6.1 % (10-50); Mean Corpuscular HGB Conc 32.7 g/dL (31.8-35.4); Mean Corpuscular Hemoglobin 31.3 pg (27.0-31.2); Mean Corpuscular Volume 95.7 fl (81-99); Mean Platelet Volume 8.2 fl (7.4-10.4); Monocytes # 0.2 K/mm3 (0.1-1.0); Monocytes % 3.2 % (1.7-9.3); Neutrophils # 4.4 K/mm3 (1.8-7.8); Platelet Count 247 K/mm3 (142-424); Red Blood Count 3.07 M/mm3 (4.20-5.40); Red Cell Distribution Width 18.5 % (11.5-17.5)
[2023-05-17 08:56] LABS: MANUAL DIFFERENTIAL MANUAL DIFFERENTIAL (MANUAL DIFF)
[2023-05-17 09:07] LABS: Alanine Aminotransferase 29 U/L (12-78); Albumin Level 3.7 g/dl (3.5-5.0); Albumin/Globulin Ratio 1.4 (1.1-1.8); Alkaline Phosphatase 95 U/L (38-126); Anion Gap 8.2 mEq/L (5-15); Aspartate Amino Transferase 42 U/L (14-36); Bilirubin,Total 0.2 mg/dl (0.2-1.3); Blood Urea Nitrogen 8 mg/dl (7-17); Calcium 8.8 mg/dl (8.4-10.2); Carbon Dioxide 30 mmol/L (22.0-30.0); Chloride 101 mmol/L (98-107); Creatinine Clearance Estimated 39 mL/min (50-200); Estimated Glomerular Filt Rate 119 ml/min (>60); GFR (African American) 144 ML/MIN (>60); Globulin 2.6 g/dL (1.3-3.2); Glucose 144 mg/dl (74-100); Potassium 4.2 mmoL/L (3.5-5.1); Sodium 135 mmol/L (136-145); Total Protein,Serum 6.3 g/dl (6.3-8.2)
[2023-05-17] MEDS: 0.9 % SODIUM CHLORIDE 100 ML IV (09:53)
[2023-05-17] MEDS: diphenhydrAMINE 50MG CAPSULE 50 MG PO (09:53)
[2023-05-17] MEDS: ACETAMINOPHEN 325MG TAB 650 MG (09:53)
[2023-05-17 10:20] LABS: Eosinophils % 1 % (0-3); Lymphocytes % 1 % (10-50); Monocytes % 1 % (2-9); Neutrophils % 82 % (42-76); Total Cells Counted 100
[2023-05-17] MEDS: SODIUM CHLORIDE 0.9% IV ×4 (10:24→13:56)
[2023-05-17] MEDS: RITUXIMAB PVVR IV (10:24)
[2023-05-17 10:25] LABS: Platelet Estimate Normal; Poikilocytosis 1+; Tear Drop Cells 1+
[2023-05-17 10:26] LABS: Anisocytosis 1+
[2023-05-17] MEDS: ONDANSETRON 4MG ODT 16 MG SL (12:45)
[2023-05-17] MEDS: APREPITANT 125MG/80MG TRIFOLD PACK 1 PACKET PO (12:45)
[2023-05-17] MEDS: DOXORUBICIN HCL IV (13:10)
[2023-05-17] MEDS: VINCRISTINE SULFATE IV (13:31)
[2023-05-17] MEDS: CYCLOPHOSPHAMIDE IV (13:56)
[2023-05-17] MEDS: PEGFILGRASTIM 6 MG/0.6 ML SQ (14:43)
--- NOTE | 2023-05-17 15:34 | PC.NURSE ---
1455 - NEULASTA 6MG ONPRO APPLIED TO LEFT UPPER ARM AT THIS TIME. INSTRUCTED ON PROPER USE AND DISPOSAL AFTER MED DELIVERED. UNDERSTANDING VERBALIZED.
== END 2023-05-17 15:05 | disposition home or self-care (01) ==
LOC: INF 08:21
PROVIDERS: PCP Internal Medicine Adolescent Medicine; Visit Provider Internal Medicine Medical Oncology
DX: C83.33 Diffuse large B-cell lymphoma, intra-abdominal lymph nodes (principal); Z45.2 Encounter for adjustment and management of vascular access device; Z79.899 Other long term (current) drug therapy
CPT/HCPCS: 80053; 85007; 85025; 96377; 96411; 96413; 96415; 96417; J1642; J2505; J9000; J9070; J9370; Q5119

== ENCOUNTER 2023-06-07 08:45 | Outpatient (CLI) | payer MEDICARE, SELFPAY ==
[2023-06-07] VITALS (10 sets, daily range): BP systolic 130–150; BP diastolic 52–87; PULSE 70–89; RESP 20; TEMP 36.2; O2SAT 97–98; BMI 20.5
[2023-06-07 09:19] LABS: Chloride 102 mmol/L (98-107); Potassium 4.4 mmoL/L (3.5-5.1); Sodium 136 mmol/L (136-145)
[2023-06-07 09:20] LABS: Basophils % 0.5 % (0.1-2.0); Eosinophils % 0.5 % (0.1-12.0); Hemoglobin 9.3 g/dL (12.2-16.2); Lymphocytes # 0.4 K/mm3 (0.7-4.5); Lymphocytes % 5.6 % (10-50); Mean Corpuscular HGB Conc 33.1 g/dL (31.8-35.4); Mean Corpuscular Hemoglobin 31.4 pg (27.0-31.2); Mean Corpuscular Volume 94.8 fl (81-99); Mean Platelet Volume 7.5 fl (7.4-10.4); Monocytes # 0.2 K/mm3 (0.1-1.0); Monocytes % 2.9 % (1.7-9.3); Neutrophils % 90.5 % (37.0-80.0); Platelet Count 437 K/mm3 (142-424); Red Blood Count 2.95 M/mm3 (4.20-5.40); White Blood Count 7.7 K/mm3 (4.8-10.8)
[2023-06-07 09:22] LABS: Alanine Aminotransferase 26 U/L (12-78); Albumin/Globulin Ratio 1.4 (1.1-1.8); Alkaline Phosphatase 103 U/L (38-126); Anion Gap 12.4 mEq/L (5-15); Aspartate Amino Transferase 31 U/L (14-36); Bilirubin,Total 0.3 mg/dl (0.2-1.3); Blood Urea Nitrogen 14 mg/dl (7-17); Calcium 9.6 mg/dl (8.4-10.2); Carbon Dioxide 26 mmol/L (22.0-30.0); Creatinine Clearance Estimated 40 mL/min (50-200); Estimated Glomerular Filt Rate 97 ml/min (>60); GFR (African American) 117 ML/MIN (>60); Globulin 2.9 g/dL (1.3-3.2); Glucose 133 mg/dl (74-100); MANUAL DIFFERENTIAL MANUAL DIFFERENTIAL (MANUAL DIFF); Total Protein,Serum 6.9 g/dl (6.3-8.2)
[2023-06-07 09:47] LABS: Lactate Dehydrogenase 136 U/L (313-618)
[2023-06-07 09:51] LABS: Lymphocytes % 7 % (10-50); Macrocytosis 1+; Monocytes % 3 % (2-9); Neutrophils % 89 % (42-76); Ovalocytes 1+; Platelet Estimate Slight Increase; Total Cells Counted 100
[2023-06-07] MEDS: diphenhydrAMINE 50MG CAPSULE 50 MG PO (10:01)
[2023-06-07] MEDS: 0.9 % SODIUM CHLORIDE 100 ML 25 ML IV (10:01)
[2023-06-07] MEDS: ACETAMINOPHEN 325MG TAB 650 MG (10:01)
[2023-06-07] MEDS: RITUXIMAB PVVR IV (10:36)
[2023-06-07] MEDS: SODIUM CHLORIDE 0.9% IV ×4 (10:36→14:08)
[2023-06-07] MEDS: APREPITANT 125MG/80MG TRIFOLD PACK 1 PACKET PO (12:52)
[2023-06-07] MEDS: ONDANSETRON 4MG ODT 16 MG SL (12:52)
[2023-06-07] MEDS: CYCLOPHOSPHAMIDE IV (12:58)
[2023-06-07] MEDS: DOXORUBICIN HCL IV (13:45)
[2023-06-07] MEDS: VINCRISTINE SULFATE IV (14:08)
[2023-06-07] MEDS: PEGFILGRASTIM 6 MG/0.6 ML SQ (14:22)
[2023-06-07] MEDS: SODIUM CHLORIDE 0.9% 10ML FLUSH SYRINGE 10 ML IV (14:39)
== END 2023-06-07 14:45 | disposition home or self-care (01) ==
LOC: INF 08:46
PROVIDERS: PCP Internal Medicine Adolescent Medicine; Visit Provider Internal Medicine Medical Oncology
DX: C83.33 Diffuse large B-cell lymphoma, intra-abdominal lymph nodes (principal)
CPT/HCPCS: 80053; 83615; 85007; 85025; 96377; 96411; 96413; 96415; 96417; J1642; J2505; J9000; J9070; J9370; Q5119

== ENCOUNTER 2023-06-20 14:40 | Outpatient (POV) | payer MEDICARE, SELFPAY | END 2023-06-20 23:59 | disposition home or self-care (01) | LOC: SC 14:41 | PROVIDERS: PCP Internal Medicine Adolescent Medicine; Visit Provider Dermatology | DX: Z00.00 Encounter for general adult medical examination without abnormal findings (principal) ==

== ENCOUNTER 2023-07-05 10:09 | Outpatient (CLI) | payer MEDICARE, SELFPAY ==
[2023-07-05 10:17] VITALS: BMI 20.4
[2023-07-05] MEDS: SODIUM CHLORIDE 0.9% 10ML FLUSH SYRINGE 10 ML IV (10:30)
[2023-07-05 10:43] LABS: Basophils % 0.3 % (0.1-2.0); Eosinophils # 0.2 K/mm3 (0.0-0.4); Eosinophils % 2.9 % (0.1-12.0); Hematocrit 27.8 % (37.0-47.0); Hemoglobin 8.9 g/dL (12.2-16.2); Lymphocytes # 0.7 K/mm3 (0.7-4.5); Lymphocytes % 12.7 % (10-50); Mean Corpuscular HGB Conc 32.1 g/dL (31.8-35.4); Mean Corpuscular Hemoglobin 31.5 pg (27.0-31.2); Mean Corpuscular Volume 98.2 fl (81-99); Mean Platelet Volume 7.9 fl (7.4-10.4); Monocytes # 0.6 K/mm3 (0.1-1.0); Monocytes % 11.3 % (1.7-9.3); Neutrophils % 72.7 % (37.0-80.0); Platelet Count 295 K/mm3 (142-424); Red Blood Count 2.83 M/mm3 (4.20-5.40); Red Cell Distribution Width 18.3 % (11.5-17.5); White Blood Count 5.5 K/mm3 (4.8-10.8)
[2023-07-05 11:00] LABS: Chloride 102 mmol/L (98-107)
[2023-07-05 11:01] LABS: Potassium 4.2 mmoL/L (3.5-5.1); Sodium 135 mmol/L (136-145)
[2023-07-05 11:03] LABS: Alanine Aminotransferase 23 U/L (12-78); Alkaline Phosphatase 119 U/L (38-126); Anion Gap 8.2 mEq/L (5-15); Aspartate Amino Transferase 30 U/L (14-36); Blood Urea Nitrogen 12 mg/dl (7-17); Carbon Dioxide 29 mmol/L (22.0-30.0); Creatinine Clearance Estimated 40 mL/min (50-200); Estimated Glomerular Filt Rate 97 ml/min (>60); GFR (African American) 117 ML/MIN (>60)
[2023-07-05 11:04] LABS: Albumin/Globulin Ratio 1.3 (1.1-1.8); Calcium 9.7 mg/dl (8.4-10.2); Glucose 96 mg/dl (74-100)
[2023-07-05 11:21] LABS: Bilirubin,Total 0.1 mg/dl (0.2-1.3)
[2023-07-05 15:19] LABS: Lactate Dehydrogenase 139 U/L (313-618)
== END 2023-07-05 10:40 | disposition home or self-care (01) ==
LOC: INF 10:10
PROVIDERS: PCP Internal Medicine Adolescent Medicine; Visit Provider Internal Medicine Medical Oncology
DX: C83.33 Diffuse large B-cell lymphoma, intra-abdominal lymph nodes (principal); Z79.899 Other long term (current) drug therapy; Z45.2 Encounter for adjustment and management of vascular access device
CPT/HCPCS: 36591; 80053; 83615; 85025; J1642

== ENCOUNTER 2023-08-02 10:07 | Outpatient (CLI) | payer MEDICARE, SELFPAY ==
[2023-08-02] MEDS: SODIUM CHLORIDE 0.9% 10ML FLUSH SYRINGE 10 ML IV (10:20)
== END 2023-08-02 10:25 | disposition home or self-care (01) ==
PROVIDERS: PCP Internal Medicine Adolescent Medicine; Visit Provider Internal Medicine Medical Oncology
DX: C83.30 Diffuse large B-cell lymphoma, unspecified site (principal); Z45.2 Encounter for adjustment and management of vascular access device
CPT/HCPCS: 96523; J1642

== ENCOUNTER 2023-08-10 06:00 | Day surgery (SDC) | payer MEDICARE, SELFPAY ==
[2023-08-07 13:06] VITALS: BMI 20.2
[2023-08-10] VITALS (10 sets, daily range): BP systolic 105–149; BP diastolic 48–69; PULSE 77–91; RESP 16–19; TEMP 36.1–43; O2SAT 93–99
[2023-08-10] MEDS: LACTATED RINGERS 1000ML 1,000 ML 100 ML IV (06:36)
--- NOTE | 2023-08-10 07:08 | EXP.ANES.CKL ---
[facility] Disclaimer: The information contained in this section may have been updated after the patient was seen, as this information can be updated by other users. Medical History Port-A-Cath in place Hearing Loss Impacted cerumen of left ear COVID-19 Fever Fever of unknown origin UTI (urinary tract infection) Dyspnea Difficulty in swallowing Pathologic lumbar vertebral fracture Pyelonephritis Lymphoma DLBCL (diffuse large B cell lymphoma) History of carotid artery stenosis FH: cholecystectomy H/O coronary angiogram Hypertension Hyperlipidemia Anxiety GERD (gastroesophageal reflux disease) Surgical History History of cholecystectomy Tubal ligation status History of right-sided carotid endarterectomy Family History Other Cancer Family history of hyperlipidemia Family history of hypertension Social History Smoking Status: Former smoker how long ago did patient quit smokin years ago second hand exposure: No alcohol intake: never substance use type: denies use current occupational status: retired Travel in the last 8 weeks: None household members: spouse housing: house current occupational exposures/hazards: No caffeine: No H Anesthesia Checklist Patient Identification Patient Identification: Arm Band and Verbal (Name & ) Structural Data Admitted From: Home Planned Operative Procedure/s: PAC removal Consent for Planned Operative Procedure(s) Verified: Yes NPO Status Verified Time NPO: 00:00 Additional verifications Anesthesia Reactions: No Hx Blood Transfusions: No Blood Transfusion Reaction: No Airway Assessment Mallampati Score:: Class II C-Spine Mobility Assessed: Yes TMJ Mobility Assessed: Yes Dentition: Edentulous Neurological Assessment Level of Consciousness: Awake Hx Seizures: No Numbness or tingling in extremities: No Anesthesia Plan Anesthesia Risk discussed: Yes Anesthesia Plan: Verified ASA Class: III Anesthesia Type: MAC
[2023-08-10] MEDS: LIDOCAINE 1% 20ML MDV 20 ML (07:22)
[2023-08-10] MEDS: CLINDAMYCIN PHOSPHATE/D5W 900 MG/50 ML PIGGYBACK 100 MG IV (07:29)
--- NOTE | 2023-08-10 07:48 | P.OP_ITS ---
Date of procedure: 08/10/23 Pre-op Diagnosis:: Lymphoma Post-op Diagnosis:: Same Procedure performed:: Port-A-Cath removal Surgeon:: Dg Leahy MD DINKEY LOCOMOTIVE OPERATOR:: Abraham Coronado Anesthesia: LMA Estimated blood loss (mL): 5 Operative findings:: Port and hub removed in toto Operative note:: After informed consent was obtained the patient was taken to the operating room and placed in the supine position. General anesthesia with laryngeal mask airway was achieved. Her left chest was prepped and draped in a sterile fashion. After infiltration with local anesthetic an incision was made over the port. A combination of sharp dissection and electrocautery was utilized to transect through the subcutaneous tissue. The port was carefully elevated as the stay sutures were removed. The port and hub were then removed without difficulty. A combination of pressure and electrocautery was utilized to achieve hemostasis. The deep subcutaneous tissue was reapproximated with interrupted Vicryl and skin was then closed with 3-0 Monocryl STRATAFIX. Dressings were applied and the patient was transferred to recovery in stable condition after removal of her laryngeal mask airway. Condition: stable Disposition: PACU Specimens:: Port (not sent for pathologic evaluation) Complications:: No immediate
--- NOTE | 2023-08-10 07:58 | P.PNANES_ITS ---
[facility] Anesthesia Record Part I Anesthesia Record I Intake, IV Amount: 800 Hydration: Adequate Estimated blood loss (mL): 5 Urine output (mL): 0 Blood Pressure: 121/48 SaO2: 99 Pulse Rate: 84 Airway Patency: Patent Respiratory Rate: 19 Temperature: 97 F Patient is:: Drowsy and Oral/Nasal airway Stable to PACU at:: 07:55
[2023-08-11 07:47] VITALS: BP 126/57; PULSE 82; RESP 18; TEMP 36.1; O2SAT 94
--- NOTE | 2023-08-11 07:47 | EXP.ANES.II ---
[facility] Anesthesia Record Part II Anesthesia Record Part II Discharge Time: 08:25 Destination: Surgical Day Care (OP Surgery) PACU nurse assessment reviewed?: Yes Patient Condition:: Good Anesthesia Complications:: None Swallowing reflex intact?: Yes Airway Patency: Patent Cyanosis?: No Blood Pressure: 126/57 SaO2: 94 Respiratory Rate: 18 Pulse Rate: 82 Temperature: 97 F Mental Status: Alert & Oriented Pain level:: 0 Nausea and/or vomitting:: None Intake, IV Amount: 0 Hydration: Adequate
== END 2023-08-10 08:55 | disposition home or self-care (01) ==
PROVIDERS: PCP Internal Medicine Adolescent Medicine; Visit Provider Surgery
PROC: (CPT 36590; principal; 2023-08-10 07:30)
DX: Z45.2 Encounter for adjustment and management of vascular access device (principal); C83.30 Diffuse large B-cell lymphoma, unspecified site
CPT/HCPCS: 36590; 96374; J2405

== ENCOUNTER 2023-08-18 10:00 | Outpatient (RCR) | payer MEDICARE, SELFPAY ==
--- NOTE | 2023-07-11 11:58 | HMH.PTOPEV ---
PT Outpatient Evaluation Rehab PT Outpatient Evaluation Start: 07/11/23 07:48 Freq: Status: Active Protocol: Document 07/11/23 07:50 DAMARIS (Rec: 07/11/23 10:39 DAMARIS [email or web address]) E-signed By Cynthia López, PT Outpatient Therapy Subjective History Subjective History This is an initial evaluation for 77 y/o female who presents with a referral for back pain . 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 Pt reports on Jul 05 her MD said pt is cancer free after recieving chemo and radiation. Pt with hx of L1 compression fracture. Pt reports her bone marrow test was negative for spinal involvement in Jan. [facility] specialist decided surgery not appropriate. Pt with follow up in 3 months and new scans in 6 months. Currently not recieving any more chemo or radiation. Spinal symptoms began December of 2022. Pt with LBP that hurts all the time . Physical activity makes it worse. Pt also with L drop foot that began when she started chemo and toes are numb on both sides . Pt's goal for physical therapy , To improve daily activity without getting so sore Pt with chemotherapy port on the left. See recent office visit note for detailed PMH and hx of test results. 03/24 MRI Impression: 40% compression deformity of L1. Abnormal signal within the L1 and L2 vertebral bodies concerning for underlying metastases. Multilevel diffuse disc bulges. 06/28 Office visit: PET/CT scan performed at [facility] revealed essentially complete response in all areas hypermetabolism though there was a new compression fracture at L1. New diagnosis of cancer in past 12 Yes: Non-hodgkin's Lymphoma months? Chief Complaint Pain Symptom Type Ache,Sharp Symptoms Relieved By OTC Meds Current Functional Limitations Reaching,Lifting,Housework, Sleeping,Standing,Sitting, Squatting,Recreation Activity, Walking,Stairs,Bending/ Stooping Symptom Description Constant but Variable Level of pain today (0-10) 2 Pain scale - at its best (0-10) 2 Pain scale - at its worst (0-10) 10 Lumbopelvic Eval Posture Thoracic Spine Posture Standing Position Increased Kyphosis Lumbar Spine Posture Standing Position Flexed Assistive device Assistive Devices None / NA Gait Observation General Gait Pattern Observation Antalgic Gait Palapation tenderness bilateral lumbar spinal tenderness Yes paraspinal tenderness Yes Range of Motion Lumbar Spine Active Flexion Range of 60 Motion (degrees) Lumbar Spine Active Extension Range of 20 Motion (degrees) Left Lumbar Spine Lateral Flexion Active 25, discomfort Range of Motion (degrees) Right Lumbar Spine Lateral Flexion 25, painful Active Range of Motion (degrees) Lumbar Spine ROM Limitations Pain Manual Muscle Test Bilateral Knee Extension Strength Grade 4- Good- Knee Flexion Strength Grade 4- Good- Hip Flexion Strength Grade 3+ Fair+ Hip Abduction Strength Grade 4- Good- Hip Adduction Strength Grade 4- Good- Ankle Dorsiflexion Strength Grade 3+ Fair+ Altered Sensation LE Dermatome Level L3,L4,L5,S1 Comment Intact to light touch. Special Tests Sciatic Nerve Tension Test Positive Left Oswestry Index Section 1 Pain Intensity The pain comes and goes and is moderate Section 2 Personal Care (Washing,Dresing) my way of washing or dressing even though it causes some pain Section 3 Lifting lifting heavy weights off the floor, but I can manage light to medium Section 4 Walking I cannot walk at all without increasing pain Section 5 Sitting I can sit in any chair for as long as I like Section 6 Standing I cannot stand more than 1 hour without increasing pain Section 7 Sleeping Because of my pain, my normal night's sleep is less than 6 hours sleep Section 8 Social Life Pain has restricted my social life and I do not go out often Section 9 Traveling I get some pain when traveling , but none of my usual forms of travel m Section 10 Changing Degreee of Pain My pain is neither getting better or worse Score and Risk Level Oswestry Sc 23 Oswestry Risk Level Moderate Disability Outpatient Therapy Assessment Impairments Problems/Impairmments Impaired Range of Motion, Impaired Strength,Impaired Walking,Impaired Lifting, Impaired Household Care, Impaired Squatting,Impaired Bending,Impaired Recreational Activities,Subjective C/O Pain Prognosis Rehab Potential Good Comment Pt presents with LBP consistent with her diagnosis of lumbar compression fracture . Pt finds lumbar pain relief with neutral spine or lumbar extension. Pt demonstrates impaired BLE and core strength , decreased spinal ROM secondary to tightness and pain, poor lumbar and thoracic posture, some complaints of L foot drop and decreased sensation bilaterally. As of Febuary 21, pt with complete response in all areas hypermetabolism and pt reports she is cancer free. Pt with L1 compression fracture and would benefit from skilled outpatient PT to address impaired posture, educate on body mechanics, decrease pain, and improve ROM and strength. Clinical Impression Consistent with Diagnosis Yes Consistent with Back pain Short Term Goals Number of Weeks 3 Increase Range of Motion Yes: Increase by 5 deg all planes. Pain free Increase Strength Yes: 4/5 BLE Decrease Subjective C/O Pain Yes: 24 hour pain average of 2 /10 to demo low severity and irritability Patient to be Ind w/ HEP Yes Matrix Inspector Goals Number of Weeks 6 Decreased Palpation Tenderness Yes: 0/4 TTP affected areas Increase Range of Motion Yes: Lumbar AROM WNL and pain free Increase Strength Yes: 5/5 BLE and core strength Improve Oswestry Score Yes: Score reflecting Mild-no disability to improve QOL Patient to be Ind w/ Advanced HEP Yes Outpatient Therapy Plan of Care Treatment Plan May Include Therapeutic Exercise Including Home Yes Exercise Program Manual Therapy Techniques Yes Neuromuscular Re-education Yes Therapeutic Activities to Return to Yes Previous Functional/Work Level Gait Training Yes ADL/Self Care Education Yes Thermal Modalities Yes Electrical Stimulation No Ultrasound/Phonophoresis No Iontophoresis No Massage Yes Eval/Re-Eval Yes Aquatic Therapy Yes Frequency Times per week 1-2 Duration Number of Weeks 6-8 Addendums This patient is a candidate for social No or vocational rehab? Patient/Guardian verbally acknowledges Yes understanding of treatment program and consents to further treatment? Patient/Guardian verbally acknowledges Yes understanding of diagnosis, prognosis and goals for treatment? Eval Complexity PT Charges [id number] - High Complexity Shoulder/Elbow Eval Shoulder Objective Measurements Elbow Objective Measurements PHYSICIAN CERTIFICATION: I certify the specified therapy services for Mei Crain are required, authorized, and reviewed every 30 days.
--- NOTE | 2023-08-09 12:11 | HMH.RHREAS ---
Rehab Reassessment Rehab OP Re-assessment Start: 07/11/23 07:48 Freq: Status: Active Protocol: Document 08/09/23 09:34 DAMARIS (Rec: 08/09/23 10:19 DAMARIS [id number]) E-signed By Cynthia López, PT Rehab Re-assessment Subjective Subjective Pt reports she feels 75% better since initial evaluation. Pain at worst: 5/10 Pain at best: 0/10 24 hour pain average: 3/10 Pain today: 0/10 HEP Adherence: Yes Objective Objective Notes AROM: Lumbar Flexion: 67, nonpainful Lumbar Extension: 25, nonpainful Lumbar Side-bending (L): 25, WNL painful Lumbar Side-bending (R): 25, WNL painful MMT: B Hip flexion: 4/5 B Hip ABD: 4/5 B Hip ADD: 4/5 B Knee EXT: 4/5 B Knee FLEX: 4/5 B Ankle DF: 4/5 Oswestry: Pt unable to complete form today d/t not having glasses and significant FOND DU LAC. Assessment Progress Assessment Progressing as Expected Assessment Notes This is a reassessment for Mei Crain who presents to PT for c/o LBP d/t compression fracture. Since IE, pt has been seen for 7 visits which has consisted of Core and BLE therex, therapeutic activities , education, and pain management. Pt with good attendance to scheduled PT visits and reports good adherence to HEP. Since IE, pt with improvements in core stability, body mechanics, BLE strength, and Lumbar ROM. Pt still presents with some pain complaints when standing long periods and with side bending AROM. Pt with new personal goal to improve walking endurance so she can walk the hill to the [place] in [place] . Pt is making good progress to acheive her goals. Pt would continue to benefit from skilled PT to address deficits and acheive LTGs. Patient goals met ST/4 MET. 24 hour pain goal not met d/t pt lifting something causing increase in back pain. At worst pain decreased by 5 points. LTG: In progress. Revised Goals Added LTG: Pt will verbalize adherence to at home walking program. Plan Plan Continue POC to address LBP, ROM, and strength. Frequency of Therapy 1-2 times per week Duration of therapy 6-8 weeks Time and Billing Re-Eval Time 10 Re-Eval Billing Units 1 PHYSICIAN CERTIFICATION: I certify the specified therapy services for Mei Amos Breann are required, authorized, and reviewed every 30 days.
== END 2023-08-18 11:00 | disposition home or self-care (01) ==
LOC: PT 10:00
PROVIDERS: Visit Provider Internal Medicine Medical Oncology
DX: M54.50 Low back pain, unspecified (principal); C83.30 Diffuse large B-cell lymphoma, unspecified site
CPT/HCPCS: 97010; 97110; 97163; 97164; 97530; 97535

== ENCOUNTER 2023-09-06 10:52 | Outpatient (POV) | payer MEDICARE, SELFPAY ==
[2023-09-06 11:08] VITALS: BP 169/63; PULSE 72; RESP 18; TEMP 36.7; O2SAT 98; BMI 20.7
--- NOTE | 2023-09-06 11:59 | EXP.PAIN.OV ---
HPI Data of Consult Patient: new to practice Consult date: 09/06/23 Requesting Physician: France Ren APRN Primary Care Provider: Cristian Zhu MD Consult Narrative Reason for consult: Low back pain, peripheral neuropathy bilateral feet History of present illness: Ms. Crain is a 77 year old female who presents today as a new patient. She is a referral from Sharon Escalera's office. She rates her pain at a 5 out of 10. Patient states all of her pain is related to her low back as well as bilateral feet neuropathy. Patient does state that that the back pain has been going on more predominantly since around December or January. Patient states that she did not have a fall however was diagnosed with lymphoma and ended up having worsening pain with imaging to show a compression fracture. Patient does describe this as a constant stiff soreness that is worse with increased activity or ambulation. Patient states occasionally she will have a sharp shooting pain depending on what she is doing. Patient does states she gets improvement with laying down and that sitting is better than standing however standing really aggravates her pain symptoms. Patient states she cannot do activities of daily living such as sweeping or mopping due to the pain. Patient does state that she can manage with this pain however if there is something we could provide to help improve her overall pain she would like to do that. Patient states that she would like to be able to do things such as camping with her family in the future. Patient has tried Tylenol and ibuprofen along with heat and ice and topicals with minimal relief. Patient has done recent physical therapy and states it does help some. Patient states she is continue to do her at home exercising and stretching that was physical therapy guided. Patient is prescribed alprazolam from her primary care provider. Her [place] has been reviewed and is appropriate. CC: France Ren APRN [facility] Disclaimer: The information contained in this section may have been updated after the patient was seen, as this information can be updated by other users. Medical History Port-A-Cath in place Hearing Loss Impacted cerumen of left ear COVID-19 Fever Fever of unknown origin UTI (urinary tract infection) Dyspnea Difficulty in swallowing Pathologic lumbar vertebral fracture Pyelonephritis Lymphoma DLBCL (diffuse large B cell lymphoma) History of carotid artery stenosis FH: cholecystectomy H/O coronary angiogram Hypertension Hyperlipidemia Anxiety GERD (gastroesophageal reflux disease) Surgical History History of cholecystectomy Tubal ligation status History of right-sided carotid endarterectomy Family History Other Cancer Family history of hyperlipidemia Family history of hypertension Social History Smoking Status: Former smoker how long ago did patient quit smokin years ago second hand exposure: No alcohol intake: never substance use type: denies use current occupational status: other Travel in the last 8 weeks: None household members: spouse housing: house current occupational exposures/hazards: No caffeine: No Review of Systems Review of Systems Review of systems:: pertinent systems reviewed and negative unless documented below Review of systems (narrative): Review of Systems: General: No recent weight changes, no fever, no sleep disturbances Respiratory: No cough, no shortness of air, no recurring pulmonary infections Cardiovascular/peripheral vascular: No chest pain, no palpitations, no edema, no shortness of breath Gastrointestinal: No new onset incontinence, normal bowel movements reported Genitourinary: No new onset incontinence Musculoskeletal: Low back pain, radiating pain towards her abdomen Psychiatric: [Normal mood/affect] Neurological: [Denies weakness in extremities], [denies balance issues] Meds Home Medications and Allergies Home Medications Medication Instructions Recorded Confirmed Type alprazolam 0.5 mg tablet 0.5 mg PO Q6HP PRN Anxiety 30 days 12/01/17 08/30/23 History ##120 aspirin 81 mg tablet,delayed 81 mg PO DAILY Heart Health 12/23/17 08/30/23 History release rosuvastatin 5 mg tablet 5 mg PO HS Cholesterol 05/29/18 08/30/23 History famotidine 20 mg tablet 20 mg PO BID Acid Reflux 07/29/21 08/30/23 History amlodipine 5 mg tablet 5 mg PO DAILY High Blood Pressure 12/30/22 08/30/23 History lisinopril 20 mg tablet 20 mg PO BID High Blood Pressure 03/21/23 08/30/23 History carvedilol 12.5 mg tablet 6.25 mg PO AM High Blood Pressure 05/07/23 08/30/23 History sennosides 8.6 mg-docusate sodium 1 tab PO DAILYP PRN Constipation 05/07/23 08/30/23 History 50 mg tablet New Prescriptions to Start Prescriptions: Allergies Allergy/AdvReac Type Severity Reaction Status Date / Time esomeprazole [From Nexium] Allergy Intermediate Hives Verified 08/30/23 09:15 erythromycin base Allergy Mild Redness of Verified 08/30/23 09:15 Skin amoxicillin [From Augmentin] AdvReac Intermediate Nausea Verified 08/30/23 09:15 clavulanic acid AdvReac Intermediate Nausea Verified 08/30/23 09:15 [From Augmentin] doxycycline AdvReac Intermediate Nausea Verified 08/30/23 09:15 Sulfa (Sulfonamide AdvReac Intermediate Nausea Verified 08/30/23 09:15 Antibiotics) dexlansoprazole AdvReac flu Verified 08/30/23 09:15 [From Dexilant] symptoms pantoprazole [From Protonix] AdvReac Verified 08/30/23 09:15 Objective Vital signs: Temp Pulse Resp BP Pulse Ox O2 Del Method 98.0 F 72 18 169/63 H 98 Room Air 09/06/23 11:08 09/06/23 11:08 09/06/23 11:08 09/06/23 11:08 09/06/23 11:08 09/06/23 11:08 Narrative: Physical Exam: General: Alert and oriented x3, no acute distress, pleasant and cooperative Lungs: Respirations even and unlabored, symmetrical chest expansion Eyes: PERRL Musculoskeletal: Flexion and extension of lumbar [spine] somewhat guarded secondary to pain, [antalgic gait noted] Neurological: Speech clear, no gross sensory deficit Additional findings Additional findings: FINDINGS: Multiplanar MR imaging of the lumbar spine was performed without contrast. On the sagittal T2-weighted images, there is abnormal decreased signal throughout the lumbar discs. There is a 40% compression deformity of L1. There is abnormal signal within the L1 and L2 vertebral bodies. The abnormal signal within the L2 vertebral body extends into the left L2 pedicle. The vertebral alignment is normal. L1-2: Mild diffuse disc bulge is present with mild bilateral neural foraminal narrowing. L2-3: Moderate diffuse disc bulge is present with moderate bilateral neural foraminal narrowing. L3-4: Moderate diffuse disc bulge is present with moderate bilateral neural foraminal narrowing. L4-5: Mild diffuse disc bulge is present with mild bilateral neural foraminal narrowing. L5-S1: Moderate diffuse disc bulge is present. There is moderate right and moderate to high-grade left neural foraminal narrowing. IMPRESSION: 40% compression deformity of L1. Abnormal signal within the L1 and L2 vertebral bodies concerning for underlying metastases. Multilevel diffuse disc bulges. Correlation with pre and post infusion images may be of value. Reviewed, Interpreted and Dictated by Ramses Murphy MD Transcribed by Palak Butler Authenticated and [facility] Assessment and Plan *Assessment and plan (1) Degenerative disc disease, lumbar: Status: Acute Category: Medical Code(s): M51.36 - Other intervertebral disc degeneration, lumbar region (2) Lumbar radiculopathy: Status: Acute Category: Medical Code(s): M54.16 - Radiculopathy, lumbar region (3) Lumbar spinal stenosis: Status: Acute Qualifiers: Neurogenic claudication status: with neurogenic claudication Qualified Code(s): M48.062 - Spinal stenosis, lumbar region with neurogenic claudication Category: Medical Code(s): M48.061 - Spinal stenosis, lumbar region without neurogenic claudication (4) Lumbar compression fracture: Status: Acute Qualifiers: Lumbar vertebra fracture level: L1 Fracture healing: with routine healing Encounter type: subsequent encounter Qualified Code(s): S32.010D - Wedge compression fracture of first lumbar vertebra, subsequent encounter for fracture with routine healing Category: Medical Code(s): S32.000A - Wedge compression fracture of unspecified lumbar vertebra, initial encounter for closed fracture Plan Patient is experiencing significant pain in her low back with radiating symptoms into and around her abdomen. Patient did have a 40% height loss at the L1 compression site. I have discussed with patient that she may benefit from lumbar epidural steroid injection. Risk and benefits were discussed with the patient and she would like to proceed forward with this plan of care. Patient is not on any blood thinners. Patient has tried and failed conservative therapy. We will schedule the patient for a LESI L1-L2 under fluoroscopy. Patient has been instructed to contact the clinic with any concerns before the next appointment. Dr. Quinones has reviewed this note and agrees with this plan of care. This note was dictated using voice recognition software and make contain errors or omissions.
== END 2023-09-06 23:59 | disposition home or self-care (01) ==
LOC: SC.PAIN 10:52
PROVIDERS: PCP Internal Medicine Adolescent Medicine; Visit Provider Nurse Practitioner Family
DX: M48.062 Spinal stenosis, lumbar region with neurogenic claudication; S32.010D Wedge compression fracture of first lumbar vertebra, subsequent encounter for fracture with routine healing; M51.16 Intervertebral disc disorders with radiculopathy, lumbar region
CPT/HCPCS: 99202; G0463

== ENCOUNTER 2023-09-26 09:42 | Day surgery (SDC) | payer MEDICARE, SELFPAY ==
[2023-09-26 10:00] VITALS: BP 149/69; PULSE 80; RESP 18; TEMP 36.3; O2SAT 98; BMI 21.9
[2023-09-26] MEDS: methylPREDNISolone ACETATE 80MG/ML VIAL 80 MG (10:08)
[2023-09-26 10:09] VITALS: PULSE 72; RESP 16; O2SAT 97
[2023-09-26 10:10] VITALS: PULSE 72; RESP 16; O2SAT 97
[2023-09-26 10:13] VITALS: BP 129/57; PULSE 71; RESP 18; O2SAT 97
--- NOTE | 2023-09-26 10:13 | EXP.PAIN.PRO ---
Procedure Date: 09/26/23 Time: 10:00 Anesthesiologist:: John Villalta CRNA Complications:: None Pre-procedure Diagnosis:: Degenerative disc lumbar spine levels. Lumbar radiculopathy. Lumbar spondylosis. Multilevel lumbar facet arthropathy. Post-procedure Diagnosis:: Same. Indications for Procedure:: Patient is a very pleasant 77-year-old female comes our clinic today for repeat lumbar epidural steroid injection at the L1-2 level. Patient has responded very well to this injection in the past. She reports low back pain as well as thoracolumbar level pain. She rates pain 7/10. She describes pain as constant, dull, aching. Pain intensifies with ambulation. Pain improves while sitting. Procedure Details:: Procedure: Lumbar epidural steroid injection under fluoroscopy Informed consent was obtained and the risks and benefits of the procedure were explained to the patient. The patient was taken to the procedure room and noninvasive monitors placed, including noninvasive blood pressure cuff and pulse oximeter. The back was viewed using C-arm Fluoroscopy and prepped using Chloraprep as a cleansing solution and the L1 to interspace was palpated. Skin and subcutaneous tissues were anesthetized using lidocaine 1.5% and a 25-gauge needle. After this, an 18-gauge Touhy epidural needle was placed into the L1 to interspace and advanced using fluoroscopic guidance and loss of resistance to air until the epidural space was encountered. After confirmation of needle placement in the epidural space, with dye, a solution containing normal saline, 3 mL and Depo-Medrol 80 mg were incrementally injected into the lumbar epidural space. The patient tolerated the procedure well with no complications. The patient was observed in the Pain Clinic and then discharged home neurologically intact. Plan and Disposition:: Patient was discharged without incident.
== END 2023-09-26 10:14 | disposition home or self-care (01) ==
PROVIDERS: PCP Internal Medicine Adolescent Medicine; Visit Provider Nurse Anesthetist, Certified Registered
DX: M51.16 Intervertebral disc disorders with radiculopathy, lumbar region (principal); M47.26 Other spondylosis with radiculopathy, lumbar region
CPT/HCPCS: 62323; J1010

== ENCOUNTER 2023-10-03 10:03 | Outpatient (CLI) | payer MEDICARE, SELFPAY ==
[2023-10-03 10:15] VITALS: BMI 20.7
[2023-10-03 10:28] LABS: Chloride 101 mmol/L (98-107); Sodium 137 mmol/L (136-145)
[2023-10-03 10:29] LABS: Potassium 4.2 mmoL/L (3.5-5.1)
[2023-10-03 10:31] LABS: Alanine Aminotransferase 31 U/L (12-78); Alkaline Phosphatase 88 U/L (38-126); Aspartate Amino Transferase 31 U/L (14-36); Bilirubin,Total 0.3 mg/dl (0.2-1.3); Blood Urea Nitrogen 31 mg/dl (7-17); Creatinine Clearance Estimated 40 mL/min (50-200); Estimated Glomerular Filt Rate 69 ml/min (>60); GFR (African American) 84 ML/MIN (>60)
[2023-10-03 10:32] LABS: Albumin/Globulin Ratio 1.6 (1.1-1.8); Anion Gap 14.2 mEq/L (5-15); Calcium 10.1 mg/dl (8.4-10.2); Carbon Dioxide 26 mmol/L (22.0-30.0); Globulin 3.2 g/dL (1.3-3.2); Glucose 93 mg/dl (74-100); Total Protein,Serum 8.2 g/dl (6.3-8.2)
[2023-10-03 10:36] LABS: Basophils # 0.1 K/mm3 (0-0.2); Basophils % 0.7 % (0.1-2.0); Eosinophils # 0.3 K/mm3 (0.0-0.4); Eosinophils % 3.7 % (0.1-12.0); Hematocrit 38.4 % (37.0-47.0); Hemoglobin 12.2 g/dL (12.2-16.2); Lymphocytes # 0.9 K/mm3 (0.7-4.5); Lymphocytes % 12.3 % (10-50); Mean Corpuscular HGB Conc 31.8 g/dL (31.8-35.4); Mean Corpuscular Hemoglobin 30.5 pg (27.0-31.2); Mean Corpuscular Volume 95.9 fl (81-99); Mean Platelet Volume 7.2 fl (7.4-10.4); Monocytes # 0.7 K/mm3 (0.1-1.0); Monocytes % 9.5 % (1.7-9.3); Neutrophils # 5.4 K/mm3 (1.8-7.8); Neutrophils % 73.7 % (37.0-80.0); Platelet Count 305 K/mm3 (142-424); Red Cell Distribution Width 14.1 % (11.5-17.5); White Blood Count 7.3 K/mm3 (4.8-10.8)
[2023-10-03 15:24] LABS: Lactate Dehydrogenase 153 U/L (313-618)
== END 2023-10-03 10:15 | disposition home or self-care (01) ==
LOC: INF 10:04
PROVIDERS: PCP Internal Medicine Adolescent Medicine; Visit Provider Internal Medicine Medical Oncology
DX: C83.30 Diffuse large B-cell lymphoma, unspecified site (principal)
CPT/HCPCS: 36415; 80053; 83615; 85025

== ENCOUNTER 2023-10-11 14:05 | Outpatient (POV) | payer MEDICARE, SELFPAY ==
--- NOTE | 2023-10-11 15:00 | A.OFFVIS_ITS ---
[facility] Pain Management SOAP Note Subjective:: Patient is a pleasant 77-year-old female who presents today for follow-up of lumbar epidural steroid injection L1-L2 on 09/26/2023. Patient rates her pain today a 2 out of 10. She states that she has had at least 50% improvement following this injection and feels like it still helping. Patient does state that the pain is still there but it is not as severe or is constant. Patient states she has been able to increase her activity with overall decreased pain and feels more functional. Patient did have elevated blood pressure at today's visit and states that the PCP is aware and at this time is not wanting to prescribe her any medications for this due to her diastolic number being too low. Patient states that she was given a Xanax prescriptions to help with her nerves in the hopes that this would lower her blood pressure. Patient also states that she did get new hearing aids and that she does have a lot of soreness in her ears related to this and getting used to it and believes that might of aggravated her blood pressure as well. Her Kenroy has been reviewed and is appropriate. Review of Systems: General: No recent weight changes, no fever, no sleep disturbances Respiratory: No cough, no shortness of air, no recurring pulmonary infections Cardiovascular/peripheral vascular: No chest pain, no palpitations, no edema, no shortness of breath Gastrointestinal: No new onset incontinence, normal bowel movements reported Genitourinary: No new onset incontinence Musculoskeletal: Low back pain Psychiatric: [Normal mood/affect] Neurological: [Denies weakness in extremities], [denies balance issues] Objective:: Physical Exam: General: Alert and oriented x3, no acute distress, pleasant and cooperative Lungs: Respirations even and unlabored, symmetrical chest expansion Eyes: PERRL Musculoskeletal: Flexion and extension of lumbar [spine] somewhat guarded secondary to pain, [antalgic gait noted] Neurological: Speech clear, no gross sensory deficit Assessment:: Degenerative disc disease of lumbar spine with lumbar radiculopathy symptoms Plan:: Patient has had significant improvement following her lumbar epidural and does not require any additional injection therapy at this time. Patient will return to clinic in 1 month for reevaluation of symptoms and plan of care. Patient has been instructed to contact the clinic with any concerns before the next appointment. Dr. Quinones has reviewed this note and agrees with this plan of care. This note was dictated using voice recognition software and make contain errors or omissions. [facility] Disclaimer: The information contained in this section may have been updated after the patient was seen, as this information can be updated by other users. Medical History Port-A-Cath in place Hearing Loss Impacted cerumen of left ear COVID-19 Fever Fever of unknown origin UTI (urinary tract infection) Dyspnea Difficulty in swallowing Pathologic lumbar vertebral fracture Pyelonephritis Lymphoma DLBCL (diffuse large B cell lymphoma) History of carotid artery stenosis FH: cholecystectomy H/O coronary angiogram Hypertension Hyperlipidemia Anxiety GERD (gastroesophageal reflux disease) Surgical History History of cholecystectomy Tubal ligation status History of right-sided carotid endarterectomy Family History Other Cancer Family history of hyperlipidemia Family history of hypertension Social History Smoking Status: Former smoker how long ago did patient quit smokin years ago second hand exposure: No alcohol intake: never substance use type: denies use current occupational status: other Travel in the last 8 weeks: None household members: spouse housing: house current occupational exposures/hazards: No caffeine: No
[2023-10-11 15:05] VITALS: BP 170/46; PULSE 73; RESP 18; O2SAT 96; BMI 21.8
== END 2023-10-11 23:59 | disposition home or self-care (01) ==
LOC: SC.PAIN 14:05
PROVIDERS: PCP Internal Medicine Adolescent Medicine; Visit Provider Nurse Practitioner Family
DX: M51.16 Intervertebral disc disorders with radiculopathy, lumbar region (principal)
CPT/HCPCS: 99212; G0463

== ENCOUNTER 2023-11-21 07:36 | Outpatient (CLI) | payer MEDICARE, SELFPAY ==
--- NOTE | 2023-11-21 07:39 | MM_ITS ---
PROCEDURE INFORMATION: Exam: MG Bilateral Screening 3D Mammography Exam date and time: 11/21/2023 7:48 AM Age: 78 years old Clinical indication: Screening mammogram TECHNIQUE: Imaging protocol: Bilateral Screening tomosynthesis and 2D mammography including computer-aided detection (CAD) when performed. COMPARISON: 1. MG MM DIG SCREENING MAMM BI W/CAD 05/24/2022 1:07 PM 2. MG MM DIG SCREENING MAMM BI W/CAD 05/19/2021 10:38 AM 3. MG SCBI MM Dig screening mamm BI w/CAD 07/26/2018 8:56 AM 4. MG SCBI MM Dig screening mamm BI w/CAD 07/05/2017 9:26 AM FINDINGS: MAMMOGRAPHY: Breast composition: There are scattered areas of fibroglandular density. Mass: None. Architectural distortion: No new or suspicious architectural distortion. Calcifications: No new or suspicious calcifications are present Asymmetric density: No new or suspicious asymmetric density is present Skin thickening: None. Axillary adenopathy: None. IMPRESSION: No mammographic evidence of malignancy. Recommend annual screening mammography unless otherwise clinically indicated. ASSESSMENT: BI-RADS category 1: Negative.
== END 2023-11-21 23:59 | disposition home or self-care (01) ==
LOC: RAD 07:38
PROVIDERS: PCP Nurse Practitioner Family; Visit Provider Nurse Practitioner Family
DX: Z12.31 Encounter for screening mammogram for malignant neoplasm of breast (principal)
CPT/HCPCS: 77063; 77067

== ENCOUNTER 2023-12-11 08:33 | Outpatient (POV) | payer MEDICARE, SELFPAY ==
--- NOTE | 2023-12-11 09:06 | A.OFFVIS_ITS ---
[facility] Disclaimer: The information contained in this section may have been updated after the patient was seen, as this information can be updated by other users. Medical History Port-A-Cath in place Hearing Loss Impacted cerumen of left ear COVID-19 Fever Fever of unknown origin UTI (urinary tract infection) Dyspnea Difficulty in swallowing Pathologic lumbar vertebral fracture Pyelonephritis Lymphoma DLBCL (diffuse large B cell lymphoma) History of carotid artery stenosis FH: cholecystectomy H/O coronary angiogram Hypertension Hyperlipidemia Anxiety GERD (gastroesophageal reflux disease) Surgical History History of cholecystectomy Tubal ligation status History of right-sided carotid endarterectomy Family History Other Cancer Family history of hyperlipidemia Family history of hypertension Social History Smoking Status: Former smoker how long ago did patient quit smokin years ago second hand exposure: No alcohol intake: never substance use type: denies use current occupational status: retired Travel in the last 8 weeks: None household members: spouse housing: house current occupational exposures/hazards: No caffeine: No PM Subjective & Objective Subjective Subjective:: Patient is a pleasant 78-year-old female who presents tonight for 1 month follow-up. Today she rates her pain a 2 out of 10. She denies any new trauma or injury. Patient did have a lumbar epidural of L1-L2 on 09/26/2023 I did provide more than 50% relief and seems to still be helping. Her Kenroy has been reviewed and is appropriate. Review of Systems: General: No recent weight changes, no fever, no sleep disturbances Respiratory: No cough, no shortness of air, no recurring pulmonary infections Cardiovascular/peripheral vascular: No chest pain, no palpitations, no edema, no shortness of breath Gastrointestinal: No new onset incontinence, normal bowel movements reported Genitourinary: No new onset incontinence Musculoskeletal: Low back pain Psychiatric: [Normal mood/affect] Neurological: [Denies weakness in extremities], [denies balance issues] Pain at rest (0-10 scale): 2 Objective Objective:: Physical Exam: General: Alert and oriented x3, no acute distress, pleasant and cooperative Lungs: Respirations even and unlabored, symmetrical chest expansion Eyes: PERRL Musculoskeletal: Flexion and extension of lumbar [spine] somewhat guarded secondary to pain, [antalgic gait noted] Neurological: Speech clear, no gross sensory deficit Has patient had previous pain injection?: No Conservative treatment options previously tried: Home exercise plan Length of treatment: Longer than 6 weeks Meds Home Medications and Allergies Home Medications ?Medication ?Instructions ?Recorded ?Confirmed ?Type alprazolam 0.5 mg tablet 0.5 mg PO Q6HP PRN Anxiety 30 days 12/01/17 10/11/23 History ##120 aspirin 81 mg tablet,delayed 81 mg PO DAILY Heart Health 12/23/17 10/11/23 History release rosuvastatin 5 mg tablet 5 mg PO HS Cholesterol 05/29/18 10/11/23 History famotidine 20 mg tablet 20 mg PO BID Acid Reflux 07/29/21 10/11/23 History amlodipine 5 mg tablet 5 mg PO DAILY High Blood Pressure 12/30/22 10/11/23 History lisinopril 20 mg tablet 20 mg PO BID High Blood Pressure 03/21/23 10/11/23 History carvedilol 12.5 mg tablet 6.25 mg PO AM High Blood Pressure 05/07/23 10/11/23 History sennosides 8.6 mg-docusate sodium 1 tab PO DAILYP PRN Constipation 05/07/23 10/11/23 History 50 mg tablet New Prescriptions to Start Prescriptions: Allergies Allergy/AdvReac Type Severity Reaction Status Date / Time esomeprazole [From Nexium] Allergy Intermediate Hives Verified 10/03/23 10:25 erythromycin base Allergy Mild Redness of Verified 10/03/23 10:25 Skin amoxicillin [From Augmentin] AdvReac Intermediate Nausea Verified 10/03/23 10:25 clavulanic acid AdvReac Intermediate Nausea Verified 10/03/23 10:25 [From Augmentin] doxycycline AdvReac Intermediate Nausea Verified 10/03/23 10:25 Sulfa (Sulfonamide AdvReac Intermediate Nausea Verified 10/03/23 10:25 Antibiotics) dexlansoprazole AdvReac flu Verified 10/03/23 10:25 [From Dexilant] symptoms pantoprazole [From Protonix] AdvReac Verified 10/03/23 10:25 Assessment and Plan *Assessment and plan (1) Lumbar radiculopathy: Status: Acute Category: Medical Code(s): M54.16 - Radiculopathy, lumbar region (2) Degenerative disc disease, lumbar: Status: Acute Category: Medical Code(s): M51.36 - Other intervertebral disc degeneration, lumbar region Plan Patient continues to do well and does not require any additional injection therapy at this time. Patient will be ordered a compounded cream and return to clinic in 3 months for reevaluation of symptoms and plan of care. Patient has been instructed to contact the clinic with any concerns before the next appointment. Dr. Quinones has reviewed this note and agrees with this plan of care. This note was dictated using voice recognition software and make contain errors or omissions. All injections are used with Lidocaine or Bupivacaine and Depo Medrol.
[2023-12-11 11:30] VITALS: BP 132/50; PULSE 73; RESP 18; O2SAT 97; BMI 22.3
== END 2023-12-11 23:59 | disposition home or self-care (01) ==
LOC: SC.PAIN 08:34
PROVIDERS: PCP Internal Medicine Adolescent Medicine; Visit Provider Nurse Practitioner Family
DX: M54.16 Radiculopathy, lumbar region (principal); M51.36 Other intervertebral disc degeneration, lumbar region
CPT/HCPCS: 99212; G0463

== ENCOUNTER 2023-12-11 09:13 | Outpatient (CLI) | payer MEDICARE, SELFPAY ==
--- NOTE | 2023-12-11 09:18 | XR_ITS ---
FINAL REPORT TECHNIQUE: Bone mineral density was calculated of the lumbar spine and hip. CLINICAL HISTORY: SCREENING COMPARISON: None FINDINGS: Using L1-4, the bone mineral density of the spine is 1.091 g/cm2, corresponding to T-score of 0.4. Using the left hip, the bone mineral density of the femoral neck is 0.591 g/cm2, corresponding to a T-score of -2.3. NOTE: T-score: Standard deviation compared with peak bone mass of young adult mean. *Following the recommendations of the International Society of Bone densitometry, classification of hip BMD is based on the lower of two T-scores; total hip or femoral neck. IMPRESSION: Diminished bone mineral density of the left hip consistent with low bone density. Normal bone mineral density of the lumbar spine, however this may be falsely elevated secondary to bony sclerosis. Reviewed, Interpreted and Dictated by Elkin Sharp III, MD Transcribed by Radha Jovel Authenticated and [facility]
== END 2023-12-11 23:59 | disposition home or self-care (01) ==
LOC: RAD 09:14
PROVIDERS: PCP Nurse Practitioner Family; Visit Provider Nurse Practitioner Family
DX: M81.0 Age-related osteoporosis without current pathological fracture (principal); M54.16 Radiculopathy, lumbar region; M51.36 Other intervertebral disc degeneration, lumbar region
CPT/HCPCS: 77080; 99212; G0463

== ENCOUNTER 2023-12-20 07:58 | Outpatient (CLI) | payer MEDICARE, SELFPAY ==
[2023-12-20 08:08] VITALS: BMI 20.5
--- NOTE | 2023-12-20 08:22 | CT_ITS ---
FINAL REPORT CLINICAL HISTORY: LYMPHOMA COMPARISON: 12/31/2022 FINDINGS: Axial CT images of the chest were obtained with contrast. Coronal and sagittal reformatted images were also obtained. This study was performed with techniques to keep radiation doses as low as reasonably achievable, (ALARA). Individualized dose reduction techniques using automated exposure control or adjustment of mA and/or KV according to the patient's size were employed. There is no evidence of mediastinal or hilar mass or adenopathy. No axillary mass or adenopathy is identified. On lung window images, no pulmonary mass or dominant pulmonary nodule is identified. No localized pulmonary inflammatory process is identified. Mild changes of emphysema are present. There is mild atelectasis versus scarring noted in the lung bases. Limited images of the upper abdomen reveal no mass or localized inflammatory process. IMPRESSION: No mass or localized inflammatory process. Mild changes of emphysema with mild atelectasis and scarring in the lung bases. Reviewed, Interpreted and Dictated by Elkin Sharp III, MD Transcribed by Radha Jovel Authenticated and . [facility]
--- NOTE | 2023-12-20 08:23 | CT_ITS ---
FINAL REPORT CLINICAL HISTORY: LYMPHOMA COMPARISON: 03/11/2023 FINDINGS: CT OF THE ABDOMEN AND PELVIS WITH CONTRAST Axial CT images of the abdomen and pelvis were obtained after the administration of oral and iv contrast. Coronal and sagittal reformatted images were also obtained and reviewed.This study was performed with techniques to keep radiation doses as low as reasonably achievable (ALARA). Individualized dose reduction techniques using automated exposure control or adjustment of mA and/or kV according to the patient's size were employed. Abdomen: The lung bases are clear. The heart is normal in size. The liver has an unremarkable appearance, without evidence of mass or biliary ductal dilatation. The gallbladder has been surgically resected. There is mild biliary ductal dilatation, nonspecific. The spleen is unremarkable. No adrenal mass is present. The pancreas contains multiple small calcifications, that may be secondary to chronic pancreatitis. The kidneys are normal, without evidence of mass or hydronephrosis. Multiple small renal cysts are present. The aorta is normal in caliber. There was previously upper para-aortic soft tissue that measured 24 mm in size, and on today's examination this soft tissue mass measures 13 mm in size. Other enlarged retroperitoneal nodes are significantly improved as well. Diffuse vascular calcifications are present. No mass or abnormal fluid collection is seen. Pelvis: The appendix is not well-visualized. The urinary bladder is unremarkable. No inflammatory process is seen. There is no evidence of mass or adenopathy. There is no evidence of bowel obstruction. Diverticulosis of the sigmoid and descending colon is present without acute inflammatory change. IMPRESSION: Significant improvement in retroperitoneal adenopathy is identified in this patient with lymphoma. No new foci of adenopathy are present. Reviewed, Interpreted and Dictated by Elkin Sharp III, MD Transcribed by Radha Jovel Authenticated and [facility]
[2023-12-20 08:28] LABS: Eosinophils # 0.3 K/mm3 (0.0-0.4); Eosinophils % 5.8 % (0.1-12.0); Hematocrit 40.4 % (37.0-47.0); Hemoglobin 12.8 g/dL (12.2-16.2); Lymphocytes # 0.6 K/mm3 (0.7-4.5); Lymphocytes % 13.4 % (10-50); Mean Corpuscular HGB Conc 31.6 g/dL (31.8-35.4); Mean Corpuscular Hemoglobin 30.7 pg (27.0-31.2); Mean Corpuscular Volume 97.2 fl (81-99); Mean Platelet Volume 8.1 fl (7.4-10.4); Monocytes # 0.4 K/mm3 (0.1-1.0); Monocytes % 8.8 % (1.7-9.3); Neutrophils # 3.1 K/mm3 (1.8-7.8); Neutrophils % 71.1 % (37.0-80.0); Platelet Count 276 K/mm3 (142-424); Red Blood Count 4.15 M/mm3 (4.20-5.40); Red Cell Distribution Width 14.5 % (11.5-17.5); White Blood Count 4.4 K/mm3 (4.8-10.8)
[2023-12-20 08:41] LABS: Alanine Aminotransferase 33 U/L (12-78); Albumin Level 4.8 g/dl (3.5-5.0); Albumin/Globulin Ratio 1.3 (1.1-1.8); Alkaline Phosphatase 91 U/L (38-126); Anion Gap 12.3 mEq/L (5-15); Aspartate Amino Transferase 42 U/L (14-36); Bilirubin,Total 0.5 mg/dl (0.2-1.3); Blood Urea Nitrogen 17 mg/dl (7-17); Calcium 10.1 mg/dl (8.4-10.2); Carbon Dioxide 28 mmol/L (22.0-30.0); Chloride 103 mmol/L (98-107); Chol/HDL Ratio 4.1 (1-3.5); Cholesterol 162 mg/dl (140-200); Creatinine Clearance Estimated 39 mL/min (50-200); Estimated Glomerular Filt Rate 69 ml/min (>60); GFR (African American) 84 ML/MIN (>60); Globulin 3.6 g/dL (1.3-3.2); Glucose 100 mg/dl (74-100); HDL Cholesterol 40 mg/dl (40-60); Potassium 4.3 mmoL/L (3.5-5.1); Sodium 139 mmol/L (136-145); Total Protein,Serum 8.4 g/dl (6.3-8.2); Triglycerides 251 mg/dl (30-150); Uric Acid 6.3 mg/dl (2.5-6.2); VLDL Cholesterol 50 mg/dL (0-40)
[2023-12-20] MEDS: IOPAMIDOL-370 (76%);100ML BOTTLE 75 ML IV (08:47)
[2023-12-20] MEDS: SODIUM CHLORIDE 0.9% 10ML SYR (RAD ONLY) 10 ML IV (08:47)
[2023-12-20] MEDS: BARIUM SULFATE(READI-CAT2);450ML BOTTLE 450 ML PO (08:47)
[2023-12-20 08:51] LABS: C-Reactive Protein 1.5 mg/L (0-4); Direct LDL Cholesterol 74.63 mg/dL (100-129)
[2023-12-20 09:55] LABS: Erythrocyte Sedimentation Rate 22 mm/hr (0-30)
[2023-12-20 15:18] LABS: Lactate Dehydrogenase 198 U/L (313-618)
== END 2023-12-20 08:15 | disposition home or self-care (01) ==
LOC: INF 07:59
PROVIDERS: PCP Nurse Practitioner Family; Visit Provider Internal Medicine Medical Oncology
DX: I10 Essential (primary) hypertension (principal); C83.30 Diffuse large B-cell lymphoma, unspecified site; Z51.12 Encounter for antineoplastic immunotherapy
CPT/HCPCS: 36415; 71260; 74177; 80053; 80061; 83615; 84550; 85025; 85651; 86140; Q9967

== ENCOUNTER 2024-01-16 11:36 | Outpatient (POV) | payer MEDICARE, SELFPAY | END 2024-01-16 23:59 | disposition home or self-care (01) | LOC: SC 11:37 | PROVIDERS: PCP Nurse Practitioner Family; Visit Provider Dermatology | DX: Z00.00 Encounter for general adult medical examination without abnormal findings (principal) ==

== ENCOUNTER 2024-03-14 10:00 | Outpatient (RCR) | payer MEDICARE, SELFPAY ==
--- NOTE | 2024-03-01 10:54 | HMH.PTOPEV ---
PT Outpatient Evaluation Rehab PT Outpatient Evaluation Start: 03/01/24 07:51 Freq: Status: Active Protocol: Document 03/01/24 10:11 REYNA (Rec: 03/01/24 10:54 PHORCHARITY [id number]) E-signed By Paco Farrell, PT Outpatient Therapy Subjective History Subjective History This is the initial eval for Mei Crain. Pt is a 78 yo female who presents to the clinic today w/ c/o R side neck pain that originated last week on (Feb 21). Pt describes the pain to be on the R side that spans across the upper trap attachments, along with some pain in the scalenes. Pt states she had cataract surgery on both Feb 11 and . During this time , pt states she favored her head positioning during squatting and bending tasks and reports this may have contributed to the pain the R neck. Pt describes her symptoms as aching and reports spasms occurring early on but have since resolved. Pt states she has been prescribed muscle relaxers, along with taking Tylenol and ibuprofen to decrease the pain . She reports she had difficulty sleeping for the first couple days after the pain was brought on, but has been able to sleep better recently. Pt states she has numbness occur in both hands and feet but more so in the L hand than R. Pt states she has been using a TENS unit to decrease the pain during her household task/chores. New diagnosis of cancer in past 12 Yes months? Chief Complaint Pain,Spasms Symptom Type Ache Symptoms Relieved By OTC Meds,Prescription Meds Symptoms Aggravated By Physical Activity,Lifting Prior Functional Limitations None Current Functional Limitations Housework Symptom Description Constant but Variable Level of pain today (0-10) 5 Pain scale - at its worst (0-10) 8 Cervical Eval Palpation Cervical Muscles R Cervical Paraspinal,R CT Junction,R Upper Trapezius Cervical/Thoracic Palpation Findings Tenderness Posture Head/C-Spine Posture Sitting Position Neutral Position Head/C-Spine Posture Standing Position Neutral Position AROM Cervical Spine Extension Active Range of 30 Motion (degrees) Cervical Spine Flexion Active Range of 35 Motion (degrees) Cervical Spine Right Lateral Flexion 35 Active Range of Motion (degrees) Cervical Spine Left Lateral Flexion 35 Active Range of Motion (degrees) Cervical Spine Right Rotation Active 35 Range of Motion (degrees) Cervical Spine Left Rotation Active 40 Range of Motion (degrees) MMT Bilateral Deltoid (C5) 5 Normal Altered Sensation Left Upper extremity Dermatomes C8 Comment All tested: C8 altered sensation Right Comment All tested: intact Neck Disability Index Neck Disability Index Section 1: Pain Intensity The pain is moderate at the moment Section 2: Personal Care (washing, I can look after myself dressing, etc.) normally but it causes extra pain Section 3: Lifting I can lift heavy weights without extra pain Section 4: Reading I can read as much as I want with moderate pain in my neck Section 5: Headaches I have no headaches at all Section 6: Concentration I can concentrate fully when I want to with no difficulty Section 7: Work I can only do my usual work, but no more Section 8: Driving I can drive my car as long as I want with moderate pain in my neck Section 9: Sleeping My sleep is midly disturbed (1 -2 hrs sleepless) Section 10: Recreation I am able to engage in all my recreation activities with some pain in NDI Score 11 Outpatient Therapy Assessment Impairments Problems/Impairmments Palpation Tenderness,Impaired Range of Motion,Impaired Household Care,Impaired Recreational Activities, Subjective C/O Pain,Impaired Self Care/Self Management Prognosis Rehab Potential Good Comment Pt is a good candidate for PT services and has a good prognosis for therapy. Clinical Impression Consistent with Diagnosis Yes Consistent with Neck pain w/ mobility deficits Short Term Goals Number of Weeks 2 Decreased Palpation Tenderness Yes: decrease palpation tenderness from 2/4 to 1/4 in each area Increase Range of Motion Yes: increase cervical ROM by 5 degrees in all directions Improve Ability For Household Care Yes: no greater than 3/10 pain Improve Neck Disability Index Score Yes: Decrease NDI from 11 to 7 Decrease Subjective C/O Pain Yes: from 8/10 at worst to 5/ 10 at worst Improve Self Care/Self Management Yes: pain <3/10 during self care tasks Patient to be Ind w/ HEP Yes: HEP provided w/ illustrations and written instructions Penitentiary Goals Number of Weeks 4 Decreased Palpation Tenderness Yes: decrease palpation tenderness to 0/4 Increase Range of Motion Yes: increase ROM by 10 degrees in all directions Improve Ability For Household Care Yes: 0/10 pain during household tasks Improve Neck Disability Index Score Yes: <4 Decrease Subjective C/O Pain Yes: <2/10 at worst Improve Self Care/Self Management Yes: 0/10 pain during self care tasks Patient to be Ind w/ Advanced HEP Yes: HEP to be provided and demonstrated Outpatient Therapy Plan of Care Treatment Plan May Include Therapeutic Exercise Including Home Yes Exercise Program Manual Therapy Techniques Yes Neuromuscular Re-education Yes Therapeutic Activities to Return to Yes Previous Functional/Work Level ADL/Self Care Education Yes Mechanical Traction Yes Dry Needling Yes Thermal Modalities Yes Electrical Stimulation Yes Massage Yes Eval/Re-Eval Yes Frequency Times per week 2 Duration Number of Weeks 4 Addendums This patient is a candidate for social No or vocational rehab? Patient/Guardian verbally acknowledges Yes understanding of treatment program and consents to further treatment? Patient/Guardian verbally acknowledges Yes understanding of diagnosis, prognosis and goals for treatment? Eval Complexity PT Charges 79484 - High Complexity Shoulder/Elbow Eval Shoulder Objective Measurements Elbow Objective Measurements PHYSICIAN CERTIFICATION: I certify the specified therapy services for Mei Crain are required, authorized, and reviewed every 30 days.
== END 2024-03-14 23:59 | disposition home or self-care (01) ==
LOC: PT 10:00
PROVIDERS: Visit Provider Nurse Practitioner Family
DX: M54.2 Cervicalgia (principal)
CPT/HCPCS: 97014; 97035; 97110; 97140; 97163; G0283

== ENCOUNTER 2024-03-20 09:41 | Outpatient (POV) | payer MEDICARE, SELFPAY ==
--- NOTE | 2024-03-20 10:14 | EXP.PAIN.SOA ---
[facility] Disclaimer: The information contained in this section may have been updated after the patient was seen, as this information can be updated by other users. Medical History Hearing difficulty of both ears Port-A-Cath in place Hearing Loss Impacted cerumen of left ear COVID-19 Fever Fever of unknown origin UTI (urinary tract infection) Dyspnea Difficulty in swallowing Pathologic lumbar vertebral fracture Pyelonephritis Lymphoma DLBCL (diffuse large B cell lymphoma) History of carotid artery stenosis FH: cholecystectomy H/O coronary angiogram Hypertension Hyperlipidemia Anxiety GERD (gastroesophageal reflux disease) Surgical History History of tonsillectomy and adenoidectomy History of cholecystectomy Tubal ligation status History of right-sided carotid endarterectomy Family History Other Cancer Family history of hyperlipidemia Family history of hypertension Social History Smoking Status: Former smoker how long ago did patient quit smokin years ago second hand exposure: No alcohol intake: never substance use type: denies use current occupational status: retired Travel in the last 8 weeks: None household members: spouse housing: house current occupational exposures/hazards: No caffeine: No PM Subjective & Objective Subjective Subjective:: Patient is a pleasant 78-year-old female who presents today for 3-month follow-up. Today she rates her pain a 3 out of 10. Patient denies any new trauma or injury. She does state that she has a little pain around her low back on the right side however overall she feels like her lumbar epidural of L1-L2 that was done in September 2023 is still helping along with compounded cream. Her [place] has been reviewed and is appropriate. Review of Systems: General: No recent weight changes, no fever, no sleep disturbances Respiratory: No cough, no shortness of air, no recurring pulmonary infections Cardiovascular/peripheral vascular: No chest pain, no palpitations, no edema, no shortness of breath Gastrointestinal: No new onset incontinence, normal bowel movements reported Genitourinary: No new onset incontinence Musculoskeletal: Low back pain right-sided Psychiatric: [Normal mood/affect] Neurological: [Denies weakness in extremities], [denies balance issues] Pain at rest (0-10 scale): 3 Objective Objective:: Physical Exam: General: Alert and oriented x3, no acute distress, pleasant and cooperative Lungs: Respirations even and unlabored, symmetrical chest expansion Eyes: PERRL Musculoskeletal: Flexion and extension of lumbar [spine] somewhat guarded secondary to pain, [antalgic gait noted] Neurological: Speech clear, no gross sensory deficit Has patient had previous pain injection?: No Conservative treatment options previously tried: Home exercise plan Length of treatment: Longer than 12 weeks Meds Home Medications and Allergies Home Medications ?Medication ?Instructions ?Recorded ?Confirmed ?Type alprazolam 0.5 mg tablet 0.5 mg PO Q6HP PRN Anxiety 30 days 12/01/17 01/03/24 History ##120 aspirin 81 mg tablet,delayed 81 mg PO DAILY Heart Health 12/23/17 01/03/24 History release rosuvastatin 5 mg tablet 5 mg PO HS Cholesterol 05/29/18 01/03/24 History famotidine 20 mg tablet 20 mg PO BID Acid Reflux 07/29/21 01/03/24 History amlodipine 5 mg tablet 5 mg PO DAILY High Blood Pressure 12/30/22 01/03/24 History lisinopril 20 mg tablet 20 mg PO BID High Blood Pressure 03/21/23 01/03/24 History carvedilol 12.5 mg tablet 6.25 mg PO AM High Blood Pressure 05/07/23 01/03/24 History sennosides 8.6 mg-docusate sodium 1 tab PO DAILYP PRN Constipation 05/07/23 01/03/24 History 50 mg tablet New Prescriptions to Start Prescriptions: Allergies Allergy/AdvReac Type Severity Reaction Status Date / Time esomeprazole (From Nexium) Allergy Intermediate Hives Verified 01/03/24 11:04 erythromycin base Allergy Mild Redness of Verified 01/03/24 11:04 Skin amoxicillin (From Augmentin) AdvReac Intermediate Nausea Verified 01/03/24 11:04 clavulanic acid (From AdvReac Intermediate Nausea Verified 01/03/24 11:04 Augmentin) doxycycline AdvReac Intermediate Nausea Verified 01/03/24 11:04 Sulfa (Sulfonamide AdvReac Intermediate Nausea Verified 01/03/24 11:04 Antibiotics) dexlansoprazole (From AdvReac flu Verified 01/03/24 11:04 Dexilant) symptoms pantoprazole (From Protonix) AdvReac Verified 01/03/24 11:04 Assessment and Plan *Assessment and plan (1) Lumbar spinal stenosis: Status: Acute Qualifiers: Neurogenic claudication status: with neurogenic claudication Qualified Code(s): M48.062 - Spinal stenosis, lumbar region with neurogenic claudication Category: Medical Code(s): M48.061 - Spinal stenosis, lumbar region without neurogenic claudication (2) Lumbar radiculopathy: Status: Acute Category: Medical Code(s): M54.16 - Radiculopathy, lumbar region (3) Degenerative disc disease, lumbar: Status: Acute Category: Medical Code(s): M51.36 - Other intervertebral disc degeneration, lumbar region Plan Patient continues to get significant relief from her last lumbar epidural and does not require any additional injection therapy at this time. Patient will return to clinic in 6 months for reevaluation of symptoms and plan of care. Patient has been instructed to contact the clinic with any concerns before the next appointment. Dr. Quinones has reviewed this note and agrees with this plan of care. This note was dictated using voice recognition software and make contain errors or omissions. All injections are used with Lidocaine or Bupivacaine and Depo Medrol.
[2024-03-20 10:15] VITALS: BMI 23.1
--- NOTE | 2024-03-20 10:20 | PC.NURSE ---
1020-collected labs via venipuncture stick with butterfly needle in left ac; pt to oncology appt.
[2024-03-20 10:36] LABS: Basophils # 0.1 K/mm3 (0-0.2); Basophils % 0.9 % (0.1-2.0); Eosinophils # 0.3 K/mm3 (0.0-0.4); Eosinophils % 5.1 % (0.1-12.0); Hematocrit 32.9 % (37.0-47.0); Hemoglobin 11.1 g/dL (12.2-16.2); Lymphocytes # 0.8 K/mm3 (0.7-4.5); Lymphocytes % 12.2 % (10-50); Mean Corpuscular HGB Conc 33.9 g/dL (31.8-35.4); Mean Corpuscular Hemoglobin 31.2 pg (27.0-31.2); Mean Corpuscular Volume 92.1 fl (81-99); Mean Platelet Volume 7.4 fl (7.4-10.4); Monocytes # 0.6 K/mm3 (0.1-1.0); Monocytes % 8.9 % (1.7-9.3); Neutrophils # 4.6 K/mm3 (1.8-7.8); Neutrophils % 72.9 % (37.0-80.0); Platelet Count 249 K/mm3 (142-424); Red Blood Count 3.57 M/mm3 (4.20-5.40); Red Cell Distribution Width 15.2 % (11.5-17.5); White Blood Count 6.3 K/mm3 (4.8-10.8)
[2024-03-20 10:38] LABS: Alanine Aminotransferase 28 U/L (12-78); Albumin Level 4.3 g/dl (3.5-5.0); Albumin/Globulin Ratio 1.7 (1.1-1.8); Alkaline Phosphatase 71 U/L (38-126); Anion Gap 12.1 mEq/L (5-15); Aspartate Amino Transferase 35 U/L (14-36); Bilirubin,Total 0.5 mg/dl (0.2-1.3); Blood Urea Nitrogen 13 mg/dl (7-17); Calcium 9.6 mg/dl (8.4-10.2); Carbon Dioxide 26 mmol/L (22.0-30.0); Chloride 105 mmol/L (98-107); Creatinine Clearance Estimated 44 mL/min (50-200); Estimated Glomerular Filt Rate 81 ml/min (>60); GFR (African American) 98 ML/MIN (>60); Globulin 2.6 g/dL (1.3-3.2); Glucose 110 mg/dl (74-100); Lactate Dehydrogenase 158 U/L (313-618); Potassium 4.1 mmoL/L (3.5-5.1); Sodium 139 mmol/L (136-145); Total Protein,Serum 6.9 g/dl (6.3-8.2)
[2024-03-20 11:12] VITALS: BP 144/54; PULSE 94; RESP 18; O2SAT 95; BMI 24.7
== END 2024-03-20 10:20 | disposition home or self-care (01) ==
PROVIDERS: Internal Medicine Medical Oncology; PCP Nurse Practitioner Family; Visit Provider Nurse Practitioner Family
DX: M48.062 Spinal stenosis, lumbar region with neurogenic claudication (principal); M51.16 Intervertebral disc disorders with radiculopathy, lumbar region; C92.00 Acute myeloblastic leukemia, not having achieved remission; C83.30 Diffuse large B-cell lymphoma, unspecified site
CPT/HCPCS: 36415; 80053; 83615; 85025; 99212; G0463

== ENCOUNTER 2024-05-28 09:39 | Outpatient (CLI) | payer MEDICARE, SELFPAY ==
--- NOTE | 2024-05-28 09:59 | PC.NURSE ---
0959-collected labs via venipuncture stick with butterfly needle in left ac;pt dc home.
[2024-05-28 10:06] LABS: Basophils # 0.1 K/mm3 (0-0.2); Basophils % 0.7 % (0.1-2.0); Eosinophils # 0.2 K/mm3 (0.0-0.4); Eosinophils % 2.9 % (0.1-12.0); Lymphocytes % 13.3 % (10-50); Mean Corpuscular HGB Conc 33.3 g/dL (31.8-35.4); Mean Corpuscular Hemoglobin 29.7 pg (27.0-31.2); Mean Corpuscular Volume 89.1 fl (81-99); Mean Platelet Volume 9.3 fl (7.4-10.4); Monocytes # 0.7 K/mm3 (0.1-1.0); Monocytes % 10.1 % (1.7-9.3); Neutrophils # 5.2 K/mm3 (1.8-7.8); Neutrophils % 72.7 % (37.0-80.0); Platelet Count 217 K/mm3 (142-424); Red Blood Count 4.04 M/mm3 (4.20-5.40); Red Cell Distribution Width 12.5 % (11.5-17.5); White Blood Count 7.1 K/mm3 (4.8-10.8)
[2024-05-28 10:30] LABS: Alanine Aminotransferase 29 U/L (12-78); Albumin Level 4.8 g/dl (3.5-5.0); Albumin/Globulin Ratio 1.8 (1.1-1.8); Alkaline Phosphatase 88 U/L (38-126); Anion Gap 15.3 mEq/L (5-15); Aspartate Amino Transferase 35 U/L (14-36); Bilirubin,Total 0.2 mg/dl (0.2-1.3); Blood Urea Nitrogen 17 mg/dl (7-17); Calcium 10.4 mg/dl (8.4-10.2); Carbon Dioxide 27 mmol/L (22.0-30.0); Chloride 104 mmol/L (98-107); Estimated Glomerular Filt Rate 81 ml/min (>60); GFR (African American) 98 ML/MIN (>60); Globulin 2.7 g/dL (1.3-3.2); Glucose 101 mg/dl (74-100); Lactate Dehydrogenase 170 U/L (313-618); Potassium 4.3 mmoL/L (3.5-5.1); Sodium 142 mmol/L (136-145); Total Protein,Serum 7.5 g/dl (6.3-8.2)
== END 2024-05-28 10:00 | disposition home or self-care (01) ==
LOC: INF 09:41
PROVIDERS: PCP Nurse Practitioner Family; Visit Provider Internal Medicine Medical Oncology
DX: C83.30 Diffuse large B-cell lymphoma, unspecified site (principal)
CPT/HCPCS: 36415; 80053; 83615; 85025

== ENCOUNTER 2024-06-03 07:42 | Outpatient (CLI) | payer MEDICARE, SELFPAY ==
--- NOTE | 2024-06-03 07:44 | CT_ITS ---
FINAL REPORT TECHNIQUE: After the administration of oral and intravenous contrast, axial images were obtained through the abdomen and pelvis by computed tomography. The study was performed with techniques to keep radiation dose as low as reasonably achievable, (ALARA). Individual dose reduction techniques using automated exposure control or adjustment of mA and/or kV according to the patient's size were employed. CLINICAL HISTORY: f/u lymphoma COMPARISON: 12/20/2023 FINDINGS: CT ABDOMEN AND PELVIS WITH CONTRAST: Abdomen: The lung bases are clear. The liver parenchyma is homogeneous, with mild intra and extrahepatic biliary ductal dilatation, likely secondary to post cholecystectomy changes. The gallbladder has been surgically resected. The spleen, and adrenals appear unremarkable. There are calcifications present in the head and uncinate process of the pancreas consistent with sequela of prior chronic pancreatitis. There is a small cyst in the posterior aspect of the right kidney, stable. The aorta is normal in caliber. There is no free fluid or adenopathy. Extensive descending colon diverticulosis is present without acute inflammatory change. There is no significant residual or recurrent adenopathy in the abdomen. Pelvis: The appendix is not identified. The urinary bladder is unremarkable. The uterus is present. There is no free fluid or adenopathy. IMPRESSION: No acute intra-abdominal process. Specifically, the previously seen adenopathy is no longer visualized. Mild intra and extra hepatic biliary ductal dilatation is present, likely secondary to post cholecystectomy changes. Reviewed, Interpreted and Dictated by Ramses Murphy MD Transcribed by Radha Jovel Authenticated and [facility]
--- NOTE | 2024-06-03 07:44 | CT_ITS ---
FINAL REPORT TECHNIQUE: Routine axial images were obtained from the lung apices to below the diaphragm following IV contrast administration. Individualized dose reduction techniques using automated exposure control or adjustment of the mA and/or kV according to the patient size were employed. This study was performed with techniques to keep radiation doses as low as reasonably achievable (ALARA). Individualized dose reduction techniques using automated exposure control or adjustment of mA and/or kV according to the patient's size were employed. CLINICAL HISTORY: f/u lymphoma COMPARISON: 12/20/2023 FINDINGS: CT CHEST WITH CONTRAST: CT examination of the chest was performed after the administration of intravenous contrast and is compared to a prior exam of 12/20/2023. There is independent origin of the left vertebral artery. Moderate calcifications of the aortic arch and descending aorta are noted. No pleural or pericardial effusions are identified. Scarring is present in the right middle lobe and lingula. No evidence of axillary, mediastinal, or hilar adenopathy is noted. There is a pulmonary nodule present in the right lung base, measuring 6 mm in size, best seen on image #247 of series 2, which is stable since the prior examination. IMPRESSION: Pulmonary nodule in the right lung base, stable since the prior examination. No evidence of adenopathy or effusion is seen in the chest. Reviewed, Interpreted and Dictated by Ramses Murphy MD Transcribed by Radha Jovel Authenticated and [facility]
[2024-06-03] MEDS: SODIUM CHLORIDE 0.9% 10ML SYR (RAD ONLY) 10 ML IV (07:57)
[2024-06-03] MEDS: IOPAMIDOL-370 (76%);100ML BOTTLE 75 ML IV (07:58)
[2024-06-03] MEDS: BARIUM SULFATE(READI-CAT2);450ML BOTTLE 450 ML PO (07:59)
== END 2024-06-03 23:59 | disposition home or self-care (01) ==
LOC: RAD 07:44
PROVIDERS: PCP Nurse Practitioner Family; Visit Provider Internal Medicine Medical Oncology
DX: C83.30 Diffuse large B-cell lymphoma, unspecified site (principal)
CPT/HCPCS: 71260; 74177; Q9967

== ENCOUNTER 2024-06-05 09:43 | Outpatient (RCR) | payer MEDICARE, SELFPAY ==
--- NOTE | 2024-06-05 12:04 | HMH.PTOPEV ---
PT Outpatient Evaluation Rehab PT Outpatient Evaluation Start: 06/05/24 11:49 Freq: Status: Active Protocol: Document 06/05/24 11:50 PHORNE (Rec: 06/05/24 12:04 PHORNE [id number]) E-signed By Paco Farrell, PT Outpatient Therapy Subjective History Subjective History This is the initial PT eval for Mei Crain, 78 yowf who presents with c/o vertigo x ~ 1-2 mos overall this episode. She reports prior hx of previous episodes of BPPV and she feels this is very similar to those events. She reports vertigo with sitting up out of bed and rolling toward her R side shile in bed. Her symptoms begin quickly with position changes and last ~2-3 mins per her report. She reports mild nausea and feelings of dizziness that persist throughout the day, but no long lasting vertigo symptoms. She has hx that is significant for B hearing loss requiring hearing aids, HTN that is controlled by medication, and chronic neck pain that is currently at baseline and mild. Chief Complaint Other Prior Functional Limitations None Current Functional Limitations Housework,Sleeping,Recreation Activity Symptom Description Activity Dependent Balance Eval Oculomotor Gaze Oculomotor Gaze Nml: Vergence Saccades VOR Cancellation Cover/Uncover Cross Cover Abn: Smooth Pursuit Miscellaneous Dx PT Eval Objective Objective [place]-Hallpike and Horizontal roll testing performed B with minimal R torsional nystagmus noted with R side [place]-Hallpike testing. 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 Pt does report she has been performing a prior HEP independently that she had received after her previous episodes of BPPV treatment. 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 Skilled therapy is indicated to aid reduction of vertigo symptoms in order to return pt to PLOF. Clinical Impression Consistent with Diagnosis Yes Short Term Goals Number of Weeks 2 Improve Self Care/Self Management Yes: Minimal vertigo with laying on R side. 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 Patient to be Ind w/ Advanced HEP Yes Outpatient Therapy Plan of Care Treatment Plan May Include Therapeutic Exercise Including Home Yes Exercise Program Manual Therapy Techniques Yes Therapeutic Activities to Return to Yes Previous Functional/Work Level ADL/Self Care Education Yes Eval/Re-Eval Yes Frequency Times per week 1 Duration Number of Weeks 4 Addendums This patient is a candidate for social No or vocational rehab? Patient/Guardian verbally acknowledges Yes understanding of treatment program and consents to further treatment? Patient/Guardian verbally acknowledges Yes understanding of diagnosis, prognosis and goals for treatment? Eval Complexity PT Charges 43044 - High Complexity Shoulder/Elbow Eval Shoulder Objective Measurements Elbow Objective Measurements PHYSICIAN CERTIFICATION: I certify the specified therapy services for Mei Crain are required, authorized, and reviewed every 30 days.
== END 2024-06-05 23:59 | disposition home or self-care (01) ==
LOC: PT 09:43
PROVIDERS: PCP Nurse Practitioner Family; Visit Provider Nurse Practitioner Family
DX: R42 Dizziness and giddiness (principal)
CPT/HCPCS: 95992; 97163

== ENCOUNTER 2024-07-29 13:11 | Outpatient (CLI) | payer MEDICARE, SELFPAY ==
--- NOTE | 2024-07-29 13:14 | XR_ITS ---
FINAL REPORT CLINICAL HISTORY: hand pain generalized COMPARISON: None FINDINGS: AP, oblique, and lateral views of the left hand were obtained. There is no prior exam for comparison. There is no acute fracture of the left hand. Mild osteopenia is present. There is multi joint degenerative change present, most pronounced in the distal inner phalangeal joints. No bony erosions are identified. The soft tissues are normal. IMPRESSION: Multijoint degenerative change, most pronounced at the DIP joints. Mild osteopenia. Reviewed, Interpreted and Dictated by Torie Sow MD Transcribed by Radha Jovel Authenticated and . [facility]
--- NOTE | 2024-07-29 13:14 | XR_ITS ---
FINAL REPORT CLINICAL HISTORY: Hand Pain generalized COMPARISON: None FINDINGS: AP, lateral and oblique views of the right hand were obtained. There is no prior exam for comparison. There is no acute fracture or dislocation. Multijoint degenerative changes present, most pronounced at the DIP joints. No bony erosions are noted. The soft tissues are normal. IMPRESSION: Multijoint degenerative change, most pronounced at the DIP joints, with no acute osseous abnormality of the right hand. Reviewed, Interpreted and Dictated by Torie Sow MD Transcribed by Radha Jovel Authenticated and [facility]
== END 2024-07-29 23:59 | disposition home or self-care (01) ==
LOC: RAD 13:13
PROVIDERS: PCP Nurse Practitioner Family; Visit Provider Physician Assistant
DX: M79.641 Pain in right hand (principal); M79.642 Pain in left hand
CPT/HCPCS: 73130

== ENCOUNTER 2024-09-16 08:45 | Outpatient (POV) | payer MEDICARE, SELFPAY ==
[2024-09-16 09:10] LABS: Basophils % 0.8 % (0.1-2.0); Eosinophils # 0.3 Kmm3 (0.0-0.4); Eosinophils % 5.2 % (0.1-12.0); Hemoglobin 11.6 g/dL (12.2-16.2); Immature Granulocytes # 0.02 10^3uL; Immature Granulocytes % 0.4 %; Lymphocytes # 0.9 K/mm3 (0.7-4.5); Lymphocytes % 18.1 % (10-50); Mean Corpuscular HGB Conc 33.1 g/dL (31.8-35.4); Mean Corpuscular Hemoglobin 30.2 pg (27.0-31.2); Mean Corpuscular Volume 91.1 fl (81-99); Mean Platelet Volume 9.3 fl (7.4-10.4); Monocytes # 0.6 K/mm3 (0.1-1.0); Monocytes % 11.5 % (1.7-9.3); Neutrophils # 3.2 K/mm3 (1.8-7.8); Nucleated Red Blood Cells # 0 10^3/uL; Nucleated Red Blood Cells % 0 %; Platelet Count 254 K/mm3 (142-424); Red Blood Count 3.84 M/mm3 (4.20-5.40); Red Cell Distribution Width 13.4 % (11.5-17.5); Red Cell Distribution Width-SD 44.3 fL
--- NOTE | 2024-09-16 09:11 | EXP.PAIN.SOA ---
[facility] Disclaimer: The information contained in this section may have been updated after the patient was seen, as this information can be updated by other users. Medical History History of impacted cerumen Hearing difficulty of both ears Port-A-Cath in place Hearing Loss Impacted cerumen of left ear COVID-19 Fever Fever of unknown origin UTI (urinary tract infection) Dyspnea Difficulty in swallowing Pathologic lumbar vertebral fracture Pyelonephritis Lymphoma DLBCL (diffuse large B cell lymphoma) History of carotid artery stenosis FH: cholecystectomy H/O coronary angiogram Hypertension Hyperlipidemia Anxiety GERD (gastroesophageal reflux disease) Surgical History History of tonsillectomy and adenoidectomy History of cholecystectomy Tubal ligation status History of right-sided carotid endarterectomy Family History Other Cancer Family history of hyperlipidemia Family history of hypertension Social History Smoking Status: Former smoker how long ago did patient quit smokin years ago second hand exposure: No alcohol intake: never substance use type: denies use current occupational status: retired Travel in the last 8 weeks?: None household members: spouse housing: house current occupational exposures/hazards: No caffeine: No PM Subjective & Objective Subjective Subjective:: Patient is a pleasant 78-year-old female who presents today for 6-month follow-up. Today she rates her pain a 3 out of 10. Patient did previously have a lumbar epidural of L1-L2 in September 2023 that previously was still providing significant relief. She states today that occasionally she will still have some worsening pain but it is nothing like what it was previously before the injection. Patient states she feels like she is able to do more and that even feels like her overall activity has been increased and that has helped her pain on a daily basis. Patient is also managed with compounded cream from our office. Her [place] has been reviewed and is appropriate. Review of Systems: General: No recent weight changes, no fever, no sleep disturbances Respiratory: No cough, no shortness of air, no recurring pulmonary infections Cardiovascular/peripheral vascular: No chest pain, no palpitations, no edema, no shortness of breath Gastrointestinal: No new onset incontinence, normal bowel movements reported Genitourinary: No new onset incontinence Musculoskeletal: Low back pain Psychiatric: [Normal mood/affect] Neurological: [Denies weakness in extremities], [denies balance issues] Pain at rest (0-10 scale): 3 Objective Objective:: Physical Exam: General: Alert and oriented x3, no acute distress, pleasant and cooperative Lungs: Respirations even and unlabored, symmetrical chest expansion Eyes: PERRL Musculoskeletal: Flexion and extension of lumbar [spine] within normal limits Neurological: Speech clear, no gross sensory deficit Has patient had previous pain injection?: No Conservative treatment options previously tried: Home exercise plan Length of treatment: Longer than 12 weeks Meds Home Medications and Allergies Home Medications ?Medication ?Instructions ?Recorded ?Confirmed ?Type alprazolam 0.5 mg tablet 0.5 mg PO Q6HP PRN Anxiety 30 days 12/01/17 08/27/24 History ##120 aspirin 81 mg tablet,delayed 81 mg PO DAILY Heart Health 12/23/17 08/27/24 History release rosuvastatin 5 mg tablet 5 mg PO HS Cholesterol 05/29/18 08/27/24 History famotidine 20 mg tablet 20 mg PO BID Acid Reflux 07/29/21 08/27/24 History amlodipine 5 mg tablet 5 mg PO DAILY High Blood Pressure 12/30/22 08/27/24 History lisinopril 20 mg tablet 20 mg PO BID High Blood Pressure 03/21/23 08/27/24 History carvedilol 12.5 mg tablet 6.25 mg PO AM High Blood Pressure 05/07/23 08/27/24 History sennosides 8.6 mg-docusate sodium 1 tab PO DAILYP PRN Constipation 05/07/23 08/27/24 History 50 mg tablet omeprazole 20 mg capsule,delayed 20 mg PO DAILY 06/24/24 08/27/24 History release New Prescriptions to Start Prescriptions: Allergies Allergy/AdvReac Type Severity Reaction Status Date / Time esomeprazole (From Nexium) Allergy Intermediate Hives Verified 08/27/24 09:51 erythromycin base Allergy Mild Redness of Verified 08/27/24 09:51 Skin amoxicillin (From Augmentin) AdvReac Intermediate Nausea Verified 08/27/24 09:51 clavulanic acid (From AdvReac Intermediate Nausea Verified 08/27/24 09:51 Augmentin) doxycycline AdvReac Intermediate Nausea Verified 08/27/24 09:51 Sulfa (Sulfonamide AdvReac Intermediate Nausea Verified 08/27/24 09:51 Antibiotics) dexlansoprazole (From AdvReac flu Verified 08/27/24 09:51 Dexilant) symptoms pantoprazole (From Protonix) AdvReac Verified 08/27/24 09:51 Assessment and Plan *Assessment and plan (1) Lumbar radiculopathy: Status: Acute Category: Medical Code(s): M54.16 - Radiculopathy, lumbar region (2) Degenerative disc disease, lumbar: Status: Acute Category: Medical Code(s): M51.369 - Other intervertebral disc degeneration, lumbar region without mention of lumbar back pain or lower extremity pain Plan Patient has still continued to do really well from her last lumbar epidural last night and does not require any additional injection therapy at this time. Patient is also Continuing to follow-up with Dr. Farrell however states that she has been in remission and still doing well. Patient denies any other changes. We will follow-up with her in another 6 months. She was counseled if anything changes to feel free to call us and let us know if she needs to be seen sooner. She agrees with this plan of care. Patient has been instructed to contact the clinic with any concerns before the next appointment. Dr. Quinones has reviewed this note and agrees with this plan of care. This note was dictated using voice recognition software and make contain errors or omissions. All injections are used with Lidocaine, Bupivacaine and dexamethasone. Occasionally urine drug screen is needed to verify patient's compliance with our office pain contract. This is ordered based off specific treatments related to chronic pain with the potential to abuse certain medications.
[2024-09-16 09:27] LABS: Alanine Aminotransferase 29 U/L (12-78); Alkaline Phosphatase 80 U/L (38-126); Aspartate Amino Transferase 34 U/L (14-36); Bilirubin,Total 0.5 mg/dl (0.2-1.3); Carbon Dioxide 28 mmol/L (22.0-30.0); Chloride 106 mmol/L (98-107); Lactate Dehydrogenase 160 U/L (313-618); Sodium 138 mmol/L (136-145)
[2024-09-16 09:28] LABS: Glucose 113 mg/dl (74-100)
[2024-09-16 09:29] LABS: Albumin Level 4.6 g/dl (3.5-5.0); Blood Urea Nitrogen 17 mg/dl (7-17); Calcium 9.8 mg/dl (8.4-10.2); Estimated Glomerular Filt Rate 69 ml/min (>60); GFR (African American) 84 ML/MIN (>60); Globulin 2.3 g/dL (1.3-3.2); Total Protein,Serum 6.9 g/dl (6.3-8.2)
[2024-09-16 10:32] VITALS: BP 109/45; PULSE 73; RESP 18; O2SAT 97; BMI 25.1
== END 2024-09-16 23:59 | disposition home or self-care (01) ==
LOC: SC.PAIN 08:46
PROVIDERS: Internal Medicine Medical Oncology; PCP Nurse Practitioner Family; Visit Provider Nurse Practitioner Family
DX: C83.30 Diffuse large B-cell lymphoma, unspecified site (principal); M51.16 Intervertebral disc disorders with radiculopathy, lumbar region
CPT/HCPCS: 36415; 80053; 83615; 85025; 99212; G0463

== ENCOUNTER 2024-11-27 12:31 | Outpatient (CLI) | payer MEDICARE, SELFPAY ==
--- NOTE | 2024-11-27 12:32 | MM_ITS ---
PROCEDURE INFORMATION: Exam: MG Bilateral Screening 3D Mammography Exam date and time: 11/27/2024 1:10 PM Age: 79 years old Clinical indication: Screening examination TECHNIQUE: Imaging protocol: Bilateral Screening tomosynthesis and 2D mammography including computer-aided detection (CAD) when performed. COMPARISON: 1. MG MM DIG SCREENING MAMM BI W/CAD 11/21/2023 7:48 AM 2. MG MM DIG SCREENING MAMM BI W/CAD 05/24/2022 1:07 PM FINDINGS: MAMMOGRAPHY: Breast composition: There are scattered areas of fibroglandular density. Mass: None. Architectural distortion: None. Calcifications: No suspicious calcifications. Asymmetric density: None. Skin thickening: None. Axillary adenopathy: None. IMPRESSION: No mammographic evidence of malignancy. Annual screening is recommended unless otherwise clinically indicated. ASSESSMENT: BI-RADS Category 1: Negative.
--- OUTSIDE RECORDS SUMMARY | 2024-11-27 12:34 | XMS_ITS | Clinical Summary ---
Author Organization [facility] Address [address] [place] [address] Care Team Providers Care Pocket Maker Name Role Phone Cristian Zhu MD Primary Care Provider [phone] Pallavi Velasquez MEASUREMENT SPECIALIST Unavailable [phone] Allergies Active Allergy Reactions Criticality Noted Date Comments Amoxicillin Other - please docum ent in the comment field High 02/13/2023 Amoxicillin-Pot Clavulanate Nausea And Vomiting 01/23/2023 Cephalexin Hives Medium 12/19/2017 Clavulanic Acid Other - please docum ent in the comment field High 01/17/2023 Dexlansoprazole Unknown - Patient st ates they do not know rxn details Low 11/25/2019 Doxycycline Unknown - Patient st ates they do not know rxn details Low 04/23/2015 Erythromycin Unknown - Patient st ates they do not know rxn details Low 01/17/2023 Erythromycin Base Other - please docum ent in the comment field Low 02/13/2023 Esomeprazole Hives,Unknown - Evelia ent states they do not know rxn details Medium 04/23/2015 Sulfa Drugs Other - please docum ent in the comment field,Unknown - Patient states they do not know rxn details Low 11/13/2017 N&V Tetracycline Other - please docum ent in the comment field Low 12/19/2017 N&V Medications ALPRAZolam (Xanax) 0.5 MG tablet 1 tab(s) orally every 6 hours, As Needed 11/13/2017 Active amLODIPine (Norvasc) 5 MG tablet 02/13/2021 Active aspirin 81 MG EC tablet TAKE 1 TABLET DAILY. 04/23/2015 Active bisoprolol (Zebeta) 5 MG tablet 05/11/2020 Active lisinopril-hydro CHLOROthiazide 20-12.5 MG tablet 04/23/2015 Active lisinopril 20 MG tablet 12/05/2020 Active rosuvastatin (Crestor) 5 MG tablet 03/05/2018 Active ciprofloxacin (Cipro) 500 MG tablet 04/28/2023 Active ondansetron (Zofran) 4 MG tablet 1 tablet (4 mg). 02/06/2023 Active prochlorperazine (Compazine) 10 MG tablet 1 tablet (10 mg). 02/06/2023 Active predniSONE (Deltasone) 20 MG tablet 04/28/2023 Active allopurinol (Zyloprim) 300 MG tablet 1 tablet (300 mg). 01/31/2023 Active senna-docusate (Cherrie-Colace) 8.6-50 MG tablet 1 tablet. 12/30/2022 Ac tive multivitamin, Pediatric, (Josetteintsrhys Gummies) chewable tablet Chew. Acti ve famotidine (Pepcid) 20 MG tablet 04/28/2023 Active carvedilol (Coreg) 12.5 MG tablet Take by mouth 2 (two) times a day with meals. 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 Family History Medical History Relation Name Comments Cardiac disorder Father Emphysema Father Parkinson Disease Mother Relation Name Status Comments Father Mother Social History Tobacco Use Types Packs/Day Years Used Date Smoking Tobacco: Former Cigarettes Smokeless Tobacco: Never Tobacco Cessation:Counseling Given: Not Answered Alcohol Use Standard Drinks/Week Comments No 0 (1 standard drink = 0.6 oz pur e alcohol) Comments Unknown Sex and Gender Information Value Date Recorded Sex Assigned at Not on file Legal Sex Female 6:32 PM EDT Gender Identity Not on file Sexual Orientation Not on file Last Filed Vital Signs Vital Sign Reading Time Taken Comments Blood Pressure 127/66 11/10/2023 8:12 AM EDT Pulse 76 02/22/2021 12:57 PM EDT Temperature 36.4 C (97.6 F) 11/10/2023 8:08 AM EDT Respiratory Rate - - Oxygen Saturation - - Inhaled Oxygen Concentration - - Weight 59.6 kg (131 lb 6.3 oz) 11/10/2023 8:08 A M EDT Height 162.6 cm (5' 4 ) 11/10/2023 8:08 AM EDT Body Mass Index 22.55 11/10/2023 8:08 AM EDT Plan of Treatment Health Maintenance Due Date Last Done Comments [facility]-Bone Density Scan 1944 UK[facility]-Depression Screening 1944 [facility]-Medicare Annual Wellness (AWV) 1944 [facility]-Infant/Child/Adol SDOH Screenings 1944 UKY-HIB Vaccines (1 of 1 - Risk 1-dose series) 01/20/1946 UKY- SDOH Screenings 1962 UKY-Adult SDOH Screenings 1962 UKY-Zoster Vaccines (1 of 2) 10/21/1963 UKY-DTaP,Tdap,and Td Vaccines (1 - Tdap) 07/11/1996 07/10/1996 UKY-RSV Vaccine: 60+ Years or (1 - 1-dose 75+ series) 10/21/2019 [id number] Vaccine (2 - Minal risk series) 02/17/2021 01/20/2021 UKY-Influenza Vaccine (#1) 01/06/202503/21, 02/26/2018, 05/31/2017 UKY-Pneumococcal Vaccine: 50+ Years Completed 07/23/2018, 05/31/2017 HPV Vaccines Aged Out No longer eligi ble based on patient's age to complete this topic UKY-Hepatitis A Vaccines Aged Out No longer eligible based on patient's age to complete this topic UKY-IPV Vaccines Aged Out No longer e ligible based on patient's age to complete this topic UKY-Rotavirus Vaccines Aged Out No lo nger eligible based on patient's age to complete this topic Insurance MEDICARE Care Teams Pocket Maker Relationship Specialty Start Date End Date Cristian Zhu MD [address] [place] [address] PCP - General 09/18/20 Pallavi Velasquez, KENNETH [address] [place] [address] Nurse Practitioner Neurosurgery 05/24/23
--- OUTSIDE RECORDS SUMMARY | 2024-11-27 12:34 | XMS_ITS | Clinical Summary ---
Author Organization [facility] Address [address] [place] [address] Phone Care Team Providers Care Making Line Worker Name Role Phone Unavailable Primary Care Provider Unavailabl e Social History Tobacco Use Types Packs/Day Years Used Date Smoking Tobacco: Never Assessed Comments Unknown Sex and Gender Information Value Date Recorded Sex Assigned at Not on file Legal Sex Female 4:24 AM EDT Gender Identity Not on file Sexual Orientation Not on file Plan of Treatment Health Maintenance Due Date Last Done Comments Wellness Exam Medicare 10/21/1948 Hepatitis C Screening 1962 DTaP/TDaP/Td (1 - Tdap) 10/21/1963 Pneumococcal Vaccine 50+ (1 of 1 - PCV) 1994 Zoster (1 of 2) 1994 Bone Density Screening 2009 RSV or 60+ (1 - 1-d ose 75+ series) 10/21/2019 COVID-19 Vaccine (2023-2 5 season) 2024 Influenza Vaccine (#1) 2025 Hepatitis B Vaccine Aged Out No longe r eligible based on patient's age to complete this topic Meningococcal B Vaccine Aged Out No l onger eligible based on patient's age to complete this topic Insurance MEDICARE [place] PART A AND B [place] [id number]
--- OUTSIDE RECORDS SUMMARY | 2024-11-27 12:34 | XMS_ITS | Data Portability ---
Author Organization [facility] Address [address] [place] [address] Assessment No assessment recorded. Plan of Treatment Reminders Order Date Submit Date Provider Last Modified By Organization Details Last Modified Time Details Appointments [facility] 025 09:30AM JELANI RICH MD Not available Not available Not available [facility] 025 10:00AM JELANI RICH MD Not available Not available Not available Lab None record ed. Referral None record ed. Procedures None record ed. Surgeries None record ed. Imaging None record ed. Medication Orders None record ed. Patient TargetsNo targets recorded. Patient Instructions Encounter Date Encounter Id Patient Instructions Last Modified By Organization Details Last Modified Time 04/16/2024 [id number] Instructed pt to monitor for changes and to call us for appointment with any changing or worrisome lesions. [email or web address] Not available 04/16/2024 14:05:40 Reason for Referral None Reported. Procedures Surgical History Date Name Laterality Status Provider Name and Address Organization Details Recorded Time 4 Destruction BN Lesions completed [facility] 04/16/2024 14:02:37 Imaging Results None recorded. Procedure Notes None recorded. Medical Equipment None Reported. Vitals None Recorded Social History None recorded. Functional Status None recorded. Mental Status None recorded. Family History Nothing Reported. Medical History Condition Response Varicose Veins N Skin Problems N Autoimmune disease Y Squamous Cell Carcinoma N Basal Cell Carcinoma Y Skin Cancer Y Eczema N Other Skin Condition N Melanoma N Acne N Gynecological HistoryNo gynecological history recorded. Obstetrics History GPAL:G 0 P 0 0 0 0 Past Encounters Encounter ID Performer Location Encounter Start Date Encounter Closed Date Diagnosis/Indication Diagnosis SNOMED-CT Code Diagnosis ICD10 Code Diagnosis Note [id number] NIKKI CAREY MD [address] [place] [address] 04/16/2024 13:43:29 04/16/2024 14:33:16 Inflamed seborrheic keratosis 193223606 L82.0 Education then treated with LN; left crown of scalp x2pt tolerated welladvise d pt what to expect with freezing Epidermoid cyst 63800870 6 K09.8 vs milium.not bothersome to pt. Pt will consider excision. Discussed 30 min appt if she decides to proceed Health Concerns Section Related Observation LastModified by Organization Detai ls LastModified Time None Recorded Concern Status LastModified by Organization Details LastModified Time None Recorded Advance Directives Directive None Recorded Payers Insurance Date Sequence Insurance Name Policy Number Policy Helton Covered Member ID Helton Member ID Guarantor Name 04/16/2024 1 [place] Mei Crain [id number] Mei Crain Notes Date Note Type Note Provider Name and Address Organization Details Recorded Time 04/16/2024 text/html New Patient - referred by Sharon Ramirez, FILE CLERK 78 yo F presents for scalp lesion x 1 year approximately. It is scabby and itchy, non tender, no bleeding Denies any other new or changing lesions. Feels well today. Denies family history of malignant melanoma. NIKKI CAREY MD [address] [place], [address], [facility] 04/16/2024 15:53:30 OBGyn Episode No OBEpisode recorded.
--- OUTSIDE RECORDS SUMMARY | 2024-11-27 12:34 | XMS_ITS | Clinical Summary ---
Author Organization [employer] ([place], [place], [place], [place]) Address [address] [place] [address] Care Team Providers Care Director Of Fundraising Name Role Phone Cristian Zhu MD Primary Care Provider [phone] Allergies Active Allergy Reactions Criticality Noted Date Comments Amoxicillin-Pot Clavulanate Nausea And Vomiting 01/23/2023 Clavulanic Acid 01/17/2023 Dexlansoprazole Hives High 01/17/2023 Doxycycline Other (See Comments) Low 04/23/2015 Erythromycin 01/17/2023 Esomeprazole Hives High 01/17/2023 Pantoprazole Other (See Comments) 01/17/2023 Flu like symptoms Sulfa (Sulfonamide Antibiotics) Other (See Comments) Low 11/13/2017 N&V Medications amLODIPine (NORVASC) 5 MG tablet Take 1 tablet (5 mg total) by mouth daily. 3 Active rosuvastatin (CRESTOR) 5 MG tablet Take 1 tablet (5 mg total) by mouth daily. 3 Active ALPRAZolam (XANAX) 0.5 MG tablet Take 1 tablet (0.5 mg total) by mouth 4 (four) times daily as needed Takes at night. 3 Active carvediloL (COREG) 12.5 MG tablet Take 1 tablet (12.5 mg total) by mouth 2 (two) times daily 1/2 in am and whole in evening. 3 Active lisinopriL (PRINIVIL,ZESTRIL) 20 MG tablet Take 1 tablet (20 mg total) by mouth daily. 3 Active ondansetron (ZOFRAN-ODT) 4 MG disintegrating tablet Take 1 tablet (4 mg total) by mouth every 8 (eight) hours as needed. 3 Active aspirin 81 MG EC tablet Take 1 tablet (81 mg total) by mouth daily. Active pedi multivit no.19-folic acid (Flintstones Multi-Vit Gummies) 200 mcg Chew Take by mouth. Active famotidine (PEPCID) 10 MG tablet Take 1 tablet (10 mg total) by mouth 2 (two) times daily. Active Family History Medical History Relation Name Comments Prostate cancer Brother Hypertension Daughter Anesthesia problems Father Emphysema Father Parkinsonism Mother Relation Name Status Comments Brother Daughter Alive Father Mother Social History Tobacco Use Types Packs/Day Years Used Date Smoking Tobacco: Former Cigarettes 0.5 50 1 5 - 2004 Smokeless Tobacco: Never Tobacco Cessation:Counseling Given: Not Answered Alcohol Use Standard Drinks/Week Comments Never 0 (1 standard drink = 0.6 oz pur e alcohol) Food Insecurity Answer Date Recorded Food run out past 12 months Not on file 05/08 Food did not last past 12 months Not on file 05/19/2023 Employment Answer Date Recorded Help finding and keeping a job Not on file 0 05/19/2023 Family and Community Support Answer Ivan e Recorded Help with Day to Day Activities Not on file 05/19/2023 Feeling Lonely or Isolated Not on file 05/19 Educational Attainment Answer Date Clarence rded Speak language other than Indonesian at home Not on file 05/19/2023 Want help with school or training Not on file 05/19/2023 Substance Use Answer Date Recorded Used prescription meds for non-medical reasons N ot on file 05/19/2023 Used illegal drugs past 12 months Not on file 05/19/2023 Comments No Sex and Gender Information Value Date Recorded Sex Assigned at Not on file Legal Sex Female 9:25 AM CDT Gender Identity Not on file Sexual Orientation Not on file Last Filed Vital Signs Vital Sign Reading Time Taken Comments Blood Pressure 128/50 01/23/2023 4:05 PM EDT Pulse 84 01/23/2023 4:05 PM EDT Temperature 36.6 C (97.9 F) 01/23/2023 12:10 PM EDT Respiratory Rate 27 01/23/2023 4:05 PM EDT Oxygen Saturation 96% 01/23/2023 4:05 PM EDT Inhaled Oxygen Concentration - - Weight 59.9 kg (132 lb) 01/23/2023 12:10 PM EDT Height 162.6 cm (5' 4 ) 01/23/2023 12:10 PM EDT Body Mass Index 22.66 01/23/2023 12:10 PM EDT Plan of Treatment Health Maintenance Due Date Last Done Comments DXA SCAN 1944 Depression Screening (12+) 1956 Shingles Vaccine (Zoster) (1 of 2) 10/21/1963 DTAP/TDAP/TD VACCINES (2 - T d or Tdap) 07/10/2006 07/10/1996 Respiratory Syncytial Virus (RSV) Adult or (1 - 1-dose 75+ series) 10/21/2019 COVID-19 VACCINE (2 - Jansse n risk series) 02/17/2021 01/20/2021 Medicare Initial AWV [id number] 12/08/2023 Tobacco Cessation Counseling and Screening (12+) 01/24/2024 01/23/2023 Falls Risk Screening 05/08/2024 Influenza Vaccine (#1) 2025 9, 03/21/2019, 02/26/2018, Additional history exists Pneumococcal 50+ years Completed 07/23/2018, 2017 Insurance AARP MEDICARE COMPLETE MAP Care Teams Director Of Fundraising Relationship Specialty Start Date End Date Cristian Zhu MD [address] [place] [address] PCP - General Adolescent Medicine 01/17/23
--- OUTSIDE RECORDS SUMMARY | 2024-11-27 12:34 | XMS_ITS | Encounter Summary ---
Author Organization [employer] ([place], [place], [place], [place]) Address [address] [place] [address] Care Team Providers Care Form Carpenter Name Role Phone Cristian Zhu MD Primary Care Provider [phone] Reason for Visit * Reason Onset Date Comments pet scan 01/18/2023 Encounter Details Date Type Department Care Team (Late st Contact Info) Description 01/18/2023 Telephone [facility] - [place] [address] [place] [address] Sergey Beatty MD [address] [place], [place] [id number] pet scan Social History Tobacco Use Types Packs/Day Years Used Date Smoking Tobacco: Former Cigarettes 0.5 50 1 955 - 2005 Alcohol Use Standard Drinks/Week Comments Never 0 [...] Date Clarence rded Speak language other than Anguillan at home Not on file 05/19/2023 Want [...] on file Sexual Orientation Not on file COVID-19 Exposure Response Date Recorded In the last 10 days, have yo u been in contact with someone who was confirmed or suspected to have Coronavirus/COVID-19? No / Unsure 01/23/2023 12:08 PM EDT documented as of this encounter Miscellaneous Notes * Telephone Encounter - Kimi Alan RN - 01/18/2023 2:46 PM EDT Daughter called, they haven't heard anything from the PET place about her scan tomorrow? documented in this encounter Plan of Treatment Not on file documented as of this encounter Visit Diagnoses Not on filedocumented in this encounter Care Teams Form Carpenter Relationship Specialty Start Date End Date Cristian Zhu MD [address] [place] [address] PCP - General Adolescent Medicine 01/17/23 documented as of this encounter
--- OUTSIDE RECORDS SUMMARY | 2024-11-27 12:34 | XMS_ITS | Referral Summary ---
Author Organization [employer] ([place], [place], [place], [place]) Address [address] [place] [address] Care Team Providers Care School Custodian Name Role Phone Cristian Zhu MD Primary Care Provider [phone] Allergies Active Allergy Reactions Criticality Noted Date [...] by mouth 2 (two) times daily. Active Social History Tobacco Use Types Packs/Day Years Used Date Smoking Tobacco: Former Cigarettes 0.5 50 1 955 - 2004 Smokeless Tobacco: Never Tobacco Cessation:Counseling [...] Date Clarence rded Speak language other than Nauruan at home Not on file 05/19/2023 Want [...] 01/23/2023 12:10 PM EDT Plan of Treatment Not on file Insurance AARP MEDICARE COMPLETE MAP Care Teams School Custodian Relationship Specialty Start Date End Date Cristian Zhu MD [address] [place] [address] PCP - General Adolescent Medicine 01/17/23
[2024-11-27 12:39] LABS: Hematocrit 34.5 % (37.0-47.0); Hemoglobin 11.9 g/dL (12.2-16.2); Immature Granulocytes % 0.4 %; Mean Corpuscular HGB Conc 34.5 g/dL (31.8-35.4); Mean Corpuscular Hemoglobin 30.4 pg (27.0-31.2); Mean Corpuscular Volume 88.2 fl (81-99); Nucleated Red Blood Cells % 0 %; Platelet Count 230 K/mm3 (142-424); Red Blood Count 3.91 M/mm3 (4.20-5.40); Red Cell Distribution Width-SD 40.6 fL; White Blood Count 5.7 K/mm3 (4.8-10.8)
[2024-11-27 12:57] LABS: Alanine Aminotransferase 27 U/L (12-78); Albumin Level 4.7 g/dl (3.5-5.0); Albumin/Globulin Ratio 1.6 (1.1-1.8); Alkaline Phosphatase 100 U/L (38-126); Anion Gap 13.3 mEq/L (5-15); Aspartate Amino Transferase 34 U/L (14-36); Bilirubin,Total 0.6 mg/dl (0.2-1.3); Blood Urea Nitrogen 16 mg/dl (7-17); Calcium 10.2 mg/dl (8.4-10.2); Carbon Dioxide 27 mmol/L (22.0-30.0); Chloride 103 mmol/L (98-107); Creatinine,Serum 0.80 mg/dl (0.52-1.04); Estimated Glomerular Filt Rate 69 ml/min (>60); GFR (African American) 84 ML/MIN (>60); Globulin 3.0 g/dL (1.3-3.2); Glucose 112 mg/dl (74-100); Potassium 4.3 mmoL/L (3.5-5.1); Sodium 139 mmol/L (136-145); Total Protein,Serum 7.7 g/dl (6.3-8.2)
--- NOTE | 2024-11-27 14:06 | PC.NURSE ---
1215-Blood drawn from left AC using butterfly needle to check labs, per Dr Beatty.
== END 2024-11-27 12:35 | disposition home or self-care (01) ==
LOC: INF 12:31
PROVIDERS: Internal Medicine Medical Oncology; PCP Nurse Practitioner Family; Visit Provider Nurse Practitioner Family
DX: C83.30 Diffuse large B-cell lymphoma, unspecified site (principal); Z12.31 Encounter for screening mammogram for malignant neoplasm of breast
CPT/HCPCS: 36415; 77063; 77067; 80053; 83615; 85025

== ENCOUNTER 2024-12-13 07:56 | Outpatient (CLI) | payer MEDICARE, SELFPAY ==
--- OUTSIDE RECORDS SUMMARY | 2024-12-13 07:59 | XMS_ITS | Encounter Summary ---
Author Organization [employer] ([place], [place], [place], [place]) Address [address] [place] [address] Care Team Providers Care Refinery Operator Helper Cracking Unit Name Role Phone Cristian Zhu MD Primary Care Provider [phone] Reason for Visit * Reason Onset Date Comments pet scan 01/18/2023 Encounter Details Date Type Department Care Team (Late st Contact Info) Description 01/18/2023 Telephone [facility] - [place] [address] [place] [address] Sergey Beatty MD [address] [facility] [address] [place], [place] [id number] pet scan Social History Tobacco Use Types [...] Date Clarence rded Speak language other than Hungarian at home Not on file 05/19/2023 Want [...] on filedocumented in this encounter Care Teams Refinery Operator Helper Cracking Unit Relationship Specialty Start Date End Date Cristian Zhu MD [address] [place] [address] PCP - General Adolescent Medicine 01/17/23 documented as of this encounter
--- OUTSIDE RECORDS SUMMARY | 2024-12-13 07:59 | XMS_ITS | Clinical Summary ---
Author Organization [facility] Address [address] [place] [address] Care Team Providers Care Surgical Sales Representative Name Role Phone Cristian Zhu MD Primary Care Provider [phone] Pallavi Velasquez PRE K TEACHER Unavailable [phone] Allergies Active Allergy Reactions Criticality Noted Date [...] or (1 - 1-dose 75+ series) 10/21/2019 [id number] Vaccine (2 - Minal risk series) 02/17/2021 [...] complete this topic Insurance MEDICARE Care Teams Surgical Sales Representative Relationship Specialty Start Date End Date Cristian Zhu MD [address] [place] [address] PCP - General 09/18/20 Pallavi Velasquez, KENNETH [address] [place] [address] Nurse Practitioner Neurosurgery 05/24/23
--- OUTSIDE RECORDS SUMMARY | 2024-12-13 07:59 | XMS_ITS | Referral Summary ---
Author Organization [employer] ([place], [place], [place], [place]) Address [address] [place] [address] Care Team Providers Care Engineering And Operations Director Name Role Phone Cristian Zhu MD Primary Care Provider [phone] Allergies Active Allergy Reactions Criticality Noted Date [...] Date Clarence rded Speak language other than Sami at home Not on file 05/19/2023 Want [...] on file Insurance AARP [place] [address] Care Teams Engineering And Operations Director Relationship Specialty Start Date End Date Cristian Zhu MD [address] [place] [address] PCP - General Adolescent Medicine 01/17/23
--- OUTSIDE RECORDS SUMMARY | 2024-12-13 07:59 | XMS_ITS | Clinical Summary ---
Author Organization [facility] Address [address] [place] [address] Phone Care Team Providers Care Music Director Name Role Phone Unavailable Primary Care Provider [...] Insurance MEDICARE [place] PART A AND B [place] [id number]
--- OUTSIDE RECORDS SUMMARY | 2024-12-13 07:59 | XMS_ITS | Clinical Summary ---
Author Organization [employer] ([place], [place], [place], [place]) Address [address] [place] [address] Care Team Providers Care Combine Mechanic Name Role Phone Cristian Zhu MD Primary Care Provider [phone] Allergies Active Allergy Reactions Criticality Noted Date [...] Date Clarence rded Speak language other than Sierra Leonean at home Not on file 05/19/2023 Want [...] Insurance AARP MEDICARE COMPLETE MAP Care Teams Combine Mechanic Relationship Specialty Start Date End Date Cristian Zhu MD [address] [place] [address] PCP - General Adolescent Medicine 01/17/23
--- NOTE | 2024-12-13 08:15 | CT_ITS ---
FINAL REPORT TECHNIQUE: Axial images of the chest was performed with and without contrast by computed tomography. Reformatted images were obtained and reviewed. This study was performed with techniques to keep radiation doses as low as reasonably achievable, (ALARA). Individualized dose reduction techniques using automated exposure control or adjustment of mA and/or kV according to the patient's size were employed. CLINICAL HISTORY: Lymphoma COMPARISON: Images dated 12/31/2022. Report dated 06/03/2024 FINDINGS: On the precontrast images, there is dense vascular calcification of the aortic arch and descending thoracic aorta. There is a 1.3 cm precarinal lymph node which is stable. There is no pleural or pericardial effusion. No pulmonary nodules are identified. There is scarring in the right middle lobe and lingula. No abnormal enhancement is seen on the post infused images. IMPRESSION: Scarring in the right middle lobe and lingula. Reviewed, Interpreted and Dictated by Ramses Murphy MD Transcribed by Palak Butler Authenticated and [facility]
--- NOTE | 2024-12-13 08:15 | CT_ITS ---
FINAL REPORT TECHNIQUE: Pre-and postcontrast axial CT images of the abdomen and pelvis were obtained. Coronal reformatted images were also obtained and reviewed.This study was performed with techniques to keep radiation doses as low as reasonably achievable (ALARA). Individualized dose reduction techniques using automated exposure control or adjustment of mA and/or kV according to the patient''''s size were employed. CLINICAL HISTORY: Lymphoma COMPARISON: Images dated 05/11/2022. Report dated 06/03/2024 FINDINGS: On the precontrast images, there is no stone or obstruction. There is dense vascular calcification of the abdominal aorta and iliac vessels. On the postcontrast images, there is mild fatty infiltration of the liver. There is moderate intra and extrahepatic biliary ductal dilatation. There is no evidence of choledocholithiasis. The spleen and glands are normal. Calcifications are seen in the pancreatic head and uncinate process consistent with sequela of chronic pancreatitis. There are small benign-appearing cysts in the right kidney. Compression deformity of L1 measures 60%. There is sclerosis in the inferior L2 vertebral body with grade 1 spondylolisthesis of L2 on 3. There is moderate bilateral neuroforaminal narrowing at L5-S1. The appendix is normal. The urinary bladder is unremarkable. There is moderate descending and sigmoid diverticulosis without evidence of diverticulitis. There is no free fluid or adenopathy. IMPRESSION: Stable intra and extrahepatic biliary ductal dilatation, probably due to prior cholecystectomy. Chronic pancreatitis in the head of the pancreas and uncinate process. Moderate descending and sigmoid diverticulosis without diverticulitis. Reviewed, Interpreted and Dictated by Ramses Murphy MD Transcribed by Palak Butler Authenticated and [facility]
[2024-12-13] MEDS: SODIUM CHLORIDE 0.9% 10ML SYR (RAD ONLY) 10 ML IV (08:24)
[2024-12-13] MEDS: IOPAMIDOL-370 (76%);100ML BOTTLE 75 ML IV (08:24)
== END 2024-12-13 23:59 | disposition home or self-care (01) ==
LOC: RAD 07:57
PROVIDERS: PCP Nurse Practitioner Family; Visit Provider Internal Medicine Medical Oncology
DX: C83.30 Diffuse large B-cell lymphoma, unspecified site (principal); J98.4 Other disorders of lung; K83.8 Other specified diseases of biliary tract; K86.1 Other chronic pancreatitis; K57.30 Diverticulosis of large intestine without perforation or abscess without bleeding; Z90.49 Acquired absence of other specified parts of digestive tract
CPT/HCPCS: 71270; 74178; Q9967

== ENCOUNTER 2025-01-14 15:06 | Outpatient (CLI) | payer MEDICARE, SELFPAY ==
--- OUTSIDE RECORDS SUMMARY | 2025-01-14 15:08 | XMS_ITS | Referral Summary ---
Author Organization [employer] ([place], [place], [place], [place]) Address [address] [place] [address] Care Team Providers Care Diamond Mounter Name Role Phone Cristian Zhu MD Primary Care Provider Allergies Active Allergy Reactions Criticality Noted Date [...] Date Clarence rded Speak language other than Jamaican at home Not on file 05/19/2023 Want [...] Insurance AARP MEDICARE COMPLETE MAP Care Teams Diamond Mounter Relationship Specialty Start Date End Date Cristian Zhu MD [address] [place] [address] PCP - General Adolescent Medicine 01/17/23
--- OUTSIDE RECORDS SUMMARY | 2025-01-14 15:08 | XMS_ITS | Clinical Summary ---
Author Organization [facility] Address [address] [place] [address] Care Team Providers Care Vacuum Drier Tender Name Role Phone Cristian Zhu MD Primary Care Provider [phone] Pallavi Velasquez LUBRICATING SPECIALIST Unavailable [phone] Allergies Active Allergy Reactions Criticality Noted Date [...] or (1 - 1-dose 75+ series) 10/21/2019 [id number]-TCIIN-99 Vaccine (2 - Minal risk series) 02/17/2021 [...] complete this topic Insurance MEDICARE Care Teams Vacuum Drier Tender Relationship Specialty Start Date End Date Cristian Zhu MD [address] [place] [address] PCP - General 09/18/20 Pallavi Velasquez, KENNETH [address] [place] [address] Nurse Practitioner Neurosurgery 05/24/23
--- OUTSIDE RECORDS SUMMARY | 2025-01-14 15:08 | XMS_ITS | Clinical Summary ---
Author Organization [facility] Address [address] [place] [address] Phone Care Team Providers Care Hopper Filler Name Role Phone Unavailable Primary Care Provider [...] 1-d ose 75+ series) 10/21/2019 COVID-19 Vaccine ( - 2023-2 5 season) 2025 Influenza Vaccine (#1) 2025 Hepatitis B Vaccine Aged Out No longe r eligible based on patient's age to complete this topic Meningococcal B Vaccine Aged Out No l onger eligible based on patient's age to complete this topic Insurance MEDICARE [place] PART A [place] B [place] [id number]
--- OUTSIDE RECORDS SUMMARY | 2025-01-14 15:08 | XMS_ITS | Clinical Summary ---
Author Organization [employer] ([place], [place], [place], [place]) Address [address] [place] [address] Care Team Providers Care Accordion Tuner Name Role Phone Cristian Zhu MD Primary Care Provider [phone] Allergies Active Allergy Reactions Criticality Noted Date [...] Date Clarence rded Speak language other than Stateless at home Not on file 05/19/2023 Want [...] Insurance AARP MEDICARE COMPLETE MAP Care Teams Accordion Tuner Relationship Specialty Start Date End Date Cristian Zhu MD [address] [place] [address] PCP - General Adolescent Medicine 01/17/23
[2025-01-17 17:12] LABS: Pancreatic Elastase, Fecal >800 (>200)
== END 2025-01-14 23:59 | disposition home or self-care (01) ==
LOC: LAB 15:07
PROVIDERS: PCP Nurse Practitioner Family; Visit Provider Nurse Practitioner Family
DX: R14.0 Abdominal distension (gaseous) (principal)
CPT/HCPCS: 82653

== ENCOUNTER 2025-03-14 10:50 | Outpatient (CLI) | payer MEDICARE, SELFPAY ==
--- OUTSIDE RECORDS SUMMARY | 2025-03-14 10:54 | XMS_ITS | Continuity of Care Document ---
Author Organization [facility] LIANA [facility] Address [address] [place] [address] Assessment No assessment recorded. Plan of Treatment Reminders Order Date Submit Date Provider Last Modified By Organization Details Last Modified Time Details Appointments None record ed. Lab None record ed. Referral None record ed. Procedures None record ed. Surgeries None record ed. Imaging None record ed. Medication Orders None record ed. Patient TargetsNo targets recorded. Patient Instructions Encounter Date Encounter Id Patient Instructions Last Modified By Organization Details Last Modified Time 02/10/2025 [id number] Patient had no issues or concerns at this time. [email or web address] Not available 02/10/2025 14:23:28 Reason for Referral None Reported. Procedures Surgical History Date Name Laterality Status Provider Name and Address Organization Details Recorded Time 5 Suture/Staple removal active Ave Castaneda [facility] 03/03/2025 13:17:49 5 [facility] 02/10/2025 14:22:49 5 Mohs 1 Lesion completed Adriana [facility] 02/10/2025 13:12:11 5 Mohs Repair: Complex Linear completed Adriana Ornelas [facility] 02/10/2025 13:13:02 4 Destruction BN Lesions completed Willy Al [facility] 04/16/2024 14:02:37 Imaging Results None recorded. Procedure Notes None recorded. Medical Equipment None Reported. Allergies Allergen ID Allergen Name Allergen Category Reaction Reaction Severity Criticality Documentation Date Start Date Code Code System Note Provider Name and Address Organization Details Recorded Time 464272 amoxicill in medicatio n Not available Not available Not available 01/09/2025 723 RxNorm Sera Love [facility] 5 09:40:40 847798 doxycycli ne Not available Not available Not available Not available 01/09/2025 3640 RxNorm Sera Love [facility] 5 09:40:54 270004 erythromy basim medicatio n Not available Not available Not available 01/09/2025 4053 RxNorm Sera Love [facility] 5 09:41:00 783461 pantopraz ole medicatio n Not available Not available Not available 01/09/2025 01159 RxNorm Sera Love [facility] 5 09:41:21 009824 Substance with sulfonami de structure and antibacte rial mechanism of action (substanc e) medicatio n Not available Not available Not available 01/09/2025 65503 8003 SNOMED Sera Love [facility] 5 09:41:25 271233 Nexium medicatio n Not available Not available Not available 01/09/2025 56729 9 RxNorm Sera Love [facility] 5 09:45:06 565314 clavulani c acid Not available Not available Not available Not available 01/09/2025 61149 RxNorm Sera Love [facility] 5 09:44:29 939186 dexlansop razole medicatio n Not available Not available Not available 01/09/2025 09017 6 RxNorm Sera Love [facility] 5 09:44:40 878553 esomepraz ole Not available Not available Not available Not available 01/09/2025 26314 2 RxNorm Sera Love [facility] 5 09:44:51 Medications Name Sig Start Date Stop Date Status Note LastModified by Organization Details LastModified Time docusate sodium active Not Available Not Available Not Available aspirin active Not Available Not Avail able Not Available omeprazole active Not Available Not Av ailable Not Available famotidine active Not Available Not Av ailable Not Available carvedilol active Not Available Not Av ailable Not Available alprazolam active Not Available Not Av ailable Not Available amlodipine active Not Available Not Av ailable Not Available lisinopril active Not Available Not Av ailable Not Available rosuvastatin active Not Available Not Available Not Available Vitals Date Recorded Body temperature Heart rate Systolic And Diastolic Provider Name and Address Organization Details Last Updated DateTime 02/10/2025 97.3 [degF] 73 /min 145/68 mm[Hg] Adriana Ornelas [facility] 02/10/2025 13:13:43 Date Recorded Body temperature Heart rate Systolic And Diastolic Provider Name and Address Organization Details Last Updated DateTime 02/10/2025 97.3 [degF] 80 /min 143/50 mm[Hg] Alice Adam [facility] 02/10/2025 08:42:08 Social History None recorded. Functional Status None recorded. Mental Status None recorded. Family History Nothing Reported. Medical History Condition Response Autoimmune disease Y Melanoma N Skin Cancer Y Squamous Cell Carcinoma N Acne N Skin Problems N Other Skin Condition N Varicose Veins N Eczema N Basal Cell Carcinoma Y Gynecological HistoryNo gynecological history recorded. Obstetrics History GPAL:G 0 P 0 0 0 0 Past Encounters Encounter ID Performer Location Encounter Start Date Encounter Closed Date Diagnosis/Indication Diagnosis SNOMED-CT Code Diagnosis ICD10 Code Diagnosis IMO Codes Diagnosis Note [id number] CHUY WORLEY MD [address] [address] 02/10/2025 08:26:07 02/13/2025 01:16:05 Basal cell carcinoma of scalp 762032689 C44.41 [id number] CHUY WORLEY MD [address] [address] 02/10/2025 14:08:20 02/12/2025 13:34:02 History of malignant neoplasm of skin 689966761 Z85.828 No evidence of recurrence . Discussed risk of recurrence and new skin cancers, so regular self exam and profession al skin checks are recommende d. Sun protection with broad spectrum SPF 30 sunscreen and broad-brim med hat is recommende d. Sun protection with SPF 30 broad spectrum sunscreen and protective gear discussed. Scar 903319424 L90.5 Surgical follow-up 82981 4000 Z48.02 331329 Health Concerns Section Related Observation LastModified by Organization Detai ls LastModified Time None Recorded Concern Status LastModified by Organization Details LastModified Time None Recorded Payers Encounter Date Sequence Insurance Name Policy Number Policy [place] Covered Member ID Helton Member ID Guarantor Name 02/10/2025 1 [place] Mei Crain [id number] 1 Mei Crain Notes Date Note Type Note Provider Name and Address Organization Details Recorded Time 02/10/2025 text/html Patient presents for mohs surgery today to treat a BCC on the midline vertex scalp. PREOP CHECKLIST1. Pacemaker or Defibrillator? NO2. Artificial heart valve or joints? NO3. Pt currently on antibiotic? NO - Notes:4. History of bleeding, infection or complications with other surgeries?NO5. Med history, medications and allergies reviewed? YES6. Has pt taken Immunosuppressive meds (imuran, cyclosporine,mycopheno late, chemo etc.?, or steroids in last 2 weeks? NO7. Prearranged Closure? NO - Notes:8. Have a ride home? YES - Notes: PRE PROCEDURE1. Patient Name and confirmed with medical recordMasamanta Adam RN2. Allergies documented and reviewed.Alice Adam RN3. Pathology report reviewed with patient.Kelly Devi MD4. Surgical consent is confirmed for accuracy and signatures.Kelly Devi MD5. Surgical site is marked with pen by surgeon, confirmed by patient using a mirror, and all other patient care providers prior to administration of pre-operative medications and local anesthesia.Chuy Worley MD6. Pre-operative medication is administered as ordered by surgeon.7. Pre-operative local anesthetic injected.ST CHUY Roy MD [facility] [place], [address], [facility] 02/10/2025 16:48:59 02/10/2025 text/html ROS as noted in the HPI Patient presents for a 4 week staple removal s/p mohs surgery on 01/09/2025 to remove BCC from the left lateral parietal scalp with a complex linear repair. CHUY WORLEY MD [address] [place], [address], [facility] 02/11/2025 15:58:10 OBGyn Episode No OBEpisode recorded.
--- OUTSIDE RECORDS SUMMARY | 2025-03-14 10:54 | XMS_ITS | Referral Summary ---
Author Organization [employer] ([place], [place], [place], [place], [place]) Address [address] [place] [address] Care Team Providers Care Driver Education Instructor Name Role Phone Cristian Zhu MD Primary [...] Date Clarence rded Speak language other than Maltese at home Not on file 05/19/2023 Want [...] Insurance AARP MEDICARE COMPLETE MAP Care Teams Driver Education Instructor Relationship Specialty Start Date End Date Cristian Zhu MD [address] [place] [address] PCP - General Adolescent Medicine 01/17/23
--- OUTSIDE RECORDS SUMMARY | 2025-03-14 10:54 | XMS_ITS | Clinical Summary ---
Author Organization 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 Encounters Date Type Department Care Team Description 01/15/2025 Community Orders Community [facility] [address] [place] [address] Jennifer Acosta, RAIL TRACK MAINTAINER Chronic relapsing pancreatitis (CMS/HCC) (Primary Dx) from Last 3 Months Family History Medical History Relation Name Comments [...] 11/10/2023 8:08 AM EDT Plan of Treatment Upcoming Encounters Date Type Department Care Team (Late st Contact Info) Description 03/31/2025 8:00 AM EST Appointment [facility] [address] [place] [address] Health Maintenance Due Date Last Done Comments [facility]-Bone Density Scan 1944 [facility]-Depression Screening 1944 [facility]-Medicare Annual Wellness (AWV) 1944 [facility]-/Child/Adol SDOH Screenings 1944 [facility]-HIB Vaccines (1 of 1 - Risk 1-dose series) 01/20/1946 [facility]- SDOH Screenings 1962 [facility]-Adult SDOH Screenings 1962 [facility]-Zoster Vaccines (1 of 2) 10/21/1963 [facility]-DTaP,Tdap,and Td Vaccines (1 - Tdap) 07/11/1996 07/10/1996 [facility]-RSV Vaccine: 60+ Years or (1 - 1-dose 75+ series) 10/21/2019 [id number]-89 Vaccine (2 - Minal risk series) 02/17/2021 [...] complete this topic Insurance MEDICARE Care Teams Front Desk Agent Relationship Specialty Start Date End Date Cristian Zhu MD [address] [place] [address] PCP - General 09/18/20 Pallavi Velasquez, KENNETH [address] [place] [address] Nurse Practitioner Neurosurgery 05/24/23
--- OUTSIDE RECORDS SUMMARY | 2025-03-14 10:54 | XMS_ITS | Clinical Summary ---
Author Organization [facility] Address [address] [place] [address] Phone Care Team Providers Care Parts Classifier Name Role Phone Unavailable Primary Care Provider [...] 1-d ose 75+ series) 10/21/2019 COVID-19 Vaccine (2024-2 6 season) 2025 Influenza Vaccine (#1) 2025 Hepatitis B Vaccine Aged Out No longe r eligible based on patient's age to complete this topic Meningococcal B Vaccine Aged Out No l onger eligible based on patient's age to complete this topic Insurance MEDICARE [place] PART A AND B [place] [id number]
--- OUTSIDE RECORDS SUMMARY | 2025-03-14 10:54 | XMS_ITS | Data Portability ---
Author Organization [facility] Address [address] [facility] [address] [place] [address] Assessment Encounter Date Assessment Date Assessment LastModified by Organization Details LastModified Time 02/10/2025 02/10/2025 POST-OPERATIVE 1. Team members confirm that all sharps are accounted for and safely contained prior to dressing application. ANNA Devi 2. Vitals signs are documented and acceptable for discharge. ANNA Devi 3. Photos have been taken and uploaded into the chart. ANNA Devi 4. Written post-operative instructions, prescriptions, and overnight dressing supplies are provided. ANNA Devi Dressing Appearance: dry, clean and intact Patient's Pain Level: 0 LOC: Alert DC Instruction sheets received by patient: YES Overnight supplies given: YES Patient discharged with: Self Other Notes: Not available 02/10/2025 13:13:18 Plan of Treatment Reminders Order Date Submit [...] By Organization Details Last Modified Time 04/16/2024 [id number] Instructed pt to monitor for changes and to call us for appointment with any changing or worrisome lesions. [email or web address] Not available 04/16/2024 14:05:40 02/10/2025 [id number] Patient had no issues or concerns at this time. [email or web address] Not available 02/10/2025 14:23:28 Reason for Referral None Reported. Results Created Date Observation Date Name Description Value Unit Range Abnormal Flag Note LastModifiedBy Organization Detail LastModifiedTime Result Notes None recorded. Procedures Surgical History Date Name Laterality Status Provider Name and Address Organization Details Recorded Time 5 Suture/Staple removal active Ave Leonel [facility] 03/03/2025 13:17:49 5 Suture/Staple removal completed [facility] 02/10/2025 14:22:49 5 Mohs 1 Lesion completed [facility] 02/10/2025 13:12:11 5 Mohs Repair: Complex Linear completed [facility] 02/10/2025 13:13:02 4 Destruction BN Lesions completed Willy Mikaela [facility] 04/16/2024 14:02:37 Imaging Results None recorded. Procedure Notes None recorded. Medical Equipment None Reported. Allergies Allergen ID Allergen Name Allergen Category Reaction Reaction Severity Criticality Documentation Date Start Date Code Code System Note Provider Name and Address Organization Details Recorded Time 176918 amoxicill in medicatio n Not available Not available Not available 01/09/2025 723 RxNorm Sera Love [facility] 09:40:40 775934 doxycycli ne Not available Not available Not available Not available 01/09/2025 3640 RxNorm Sera Love [facility] 09:40:54 877236 erythromy basim medicatio n Not available Not available Not available 01/09/2025 4053 RxNorm Sera Love [facility] 5 09:41:00 844490 pantopraz ole medicatio n Not available Not available Not available 01/09/2025 50828 RxNorm Sera Love [facility] 09:41:21 122028 Substance with sulfonami de structure and antibacte rial mechanism of action (substanc e) medicatio n Not available Not available Not available 01/09/2025 22534 8003 SNOMED Sera Love [facility] 5 09:41:25 069036 Nexium medicatio n Not available Not available Not available 01/09/2025 55245 9 RxNorm Sera Love [facility] 5 09:45:06 733632 clavulani c acid Not available Not available Not available Not available 01/09/2025 53284 RxNorm Sera Love [facility] 5 09:44:29 113885 dexlansop razole medicatio n Not available Not available Not available 01/09/2025 97975 6 RxNorm Sera Love [facility] 5 09:44:40 158403 esomepraz ole Not available Not available Not available Not available 01/09/2025 85560 2 RxNorm Sera Love [facility] 5 09:44:51 Medications Name Sig Start Date [...] and Address Organization Details Last Updated DateTime 01/09/2025 96.3 [degF] 65 /min 111/62 mm[Hg] Serasridhar Love [facility] 01/09/2025 09:38:12 Date Recorded Body temperature Heart rate Systolic And Diastolic Provider Name and Address Organization Details Last Updated DateTime 01/09/2025 97.5 [degF] 69 /min 139/74 mm[Hg] Ave Castaneda [facility] 01/09/2025 16:39:43 Date Recorded Body temperature Heart rate Systolic And Diastolic Provider Name and Address Organization Details Last Updated DateTime 02/10/2025 97.3 [degF] 73 /min 145/68 mm[Hg] Adriana Ornelas [facility] 02/10/2025 13:13:43 Date Recorded Body temperature Heart rate Systolic And Diastolic Provider Name and Address Organization Details Last Updated DateTime 02/10/2025 97.3 [degF] 80 /min 143/50 mm[Hg] Alice Adam [facility] 02/10/2025 08:42:08 Social History None recorded. Functional Status None recorded. Mental Status None recorded. Family History Nothing Reported. Medical History Condition Response Varicose Veins N Skin Problems N Autoimmune disease Y Squamous Cell Carcinoma N Basal Cell Carcinoma Y Skin Cancer Y Eczema N Melanoma N Other Skin Condition N Acne N Gynecological HistoryNo gynecological history recorded. Obstetrics History GPAL:G 0 P 0 0 0 0 Past Encounters Encounter ID Performer Location Encounter Start Date Encounter Closed Date Diagnosis/Indication Diagnosis SNOMED-CT Code Diagnosis ICD10 Code Diagnosis IMO Codes Diagnosis Note [id number] NIKKI CAREY MD [address] [place] [address] 04/16/2024 13:43:29 04/16/2024 14:33:16 Inflamed seborrheic keratosis 765073549 L82.0 Education then treated with LN; left crown of scalp x2pt tolerated welladvise d pt what to expect with freezing Epidermoid cyst 53450891 6 K09.8 vs milium.not bothersome to pt. Pt will consider excision. Discussed 30 min appt if she decides to proceed [id number] JELANI WORLEY MD [facility] [address] [place] [address] 01/09/2025 08:56:31 01/13/2025 13:58:33 [id number] MD LIANA QUINN [address] [address] [place] [address] 02/10/2025 08:26:07 02/13/2025 01:16:05 Basal cell carcinoma of scalp 244190634 C44.41 [id number] JELANI WORLEY MD [address] [address] 02/10/2025 14:08:20 02/12/2025 13:34:02 History of malignant neoplasm of skin 213147882 Z85.828 No evidence of recurrence . Discussed risk of recurrence and new skin cancers, so regular self exam and profession al skin checks are recommende d. Sun protection with broad spectrum SPF 30 sunscreen and broad-brim med hat is recommende d. Sun protection with SPF 30 broad spectrum sunscreen and protective gear discussed. Scar 271418821 L90.5 Surgical follow-up 82798 4000 Z48.02 437608 Health Concerns Section Related Observation LastModified by Organization Detai ls LastModified Time None Recorded Concern Status LastModified by Organization Details LastModified Time None Recorded Advance Directives Directive None Recorded Payers Insurance Date Sequence Insurance Name Policy Number Policy [place] Covered Member ID [place]ton Member ID Guarantor Name 02/07/2025 1 [place] Mei Crain [id number] 1 Mei Crain Notes Date Note Type Note Provider Name and Address Organization Details Recorded Time 4 text/html ROS as noted in the HPI New Patient - referred by Sharon Ramirez, RIDDLER OPERATOR 78 yo F presents for scalp lesion x 1 year approximately. It is scabby and itchy, non tender, no bleeding Denies any other new or changing lesions. Feels well today. Denies family history of malignant melanoma. NIKKI CAREY MD [address] [place] [address], [address], [facility] 04/16/2024 15:53:30 5 text/html PREOP CHECKLIST1. Pacemaker or Defibrillator? NO2. Artificial heart valve or joints? NO3. Pt currently on antibiotic? NO - Notes:4. History of bleeding, infection or complications with other surgeries?NO5. Med history, medications and allergies reviewed? YES6. Has pt taken Immunosuppressive meds (imuran, cyclosporine,mycopheno late, chemo etc.?, or steroids in last 2 weeks? NO7. Prearranged Closure? NO - Notes:8. Have a ride home? YES - Notes:Nirali Not Available [facility] 01/10/2025 14:54:59 5 text/html Patient presents for mohs surgery today [...] PROCEDURE1. Patient Name and confirmed with medical recordAlice Adam RN2. Allergies documented and reviewed.Alice Adam RN3. Pathology report reviewed with patient.Kelly Devi MD4. Surgical consent is confirmed for accuracy and signatures.Kelly Devi MD5. Surgical site is marked with pen by surgeon, confirmed by patient using a mirror, and all other patient care providers prior to administration of pre-operative medications and local anesthesia.Jelani Worley MD6. Pre-operative medication is administered as ordered by surgeon.7. Pre-operative local anesthetic injected.ST JELANI Roy MD [address] [place], [address], [facility] 02/10/2025 16:48:59 5 text/html ROS as noted in the HPI Patient presents for a 4 week staple removal s/p mohs surgery on 01/09/2025 to remove BCC from the left lateral parietal scalp with a complex linear repair. JELANI WORLEY MD [address] [place], [address], [facility] 02/11/2025 15:58:10 5 text/html ROS as noted in the HPI Patient presents for a 21day staple removal status post Mohs surgery on 02/10/2025 to midline vertex scalp to treat a basal cell carcinoma with a complex linear repair. Not Available Not Available Not Available OBGyn Episode No OBEpisode recorded.
--- OUTSIDE RECORDS SUMMARY | 2025-03-14 10:54 | XMS_ITS | Encounter Summary ---
Author Organization Healthcare Address [address] [place] [place] [address] Care Team Providers Care Nut Feeder Name Role Phone Cristian Zhu MD Primary Care Provider [phone] Pallavi Velasquez BENZENE WASHER OPERATOR Unavailable [phone] Reason for Referral * Imaging (Routine) - Pending Review Specialty Diagnoses / Procedures Referred By Contac t Referred To Contact Radiology Diagnoses Chronic relapsing pancreatitis (CMS/HCC) Procedures MR Abdomen w and wo IV Contrast Jennifer Acosta APRN [address] [facility] [address] [place] [address] Phone: tel: fax: Referral ID Status Reason Start Date Expiration Date V isits Requested Visits Authorized [id number] Pending Review 01/15/2025 07/17/2026 1 1 Encounter Details Date Type Department Care Team (Late st Contact Info) Description 01/15/2025 Community Orders Community Practice [address] [place] [address] Jennifer Acosta APRN [address] [place] [address] Chronic relapsing pancreatitis (CMS/HCC) (Primary Dx) Social History Tobacco Use Types Packs/Day Years Used Date Smoking Tobacco: Former Cigarettes Smokeless Tobacco: Never Alcohol Use Standard Drinks/Week Comments No 0 (1 standard drink = 0.6 oz pur e alcohol) Comments Unknown Sex and Gender Information Value Date Recorded Sex Assigned at Not on file Legal Sex Female 6:32 PM EDT Gender Identity Not on file Sexual Orientation Not on file documented as of this encounter Plan of Treatment Upcoming Encounters Date Type Department Care Team (Late st Contact Info) Description 03/31/2025 8:00 AM EST [facility]ointment [facility] [address] [place] [address] Scheduled Orders Name Type Priority Associated Diagnoses Orde r Schedule MR Abdomen w and wo IV Contrast Imaging Routine Chronic relapsing pancreatitis (CMS/HCC) Expected: 01/15/2025 (Approximate), Expires: 07/15/2026 documented as of this encounter Visit Diagnoses Diagnosis Chronic relapsing pancreatitis (CMS/HCC)- Primary Chronic pancreatitis documented in this encounter Additional Health Concerns Assessment Noted Time A fall risk assessment has been complete d for the patient 11/10/2023 8:15 AM EDT A Body Mass Index follow-up plan has been documented for the patient 11/19/2023 4:28 PM EDT documented as of this encounter Care Teams Nut Feeder Relationship Specialty Start Date End Date Cristian Zhu MD [address] [place] [address] PCP - General 09/18/20 Pallavi Velasquez APRN [address] [facility] [address] [place] [address] Nurse Practitioner Neurosurgery 05/24/23 documented as of this encounter
--- OUTSIDE RECORDS SUMMARY | 2025-03-14 10:54 | XMS_ITS | Continuity of Care Document ---
Author Organization [facility] LIANA Herrera [place] Address [address] [place] [address] Assessment Encounter Date Assessment Date Assessment LastModified [...] record ed. Patient TargetsNo targets recorded. Patient InstructionsNo instructions recorded. Reason for Referral None Reported. Procedures Surgical History Date Name Laterality Status Provider Name and Address Organization Details Recorded Time 5 Suture/Staple removal active Ave Castaneda [facility] 03/03/2025 13:17:49 Suture/Staple removal completed Adriana Ornelas [facility] 02/10/2025 14:22:49 5 Mohs 1 Lesion completed Adriana Ornelas [facility] 02/10/2025 13:12:11 5 Mohs Repair: Complex Linear completed Adriana Ornelas [facility] 02/10/2025 13:13:02 4 Destruction BN Lesions completed Willy Mikaela [facility] 04/16/2024 14:02:37 Imaging Results None recorded. Procedure Notes None recorded. Medical Equipment None Reported. Allergies Allergen ID Allergen Name Allergen Category Reaction Reaction Severity Criticality Documentation Date Start Date Code Code System Note Provider Name and Address Organization Details Recorded Time 810256 amoxicill in medicatio n Not available Not available Not available 01/09/2025 723 RxNorm Sera Love [facility] 5 09:40:40 903228 doxycycli ne Not available Not available Not available Not available 01/09/2025 3640 RxNorm Sera Love [facility] 5 09:40:54 337316 erythromy basim medicatio n Not available Not available Not available 01/09/2025 4053 RxNorm Sera Love [facility] 5 09:41:00 913406 pantopraz ole medicatio n Not available Not available Not available 01/09/2025 52461 RxNorm Sera Love [facility] 5 09:41:21 073497 Substance with sulfonami de structure and antibacte rial mechanism of action (substanc e) medicatio n Not available Not available Not available 01/09/2025 32332 8003 SNOMED Sera Love [facility] 5 09:41:25 655726 Nexium medicatio n Not available Not available Not available 01/09/2025 32858 9 RxNorm Srea Love [facility] 5 09:45:06 199362 clavulani c acid Not available Not available Not available Not available 01/09/2025 51978 RxNorm Sera Love [facility] 5 09:44:29 733766 dexlansop razole medicatio n Not available Not available Not available 01/09/2025 36306 6 RxNorm Sera Love [facility] 5 09:44:40 992352 esomepraz ole Not available Not available Not available Not available 01/09/2025 23514 2 RxNorm S[facility] [...] [degF] 73 /min 145/68 mm[Hg] Adriana Ornelas [facility] 02/10/2025 13:13:43 Date Recorded Body temperature Heart rate Systolic And Diastolic Provider Name and Address Organization Details Last Updated DateTime 02/10/2025 97.3 [degF] 80 /min 143/50 mm[Hg] Alice Adam [facility] 02/10/2025 08:42:08 Social History None [...] ICD10 Code Diagnosis IMO Codes Diagnosis Note [id number] CHUY WORLEY MD [address] [place] [address] 02/10/2025 08:26:07 02/13/2025 01:16:05 Basal cell carcinoma of scalp [id number] C44.41 [id number] CHUY WORLEY MD [address] [place] [address] 02/10/2025 14:08:20 02/12/2025 13:34:02 History of malignant neoplasm of skin [id number] Z85.828 No evidence of recurrence . Discussed risk of recurrence and new skin cancers, so regular self exam and profession al skin checks are recommende d. Sun protection with broad spectrum SPF 30 sunscreen and broad-brim med hat is recommende d. Sun protection with SPF 30 broad spectrum sunscreen and protective gear discussed. Scar [id number] L90.5 Surgical follow-up 02621 4000 Z48.02 [id number] Health Concerns Section Related Observation LastModified by Organization Detai ls LastModified Time None Recorded Concern Status LastModified by Organization Details LastModified Time None Recorded Payers Encounter Date Sequence Insurance Name Policy Number Policy Helton Covered Member ID Helton Member ID Guarantor Name 02/10/2025 1 [place] Mei Crain [id number] 1 Mei Crain Notes Date Note Type [...] Pre-operative local anesthetic injected.ST CHUY Roy MD [address] [place] [address], [phone], [facility] 02/10/2025 16:48:59 02/10/2025 text/html ROS as noted in the HPI Patient presents for a 4 week staple removal s/p mohs surgery on 01/09/2025 to remove BCC from the left lateral parietal scalp with a complex linear repair. CHUY WORLEY MD [address] [place] [address], [phone], [facility] 02/11/2025 15:58:10 OBGyn Episode No OBEpisode recorded.
--- OUTSIDE RECORDS SUMMARY | 2025-03-14 10:55 | XMS_ITS | Clinical Summary ---
Author Organization [employer] ([place], [place], [place], [place], [place]) Address [address] [place] [address] Care Team Providers Care Airport Screener Name Role Phone Cristian Zhu MD Primary Care Provider [phone] Allergies Active Allergy Reactions Criticality Noted Date [...] Smoking Tobacco: Former Cigarettes 0.5 50 1 2004 Smokeless Tobacco: Never Tobacco Cessation:Counseling Given: [...] Date Clarence rded Speak language other than Cameroonian at home Not on file 05/19/2023 Want [...] Insurance [employer] MEDICARE COMPLETE MAP Care Teams Airport Screener Relationship Specialty Start Date End Date Cristian Zhu MD [address] [place] [address] PCP - General Adolescent Medicine 01/17/23
[2025-03-14 11:11] LABS: Hematocrit 34.2 % (37.0-47.0); Hemoglobin 11.3 g/dL (12.2-16.2); Immature Granulocytes % 0.1 %; Mean Corpuscular HGB Conc 33.0 g/dL (31.8-35.4); Mean Corpuscular Hemoglobin 30.1 pg (27.0-31.2); Mean Corpuscular Volume 91.0 fl (81-99); Nucleated Red Blood Cells % 0 %; Platelet Count 218 K/mm3 (142-424); Red Blood Count 3.76 M/mm3 (4.20-5.40); Red Cell Distribution Width-SD 41.7 fL; White Blood Count 7.3 K/mm3 (4.8-10.8)
[2025-03-14 11:41] LABS: Alanine Aminotransferase 26 U/L (12-78); Albumin Level 4.5 g/dl (3.5-5.0); Albumin/Globulin Ratio 1.4 (1.1-1.8); Alkaline Phosphatase 97 U/L (38-126); Anion Gap 12.4 mEq/L (5-15); Aspartate Amino Transferase 32 U/L (14-36); Bilirubin,Total 0.5 mg/dl (0.2-1.3); Blood Urea Nitrogen 20 mg/dl (7-17); Calcium 9.7 mg/dl (8.4-10.2); Carbon Dioxide 27 mmol/L (22.0-30.0); Chloride 103 mmol/L (98-107); Creatinine,Serum 0.90 mg/dl (0.52-1.04); Estimated Glomerular Filt Rate 60 ml/min (>60); GFR (African American) 73 ML/MIN (>60); Globulin 3.3 g/dL (1.3-3.2); Glucose 117 mg/dl (74-100); Potassium 4.4 mmoL/L (3.5-5.1); Sodium 138 mmol/L (136-145); Total Protein,Serum 7.8 g/dl (6.3-8.2)
== END 2025-03-14 23:59 | disposition home or self-care (01) ==
LOC: INF 10:51
PROVIDERS: Visit Provider Internal Medicine Medical Oncology
DX: C83.30 Diffuse large B-cell lymphoma, unspecified site (principal)
CPT/HCPCS: 36415; 80053; 83615; 85025

== ENCOUNTER 2025-03-26 06:02 | Day surgery (SDC) | payer MEDICARE, SELFPAY ==
--- NOTE | 2025-03-21 10:23 | EXP.HP ---
History of Present Illness *Admission Date: 03/26/25 *History of present illness: Mrs. Crain is an 79-year-old female who is here for diagnostic and EGD and colonoscopy. The patient has had long-term digestive difficulties. She does have persistent GERD and dyspepsia. The patient has never had an EGD. The patient did have a CAT scan of the abdomen and pelvis that showed calcifications in the head and uncinate process of the pancreas suggestive of chronic pancreatitis. She has had multiple imaging studies. She does have constipation that alternates with diarrhea. She is having left lower quadrant abdominal discomfort as well as epigastric discomfort. She reports early satiety. Her fecal elastase testing was normal (greater than 800 mcg/g). She does have normal liver chemistries. She does have chronic borderline anemia with hemoglobin 11.3 and hematocrit 34.2. Her last colonoscopy was with Dr. Dg Leahy M.D. in 2019. The examination is deemed medically necessary for diagnostic EGD and colonoscopy. The patient has been seen, interviewed and examined prior to the procedure by both myself and the anesthesia provider. [facility] Disclaimer: The information contained in this section may have been updated after the patient was seen, as this information can be updated by other users. Medical History GERD (gastroesophageal reflux disease) History of impacted cerumen Hearing difficulty of both ears Port-A-Cath in place Hearing Loss Impacted cerumen of left ear COVID-19 Fever Fever of unknown origin UTI (urinary tract infection) Dyspnea Difficulty in swallowing Pathologic lumbar vertebral fracture Pyelonephritis Lymphoma DLBCL (diffuse large B cell lymphoma) History of carotid artery stenosis FH: cholecystectomy H/O coronary angiogram Hypertension Hyperlipidemia Anxiety Surgical History History of tonsillectomy and adenoidectomy History of cholecystectomy Tubal ligation status History of right-sided carotid endarterectomy Family History Other Cancer Family history of hyperlipidemia Family history of hypertension Social History (Updated 03/26/25 @ 06:37 by Ines Hdez RN) Smoking Status: Former smoker how long ago did patient quit smokin years ago second hand exposure: No alcohol intake: never substance use type: denies use current occupational status: retired Travel in the last 8 weeks?: None household members: spouse housing: house current occupational exposures/hazards: No caffeine: No Have you lived/traveled outside US in past 30 days?: No Contact w/someone who lives/traveled outside US past 30 days?: No Exposure to someone with infectious disease in past 14 days?: No Do you have a fever (greater than 100.4 F or 38 C)?: No Have you tested positive for COVID-19?: No Exposed to someone with COVID-19 in past 14 days?: No Do you have a sore throat?: No Do you have a cough?: No Do you have any weakness?: No Do you have any diarrhea?: No Are you experiencing any unusual bleeding?: No Do you have any muscle aches/pain?: No Do you have any abdominal pain?: No Are you experiencing loss of taste or smell?: No Other Medical History Have you received the Flu Vaccine for this season: No Have you received the Pneumonia Vaccine: Yes Review of Systems Review of Systems Review of systems (narrative): Negative *Cardiovascular Comments: Negative *Gastrointestinal Comments: Negative *Genitourinary Comments: Negative *Musculoskeletal Comments: Negative *Neurologic Comments: Negative Meds Home Medications and Allergies Home Medications ?Medication ?Instructions ?Recorded ?Confirmed ?Type alprazolam 0.5 mg tablet 0.5 mg PO Q6HP PRN Anxiety 30 days 12/01/17 03/26/25 History ##120 aspirin 81 mg tablet,delayed 81 mg PO DAILY Heart Health 12/23/17 03/26/25 History release rosuvastatin 5 mg tablet 5 mg PO HS Cholesterol 05/29/18 03/26/25 History amlodipine 5 mg tablet 5 mg PO DAILY High Blood Pressure 12/30/22 03/26/25 History lisinopril 20 mg tablet 20 mg PO BID High Blood Pressure 03/21/23 03/26/25 History carvedilol 12.5 mg tablet 6.25 mg PO AM High Blood Pressure 05/07/23 03/26/25 History sennosides 8.6 mg-docusate sodium 1 tab PO DAILYP PRN Constipation 05/07/23 03/26/25 History 50 mg tablet omeprazole 20 mg capsule,delayed 20 mg PO DAILY 06/24/24 03/26/25 History release [id number] 140 gram-sod sulfate 9 500 ml PO .COMPLEX colonscopy #3 ea 03/13/25 03/26/25 Rx gram-NaCl 5.2gram-KCl-C oral pwdr packs (Plenvu) New Prescriptions to Start Prescriptions: Allergies Allergy/AdvReac Type Severity Reaction Status Date / Time esomeprazole (From Nexium) Allergy Intermediate Hives Verified 03/26/25 06:38 erythromycin base Allergy Mild Redness of Verified 03/26/25 06:38 Skin amoxicillin (From Augmentin) AdvReac Intermediate Nausea Verified 03/26/25 06:38 clavulanic acid (From AdvReac Intermediate Nausea Verified 03/26/25 06:38 Augmentin) doxycycline AdvReac Intermediate Nausea Verified 03/26/25 06:38 Sulfa (Sulfonamide AdvReac Intermediate Nausea Verified 03/26/25 06:38 Antibiotics) pantoprazole (From Protonix) AdvReac Unknown Vomiting Verified 03/26/25 06:38 dexlansoprazole (From AdvReac flu Verified 03/26/25 06:38 Dexilant) symptoms Exam *Routine HEENT Exam Head: Present normocephalic Eye: Present EOMI and PERRL ENT: Present mucous membranes moist *Routine Neck Exam Neck: Present supple *Routine Respiratory Exam Respiratory: Present CTA bilaterally *Routine Cardiovascular Exam Cardiovascular: Present RRR *Routine Abdominal Exam Abdominal: Present soft and normoactive bowel sounds; Absent tenderness *Routine Rectal Exam Rectal:: deferred *Routine Genitalia Exam Genitalia:: deferred *Routine Extremities Exam Extremities: Absent cyanosis, clubbing or edema *Routine Skin Exam Skin: Present warm; Absent rash *Routine Neurological Exam Neurological: Present alert and oriented X3 Assessment and Plan *Assessment and plan (1) Epigastric pain: Status: Acute Category: Medical Code(s): R10.13 - Epigastric pain (2) Early satiety: Status: Acute Category: Medical Code(s): R68.81 - Early satiety (3) Bright red blood per rectum: Status: Acute Category: Medical Code(s): K62.5 - Hemorrhage of anus and rectum (4) Hemorrhoids: Status: Acute Category: Medical Code(s): K64.9 - Unspecified hemorrhoids (5) Chronic cough: Status: Acute Category: Medical Code(s): R05.3 - Chronic cough (6) Globus sensation: Status: Acute Category: Medical Code(s): R09.A2 - Foreign body sensation, throat (7) Nausea: Status: Acute Category: Medical Code(s): R11.0 - Nausea (8) GERD (gastroesophageal reflux disease): Status: Acute Qualifiers: Esophagitis presence: without esophagitis Qualified Code(s): K21.9 - Gastro-esophageal reflux disease without esophagitis Category: Medical Code(s): K21.9 - Gastro-esophageal reflux disease without esophagitis (9) Bloating: Status: Acute Category: Medical Code(s): R14.0 - Abdominal distension (gaseous) (10) Fecal urgency: Status: Acute Category: Medical Code(s): R15.2 - Fecal urgency (11) Alternating constipation and diarrhea: Status: Acute Category: Medical Code(s): R19.8 - Other specified symptoms and signs involving the digestive system and abdomen Plan A/P: 1. Epigastric pain/dyspepsia with chronic cough, nausea, GERD and globus sensation for upper endoscopy and alternating constipation and diarrhea with hemorrhoidal bleeding for colonoscopy is the preprocedural diagnosis. The patient will be anesthetized/sedated using MAC sedation. The patient has been seen and examined. Cardiac and lung assessment prior to the examination is stable. Proceed with planned diagnostic EGD and colonoscopy.
[2025-03-25 10:54] VITALS: BMI 24.4
[2025-03-26 06:20] VITALS: BP 145/60; PULSE 86; RESP 16; TEMP 36.5; O2SAT 94; BMI 24.4
[2025-03-26] MEDS: LACTATED RINGERS 1000ML 1,000 ML 50 ML IV (06:45)
--- NOTE | 2025-03-26 06:45 | P.PCN_ITS ---
[facility] Procedure Note Date: 03/26/25 Time: 07:47 Procedure Note:: Upper Endoscopy Procedure Report: Esophagogastroduodenoscopy with cold biopsies and APC ablation Endoscopost: Brennan Cruz II, MD Referring Physician: GABRIELE Munson Date of Procedure: March 26, 2025 Equipment: Olympus GIF-1100 standard upper endoscope Sedation: MAC sedation Indications: Mrs. Crain is an 79-year-old female who is here for diagnostic and EGD and colonoscopy. The patient has had long-term digestive difficulties. She does have persistent GERD and dyspepsia. The patient has never had an EGD. The patient did have a CAT scan of the abdomen and pelvis that showed calcifications in the head and uncinate process of the pancreas suggestive of chronic pancreatitis. She has had multiple imaging studies. She does have constipation that alternates with diarrhea. She is having left lower quadrant abdominal discomfort as well as epigastric discomfort. She reports early satiety and gassiness but does not feel bloated. She reports no nausea. Her fecal elastase testing was normal (greater than 800 mcg/g). She does have normal liver chemistries. She does have chronic borderline anemia with hemoglobin 11.3 and hematocrit 34.2. She reports no bright red rectal bleeding. Her last colon oscopy was with Dr. Dg Leahy M.D. in 2019. She is not aware that she has ever had a prior EGD. She has had GERD since the 1980s when she was diagnosed with scleroderma and had been on corticosteroids. The examination is deemed medically necessary for diagnostic EGD and colonoscopy. Procedure: Prior to the procedure, a history and physical exam was performed, and patient's medications and allergies were reviewed. The risks, benefits and alternatives of the sedation and procedure were discussed with the patient. All questions were answered and informed consent was obtained. The patient was brought to the procedure room. Patient identification and proposed procedure were verified by the physician and the nurse. The patient was placed in a left lateral decubitus position and the scope was passed under direct vision. Throughout the procedure, the patient's blood pressure, pulse, and oxygen saturations were monitored continuously. The upper GI endoscopy was accomplished without difficulty. The patient tolerated the procedure well. Findings: The scope was passed directly into the upper esophagus and advanced to the third portion of the duodenum. The post bulbar duodenum and duodenal bulb were normal with normal mucosa and conniventes but there were 4 AVMs/angiodysplasias that were identified 1 of which had some minor heme. Each of the angiodysplasias was ablated/coagulated using APC. 2 biopsies were taken from the second portion of the duodenum for the disaccharidase assay. 2 biopsies were taken from the first portion of the duodenum and duodenal bulb to rule out celiac disease. The scope was withdrawn through a normal duodenal bulb and pylorus into the stomach. There was bile reflux with mild linear reactive gastropathy of the antrum. The body and fundus of the stomach were normal. Upon retroflexion there was a small 1 to 2 cm sliding hiatal hernia. Cold biopsies were taken from the antrum. The scope was then withdrawn into the esophagus. There was no evidence of reflux esophagitis or Perez's. There were no rings or strictures. There were tertiary contractions and evidence of mild esophageal dysmotility. The remainder of the esophageal mucosa was normal. Impression: 1. Nonerosive GERD with mild esophageal dysmotility and very small sliding 1 to 2 cm hiatal hernia 2. Bile reflux with mild linear reactive gastropathy of antrum 3. 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 Even with normal fecal elastase, she does have evidence of chronic pancreatitis and may benefit from pancreatic digestive enzyme replacement (Creon). I will proceed with colonoscopy.
--- NOTE | 2025-03-26 06:45 | P.PCN_ITS ---
[facility] Procedure Note Date: 03/26/25 Time: 08:08 Procedure Note:: Colonoscopy Procedure Report: Colonoscopy with cold snare polypectomy and cold biopsies Endoscopist: Brennan Cruz II, MD Referring physician: GABRIELE Munson Date of Procedure: March 26, 2025 Equipment: Olympus [id number] adult colonoscope Sedation: MAC sedation Indication: Mrs. Crain is an 79-year-old female who is here for diagnostic and EGD and colonoscopy. The patient has had long-term digestive difficulties. She does have persistent GERD and dyspepsia. The patient has never had an EGD. The patient did have a CAT scan of the abdomen and pelvis that showed calcifications in the head and uncinate process of the pancreas suggestive of chronic pancreatitis. She has had multiple imaging studies. She does have constipation that alternates with diarrhea. She is having left lower quadrant abdominal discomfort as well as epigastric discomfort. She reports early satiety and gassiness but does not feel bloated. She reports no nausea. Her fecal elastase testing was normal (greater than 800 mcg/g). She does have normal liver chemistries. She does have chronic borderline anemia with hemoglobin 11.3 and hematocrit 34.2. She reports no bright red rectal bleeding. Her last colonoscopy was with Dr. Dg Leahy M.D. in 2019. She is not aware that she has ever had a prior EGD. She has had GERD since the 1980s when she was diagnosed with scleroderma and had been on corticosteroids. The examination is deemed medically necessary for diagnostic EGD and colonoscopy. Procedure: Prior to the procedure, a history and physical exam was performed, and patient's medications and allergies were reviewed. The risks, benefits and alternatives of the sedation and procedure were discussed with the patient. All questions were answered and informed consent was obtained. The patient was brought to the procedure room. Patient identification and proposed procedure were verified by the physician and the nurse. The patient was placed in a left lateral decubitus position and the scope was passed under direct vision. Throughout the procedure, the patient's blood pressure, pulse, and oxygen saturations were monitored continuously. The colonoscopy was accomplished without difficulty. The patient tolerated the procedure well. Findings: On digital rectal examination there was normal rectal tone. There were no external hemorrhoids. The colonoscope was introduced through the anal canal to the rectum and advanced to the cecum. The ileocecal valve and appendiceal orifice were identified. The scope was advanced a short distance into the ileum which appeared grossly normal. The scope was then withdrawn into the colon. There were 4 colon polyps (ascending x 3 (3, 4 and 8 mm) and descending x 1 (15 to 16 mm)). These were all removed via cold snare/Exacto snare polypectomy. The largest polyp was very flat and removed in piecemeal. The remaining cecum, ascending and transverse colon and mucosa were grossly normal. There were some small angiodysplasias/AVMs in the right colon that were nonbleeding. Random cold biopsies were taken from the right colon to rule out microscopic colitis. There were scattered diverticuli throughout the descending and sigmoid colon (LEFT colon). The rectum itself was normal. Upon retroflexion within the rectum there were grade 1-2 internal hemorrhoids. The preparation was excellent throughout with Mchenry Preparation Score of 9. The cecal time was 17 minutes. Impression: 1. Flat adenomatous descending colon polyp (15 to 16 mm) 2. 3 additional diminutive colon polyps 3. Left-sided diverticulosis 4. Grade 1-2 internal hemorrhoids 5. Right colonic angiodysplasias/AVMs Plan: I will follow-up the polyp histology. Based upon the size and nature of the larger adenomatous polyp we will need to determine whether further surveillance is warranted. I would encourage bulking psyllium fiber supplementation.
--- NOTE | 2025-03-26 07:01 | EXP.ANES.CKL ---
[facility] Disclaimer: The information contained in this section may have been updated after the patient was seen, as this information can be updated by other users. Medical History GERD (gastroesophageal reflux disease) History of impacted cerumen Hearing difficulty of both ears Port-A-Cath in place Hearing Loss Impacted cerumen of left ear COVID-19 Fever Fever of unknown origin UTI (urinary tract infection) Dyspnea Difficulty in swallowing Pathologic lumbar vertebral fracture Pyelonephritis Lymphoma DLBCL (diffuse large B cell lymphoma) History of carotid artery stenosis FH: cholecystectomy H/O coronary angiogram Hypertension Hyperlipidemia Anxiety Surgical History History of tonsillectomy and adenoidectomy History of cholecystectomy Tubal ligation status History of right-sided carotid endarterectomy Family History Other Cancer Family history of hyperlipidemia Family history of hypertension Social History (Updated 03/26/25 @ 06:37 by Ines Hdez RN) Smoking Status: Former smoker how long ago did patient quit smokin years ago second hand exposure: No alcohol intake: never substance use type: denies use current occupational status: retired Travel in the last 8 weeks?: None household members: spouse housing: house current occupational exposures/hazards: No caffeine: No Have you lived/traveled outside [place] in past 30 days?: No Contact w/someone who lives/traveled outside [place] past 30 days?: No Exposure to someone with infectious disease in past 14 days?: No Do you have a fever (greater than 100.4 F or 38 C)?: No Have you tested positive for COVID-19?: No Exposed to someone with COVID-19 in past 14 days?: No Do you have a sore throat?: No Do you have a cough?: No Do you have any weakness?: No Do you have any diarrhea?: No Are you experiencing any unusual bleeding?: No Do you have any muscle aches/pain?: No Do you have any abdominal pain?: No Are you experiencing loss of taste or smell?: No [facility] Anesthesia Checklist Patient Identification Patient Identification: Arm Band and Family Structural Data Admitted From: Home Planned Operative Procedure/s: EGD/Colonoscopy\ Consent for Planned Operative Procedure(s) Verified: Yes Verified Documents: Surgical Consent and History and Physical NPO Status Verified Time NPO: 00:00 Additional verifications Patient : No Anesthesia Reactions: No Hx Blood Transfusions: No Blood Transfusion Reaction: No Cephalosporin Allergy: No Previous Colonoscopy: Yes Airway Assessment Mallampati Score:: Class II C-Spine Mobility Assessed: Yes TMJ Mobility Assessed: Yes Neurological Assessment Level of Consciousness: Awake, Alert, Appropriate and Follows Commands Hx Seizures: No Numbness or tingling in extremities: No Anesthesia Plan Anesthesia Risk discussed: Yes ASA Class: II Anesthesia Type: MAC Preoperative Comments Pre-Operative Comments: Sometimes SLOW to awaken.
[2025-03-26 08:11] VITALS: BP 99/40; PULSE 85; RESP 18; TEMP 36.4; O2SAT 95
[2025-03-26 08:21] VITALS: BP 109/39; PULSE 80; RESP 18; O2SAT 94
[2025-03-26 08:31] VITALS: BP 95/45; PULSE 80; RESP 18; O2SAT 96
[2025-03-26 08:45] VITALS: BP 106/42; PULSE 82; RESP 18; O2SAT 97
[2025-03-31 14:11] LABS: Interpretation Notes (.); Lactase 47.9 (>/= 14.0); Palatinase 23.17 (>/= 8.5); Reference Notes (.); Sucrase 83.91 (>/= 25.0)
== END 2025-03-26 08:45 | disposition home or self-care (01) ==
PROVIDERS: PCP Nurse Practitioner Family; Visit Provider Internal Medicine Gastroenterology
PROC: 0DJ08ZZ Inspection of Upper Intestinal Tract, Via Natural or Artificial Opening Endoscopic (ICD-10-PCS; CPT 45378; principal; 2025-03-26 07:30)
DX: K31.811 Angiodysplasia of stomach and duodenum with bleeding (principal); K29.50 Unspecified chronic gastritis without bleeding; D12.2 Benign neoplasm of ascending colon; K51.40 Inflammatory polyps of colon without complications; K21.9 Gastro-esophageal reflux disease without esophagitis; K55.20 Angiodysplasia of colon without hemorrhage; K59.00 Constipation, unspecified; K31.89 Other diseases of stomach and duodenum; K44.9 Diaphragmatic hernia without obstruction or gangrene; K86.89 Other specified diseases of pancreas; K57.30 Diverticulosis of large intestine without perforation or abscess without bleeding; K64.1 Second degree hemorrhoids; D64.9 Anemia, unspecified; Z87.891 Personal history of nicotine dependence
CPT/HCPCS: 43239; 43270; 45380; 45385; 82657; 88305; C2618; J2003; J2704; J7120